=== PATIENT | male | born 1955 | race Caucasian/White ===

== ENCOUNTER 2017-03-25 12:04 | Inpatient (IN) | payer OTHER, MEDICARE ==
[~2017-03-25] VITALS: Ht 182.9 cm; Wt 87.8 kg
[~2017-03-25 12:04] MED LIST: BACT800T5 PO; LEVEMIR SC; LISI2.5T55 PO; NOVONP2 SQ
[2017-03-25 12:07] VITALS: BP 146/63; PULSE 80; RESP 16; TEMP 98.1; O2SAT 98
[2017-03-25 12:43] LABS: AUTOMATED NEUTROPHIL # 5.5 TH/MM3 (1.8-7.7); BASOPHIL # 0.1 TH/MM3 (0-0.2); BASOPHIL % 1.1 % (0.0-2.0); EOSINOPHIL # 0.2 TH/MM3 (0-0.4); EOSINOPHIL % 2.2 % (0.0-4.0); HEMATOCRIT 31.8 % (39.0-51.0); HEMO FLAGS DIFF FINAL; LYMPH % 19.3 % (9.0-44.0); LYMPHOCYTE # 1.5 TH/MM3 (1.0-4.8); MEAN CELL VOLUME 79.3 FL (80.0-100.0); MEAN CORPUSCULAR HEMOGLOBIN 26.2 PG (27.0-34.0); MEAN CORPUSCULAR HGB CONC 33.1 % (32.0-36.0); MONO % 5.6 % (0.0-8.0); NEUT % 71.8 % (16.0-70.0); PLATELET COUNT 587 TH/MM3 (150-450); RED BLOOD COUNT 4.01 MIL/MM3 (4.50-5.90); WHITE BLOOD COUNT 7.7 TH/MM3 (4.0-11.0)
[2017-03-25 13:13] LABS: BICARBONATE 26.3 MEQ/L (21.0-32.0); POTASSIUM 4.3 MEQ/L (3.5-5.1)
[2017-03-25] MEDS ORDERED: LEVEMIR SQ (14:23)
[2017-03-25] MEDS ORDERED: HUMALOG SQ (14:23)
--- NOTE | 2017-03-25 14:23 | PD ---
HPI Chief Complaint: Lump, Cyst, Hernia Time Seen by Provider: 14:19 Travel History International Travel<30 days: No Contact w/Intl Traveler<30days: No Traveled to known affect area: No History of Present Illness HPI 61-year-old male presents to the emergency department for evaluation of left foot infection. He was sent here by Dr. Johnson, fisher spear. He was sent here for admission to hospitalist for MRI with and without contrast left foot, IV antibiotics. He needs a possible osteomyelitis workup. The patient reports a history of toe infection in 2007. He had reconstructive surgery in 2014 with rods placed in his left foot. He states that he has noticed worsening swelling within the past month. He states he had a blister the top of his left foot which ruptured on Tuesday of this week. He called his fisher spear, Dr. Johnson, who made an appointment for today. Upon seeing him today, Dr. Johnson irrigated and cleaned the wound and sent him to the emergency department for admission. He has not been on antibiotics at this point. Patient is diabetic with peripheral neuropathy. He has no pain secondary to the peripheral neuropathy. Dr. Johnson would like admission to hospital, MRI with and without , IV antibiotics. PFSH Past Medical History Diabetes: Yes Neurologic: Yes (diabetic neuropathy) Social History Alcohol Use: No Tobacco Use: No Substance Use: No Allergies-Medications (Allergen,Severity, Reaction): Coded Allergies: Zosyn (Verified Allergy, Unknown, 05/25/16) Reported Meds & Prescriptions Reported Meds & Active Scripts Active Reported Levemir Inj (Insulin Detemir) 1,000 unit/ 10 ML Vial 40 Units SQ BID Do not mix with any other Insulin. Humalog Inj (Insulin Human Lispro) 1,000 Unit/10 Ml Vial 1-9 Units SQ ACHS Max dose at bedtime:( )units; sugars< 70,(0)units; sugars 150-199,(1)unit; sugars 200-249,(3)units; sugars 250-299,(5)units; sugars 300-349,(7)units; sugars more than 349,(9)units. Review of Systems Except as stated in HPI: all other systems reviewed are Neg Physical Exam Narrative GENERAL: Well-nourished, well-developed male patient, ambulatory. Afebrile. SKIN: Focused skin assessment warm/dry. Patient has a 4 cm x 2 cm ulcer to the left dorsal foot. No current drainage. HEAD: Normocephalic. Atraumatic. EYES: No scleral icterus. No injection or drainage. NECK: Supple, trachea midline. No JVD or lymphadenopathy. CARDIOVASCULAR: Regular rate and rhythm without murmurs, gallops, or rubs. Left pedal pulse is 2+. RESPIRATORY: Breath sounds equal bilaterally. No accessory muscle use. Lungs sounds are clear to auscultation. GASTROINTESTINAL: Abdomen soft, non-tender, nondistended. MUSCULOSKELETAL: No cyanosis. Left lower extremity has 2+ edema. BACK: Nontender without obvious deformity. No CVA tenderness. Data Data Last Documented VS Vital Signs Date Time Temp Pulse Resp B/P Pulse Ox O2 Delivery O2 Flow Rate FiO2 03/25/17 14:36 98.2 73 18 140/67 100 Room Air Orders Complete Blood Count With Diff (03/25/17 12:17) Basic Metabolic Panel (Bmp) (03/25/17 12:17) Lactic Acid (03/25/17 12:17) C-Reactive Protein (Crp) (03/25/17 14:16) Westergren Sedimentation Rate (03/25/17 14:16) Mri Foot W&W/O Contrast (03/25/17 ) Us Leg Venous Doppler (03/25/17 ) Blood Culture (03/25/17 14:16) Vancomycin Inj (Vancomycin Inj) (03/25/17 14:30) Consult Podiatry (03/25/17 ) Place In Observation (03/25/17 ) Vital Signs (Adult) Q4H (03/25/17 16:43) Activity Oob Ad Oriana (03/25/17 16:43) Diet 1800 Ada Cons Carb (03/25/17 Dinner) Sodium Chloride 0.9% Flush (Ns Flush) (03/25/17 16:45) Sodium Chloride 0.9% Flush (Ns Flush) (03/25/17 21:00) Ondansetron Inj (Zofran Inj) (03/25/17 16:45) Enoxaparin Inj (Lovenox Inj) (03/25/17 16:45) Naloxone Inj (Narcan Inj) (03/25/17 16:45) (Hub Use Only)Inp Phy Cons/Ref (03/25/17 ) Admit Order (Ed Use Only) (03/25/17 16:47) Labs Laboratory Tests Test 03/25/17 03/25/17 12:25 14:34 White Blood Count 7.7 TH/MM3 Red Blood Count 4.01 MIL/MM3 Hemoglobin 10.5 GM/DL Hematocrit 31.8 % Mean Corpuscular Volume 79.3 FL Mean Corpuscular Hemoglobin 26.2 PG Mean Corpuscular Hemoglobin 33.1 % Concent Red Cell Distribution Width 15.0 % Platelet Count 587 TH/MM3 Mean Platelet Volume 6.6 FL Neutrophils (%) (Auto) 71.8 % Lymphocytes (%) (Auto) 19.3 % Monocytes (%) (Auto) 5.6 % Eosinophils (%) (Auto) 2.2 % Basophils (%) (Auto) 1.1 % Neutrophils # (Auto) 5.5 TH/MM3 Lymphocytes # (Auto) 1.5 TH/MM3 Monocytes # (Auto) 0.4 TH/MM3 Eosinophils # (Auto) 0.2 TH/MM3 Basophils # (Auto) 0.1 TH/MM3 CBC Comment DIFF FINAL Differential Comment Erythrocyte Sedimentation Rate 83 mm/hr Sodium Level 141 MEQ/L Potassium Level 4.3 MEQ/L Chloride Level 108 MEQ/L Carbon Dioxide Level 26.3 MEQ/L Anion Gap 7 MEQ/L Blood Urea Nitrogen 19 MG/DL Creatinine 1.23 MG/DL Estimat Glomerular Filtration 60 ML/MIN Rate Random Glucose 71 MG/DL Lactic Acid Level 1.2 mmol/L Calcium Level 9.0 MG/DL C-Reactive Protein 6.70 MG/DL [facility] Medical Decision Making Medical Screen Exam Complete: Yes Emergency Medical Condition: Yes Medical Record Reviewed: Yes Interpretation(s) US - CONCLUSION: No evidence of deep venous thrombosis within the left lower extremity. Enlarged left groin node measuring 3.6 cm in size. Differential Diagnosis Diabetic foot infection versus osteomyelitis versus DVT versus sepsis Narrative Course 61-year-old male presents to the emergency department sent by his fisher spear, Dr. Johnson, for admission, IV antibiotics, MRI for possible osteomyelitis. CBC shows normal WBC of 7.7. Sedimentation rate is 83. BUN is 19, cutting 1.23. Lactic acid is 1.2. CRP is 6.70. Venous Doppler ultrasound is negative for DVT. MRI is pending. Patient is given vancomycin 1 g IV. [facility] is paged for admission. Dr. Jones accepted admission. Diagnosis Primary Impression: Diabetic foot ulcer Qualified Code: E11.621 - Diabetic ulcer of left midfoot associated with type 2 diabetes mellitus, with fat layer exposed Admitting Information Admitting Physician Requests: Observation Keri Hussein Mar 25, 2017 14:22
[2017-03-25] MEDS ORDERED: VANCOMYCIN INJ 1,000 MG in SODIUM CHLOR 0.9% 250 ML INJ 250 ML IV ONE (14:30)
[2017-03-25 14:36] VITALS: BP 140/67; PULSE 73; RESP 18; TEMP 98.2; O2SAT 100
--- NOTE | 2017-03-25 15:09 | RADRPT ---
EXAM DATE/TIME: 03/25/2017 14:34 [facility] COMPARISON: No previous studies available for comparison. EXTERNAL COMPARISON : [facility], US SEGMENTAL PRESSURES - LEGS, November 29, 2016 INDICATIONS : Left leg edema. MEDICAL HISTORY : Diabetes. Neuropathy. SURGICAL HISTORY : Reconstructive surgery, left foot with rods. ENCOUNTER: Initial ACUITY: 1 month PAIN SCORE: 2/10 LOCATION: Left leg. TECHNIQUE: Venous ultrasound of the leg was performed from the inguinal ligament to the proximal calf. Real-time, color Doppler and spectral tracing, compression and augmentation techniques were us ed. FINDINGS: There is normal compressibility of the deep venous system from the inguinal region to the proximal ca lf. No echogenic clot is seen in the lumen of the common femoral, femoral, popliteal, and posterior tibial veins. There is a normal response of the venous system to proximal and distal augmentation an d respiration. There is an enlarged left groin lymph node measuring 3.6 x 2.5 x 2.0 cm. CONCLUSION: No evidence of deep venous thrombosis within the left lower extremity. Enlarged left groin node measuring 3.6 cm in size. Johnie Benson MD on March 25, 2017 at 15:03 Board Certified Radiologist. This report was verified electronically.
[2017-03-25] MEDS ORDERED: NALOXONE HCL 0.4 MG/ML AMP IV PRN ×2 (16:45→17:45)
[2017-03-25] MEDS ORDERED: ONDANSETRON HCL 4 MG/2 ML VIAL IVP PRN (16:45)
[2017-03-25] MEDS ORDERED: SODIUM CHLORIDE 0.9% FLUSH 10 ML FLUSH IV FLUSH PRN (16:45)
--- NOTE | 2017-03-25 16:50 | HHI.HP ---
[facility] Mejia Diaz M.D. Admission Diagnosis Diagnoses: Chief Complaint: My wood inspector told me to come in. Travel History International Travel<30 Days: No Contact w/Intl Traveler <30 Da: No Traveled to Known Affected Are: No History of Present Illness 61-year-old white male with a history of insulin-dependent diabetes mellitus with sent here to the emergency room by his podiatry after being seen in the clinic for a large left blister that had ruptured a week ago causing some ulceration. The area was debrided in the office and was sent to emergency room for an MRI to determine if patient has osteomyelitis due to his significant history of previous left foot ulcerations requiring significant foot reconstruction in 2014 due to history of diabetic neuropathy. He denies any recent trauma or injury to the area. He has not had any chills or fever. He states overall he is currently on LEVEMIR 40 units subcutaneous twice a day with a NovoLog sliding scale insulin. His blood sugar overall has been adequately controlled at home. Review of Systems Constitutional: DENIES: Fatigue, Fever, Chills, Change in appetite Endocrine: DENIES: Heat/cold intolerance Eyes: DENIES: Blurred vision, Eye pain, Vision loss Ears, nose, mouth, throat: DENIES: Hearing loss, Nasal discharge, Throat pain, Ear Pain, Sinus Pain Respiratory: DENIES: Cough, Shortness of breath Cardiovascular: DENIES: Chest pain, Palpitations, Dyspnea on Exertion, Lower Extremity Edema Gastrointestinal: DENIES: Abdominal pain, Black stools, Bloody stools, Constipation, Diarrhea, Nausea, Vomiting Musculoskeletal: DENIES: Joint pain, Muscle aches, Stiffness Integumentary: DENIES: Rash Hematologic/lymphatic: DENIES: Bruising, Lymphadenopathy Immunologic/allergic: DENIES: Eczema Neurologic: DENIES: Headache, Localized weakness, Paresthesias Psychiatric: DENIES: Anxiety, Depression, Suicidal Ideation No feeling bilateral lower legs due to diabetic neuropathy. Previous left lower leg ulceration Past Family Social History Past Medical History Insulin-dependent diabetes mellitus Diabetic neuropathy Past Surgical History Left third toe indication due to infection Left foot reconstruction with rods in 2015 Reported Medications Levemir Inj (Insulin Detemir) 1,000 unit/ 10 ML Vial 40 Units SQ BID Do not mix with any other Insulin. Humalog Inj (Insulin Human Lispro) 1,000 Unit/10 Ml Vial 1-9 Units SQ ACHS Max dose at bedtime:( )units; sugars< 70,(0)units; sugars 150-199,(1)unit; sugars 200-249,(3)units; sugars 250-299,(5)units; sugars 300-349,(7)units; sugars more than 349,(9)units. Allergies: Coded Allergies: Zosyn (Verified Allergy, Unknown, 05/25/16) Family History Patient was adopted Social History Does not smoke cigarettes or drink alcohol. Physical Exam Vital Signs Vital Signs Date Time Temp Pulse Resp B/P Pulse Ox O2 Delivery O2 Flow Rate FiO2 03/25/17 14:36 98.2 73 18 140/67 100 Room Air 03/25/17 14:18 77 18 03/25/17 12:07 98.1 80 16 146/63 98 Physical Exam GENERAL: This is a well-nourished, well-developed patient, in no apparent distress. SKIN: Left dorsal overlying the radicular foot wound with surrounding erythema with no active drainage. HEAD: Atraumatic. Normocephalic. No temporal or scalp tenderness. EYES: Pupils equal round and reactive. Extraocular motions intact. No scleral icterus. No injection or drainage. ENT: Nose without bleeding, purulent drainage or septal hematoma. Throat without erythema, tonsillar hypertrophy or exudate. Uvula midline. Airway patent. NECK: Trachea midline. No JVD or lymphadenopathy. Supple, nontender, no meningeal signs. CARDIOVASCULAR: Regular rate and rhythm RESPIRATORY: Clear to auscultation. Breath sounds equal bilaterally. No wheezes , rales, or rhonchi. GASTROINTESTINAL: Abdomen soft, non-tender, nondistended. No hepato-splenomegaly , or palpable masses. No guarding. MUSCULOSKELETAL: Extremities without clubbing, cyanosis, or edema. Left lower extremity swelling with no palpable cords. NEUROLOGICAL: Awake and alert to person place time and situation. Cranial nerves II through XII intact. Motor and sensory grossly within normal limits. Five out of 5 muscle strength in all muscle groups. Normal speech. Laboratory Laboratory Tests Test 03/25/17 03/25/17 12:25 14:34 White Blood Count 7.7 Red Blood Count 4.01 Hemoglobin 10.5 Hematocrit 31.8 Mean Corpuscular Volume 79.3 Mean Corpuscular Hemoglobin 26.2 Mean Corpuscular Hemoglobin 33.1 Concent Red Cell Distribution Width 15.0 Platelet Count 587 Mean Platelet Volume 6.6 Neutrophils (%) (Auto) 71.8 Lymphocytes (%) (Auto) 19.3 Monocytes (%) (Auto) 5.6 Eosinophils (%) (Auto) 2.2 Basophils (%) (Auto) 1.1 Neutrophils # (Auto) 5.5 Lymphocytes # (Auto) 1.5 Monocytes # (Auto) 0.4 Eosinophils # (Auto) 0.2 Basophils # (Auto) 0.1 CBC Comment DIFF FINAL Differential Comment Erythrocyte Sedimentation Rate 83 Sodium Level 141 Potassium Level 4.3 Chloride Level 108 Carbon Dioxide Level 26.3 Anion Gap 7 Blood Urea Nitrogen 19 Creatinine 1.23 Estimat Glomerular Filtration 60 Rate Random Glucose 71 Lactic Acid Level 1.2 Calcium Level 9.0 C-Reactive Protein 6.70 Date/Time Procedure Status Source Growth 03/25/17 14:34 Aerobic Blood Culture Received Blood Peripheral Pending 03/25/17 14:34 Anaerobic Blood Culture Received Blood Peripheral Pending Result Diagram: 03/25/17 1225 03/25/17 1225 Imaging Last Impressions Lower Extremity Ultrasound 03/25/17 0000 Signed Impressions: Service Date/Time: Saturday, March 25, 2017 14:34 - CONCLUSION: No evidence of deep venous thrombosis within the left lower extremity. Enlarged left groin node measuring 3.6 cm in size. Johnie Benson MD Assessment and Plan Problem List: (1) Charcot foot due to diabetes mellitus ICD Code: E11.610 Status: Acute Assessment and Plan 1. Left acute charcot foot infected ulceration status post office debridement at this time MRI left foot performed to rule osteomyelitis. IV vancomycin started in emergency room. Continue local wound care. Discuss with Dr. Newsome podiatry who feels this breakdown of previous reconstruction of the charcoal foot and high risk for bone infection. He will need further inpatient treatment and surgical intervention. 2. Insulin-dependent diabetes mellitusresume home insulin regimen, blood sugar monitoring with sliding scale insulin. 3. DVT prophylaxisLovenox Physician Certification 2 Midnight Certification Type: Admission for Inpatient Services Order for Inpatient Services The services are ordered in accordance with Medicare regulations or non- Medicare payer requirements, as applicable. In the case of services not specified as inpatient-only, they are appropriately provided as inpatient services in accordance with the 2-midnight benchmark. Estimated LOS (days): 4 days is the estimated time the patient will need to remain in the hospital, assuming treatment plan goals are met and no additional complications. Post-Hospital Plan: Not yet determined Marcella Jones MD Mar 25, 2017 16:50
[2017-03-25] MEDS ORDERED: Vancomycin Consult Pharmacy 1 EA OTHER SCH (17:00)
[2017-03-25] MEDS ORDERED: GLUCAGON 1 MG/ML VIAL OTHER PRN (17:00)
[2017-03-25] MEDS ORDERED: DEXTROSE 50% IN WATER 50 ML VIAL(D50) IV PRN (17:00)
[2017-03-25] MEDS ORDERED: MAGNESIUM HYDROXIDE SUSP 30 ML CUP PO PRN (17:45)
[2017-03-25] MEDS ORDERED: LACTULOSE SYRUP 20 GM/30 ML CUP PO PRN (17:45)
[2017-03-25] MEDS ORDERED: SENNOSIDES 8.6 MG TAB PO PRN (17:45)
[2017-03-25] MEDS ORDERED: ACETAMINOPHEN/HYDROcodone 325 MG/7.5 MG TAB PO PRN (17:45)
[2017-03-25] MEDS ORDERED: BISACODYL 10 MG SUPP RECTAL PRN (17:45)
[2017-03-25] MEDS ORDERED: ACETAMINOPHEN 325 MG TAB PO PRN (17:45)
--- NOTE | 2017-03-25 17:57 | RADRPT ---
EXAM DATE/TIME: 03/25/2017 17:35 [facility] COMPARISON: No previous studies available for comparison. INDICATIONS : Left ankle pain, swelling MEDICAL HISTORY : None. SURGICAL HISTORY : Left foot rods. ENCOUNTER: Initial ACUITY: 1 month PAIN SCORE: 3/10 LOCATION: Left entire ankle FINDINGS: Extensive hardware is seen bridging the hindfoot to the forefoot. There are erosive changes about th e tibial plafond with collapse of the talar dome. There is joint effusion evident. There is periosteal reaction along the course of the interosseous ligament. There is coalescence and collapse of the tarsals. Osteomyelitis is of strong consideration and will be difficult to exclude because of the artifact fro m the hardware. CONCLUSION: Markedly abnormal radiographs of the ankle. Correlation within in the old films woul d be of benefit. Arun Pedro MD FACR on March 25, 2017 at 17:52 Board Certified Radiologist. This report was verified electronically.
--- NOTE | 2017-03-25 17:59 | RADRPT ---
EXAM DATE/TIME: 03/25/2017 17:33 [facility] COMPARISON: No previous studies available for comparison. INDICATIONS : Open sore on plantar surface of left foot MEDICAL HISTORY : Diabetes mellitus type II. SURGICAL HISTORY : Third toe amputation, left foot. Left foot rods. ENCOUNTER: Initial ACUITY: 1 month PAIN SCORE: 3/10 LOCATION: Left plantar surface of foot FINDINGS: Pins are seen bridging the first phalanx, first metatarsal and hindfoot. There is lucency about the pin suggesting loosening, motion and possible infection. The second pin bridges the second metatarsa l to the hindfoot with similar findings. There is no bony destruction about the phalanges. The dist al third metacarpal and phalanx are surgically absent. CONCLUSION: Evidence for erosion and hardware loosening as described above. Inflammatory process would be consid eration. Arun Pedro MD FACR on March 25, 2017 at 17:55 Board Certified Radiologist. This report was verified electronically.
--- NOTE | 2017-03-25 18:17 | RADRPT ---
EXAM DATE/TIME: 03/25/2017 15:59 [facility] COMPARISON: FOOT LEFT COMPLETE ([id number]), March 25, 2017, 17:33. INDICATIONS : Pain and swelling in the left foot. Open sore along the plantar surface. Abnormal x-ray demonstrating extensive hardware with evidence of loosening extensive degenerative changes in the mid and hindfoot . CONTRAST: 16 cc Omniscan (gadodiamide) IV MEDICAL HISTORY : Diabetes. SURGICAL HISTORY : Discectomy, lumbar. Third toe amputation, left foot. Left foot rods. ENCOUNTER: Subsequent ACUITY: 2 weeks PAIN SCORE: 0/10 LOCATION: Left foot TECHNIQUE: Multiplanar, multisequence MRI examination was performed without contrast and after the intravenous a dministration of gadolinium. FINDINGS: Suboptimal examination secondary to extensive susceptibility artifact secondary to the surgical pins in the first and second digits which extend into the mid foot region. There are multiple surgical fr acture screws also noted in the calcaneus with extensive susceptibility artifact. The majority of the bony structures and marrow are not well-visualized. There are severe degenerative changes involving the metatarsal tarsal joints and intertarsal joints with joint space loss, sclerosis and hypertrophic change which is poorly visualized as well. There are numerous small areas of susceptibility artifact as well. There is a large complex fluid collection along the anterior ankle measuring up to approxim ately 5.6 x 3 x 2.1 cm in diameter. Extensive degenerative changes are also noted involving the tibio talar joint is poorly visualized. There is evidence of pes planus. The post contrast study is extreme ly limited as well no definite focal enhancement however this could easily be obscured. CONCLUSION: 1. Severely suboptimal study secondary to extensive susceptibility artifact secondary to the multiple surgical hardware severely limiting visualization throughout the foot. Osteomyelitis cannot be exclu ded. 2. Large complex fluid collection along the anterior joint which may represent a large joint effusion . 3. Extensive postsurgical change with multiple metal rods. There is extensive degenerative change in the mid and hindfoot which is poorly visualized. 4. Pes planus 1. Tom Hdz MD on March 25, 2017 at 18:08 Board Certified Radiologist. This report was verified electronically.
[2017-03-25] MEDS: ENOXAPARIN SODIUM 40 MG/0.4 ML SYRINGE SQ SCH (18:48)
[2017-03-25 18:54] VITALS: BP 162/72; PULSE 75; RESP 18; TEMP 98.4; O2SAT 100
--- NOTE | 2017-03-25 19:00 | MB ---
cc: ALFREDO BOLTON DPM DATE OF CONSULTATION 03/25/17 REASON FOR CONSULTATION Left diabetic foot infection. HISTORY OF PRESENT ILLNESS This is a 61-year-old male who was previously seen at our clinic by my previous associate, Dr. Deven Johnson. There was noted to be a full-thickness blister that was debrided in the office. The patient explains approximately one week ago he developed redness and swelling and then a blister formed. Prior to this, the patient has a history of a Charcot reconstruction in 2014 with multiple screws that have been placed within his foot. The patient is currently disabled secondary to his foot ailment. He explains his last hemoglobin A1c was in the high 7s, low 8s. PAST MEDICAL HISTORY 1. Insulin-dependent diabetes, 2. Diabetic neuropathy. PAST SURGICAL HISTORY 1. Left foot sharp low reconstruction with hindfoot and midfoot fusion 2. Left third digit amputation secondary to infection. MEDICATIONS Outpatient, 1. Levemir 2. Humalog Inpatient medications reviewed. He is receiving vancomycin. Please see complete med list in chart. ALLERGIES ZOSYN FAMILY HISTORY He was adopted. He does not smoke. PHYSICAL EXAMINATION VITAL SIGNS: Temperature is 98.2, pulse rate 73, respiratory rate 18, blood pressure is 140/67. He is satting 100% on room air. GENERAL: This is an alert and oriented male seen bedside exhibiting nonlabored respirations. The right foot appears to be without any obvious issues. The left foot is examined. There is noted to be edema and swelling from the calf down to the ankle. Upon evaluating the patient's foot, there is a full-thickness ulceration over the dorsum of the foot at the level where the talus and navicular would be. It appears to probe directly to periosteum and deep fat. There is noted to be mixed stephens tissue. No obvious odor. No obvious signs of soft tissue emphysema. There is some drainage coming from the area. It appears to be serous. The patient's foot is stressed and brought through range of motion. There appears to be limited range of motion, but there is very mild crepitus felt. Pedal pulses are fully palpable. Sensation is not intact below the patient's ankle. The patient does have some use of the ankle, but limited muscle strength is noted. There is an absent third digit but a well-healed amputation site. Wound measurements are approximately 2.5 cm x 2.5 cm with 1.5 cm of depth. It is full-thickness with some viability seen at the edges of the wound. LABORATORY FINDINGS White blood cell 7.7, hemoglobin/hematocrit 10/31, platelet count is 587, ESR is elevated at 83. Chem-7 - sodium is 141, potassium 4.3, chloride 108, CO2 26.3, BUN is 19, creatinine is 1.23, random glucose 71. C-reactive protein is 6.7. IMAGING STUDIES Formal radiology dictation is still pending on the MRI and x-ray of the foot. However, the Doppler appears to be no evidence of DVT. Upon reviewing the foot x-rays there is multiple long screws, one within the first metatarsal and the second metatarsal. There appears to be radiolysis around the screws. This appears to intersect at the level of the talonavicular joint. There are also multiple screws within the talus in the body of the calcaneus. There is possible radiolysis seen around the hardware indicating possibility of either loosening or bony changes that could correlate with osteomyelitis. The MRI has significant artifact. I cannot really appreciate if there is a deep abscess, however, no apparent gas within the tissue. White blood cell SPECT CT has been ordered at this time. Microbial findings blood cultures pending. Order has been put in for nursing to obtain culture of the wound and some tissue. ASSESSMENT/PLAN Left diabetic foot ulcer, possible acute Charcot versus full-thickness hematoma due to failure of hardware, rule out osteomyelitis. This patient is quite complex. He has had postsurgical changes. At this point in time, I am uncertain if the bone is infected. I am requesting a white blood cell labeled bone SPECT CT so I can visualize how many bones may be involved. My fear is that the hardware needs to be removed and, if this happens, the patient will likely have a nonfunctional foot. Furthermore, if multiple bones show that they are infected the chance of eradicating osteomyelitis and leaving the foot viable goes significantly down. I educated the patient on the likely poor prognosis of his limb. He wishes for all limb salvage efforts. I will comment further pending the culture, his clinical progress as well as the white blood cell scan. The patient is strict non-weightbearing at this time. BULMARO Conklin /6:06 PM /6:46 PM
[2017-03-25] MEDS ORDERED: GADODIAMIDE PF 287 MG/ML 5 ML VIAL (for RAD MRI) IV ONE (19:15)
[2017-03-25] MEDS ORDERED: ZOLPIDEM TARTRATE 5 MG TAB PO PRN (21:00)
[2017-03-25] MEDS: INSULIN DETEMIR 100 UNITS/ML VIAL SQ SCH (21:47)
[2017-03-25] MEDS: INSULIN ASPART SUPPLEMENTAL SCALE SQ SCH (21:48)
[2017-03-25] MEDS: SODIUM CHLORIDE 0.9% FLUSH 10 ML FLUSH IV FLUSH SCH (21:51)
[2017-03-25 23:29] VITALS: BP 123/56; PULSE 71; RESP 18; TEMP 98.4; O2SAT 95
[2017-03-26] MEDS ORDERED: VANCOMYCIN INJ 1,000 MG in SODIUM CHLOR 0.9% 250 ML INJ 250 ML IV SCH (02:30)
[2017-03-26 04:07] VITALS: BP 125/55; PULSE 70; RESP 18; TEMP 98.2; O2SAT 96
[2017-03-26] MEDS: INSULIN ASPART SUPPLEMENTAL SCALE SQ SCH ×4 (06:42→20:59)
[2017-03-26 08:06] VITALS: BP 138/60; PULSE 67; RESP 17; TEMP 98; O2SAT 99
[2017-03-26] MEDS: SODIUM CHLORIDE 0.9% FLUSH 10 ML FLUSH IV FLUSH SCH ×2 (09:37→20:57)
[2017-03-26] MEDS: INSULIN DETEMIR 100 UNITS/ML VIAL SQ SCH ×2 (09:38→21:00)
--- NOTE | 2017-03-26 11:57 | HHI.PR ---
Subjective Remarks Follow-up for diabetic foot infection. Patient seen with podiatry at bedside. The patient has a large acute ulcer on the top of his left foot that has been present since earlier this week. He is hoping to be able to salvage his foot and to avoid amputations. He states that pain is minimal. He states that normally he is on NovoLog sliding scale at home and usually takes 5 units, 10 units, R 15 units based on his blood sugar measurements. He denies any fevers or chills. He is now agreeable to WBC scan. Objective Vitals Vital Signs Date Time Temp Pulse Resp B/P Pulse Ox O2 Delivery O2 Flow Rate FiO2 03/26/17 08:06 98.0 67 17 138/60 99 03/26/17 04:07 98.2 70 18 125/55 96 03/25/17 23:29 98.4 71 18 123/56 95 03/25/17 18:54 98.4 75 18 162/72 100 03/25/17 14:36 98.2 73 18 140/67 100 Room Air 03/25/17 14:18 77 18 03/25/17 12:07 98.1 80 16 146/63 98 Result Diagram: 03/25/17 1225 03/26/17 0415 Imaging Last Impressions Lower Extremity Ultrasound 03/25/17 0000 Signed Impressions: Service Date/Time: Saturday, March 25, 2017 14:34 - CONCLUSION: No evidence of deep venous thrombosis within the left lower extremity. Enlarged left groin node measuring 3.6 cm in size. Johnie Benson MD Foot X-Ray 03/25/17 0000 Signed Impressions: Service Date/Time: Saturday, March 25, 2017 17:33 - CONCLUSION: Evidence for erosion and hardware loosening as described above. Inflammatory process would be consideration. Arun Pedro MD FACR Foot MRI 03/25/17 0000 Signed Impressions: Service Date/Time: Saturday, March 25, 2017 15:59 - CONCLUSION: 1. Severely suboptimal study secondary to extensive susceptibility artifact secondary to the multiple surgical hardware severely limiting visualization throughout the foot. Osteomyelitis cannot be excluded. 2. Large complex fluid collection along the anterior joint which may represent a large joint effusion. 3. Extensive postsurgical change with multiple metal rods. There is extensive degenerative change in the mid and hindfoot which is poorly visualized. 4. Pes planus 1. Tom Hdz MD Ankle X-Ray 03/25/17 0000 Signed Impressions: Service Date/Time: Saturday, March 25, 2017 17:35 - CONCLUSION: Markedly abnormal radiographs of the ankle. Correlation within in the old films would be of benefit. Arun Pedro MD FACR Objective Remarks GENERAL: Well-developed well-nourished. In no acute distress. SKIN: Warm and dry. Left foot as below. HEENT: Normocephalic. Pupils equal and round. Mucous membranes pink and moist. CARDIOVASCULAR: Regular rate and rhythm. No murmur appreciated. RESPIRATORY: No accessory muscle use. Clear to auscultation. Breath sounds equal bilaterally. GASTROINTESTINAL: Abdomen soft, non-tender, nondistended. Bowel sounds x4. MUSCULOSKELETAL: Left foot with large open dorsal ulceration. No clubbing or cyanosis. No edema. NEUROLOGICAL: Awake and alert. No focal neurological deficits. Moves upper and lower extremities spontaneously. Normal speech. PSYCHIATRIC: Appropriate mood and affect; insight and judgment normal. A/P Problem List: (1) Charcot foot due to diabetes mellitus ICD Code: E11.610 Status: Acute Assessment and Plan 61-year-old male with past medical history of DM, neuropathy who presented with diabetic foot ulcer Left acute charcot foot infected ulceration: Foot MRI and x-ray personally reviewed, findings are not conclusive due to extensive hardware. Podiatry consulted, discussed with, appreciate input. Podiatry has ordered WBC scan. Cannot rule out osteomyelitis. Continue on IV vancomycin. Follow-up cultures. Pain control as needed. Insulin-dependent diabetes mellitus: Continue home Levemir. Increase NovoLog sliding scale to medium, may need to further increase to high scale as per home dose. DVT prophylaxisLovenox Discharge Planning Follow-up further foot imaging and podiatry recommendations. [place] Mar 26, 2017 11:57
--- NOTE | 2017-03-26 11:57 | PD.POD ---
Subjective Pain score: 1 Remarks No impressive left foot pain at this time. Past Med/Surg/Social History Social History Smoking Status: Never Smoker Objective Vital Signs Vital Signs Date Time Temp Pulse Resp B/P Pulse Ox O2 Delivery O2 Flow Rate FiO2 03/26/17 08:06 98.0 67 17 138/60 99 03/26/17 04:07 98.2 70 18 125/55 96 03/25/17 23:29 98.4 71 18 123/56 95 03/25/17 18:54 98.4 75 18 162/72 100 03/25/17 14:36 98.2 73 18 140/67 100 Room Air 03/25/17 14:18 77 18 03/25/17 12:07 98.1 80 16 146/63 98 Coded Allergies: Zosyn (Verified Allergy, Unknown, 05/25/16) Medications and IVs Last 72 hours Impressions Lower Extremity Ultrasound 03/25/17 0000 Signed Impressions: Service Date/Time: Saturday, March 25, 2017 14:34 - CONCLUSION: No evidence of deep venous thrombosis within the left lower extremity. Enlarged left groin node measuring 3.6 cm in size. Johnie Benson MD Foot X-Ray 03/25/17 0000 Signed Impressions: Service Date/Time: Saturday, March 25, 2017 17:33 - CONCLUSION: Evidence for erosion and hardware loosening as described above. Inflammatory process would be consideration. Arun Pedro MD FACR Foot MRI 03/25/17 0000 Signed Impressions: Service Date/Time: Saturday, March 25, 2017 15:59 - CONCLUSION: 1. Severely suboptimal study secondary to extensive susceptibility artifact secondary to the multiple surgical hardware severely limiting visualization throughout the foot. Osteomyelitis cannot be excluded. 2. Large complex fluid collection along the anterior joint which may represent a large joint effusion. 3. Extensive postsurgical change with multiple metal rods. There is extensive degenerative change in the mid and hindfoot which is poorly visualized. 4. Pes planus 1. Tom Hdz MD Ankle X-Ray 03/25/17 0000 Signed Impressions: Service Date/Time: Saturday, March 25, 2017 17:35 - CONCLUSION: Markedly abnormal radiographs of the ankle. Correlation within in the old films would be of benefit. Arun Pedro MD FACR Other Results Laboratory Tests Test 03/25/17 12:25 White Blood Count 7.7 TH/MM3 Red Blood Count 4.01 MIL/MM3 Hemoglobin 10.5 GM/DL Hematocrit 31.8 % Mean Corpuscular Volume 79.3 FL Mean Corpuscular Hemoglobin 26.2 PG Mean Corpuscular Hemoglobin 33.1 % Concent Red Cell Distribution Width 15.0 % Platelet Count 587 TH/MM3 Mean Platelet Volume 6.6 FL Neutrophils (%) (Auto) 71.8 % Lymphocytes (%) (Auto) 19.3 % Monocytes (%) (Auto) 5.6 % Eosinophils (%) (Auto) 2.2 % Basophils (%) (Auto) 1.1 % Neutrophils # (Auto) 5.5 TH/MM3 Lymphocytes # (Auto) 1.5 TH/MM3 Monocytes # (Auto) 0.4 TH/MM3 Eosinophils # (Auto) 0.2 TH/MM3 Basophils # (Auto) 0.1 TH/MM3 CBC Comment DIFF FINAL Differential Comment Erythrocyte Sedimentation Rate 83 mm/hr Laboratory Tests Test 03/25/17 03/25/17 03/26/17 12:25 14:34 04:15 Sodium Level 141 MEQ/L Potassium Level 4.3 MEQ/L Chloride Level 108 MEQ/L Carbon Dioxide Level 26.3 MEQ/L Anion Gap 7 MEQ/L Blood Urea Nitrogen 19 MG/DL Creatinine 1.23 MG/DL 1.12 MG/DL Estimat Glomerular Filtration 60 ML/MIN 67 ML/MIN Rate Random Glucose 71 MG/DL Lactic Acid Level 1.2 mmol/L Calcium Level 9.0 MG/DL C-Reactive Protein 6.70 MG/DL Microbiology Date/Time Procedure Status Source Growth 03/25/17 14:24 Aerobic Blood Culture - Preliminary Resulted Blood Peripheral NO GROWTH IN 1 DAY 03/25/17 14:24 Anaerobic Blood Culture - Preliminary Resulted Blood Peripheral NO GROWTH IN 1 DAY 03/25/17 14:34 Aerobic Blood Culture - Preliminary Resulted Blood Peripheral NO GROWTH IN 1 DAY 03/25/17 14:34 Anaerobic Blood Culture - Preliminary Resulted Blood Peripheral NO GROWTH IN 1 DAY 03/26/17 09:48 Gram Stain Received Wound Foot Pending 03/26/17 09:48 Wound Culture Received Wound Foot Pending Physical Exam Remarks GENERAL: This is an alert and oriented male seen bedside exhibiting nonlabored respirations. The right foot appears to be without any obvious issues. The left foot is examined. There is noted to be edema and swelling from the calf down to the ankle. Upon evaluating the patient's foot, there is a full-thickness ulceration over the dorsum of the foot at the level where the talus and navicular would be. It appears to probe directly to periosteum and deep fat. There is noted to be mixed stephens tissue. No obvious odor. No obvious signs of soft tissue emphysema. There is some drainage coming from the area. It appears to be serous. The patient's foot is stressed and brought through range of motion. There appears to be limited range of motion, but there is very mild crepitus felt at the TN joint Pedal pulses are fully palpable. Sensation is not intact below the patient's ankle. The patient does have some use of the ankle, but limited muscle strength is noted. There is an absent third digit but a well-healed amputation site. Wound measurements are approximately 2.5 cm x 2.5 cm with 1.5 cm of depth. It is full-thickness with some viability seen at the edges of the wound. Assessment & Plan A/P Left foot ulcer, re- charcot vs OM, possible infected hardware. Awaiting WBC Scan for further recommendation. Poor prognosis given the amount of hardware and possible need for removal. Patient does not want to consider BK. Will continue to evaluate for limb salvage. Packing placed within the wound, ordered Post splint for immobilization. Buzz Newsome DPM Mar 26, 2017 11:57
[2017-03-26 12:00] VITALS: BP 136/65; PULSE 78; RESP 18; TEMP 98.2; O2SAT 99
[2017-03-26] MEDS: VANCOMYCIN INJ 1,250 MG in SODIUM CHLOR 0.9% 250 ML INJ 250 ML IV SCH (13:09)
[2017-03-26 16:00] VITALS: BP 137/66; PULSE 80; PULSE 99; RESP 16; RESP 18; TEMP 98; TEMP 98.2; O2SAT 99
[2017-03-26] MEDS: ENOXAPARIN SODIUM 40 MG/0.4 ML SYRINGE SQ SCH (19:02)
[2017-03-26 22:00] VITALS: BP 152/68; PULSE 72; RESP 18; TEMP 97.9; O2SAT 99
[2017-03-27] VITALS: BP 112/63; PULSE 68; RESP 18; TEMP 97.7; O2SAT 97
[2017-03-27 04:00] VITALS: BP 128/66; PULSE 57; RESP 16; TEMP 97.9; O2SAT 98
[2017-03-27] MEDS: VANCOMYCIN INJ 1,250 MG in SODIUM CHLOR 0.9% 250 ML INJ 250 ML IV SCH ×2 (05:28→22:41)
[2017-03-27] MEDS: INSULIN ASPART SUPPLEMENTAL SCALE SQ SCH ×4 (06:32→20:31)
[2017-03-27 08:00] VITALS: BP 155/66; PULSE 76; RESP 18; TEMP 97.4; O2SAT 100
[2017-03-27] MEDS: SODIUM CHLORIDE 0.9% FLUSH 10 ML FLUSH IV FLUSH SCH ×2 (08:48→20:27)
[2017-03-27] MEDS: INSULIN DETEMIR 100 UNITS/ML VIAL SQ SCH ×2 (08:53→20:30)
--- NOTE | 2017-03-27 11:40 | HHI.PR ---
Subjective Remarks Patient feels his foot is improving. Nuclear medicine imaging ongoing. Removal of hardware and amputation are not options per patient, even if we recommend them. Objective Vital Signs Date Time Temp Pulse Resp B/P Pulse Ox O2 Delivery O2 Flow Rate FiO2 03/27/17 08:35 Room Air 03/27/17 08:00 97.4 76 18 155/66 100 03/27/17 04:00 Room Air 03/27/17 04:00 97.9 57 16 128/66 98 03/27/17 00:00 Room Air 03/27/17 00:00 97.7 68 18 112/63 97 03/26/17 22:00 97.9 72 18 152/68 99 03/26/17 16:00 98.2 80 16 137/66 99 03/26/17 12:00 98.2 78 18 136/65 99 I/O 03/26/17 03/26/17 03/26/17 03/27/17 03/27/17 03/27/17 07:00 15:00 23:00 07:00 15:00 23:00 Intake Total 240 ml Output Total 400 ml Balance -160 ml Intake Oral 240 ml Output Urine Total 400 ml # Bowel Movements 0 Result Diagram: 03/25/17 1225 03/27/17 0720 Imaging Last Impressions Lower Extremity Ultrasound 03/25/17 0000 Signed Impressions: Service Date/Time: Saturday, March 25, 2017 14:34 - CONCLUSION: No evidence of deep venous thrombosis within the left lower extremity. Enlarged left groin node measuring 3.6 cm in size. Johnie Benson MD Foot X-Ray 03/25/17 0000 Signed Impressions: Service Date/Time: Saturday, March 25, 2017 17:33 - CONCLUSION: Evidence for erosion and hardware loosening as described above. Inflammatory process would be consideration. Arun Pedro MD FACR Foot MRI 03/25/17 0000 Signed Impressions: Service Date/Time: Saturday, March 25, 2017 15:59 - CONCLUSION: 1. Severely suboptimal study secondary to extensive susceptibility artifact secondary to the multiple surgical hardware severely limiting visualization throughout the foot. Osteomyelitis cannot be excluded. 2. Large complex fluid collection along the anterior joint which may represent a large joint effusion. 3. Extensive postsurgical change with multiple metal rods. There is extensive degenerative change in the mid and hindfoot which is poorly visualized. 4. Pes planus 1. Tom Hdz MD Ankle X-Ray 03/25/17 0000 Signed Impressions: Service Date/Time: Saturday, March 25, 2017 17:35 - CONCLUSION: Markedly abnormal radiographs of the ankle. Correlation within in the old films would be of benefit. Arun Pedro MD FACR Objective Remarks GENERAL: NAD, A&Ox3 HEAD: Normocephalic. NECK: Supple, trachea midline. No lymphadenopathy. EYES: No scleral icterus. No injection or drainage. CARDIOVASCULAR: Regular rate and rhythm without murmurs, gallops, or rubs. RESPIRATORY: Breath sounds equal bilaterally. No accessory muscle use. GASTROINTESTINAL: Abdomen soft, non-tender, nondistended. MUSCULOSKELETAL: No cyanosis, or edema. Left lower extremity bandaged SKIN: Warm and dry. NEURO: No focal neurological deficitis. Medications and IVs Administered Medications Medications (Trade) Dose Ordered Sig/Emerson Route PRN Reason Start Time Stop Time Status Last Admin Dose Admin Sodium Chloride (NS Flush) 2 ml BID IV FLUSH 03/25/17 21:00 03/27/17 08:48 Insulin Detemir 40 units 40 units BID SQ 03/25/17 21:00 03/27/17 08:53 Vancomycin HCl/ Sodium Chloride (Vancomycin Inj/ NS 250 ml Inj) 262.5 ml @ 250 mls/hr Q18H IV 03/26/17 11:00 03/27/17 05:28 A/P Problem List: (1) Charcot foot due to diabetes mellitus ICD Code: E11.610 (2) Diabetic foot ulcer ICD Code: E11.621 Assessment and Plan Assessment and Plan 61-year-old male with past medical history of DM, neuropathy who presented with diabetic foot ulcer and possible vestibulitis. Diabetic foot ulcer Left Charcot foot Nuclear medicine studies ongoing to determine if patient has osteomyelitis Hardware present in the foot Podiatry following Continue pain control Patient is hoping to discharge tomorrow Amputation may be a reasonable recommendation, but patient is not open to the idea of amputation at the moment May need to treat long-term antibiotics for now if possible mellitus suspected Consult ID Diabetes mellitus type 2 Continue Levemir Insulin sliding scale Follow blood sugars Adjust insulins to gain control if needed DVT prophylaxis Lovenox Discharge Planning Follow-up further foot imaging and podiatry recommendations. Possible need for IV antibiotics long-term if patient not willing (and he's not ) to consider surgery as an option for treatment, if needed. Problem Qualifiers (1) Diabetic foot ulcer: Qualified Code: E11.621 - Diabetic ulcer of left midfoot associated with type 2 diabetes mellitus, with fat layer exposed Yevgeniy Horta MD Mar 27, 2017 11:40
[2017-03-27 12:16] VITALS: BP 162/70; PULSE 77; RESP 18; TEMP 97.5; O2SAT 99
--- NOTE | 2017-03-27 13:46 | PD.POD ---
Subjective Pain score: 1 Remarks No impressive left foot pain at this time. Past Med/Surg/Social History Social History Smoking Status: Never Smoker Objective Vital Signs Vital Signs Date Time Temp Pulse Resp B/P Pulse Ox O2 Delivery O2 Flow Rate FiO2 03/27/17 12:16 97.5 77 18 162/70 99 03/27/17 08:35 Room Air 03/27/17 08:00 97.4 76 18 155/66 100 03/27/17 04:00 Room Air 03/27/17 04:00 97.9 57 16 128/66 98 03/27/17 00:00 Room Air 03/27/17 00:00 97.7 68 18 112/63 97 03/26/17 22:00 97.9 72 18 152/68 99 03/26/17 16:00 98.2 80 16 137/66 99 Coded Allergies: Zosyn (Verified Allergy, Unknown, 03/26/17) Medications and IVs Administered Medications Medications (Trade) Dose Ordered Sig/Emerson Route PRN Reason Start Time Stop Time Status Last Admin Dose Admin Sodium Chloride (NS Flush) 2 ml BID IV FLUSH 03/25/17 21:00 03/27/17 08:48 Insulin Detemir 40 units 40 units BID SQ 03/25/17 21:00 03/27/17 08:53 Vancomycin HCl/ Sodium Chloride (Vancomycin Inj/ NS 250 ml Inj) 262.5 ml @ 250 mls/hr Q18H IV 03/26/17 11:00 03/27/17 05:28 Other Results Laboratory Tests Test 03/25/17 03/26/17 03/27/17 14:34 04:15 07:20 C-Reactive Protein 6.70 MG/DL Creatinine 1.12 MG/DL 1.18 MG/DL Estimat Glomerular Filtration 67 ML/MIN 63 ML/MIN Rate Random Glucose 153 MG/DL Microbiology Date/Time Procedure Status Source Growth 03/25/17 14:24 Aerobic Blood Culture - Preliminary Resulted Blood Peripheral NO GROWTH IN 2 DAYS 03/25/17 14:24 Anaerobic Blood Culture - Preliminary Resulted Blood Peripheral NO GROWTH IN 2 DAYS 03/25/17 14:34 Aerobic Blood Culture - Preliminary Resulted Blood Peripheral NO GROWTH IN 2 DAYS 03/25/17 14:34 Anaerobic Blood Culture - Preliminary Resulted Blood Peripheral NO GROWTH IN 2 DAYS 03/26/17 09:48 Gram Stain - Final Resulted Wound Foot 03/26/17 09:48 Wound Culture - Preliminary Resulted Gram Negative Jam Physical Exam Remarks GENERAL: This is an alert and oriented male seen bedside exhibiting nonlabored respirations. The right foot appears to be without any obvious issues. The left foot is examined. There is noted to be edema and swelling from the calf down to the ankle. Upon evaluating the patient's foot, there is a full-thickness ulceration over the dorsum of the foot at the level where the talus and navicular would be. It appears to probe directly to periosteum and deep fat. There is noted to be mixed stephens tissue. No obvious odor. No obvious signs of soft tissue emphysema. There is some drainage coming from the area. It appears to be serous. The patient's foot is stressed and brought through range of motion. There appears to be limited range of motion, but there is very mild crepitus felt at the TN joint Pedal pulses are fully palpable. Sensation is not intact below the patient's ankle. The patient does have some use of the ankle, but limited muscle strength is noted. There is an absent third digit but a well-healed amputation site. Wound measurements are approximately 2.5 cm x 2.5 cm with 1.5 cm of depth. It is full-thickness with some viability seen at the edges of the wound. Assessment & Plan Assessment & Plan A/P Left foot ulcer, re- charcot vs OM, possible infected hardware. Awaiting WBC Scan for further recommendation. Packing placed within the wound, reapplied Post splint for immobilization. Buzz Newsome DPM Mar 27, 2017 13:45
[2017-03-27 16:10] VITALS: BP 142/71; PULSE 78; RESP 18; TEMP 97.6; O2SAT 100
--- NOTE | 2017-03-27 16:37 | HHI.PR ---
Addendum to Inpatient Note Additional Information Patient gone for NM WBC Scan. Clinically doing ok per RN. Continue Vanco IV for now. Will see patient in am. Lauren Quintanilla MD Mar 27, 2017 16:37
[2017-03-27] MEDS: ENOXAPARIN SODIUM 40 MG/0.4 ML SYRINGE SQ SCH (17:00)
[2017-03-27 20:00] VITALS: BP 138/71; PULSE 77; RESP 16; TEMP 97.4; O2SAT 98
[2017-03-27] MEDS ORDERED: PHARMACY ORDERED LAB ONE (22:45)
[2017-03-28] VITALS (7 sets, daily range): BP systolic 122–147; BP diastolic 56–70; PULSE 71–97; RESP 14–20; TEMP 97.1–98.2; O2SAT 95–100
[2017-03-28] MEDS: INSULIN ASPART SUPPLEMENTAL SCALE SQ SCH ×4 (06:16→21:00)
[2017-03-28 08:08] LABS: HEMATOCRIT 37.2 % (39.0-51.0); MEAN CELL VOLUME 79.5 FL (80.0-100.0); MEAN CORPUSCULAR HEMOGLOBIN 26.4 PG (27.0-34.0); MEAN CORPUSCULAR HGB CONC 33.2 % (32.0-36.0); PLATELET COUNT 579 TH/MM3 (150-450); RED BLOOD COUNT 4.67 MIL/MM3 (4.50-5.90); RED CELL DISTRIBUTION WIDTH 14.8 % (11.6-17.2); REVIEW FLAG FINAL; WHITE BLOOD COUNT 11.4 TH/MM3 (4.0-11.0)
[2017-03-28 08:14] LABS: BICARBONATE 29.4 MEQ/L (21.0-32.0); POTASSIUM 4.1 MEQ/L (3.5-5.1)
--- NOTE | 2017-03-28 10:24 | RADRPT ---
EXAM DATE/TIME: 03/27/2017 11:56 [facility] COMPARISON: No previous studies available for comparison. INDICATIONS : Abcess left foot. Wound of lateral aspect of left foot. DOSE: 21 mCi Tc99m Ceretec labeled white blood cells IV SPECT IMAGIN hrs, 20 hrs IMAGNG: SPECT/CT imaging with fusion was performed. RADIATION DOSE: 5.21 CTDIvol (mGy) ; Multiple Day Study MEDICAL HISTORY : Diabetes mellitus type 2. SURGICAL HISTORY : Left foot reconstruction. ENCOUNTER: Initial ACUITY: 1 week PAIN SCALE: 0/10 LOCATION: Left Foot. TECHNIQUE: Following the in vitro labeling of autologous white cells and reinjection, whole body scan was perfor med at the specified times. SPECT imaging was performed at the specified time in sagittal, axial and coronal planes. Attenuation correction was performed with the computed tomography and both the atten uation correction and non-attenuation corrected data sets were reviewed. FINDINGS: There is intense focal uptake in the soft tissues above the base of the first metatarsal . There is no other uptake in or about the ankle. CONCLUSION: Intense focal uptake above. Arun Pedro MD FACR on March 28, 2017 at 10:19 Board Certified Radiologist. This report was verified electronically.
[2017-03-28] MEDS ORDERED: VANCOMYCIN INJ 1,250 MG in SODIUM CHLOR 0.9% 250 ML INJ 250 ML IV SCH ×2 (11:00→23:00)
[2017-03-28] MEDS: INSULIN DETEMIR 100 UNITS/ML VIAL SQ SCH (11:08)
[2017-03-28] MEDS: SODIUM CHLORIDE 0.9% FLUSH 10 ML FLUSH IV FLUSH SCH ×2 (11:10→21:37)
[2017-03-28] MEDS ORDERED: LIDOCAINE HCL 1% PF 30 ML VIAL ONE ×2 (15:35→15:49)
--- NOTE | 2017-03-28 15:54 | RADRPT ---
EXAM DATE/TIME: 03/28/2017 14:52 [facility] COMPARISON: No previous studies available for comparison. INDICATIONS : Fluid collection. MEDICAL HISTORY : Diabetes mellitus type 1. Bilateral foot neuropathy. Diabetes. Endocrine disorder. Charcot defor mity bilaterally. SURGICAL HISTORY : Right cataract removal with lens transplant. L4-L5 disectomy. Toe amputation. Charcot left foot re construction. ENCOUNTER: Initial ACUITY: 1 week PAIN SCORE: 0/10 LOCATION: Left foot. FLUID: Total volume of 3 cc of clear, red fluid was removed. Fluid was sent to lab for ordered studies. Post procedure scanning reveals no hematoma or other complication. TECHNIQUE: 1. Ultrasound guidance for needle aspiration. 2. Aspiration. The risks, benefits, and alternatives to ultrasound guided aspiration were explained to the patient i n detail including the risk of bleeding and infection. Written and verbal informed consent was obtai afshin. Under ultrasound guidance the small needle was placed in the fluid in the dorsum of foot. This is ve ry thick and viscous. Small sample, approximately 2 cc was sent for Gram stain and culture including fungus.. CONCLUSION: Uncomplicated ultrasound guided aspiration. Gram stain and culture pending. Arun Pedro MD FACR on March 28, 2017 at 15:51 Board Certified Radiologist. This report was verified electronically.
--- NOTE | 2017-03-28 16:20 | PD.ID.CON ---
History of Present Illness Service Infectious disease Consult Requested By Dr. Jones Reason for Consult Evaluation and management of possible osteomyelitis, possible septic arthritis Primary Care Physician Mejia Diaz M.D. Diagnoses: History of Present Illness is a 61-year-old male with past medical history significant for insulin-dependent diabetes mellitus, left foot surgical reconstruction with hardware in place in the past. With this background patient presents to the emergency room after being sent by willow machine operator from the clinic for a large left leg blister that ruptured a week ago causing some ulceration. The area was debrided in the office and patient was sent to the emergency room for an MRI to determine if patient had osteomyelitis due to significant history of left foot ulceration and hardware from 2015 and history of diabetic neuropathy possible Charcot joint. He denies any recent history of trauma or injury to the area. He denies any fever or chills at home. Patient had a WBC scan showed some uptake in the soft tissue and a fluid collection but no bony involvement. Patient underwent an ultrasound-guided aspiration of this fluid collection today. All the cultures are pending at the present time the deep ulceration after a trauma blister shows growth of Enterobacter cloacae as well as another gram-negative ID of which is pending. Infectious disease is consulted for evaluation and management of possible osteomyelitis and possible septic arthritis. 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 Uncoded Allergies: cefepime (Allergy, Intermediate, Rash, 03/28/17) Past Medical History Insulin-dependent diabetes mellitus Diabetic neuropathy. Past Surgical History Left third toe indication due to infection Left foot reconstruction with rods in 2015 Reported Medications Reported Meds & Active Scripts Active Reported Levemir Inj (Insulin Detemir) 1,000 unit/ 10 ML Vial 40 Units SQ BID Do not mix with any other Insulin. Humalog Inj (Insulin Human Lispro) 1,000 Unit/10 Ml Vial 1-9 Units SQ ACHS Max dose at bedtime:( )units; sugars< 70,(0)units; sugars 150-199,(1)unit; sugars 200-249,(3)units; sugars 250-299,(5)units; sugars 300-349,(7)units; sugars more than 349,(9)units. Active Ordered Medications Current Medications Medications (Trade) Dose Ordered Sig/Emerson Route Start Time Stop Time Status Last Admin (NS Flush) 2 ml UNSCH PRN IV FLUSH 03/25/17 16:45 (NS Flush) 2 ml BID IV FLUSH 03/25/17 21:00 03/28/17 11:10 (Zofran Inj) 4 mg Q6H PRN IVP 03/25/17 16:45 (Lovenox Inj) 40 mg Q24H SQ 03/25/17 18:00 (Narcan Inj) 0.4 mg UNSCH PRN IV 03/25/17 16:45 (D50w (Vial) Inj) 50 ml UNSCH PRN IV 03/25/17 17:00 (Glucagon Inj) 1 mg UNSCH PRN OTHER 03/25/17 17:00 (Tylenol) 650 mg Q6H PRN PO 03/25/17 17:45 ([place] 5-325 Mg) 1 tab Q4H PRN PO 03/25/17 17:45 ([place] 7.5-325 Mg) 1 tab Q4H PRN PO 03/25/17 17:45 (Milk Of Magnesia Liq) 30 ml Q12H PRN PO 03/25/17 17:45 (Senokot) 17.2 mg Q12H PRN PO 03/25/17 17:45 (Dulcolax Supp) 10 mg DAILY PRN RECTAL 03/25/17 17:45 (Lactulose Liq) 30 ml DAILY PRN PO 03/25/17 17:45 Zolpidem Tartrate 5 mg 5 mg HS PRN PO 03/25/17 21:00 (Maxipime Inj/NS Inj) 100 ml @ 200 mls/hr Q8H IV 03/28/17 18:00 03/28/17 17:54 (Levemir Inj) 50 units DAILYAC SQ 03/29/17 08:00 Family History Patient was adopted Social History Does not smoke cigarettes or drink alcohol Physical Exam Vital Signs Vital Signs Date Time Temp Pulse Resp B/P Pulse Ox O2 Delivery O2 Flow Rate FiO2 03/28/17 14:58 97.1 80 14 131/56 99 03/28/17 08:00 97.9 76 20 144/66 99 03/28/17 07:00 99 Room Air 03/28/17 04:00 Room Air 03/28/17 04:00 98.2 80 18 130/65 95 03/28/17 00:00 Room Air 03/28/17 00:00 97.8 71 18 122/61 99 03/27/17 20:00 97.4 77 16 138/71 98 03/27/17 20:00 Room Air Physical Exam GENERAL: This is a well-nourished, well-developed patient, in no apparent distress. SKIN: No rashes, ecchymoses or lesions. Cool and dry. HEAD: Atraumatic. Normocephalic. No temporal or scalp tenderness. EYES: Pupils equal round and reactive. Extraocular motions intact. No scleral icterus. No injection or drainage. ENT: Nose without bleeding, purulent drainage or septal hematoma. Throat without erythema, tonsillar hypertrophy or exudate. Uvula midline. Airway patent. NECK: Trachea midline. Supple, nontender, no meningeal signs. CARDIOVASCULAR: Regular rate and rhythm. RESPIRATORY: Clear to auscultation. Breath sounds equal bilaterally. No wheezes , rales, or rhonchi. GASTROINTESTINAL: Abdomen soft, non-tender, nondistended. No hepato-splenomegaly , or palpable masses. No guarding. MUSCULOSKELETAL: Left foot in dressing. NEUROLOGICAL: Awake and alert. Grossly nonfocal. Psych appears very anxious and agitated. IV line sites with no evidence of infection. Laboratory Laboratory Tests Test 03/27/17 03/28/17 22:30 07:15 Vancomycin Level Trough 12.0 White Blood Count 11.4 Red Blood Count 4.67 Hemoglobin 12.3 Hematocrit 37.2 Mean Corpuscular Volume 79.5 Mean Corpuscular Hemoglobin 26.4 Mean Corpuscular Hemoglobin 33.2 Concent Red Cell Distribution Width 14.8 Platelet Count 579 Mean Platelet Volume 7.0 Sodium Level 140 Potassium Level 4.1 Chloride Level 103 Carbon Dioxide Level 29.4 Anion Gap 8 Blood Urea Nitrogen 21 Creatinine 1.21 Estimat Glomerular Filtration 61 Rate Random Glucose 88 Calcium Level 9.4 Date/Time Procedure Status Source Growth 03/28/17 15:30 Gram Stain Received Fluid Other Pending 03/28/17 15:30 Body Fluid Culture Received Fluid Other Pending 03/28/17 15:30 Fungal Smear Received Fluid Other Pending 03/28/17 15:30 Fungal Culture Received Fluid Other Pending 03/26/17 09:48 Gram Stain - Final Resulted Wound Foot 03/26/17 09:48 Wound Culture - Preliminary Resulted Enterobacter Cloacae Gram Negative Jam 03/25/17 14:34 Aerobic Blood Culture - Preliminary Resulted Blood Peripheral NO GROWTH IN 3 DAYS 03/25/17 14:34 Anaerobic Blood Culture - Preliminary Resulted Blood Peripheral NO GROWTH IN 3 DAYS Result Diagram: 03/28/17 0715 03/28/17 0715 Imaging Last Impressions Needle Aspiration Ultrasound 03/28/17 0000 Signed Impressions: Service Date/Time: Tuesday, March 28, 2017 14:52 - CONCLUSION: Uncomplicated ultrasound guided aspiration. Gram stain and culture pending. Arun Pedro MD FACR Tumor Localization 03/27/17 0000 Signed Impressions: Service Date/Time: Monday, March 27, 2017 11:56 - CONCLUSION: Intense focal uptake above. Arun Pedro MD FACR Lower Extremity Ultrasound 03/25/17 0000 Signed Impressions: Service Date/Time: Saturday, March 25, 2017 14:34 - CONCLUSION: No evidence of deep venous thrombosis within the left lower extremity. Enlarged left groin node measuring 3.6 cm in size. Johnie Benson MD Foot X-Ray 03/25/17 0000 Signed Impressions: Service Date/Time: Saturday, March 25, 2017 17:33 - CONCLUSION: Evidence for erosion and hardware loosening as described above. Inflammatory process would be consideration. Arun Pedro MD FACR Foot MRI 03/25/17 0000 Signed Impressions: Service Date/Time: Saturday, March 25, 2017 15:59 - CONCLUSION: 1. Severely suboptimal study secondary to extensive susceptibility artifact secondary to the multiple surgical hardware severely limiting visualization throughout the foot. Osteomyelitis cannot be excluded. 2. Large complex fluid collection along the anterior joint which may represent a large joint effusion. 3. Extensive postsurgical change with multiple metal rods. There is extensive degenerative change in the mid and hindfoot which is poorly visualized. 4. Pes planus 1. Tom Hdz MD Ankle X-Ray 03/25/17 0000 Signed Impressions: Service Date/Time: Saturday, March 25, 2017 17:35 - CONCLUSION: Markedly abnormal radiographs of the ankle. Correlation within in the old films would be of benefit. Arnu Pedro MD FACR Assessment and Plan Assessment and Plan Possible left foot septic arthritis Enterobacter cloacae infection foot. Left foot blister with infection likely abscess. ? Concerned this may be related to his deeper hardware. Possible Charcot's joint. Diabetic neuropathy Recommendations Discontinue vancomycin IV Start cefepime IV Add AFB stain and culture to fluid cultures from aspiration today. Follow cultures Follow clinically I spent approximately 20 minutes with the patient in the presence of Dr. Horta as well as nurse taking care of the patient. I spent an additional 20 minutes explaining to the patient the importance of continuing state in the hospital to figure out the extent of infection the type of infection the organism as well as susceptibility to decide a regimen. I also explained to him then additional time may be needed after isolation to identify the susceptibility and if it is a drug resistant organism sometimes additional testing may be needed further. I explained to him that there is a possibility she may continue to stay in the hospital for another 4-5 days at least. I also explained to him the process additionally involves insurance approval of the IV antibiotics chosen. She was initially very adamant about going home AGAINST MEDICAL ADVICE but we convinced him to stay back into the hospital to complete workup and, but the safe discharge plan for him. Discussed case with Dr. Newsome is well patient is not on any further surgical interventions at this present time. Critical thinking decision making. Lauren Quintanilla MD Mar 28, 2017 16:20
--- NOTE | 2017-03-28 16:51 | HHI.PR ---
Subjective Remarks Mr. Nuñez is a 61-year-old male. He is admitted secondary to cellulitis and suspected osteomyelitis with hardware at site of osteomyelitis. Cultures are obtained and imaging has been obtained. Awaiting final cultures to determine treatment. Treatments will be determined by final cultures which are not resulted yet. This was conveyed to the patient. Patient had unrealistic expectations of being able to discharge today on the treatment. He was considering AMA but has decided to stay for treatment. Objective Vital Signs Date Time Temp Pulse Resp B/P Pulse Ox O2 Delivery O2 Flow Rate FiO2 03/28/17 14:58 97.1 80 14 131/56 99 03/28/17 08:00 97.9 76 20 144/66 99 03/28/17 07:00 99 Room Air 03/28/17 04:00 Room Air 03/28/17 04:00 98.2 80 18 130/65 95 03/28/17 00:00 Room Air 03/28/17 00:00 97.8 71 18 122/61 99 03/27/17 20:00 97.4 77 16 138/71 98 03/27/17 20:00 Room Air I/O 03/27/17 03/27/17 03/27/17 03/28/17 03/28/17 03/28/17 07:00 15:00 23:00 07:00 15:00 23:00 Intake Total 240 ml 722 ml 360 ml 499 ml 600 ml Output Total 400 ml 400 ml 100 ml Balance -160 ml 722 ml -40 ml 499 ml 500 ml Intake Oral 240 ml 720 ml 360 ml 240 ml 600 ml IV Total 2 ml 259 ml Output Urine Total 400 ml 400 ml 100 ml # Voids 5 3 3 # Bowel Movements 0 1 1 0 1 Result Diagram: 03/28/1715 03/28/17 0715 Objective Remarks GENERAL: NAD, A&Ox3 HEAD: Normocephalic. NECK: Supple, trachea midline. No lymphadenopathy. EYES: No scleral icterus. No injection or drainage. CARDIOVASCULAR: Regular rate and rhythm without murmurs, gallops, or rubs. RESPIRATORY: Breath sounds equal bilaterally. No accessory muscle use. GASTROINTESTINAL: Abdomen soft, non-tender, nondistended. MUSCULOSKELETAL: No cyanosis, or edema. Left lower extremity bandaged SKIN: Warm and dry. NEURO: No focal neurological deficitis. A/P Problem List: (1) Charcot foot due to diabetes mellitus ICD Code: E11.610 (2) Diabetic foot ulcer ICD Code: E11.621 Assessment and Plan Assessment and Plan 61-year-old male with past medical history of DM, neuropathy who presented with diabetic foot ulcer and possible vestibulitis. Patient declined surgical options. Awaiting final cultures. Continue IV antibiotic treatments now and plan for IV antibiotic treatments as an outpatient. Diabetic foot ulcer Left Charcot foot Nuclear medicine studies ongoing to determine if patient has osteomyelitis Hardware present in the foot Podiatry following Continue pain control Patient is hoping to discharge tomorrow Amputation may be a reasonable recommendation, but patient is not open to the idea of amputation at the moment May need to treat long-term antibiotics for now if possible mellitus suspected Consult ID Diabetes mellitus type 2 Continue Levemir Insulin sliding scale Follow blood sugars Adjust insulins to gain control if needed DVT prophylaxis Lovenox Discharge Planning Discharge and IV antibiotics planned once cultures resulted. Problem Qualifiers (1) Diabetic foot ulcer: Qualified Code: E11.621 - Diabetic ulcer of left midfoot associated with type 2 diabetes mellitus, with fat layer exposed Yevgeniy Horta MD Mar 28, 2017 16:51
[2017-03-28] MEDS: ENOXAPARIN SODIUM 40 MG/0.4 ML SYRINGE SQ SCH ×2 (17:56→18:00)
[2017-03-28] MEDS ORDERED: CEFEPIME INJ 2,000 MG in SODIUM CHLORIDE 0.9% INJ 100 ML IV SCH (18:00)
--- NOTE | 2017-03-28 18:18 | PD.POD ---
Subjective Pain score: 1 Remarks No impressive left foot pain at this time. Past Med/Surg/Social History Social History Smoking Status: Never Smoker Objective Vital Signs Vital Signs Date Time Temp Pulse Resp B/P Pulse Ox O2 Delivery O2 Flow Rate FiO2 03/28/17 14:58 97.1 80 14 131/56 99 03/28/17 08:00 97.9 76 20 144/66 99 03/28/17 07:00 99 Room Air 03/28/17 04:00 Room Air 03/28/17 04:00 98.2 80 18 130/65 95 03/28/17 00:00 Room Air 03/28/17 00:00 97.8 71 18 122/61 99 03/27/17 20:00 97.4 77 16 138/71 98 03/27/17 20:00 Room Air Coded Allergies: Rocky (Verified Allergy, Unknown, Rash, 03/28/17) Has tolerated Keflex multiple times. Medications and IVs Laboratory Tests Test 03/28/17 07:15 White Blood Count 11.4 TH/MM3 Red Blood Count 4.67 MIL/MM3 Hemoglobin 12.3 GM/DL Hematocrit 37.2 % Mean Corpuscular Volume 79.5 FL Mean Corpuscular Hemoglobin 26.4 PG Mean Corpuscular Hemoglobin 33.2 % Concent Red Cell Distribution Width 14.8 % Platelet Count 579 TH/MM3 Mean Platelet Volume 7.0 FL Laboratory Tests Test 03/27/17 03/28/17 07:20 07:15 Creatinine 1.18 MG/DL 1.21 MG/DL Estimat Glomerular Filtration 63 ML/MIN 61 ML/MIN Rate Random Glucose 153 MG/DL 88 MG/DL Sodium Level 140 MEQ/L Potassium Level 4.1 MEQ/L Chloride Level 103 MEQ/L Carbon Dioxide Level 29.4 MEQ/L Anion Gap 8 MEQ/L Blood Urea Nitrogen 21 MG/DL Calcium Level 9.4 MG/DL Microbiology Date/Time Procedure Status Source Growth 03/26/17 09:48 Gram Stain - Final Resulted Wound Foot 03/26/17 09:48 Wound Culture - Preliminary Resulted Enterobacter Cloacae Gram Negative Jam 03/28/17 15:30 Gram Stain Received Fluid Other Pending 03/28/17 15:30 Body Fluid Culture Received Fluid Other Pending 03/28/17 15:30 Fungal Smear Received Fluid Other Pending 03/28/17 15:30 Fungal Culture Received Fluid Other Pending Administered Medications Medications (Trade) Dose Ordered Sig/[place]erson Route PRN Reason Start Time Stop Time Status Last Admin Dose Admin Sodium Chloride (NS Flush) 2 ml BID IV FLUSH 03/25/17 21:00 03/28/17 11:10 Enoxaparin Sodium 40 mg 40 mg Q24H SQ 03/25/17 18:00 03/28/17 17:56 Cefepime HCl/ Sodium Chloride (Maxipime Inj/NS Inj) 100 ml @ 200 mls/hr Q8H IV 03/28/17 18:00 03/28/17 17:54 Last 72 hours Impressions Needle Aspiration Ultrasound 03/28/17 0000 Signed Impressions: Service Date/Time: Tuesday, March 28, 2017 14:52 - CONCLUSION: Uncomplicated ultrasound guided aspiration. Gram stain and culture pending. Arun Pedro MD FACR Tumor Localization 03/27/17 0000 Signed Impressions: Service Date/Time: Monday, March 27, 2017 11:56 - CONCLUSION: Intense focal uptake above. Arun Pedro MD FACR Spoke with Dr Pedro- intense uptake appears to be only in the soft tissue NOT IN THE BONE. Physical Exam Remarks Left with some decreased edema and swelling, ulcer remains mixed montalvo fibrotic with viable wound edges 2cm 2cm 1cm. Crepitus at the talonavicular joint with some ROM of the ankle, pedal pulses are palpable, sensation is not intact to light touch below the knee Assessment & Plan A/P Left foot ulcer, re- charcot vs OM, possible infected hardware. WBC Scan shows more soft tissue is infected, no mention of bone uptake. IR tapped the ankle today awaiting analysis of joint fluid. Patient care remains quite complicated, bones of hindfoot are unstable/ return of charcot. Non WB is mandatory. Packing to be changed per nursing. Patient refusing any talk of BK. I do not have a surgery that can fix his re-charcot. The plan appears to be try to heal the foot ulcer and see if charcot heals with non WB and splint. Will plan to debride ulcer and apply wound vac in 2-3 days. Buzz Newsome DPM Mar 28, 2017 18:18
[2017-03-28 19:39] LABS: INDIRECT BILIRUBIN 0.2 MG/DL (0.0-0.8); TOTAL BILIRUBIN ADULT 0.3 MG/DL (0.2-1.0)
[2017-03-28] MEDS ORDERED: diphenhydrAMINE HCL 50 MG CAP PO ONE (21:15)
[2017-03-28] MEDS ORDERED: Vancomycin Consult Pharmacy 1 EA OTHER SCH (21:15)
[2017-03-28] MEDS ORDERED: VANCOMYCIN 1,000 MG/NS 250 ML IV SCH ×2 (23:00)
[2017-03-29] VITALS (8 sets, daily range): BP systolic 124–143; BP diastolic 59–68; PULSE 69–82; RESP 17–20; TEMP 97.3–98.3; O2SAT 95–98
[2017-03-29] MEDS: AZTREONAM INJ 2,000 MG in SODIUM CHLORIDE 0.9% INJ 100 ML IV SCH ×3 (02:11→17:12)
[2017-03-29] MEDS: INSULIN ASPART SUPPLEMENTAL SCALE SQ SCH ×4 (06:21→21:00)
[2017-03-29] MEDS: SODIUM CHLORIDE 0.9% FLUSH 10 ML FLUSH IV FLUSH SCH (08:15)
[2017-03-29] MEDS: INSULIN DETEMIR 100 UNITS/ML VIAL SQ SCH (08:22)
--- NOTE | 2017-03-29 09:27 | HHI.PR ---
Addendum to Inpatient Note Addendum Reason: Additional Documentation Additional Information Cultures called in to me this am by RN: very MDR Enterobacter cloacae ? [facility]/CRE Place pt in special contact isolation. Recommend [facility] room on pt discharge or transfer. Continue Azactam IV for now. No note in chart but RN informs me that at night pt developed a local arm infusion reaction that lead to change in antibiotics from Cefepime to Azactam plus Vanco IV by advertising copywriter. DC Vanco IV not needed per cultures Continue Azactam IV Will follow later today to decide if ok to start Avycaz. Called [facility] to test for Avycaz, Zerbaxa and Colistin. [place]: plan on further debridements and ? wound vac in next day or so. Not ready for DC. Expect prolonged stay identification of appropriate antibiotic , follow up on joint aspirate cultures, insurance approval for an expensive medication, home health etc. ?possible need for surgery. Likely needs removal of the hardware to clear MDR infection. Lauren Quintanilla MD Mar 29, 2017 09:27
[2017-03-29] MEDS ORDERED: PHARMACY ORDERED LAB ONE ×2 (10:45)
--- NOTE | 2017-03-29 15:28 | HHI.PR ---
Subjective Remarks Patient has no complaints As per ID documentation pt developed a local arm infusion reaction that lead to change in antibiotics from Cefepime to Azactam plus Vanco IV by aluminum hydroxide process operator - last night denies fevers/chills denies diarrhea denies sob/cp Objective Vitals Vital Signs Date Time Temp Pulse Resp B/P Pulse Ox O2 Delivery O2 Flow Rate FiO2 03/29/17 12:00 97.9 82 20 124/59 98 03/29/17 12:00 97.4 75 20 137/59 95 03/29/17 11:00 97.4 75 20 137/59 95 03/29/17 08:00 97.4 75 20 137/59 95 03/29/17 07:00 Room Air 03/29/17 04:00 98.2 79 18 124/59 96 03/29/17 04:00 Room Air 03/29/17 00:00 98.3 82 18 143/68 98 03/29/17 00:00 Room Air 03/28/17 20:00 Room Air 03/28/17 20:00 98.2 79 18 125/67 99 03/28/17 16:00 97.9 76 20 137/68 100 I/O 03/28/17 03/28/17 03/28/17 03/29/17 03/29/17 03/29/17 07:00 15:00 23:00 07:00 15:00 23:00 Intake Total 499 ml 600 ml 340 ml 345 ml 0 ml Output Total 100 ml 250 ml Balance 499 ml 500 ml 340 ml 95 ml 0 ml Intake Oral 240 ml 600 ml 240 ml IV Total 259 ml 100 ml 345 ml 0 ml Output Urine Total 100 ml 250 ml # Voids 3 3 # Bowel Movements 0 1 Result Diagram: 03/28/1715 03/28/1715 Imaging Last Impressions Needle Aspiration Ultrasound 03/28/17 0000 Signed Impressions: Service Date/Time: Tuesday, March 28, 2017 14:52 - CONCLUSION: Uncomplicated ultrasound guided aspiration. Gram stain and culture pending. Arun Pedro MD FACR Tumor Localization 03/27/17 0000 Signed Impressions: Service Date/Time: Monday, March 27, 2017 11:56 - CONCLUSION: Intense focal uptake above. Arun Pedro MD FACR Lower Extremity Ultrasound 03/25/17 0000 Signed Impressions: Service Date/Time: Saturday, March 25, 2017 14:34 - CONCLUSION: No evidence of deep venous thrombosis within the left lower extremity. Enlarged left groin node measuring 3.6 cm in size. Johnie Benson MD Foot X-Ray 03/25/17 0000 Signed Impressions: Service Date/Time: Saturday, March 25, 2017 17:33 - CONCLUSION: Evidence for erosion and hardware loosening as described above. Inflammatory process would be consideration. Arun Pedro MD FACR Foot MRI 03/25/17 0000 Signed Impressions: Service Date/Time: Saturday, March 25, 2017 15:59 - CONCLUSION: 1. Severely suboptimal study secondary to extensive susceptibility artifact secondary to the multiple surgical hardware severely limiting visualization throughout the foot. Osteomyelitis cannot be excluded. 2. Large complex fluid collection along the anterior joint which may represent a large joint effusion. 3. Extensive postsurgical change with multiple metal rods. There is extensive degenerative change in the mid and hindfoot which is poorly visualized. 4. Pes planus 1. Tom Hdz MD Ankle X-Ray 03/25/17 0000 Signed Impressions: Service Date/Time: Saturday, March 25, 2017 17:35 - CONCLUSION: Markedly abnormal radiographs of the ankle. Correlation within in the old films would be of benefit. Arun Pedro MD FACR Objective Remarks GENERAL: NAD, A&Ox3 HEAD: Normocephalic. NECK: Supple, trachea midline. No lymphadenopathy. EYES: No scleral icterus. No injection or drainage. CARDIOVASCULAR: Regular rate and rhythm without murmurs, gallops, or rubs. RESPIRATORY: Breath sounds equal bilaterally. No accessory muscle use. GASTROINTESTINAL: Abdomen soft, non-tender, nondistended. MUSCULOSKELETAL: No cyanosis, or edema. Left lower extremity bandaged SKIN: Warm and dry. NEURO: No focal neurological deficitis. Procedures US guided aspiration of the left knee. Medications and IVs Current Medications Medications (Trade) Dose Ordered Sig/Emerson Route Start Time Stop Time Status Last Admin (NS Flush) 2 ml UNSCH PRN IV FLUSH 03/25/17 16:45 (NS Flush) 2 ml BID IV FLUSH 03/25/17 21:00 03/29/17 08:15 (Zofran Inj) 4 mg Q6H PRN IVP 03/25/17 16:45 (Lovenox Inj) 40 mg Q24H SQ 03/25/17 18:00 (Narcan Inj) 0.4 mg UNSCH PRN IV 03/25/17 16:45 (D50w (Vial) Inj) 50 ml UNSCH PRN IV 03/25/17 17:00 (Glucagon Inj) 1 mg UNSCH PRN OTHER 03/25/17 17:00 (Tylenol) 650 mg Q6H PRN PO 03/25/17 17:45 ([place] 5-325 Mg) 1 tab Q4H PRN PO 03/25/17 17:45 ([place] 7.5-325 Mg) 1 tab Q4H PRN PO 03/25/17 17:45 (Milk Of Magnesia Liq) 30 ml Q12H PRN PO 03/25/17 17:45 (Senokot) 17.2 mg Q12H PRN PO 03/25/17 17:45 (Dulcolax Supp) 10 mg DAILY PRN RECTAL 03/25/17 17:45 (Lactulose Liq) 30 ml DAILY PRN PO 03/25/17 17:45 (Ambien) 5 mg HS PRN PO 03/25/17 21:00 Insulin Detemir 50 units 50 units DAILYAC SQ 03/29/17 08:00 03/29/17 08:22 (Azactam Inj/NS Inj) 100 ml @ 200 mls/hr Q8H IV 03/29/17 02:00 03/29/17 08:18 A/P Problem List: (1) Charcot foot due to diabetes mellitus ICD Code: E11.610 Status: Acute (2) Diabetic foot ulcer ICD Code: E11.621 Status: Acute (3) Diabetes mellitus with hyperglycemia ICD Code: E11.65 Status: Acute Assessment and Plan 61-year-old male with past medical history of DM, neuropathy who presented with diabetic foot ulcer and possible vestibulitis. Patient declined surgical options. Awaiting final cultures. Continue IV antibiotic treatments now and plan for IV antibiotic treatments as an outpatient. Diabetic foot ulcer Left Charcot foot MRI of the left foot showed a complex fluid collection along the anterior joint which may represent a large effusion. Extensive postsurgical changes with multiple metal rods. There is to extensive degenerative change in the mid and hindfoot which is poorly visualized. Podiatry following - Will plan to debride ulcer and apply wound vac in 2-3 days. Continue pain control Amputation may be a reasonable recommendation, but patient is not open to the idea of amputation at the moment May need to treat long-term antibiotics for now if possible mellitus suspected 03/29 appreciate ID recommendations. Patient is growing very M.D. Enterobacter species. Continue antibiotics as per ID. The patient currently on IV aztreonam. The patient will be continued on IV aztreonam as per ID recommendations which would cover for Enterobacter cloacae. As per ID will follow later to see if patient might be able to be started on Avycaz Diabetes mellitus type 2 03/29 Blood sugars are very unstable and uncontrolled with the blood sugar in the 300s. Severe exacerbation of diabetes with hyperglycemia. Will Increase Levemir dose to 40 mg SQ BID. Continue SSI with insulin NovoLog and continue to monitor Accu-Cheks. Check hemoglobin A1C. DVT prophylaxis Lovenox Problem Qualifiers (1) Diabetic foot ulcer: Qualified Code: E11.621 - Diabetic ulcer of left midfoot associated with type 2 diabetes mellitus, with fat layer exposed Raghu Colby MD Mar 29, 2017 15:28
--- NOTE | 2017-03-29 16:50 | HHI.IDPN ---
Subjective Subjective Remarks is a 61-year-old male with past medical history significant for insulin-dependent diabetes mellitus, left foot surgical reconstruction with hardware in place in the past. With this background patient presents to the emergency room after being sent by insurance sales manager from the clinic for a large left leg blister that ruptured a week ago causing some ulceration. The area was debrided in the office and patient was sent to the emergency room for an MRI to determine if patient had osteomyelitis due to significant history of left foot ulceration and hardware from 2014 and history of diabetic neuropathy possible Charcot joint. He denies any recent history of trauma or injury to the area. He denies any fever or chills at home. Patient had a WBC scan showed some uptake in the soft tissue and a fluid collection but no bony involvement. Patient underwent an ultrasound-guided aspiration of this fluid collection today. All the cultures are pending at the present time the deep ulceration after a trauma blister shows growth of Enterobacter cloacae as well as another gram-negative ID of which is pending. Infectious disease is consulted for evaluation and management of possible osteomyelitis and possible septic arthritis. Overnight events reviewed Developed rash over the site of Infusion of cefepime IV No fever No rash No diarrhea Antibiotics Azactam IV Vanco IV Lines Line sites with no e.o infection Past Medical History reviewed Allergies: Coded Allergies: *MDRO Multi-Drug Resistant Organism (Verified Allergy, Unknown, 03/29/17) MDR Enterobacter Cloacae ? CRE 03/2017 Zosyn (Verified Allergy, Unknown, Rash, 03/28/17) Has tolerated Keflex multiple times. Uncoded Allergies: cefepime (Allergy, Intermediate, Rash, 03/28/17) Objective . Vital Signs Date Time Temp Pulse Resp B/P Pulse Ox O2 Delivery O2 Flow Rate FiO2 03/29/17 12:00 97.9 82 20 124/59 98 03/29/17 12:00 97.4 75 20 137/59 95 03/29/17 11:00 97.4 75 20 137/59 95 03/29/17 08:00 97.4 75 20 137/59 95 03/29/17 07:00 Room Air 03/29/17 04:00 98.2 79 18 124/59 96 03/29/17 04:00 Room Air 03/29/17 00:00 98.3 82 18 143/68 98 03/29/17 00:00 Room Air 03/28/17 20:00 Room Air 03/28/17 20:00 98.2 79 18 125/67 99 03/28/17 03/28/17 03/29/17 15:00 23:00 07:00 Intake Total 600 ml 340 ml 345 ml Output Total 100 ml 250 ml Balance 500 ml 340 ml 95 ml Intake Oral 600 ml 240 ml IV Total 100 ml 345 ml Output Urine Total 100 ml 250 ml # Voids 3 # Bowel Movements 1 . Laboratory Tests Test 03/28/17 07:15 White Blood Count 11.4 TH/MM3 Red Blood Count 4.67 MIL/MM3 Hemoglobin 12.3 GM/DL Hematocrit 37.2 % Mean Corpuscular Volume 79.5 FL Mean Corpuscular Hemoglobin 26.4 PG Mean Corpuscular Hemoglobin 33.2 % Concent Red Cell Distribution Width 14.8 % Platelet Count 579 TH/MM3 Mean Platelet Volume 7.0 FL Laboratory Tests Test 03/28/17 07:15 Sodium Level 140 MEQ/L Potassium Level 4.1 MEQ/L Chloride Level 103 MEQ/L Carbon Dioxide Level 29.4 MEQ/L Anion Gap 8 MEQ/L Blood Urea Nitrogen 21 MG/DL Creatinine 1.21 MG/DL Estimat Glomerular Filtration 61 ML/MIN Rate Random Glucose 88 MG/DL Calcium Level 9.4 MG/DL Total Bilirubin 0.3 MG/DL Direct Bilirubin 0.1 MG/DL Indirect Bilirubin 0.2 MG/DL Aspartate Amino Transf 15 U/L (AST/SGOT) Alanine Aminotransferase 18 U/L (ALT/SGPT) Alkaline Phosphatase 170 U/L Total Protein 7.9 GM/DL Albumin 3.0 GM/DL Microbiology Date/Time Procedure Status Source Growth 03/28/17 15:30 Gram Stain - Final Resulted Fluid Other 03/28/17 15:30 Body Fluid Culture - Preliminary Resulted Fluid Other NO GROWTH IN 24 HOURS. 03/28/17 15:30 Fungal Smear - Final Resulted Fluid Other NO FUNGAL ELEMENTS SEEN. 03/28/17 15:30 Fungal Culture Resulted Fluid Other Pending 03/28/17 15:30 Acid Fast Stain Received Fluid Synovial Fluid Pending 03/28/17 15:30 Mycobacterial Culture Received Fluid Synovial Fluid Pending Imaging Last Impressions Needle Aspiration Ultrasound 03/28/17 0000 Signed Impressions: Service Date/Time: Tuesday, March 28, 2017 14:52 - CONCLUSION: Uncomplicated ultrasound guided aspiration. Gram stain and culture pending. Arun Pedro MD FACR Tumor Localization 03/27/17 0000 Signed Impressions: Service Date/Time: Monday, March 27, 2017 11:56 - CONCLUSION: Intense focal uptake above. Arun Pedro MD FACR Lower Extremity Ultrasound 03/25/17 0000 Signed Impressions: Service Date/Time: Saturday, March 25, 2017 14:34 - CONCLUSION: No evidence of deep venous thrombosis within the left lower extremity. Enlarged left groin node measuring 3.6 cm in size. Johnie Benson MD Foot X-Ray 03/25/17 0000 Signed Impressions: Service Date/Time: Saturday, March 25, 2017 17:33 - CONCLUSION: Evidence for erosion and hardware loosening as described above. Inflammatory process would be consideration. Arun Pedro MD FACR Foot MRI 03/25/17 0000 Signed Impressions: Service Date/Time: Saturday, March 25, 2017 15:59 - CONCLUSION: 1. Severely suboptimal study secondary to extensive susceptibility artifact secondary to the multiple surgical hardware severely limiting visualization throughout the foot. Osteomyelitis cannot be excluded. 2. Large complex fluid collection along the anterior joint which may represent a large joint effusion. 3. Extensive postsurgical change with multiple metal rods. There is extensive degenerative change in the mid and hindfoot which is poorly visualized. 4. Pes planus 1. Tom Hdz MD Ankle X-Ray 03/25/17 0000 Signed Impressions: Service Date/Time: Saturday, March 25, 2017 17:35 - CONCLUSION: Markedly abnormal radiographs of the ankle. Correlation within in the old films would be of benefit. Arun Pedro MD FACR Physical Exam GENERAL: This is a well-nourished, well-developed patient, in no apparent distress. SKIN: No rashes, ecchymoses or lesions. Cool and dry. HEAD: Atraumatic. Normocephalic. No temporal or scalp tenderness. EYES: Pupils equal round and reactive. Extraocular motions intact. No scleral icterus. No injection or drainage. ENT: Nose without bleeding, purulent drainage or septal hematoma. Throat without erythema, tonsillar hypertrophy or exudate. Uvula midline. Airway patent. NECK: Trachea midline. Supple, nontender, no meningeal signs. CARDIOVASCULAR: Regular rate and rhythm. RESPIRATORY: Clear to auscultation. Breath sounds equal bilaterally. No wheezes , rales, or rhonchi. GASTROINTESTINAL: Abdomen soft, non-tender, nondistended. No hepato-splenomegaly , or palpable masses. No guarding. MUSCULOSKELETAL: Left foot in dressing. NEUROLOGICAL: Awake and alert. Grossly nonfocal. Psych appears very anxious and agitated. IV line sites with no evidence of infection. Assessment & Plan Remarks Possible left foot septic arthritis Enterobacter cloacae infection foot. ? CRE/KPC Left foot blister with infection likely abscess. ? Concerned this may be related to his deeper hardware. Possible Charcot's joint. Diabetic neuropathy Recommendations Discontinue vancomycin IV Continue Azactam IV (one of the enterobacter is susceptible). Await the aspirate cultures. If these grow Enterobacter will start Avycaz and also retest Avycaz on this specimen. Follow cultures Follow clinically Called Micro to add Zerbaxa, Avycaz and Colistin susceptibilities. Alexandrea Meneses and RN Lauren Keller MD Mar 29, 2017 16:50
[2017-03-29] MEDS: ENOXAPARIN SODIUM 40 MG/0.4 ML SYRINGE SQ SCH (17:12)
--- NOTE | 2017-03-29 18:43 | PD.POD ---
Subjective Podiatric Problems Infected ulcer L foot. Charcot L foot Pain score: 1 Past Med/Surg/Social History Social History Smoking Status: Never Smoker Objective Vital Signs Vital Signs Date Time Temp Pulse Resp B/P Pulse Ox O2 Delivery O2 Flow Rate FiO2 03/29/17 16:00 97.3 76 20 131/66 98 03/29/17 15:00 97.3 76 20 131/66 98 03/29/17 12:00 97.9 82 20 124/59 98 03/29/17 12:00 97.4 75 20 137/59 95 03/29/17 11:00 97.4 75 20 137/59 95 03/29/17 08:00 97.4 75 20 137/59 95 03/29/17 07:00 Room Air 03/29/17 04:00 98.2 79 18 124/59 96 03/29/17 04:00 Room Air 03/29/17 00:00 98.3 82 18 143/68 98 03/29/17 00:00 Room Air 03/28/17 20:00 Room Air 03/28/17 20:00 98.2 79 18 125/67 99 Coded Allergies: *MDRO Multi-Drug Resistant Organism (Verified Allergy, Unknown, 03/29/17) MDR Enterobacter Cloacae ? CRE 03/2017 Zosyn (Verified Allergy, Unknown, Rash, 03/28/17) Has tolerated Keflex multiple times. Uncoded Allergies: cefepime (Allergy, Intermediate, Rash, 03/28/17) Other Results Last Impressions Needle Aspiration Ultrasound 03/28/17 0000 Signed Impressions: Service Date/Time: Tuesday, March 28, 2017 14:52 - CONCLUSION: Uncomplicated ultrasound guided aspiration. Gram stain and culture pending. Arun Pedro MD FACR Tumor Localization 03/27/17 0000 Signed Impressions: Service Date/Time: Monday, March 27, 2017 11:56 - CONCLUSION: Intense focal uptake above. Arun Pedro MD FACR Lower Extremity Ultrasound 03/25/17 0000 Signed Impressions: Service Date/Time: Saturday, March 25, 2017 14:34 - CONCLUSION: No evidence of deep venous thrombosis within the left lower extremity. Enlarged left groin node measuring 3.6 cm in size. Johnie Benson MD Foot X-Ray 03/25/17 0000 Signed Impressions: Service Date/Time: Saturday, March 25, 2017 17:33 - CONCLUSION: Evidence for erosion and hardware loosening as described above. Inflammatory process would be consideration. Arun Pedro MD FACR Foot MRI 03/25/17 0000 Signed Impressions: Service Date/Time: Saturday, March 25, 2017 15:59 - CONCLUSION: 1. Severely suboptimal study secondary to extensive susceptibility artifact secondary to the multiple surgical hardware severely limiting visualization throughout the foot. Osteomyelitis cannot be excluded. 2. Large complex fluid collection along the anterior joint which may represent a large joint effusion. 3. Extensive postsurgical change with multiple metal rods. There is extensive degenerative change in the mid and hindfoot which is poorly visualized. 4. Pes planus 1. Tom Hdz MD Ankle X-Ray 03/25/17 0000 Signed Impressions: Service Date/Time: Saturday, March 25, 2017 17:35 - CONCLUSION: Markedly abnormal radiographs of the ankle. Correlation within in the old films would be of benefit. Arun Pedro MD FACR Assessment & Plan A/P L foot infected ulcer To OR tomorrow PM with Dr Roldan for debridement and wound vac L foot. NPO after breakfast tomorrow. Sergey Hernandez DPM Mar 29, 2017 18:43
[2017-03-30] VITALS (7 sets, daily range): BP systolic 123–148; BP diastolic 65–99; PULSE 69–80; RESP 17–20; TEMP 97.2–97.8; O2SAT 98–100
[2017-03-30] MEDS: AZTREONAM INJ 2,000 MG in SODIUM CHLORIDE 0.9% INJ 100 ML IV SCH ×4 (03:46→17:29)
[2017-03-30] MEDS: SODIUM CHLORIDE 0.9% FLUSH 10 ML FLUSH IV FLUSH SCH ×3 (03:46→22:36)
[2017-03-30] MEDS: INSULIN ASPART SUPPLEMENTAL SCALE SQ SCH ×4 (07:00→22:45)
[2017-03-30] MEDS: INSULIN DETEMIR 100 UNITS/ML VIAL SQ SCH (08:05)
--- NOTE | 2017-03-30 08:31 | HHI.PR ---
Subjective Remarks This is a pleasant 61 y/o Male with DM II status post left foot surgical reconstruction with hardware in place Sent by assistant track coach from the clinic for a large left leg blister that ruptured a week ago causing some ulceration. The area was debrided in the office and patient was sent to the emergency room for an MRI to determine if patient had osteomyelitis due to significant history of left foot ulceration and hardware from 2014 and history of diabetic neuropathy possible Charcot joint. Patient had a WBC scan showed some uptake in the soft tissue and a fluid collection but no bony involvement. Patient underwent an ultrasound-guided aspiration of this fluid collection today. All the cultures are pending at the present time the deep ulceration after a trauma blister shows growth of Enterobacter cloacae as well as another gram-negative ID of which is pending. Infectious disease is consulted for evaluation and management of possible osteomyelitis and possible septic arthritis. will go later for I and D. Objective Vital Signs Date Time Temp Pulse Resp B/P Pulse Ox O2 Delivery O2 Flow Rate FiO2 03/30/17 04:00 97.2 78 17 148/65 98 03/30/17 00:12 Room Air 03/30/17 00:00 97.8 69 18 131/68 98 03/29/17 20:00 97.7 69 17 130/66 97 03/29/17 16:00 97.3 76 20 131/66 98 03/29/17 15:00 97.3 76 20 131/66 98 03/29/17 12:00 97.9 82 20 124/59 98 03/29/17 12:00 97.4 75 20 137/59 95 03/29/17 11:00 97.4 75 20 137/59 95 I/O 03/29/17 03/29/17 03/29/17 03/30/17 03/30/17 03/30/17 07:00 15:00 23:00 07:00 15:00 23:00 Intake Total 345 ml 480 ml 200 ml 200 ml Output Total 250 ml Balance 95 ml 480 ml 200 ml 200 ml Intake Oral 480 ml 200 ml 200 ml IV Total 345 ml 0 ml Output Urine Total 250 ml # Voids 4 1 # Bowel Movements 2 Result Diagram: 03/28/17 0715 03/28/17 0715 Imaging Last Impressions Needle Aspiration Ultrasound 03/28/17 0000 Signed Impressions: Service Date/Time: Tuesday, March 28, 2017 14:52 - CONCLUSION: Uncomplicated ultrasound guided aspiration. Gram stain and culture pending. Arun Pedro MD FACR Tumor Localization 03/27/17 0000 Signed Impressions: Service Date/Time: Monday, March 27, 2017 11:56 - CONCLUSION: Intense focal uptake above. Arun Pedro MD FACR Lower Extremity Ultrasound 03/25/17 0000 Signed Impressions: Service Date/Time: Saturday, March 25, 2017 14:34 - CONCLUSION: No evidence of deep venous thrombosis within the left lower extremity. Enlarged left groin node measuring 3.6 cm in size. Johnie Benson MD Foot X-Ray 03/25/17 0000 Signed Impressions: Service Date/Time: Saturday, March 25, 2017 17:33 - CONCLUSION: Evidence for erosion and hardware loosening as described above. Inflammatory process would be consideration. Arun Pedro MD FACR Foot MRI 03/25/17 0000 Signed Impressions: Service Date/Time: Saturday, March 25, 2017 15:59 - CONCLUSION: 1. Severely suboptimal study secondary to extensive susceptibility artifact secondary to the multiple surgical hardware severely limiting visualization throughout the foot. Osteomyelitis cannot be excluded. 2. Large complex fluid collection along the anterior joint which may represent a large joint effusion. 3. Extensive postsurgical change with multiple metal rods. There is extensive degenerative change in the mid and hindfoot which is poorly visualized. 4. Pes planus 1. Tom Hdz MD Ankle X-Ray 03/25/17 0000 Signed Impressions: Service Date/Time: Saturday, March 25, 2017 17:35 - CONCLUSION: Markedly abnormal radiographs of the ankle. Correlation within in the old films would be of benefit. Arun Pedro MD FACR Procedures US guided aspiration of the left knee. Other Results Laboratory Tests Test 03/27/17 03/28/17 22:30 07:15 Vancomycin Level Trough 12.0 MCG/ML White Blood Count 11.4 TH/MM3 Red Blood Count 4.67 MIL/MM3 Hemoglobin 12.3 GM/DL Hematocrit 37.2 % Mean Corpuscular Volume 79.5 FL Mean Corpuscular Hemoglobin 26.4 PG Mean Corpuscular Hemoglobin 33.2 % Concent Red Cell Distribution Width 14.8 % Platelet Count 579 TH/MM3 Mean Platelet Volume 7.0 FL Sodium Level 140 MEQ/L Potassium Level 4.1 MEQ/L Chloride Level 103 MEQ/L Carbon Dioxide Level 29.4 MEQ/L Anion Gap 8 MEQ/L Blood Urea Nitrogen 21 MG/DL Creatinine 1.21 MG/DL Estimat Glomerular Filtration 61 ML/MIN Rate Random Glucose 88 MG/DL Calcium Level 9.4 MG/DL Total Bilirubin 0.3 MG/DL Direct Bilirubin 0.1 MG/DL Indirect Bilirubin 0.2 MG/DL Aspartate Amino Transf 15 U/L (AST/SGOT) Alanine Aminotransferase 18 U/L (ALT/SGPT) Alkaline Phosphatase 170 U/L Total Protein 7.9 GM/DL Albumin 3.0 GM/DL Objective Remarks GENERAL: NAD, A&Ox3 HEAD: Normocephalic. NECK: Supple, trachea midline. No lymphadenopathy. EYES: No scleral icterus. No injection or drainage. CARDIOVASCULAR: Regular rate and rhythm without murmurs, gallops, or rubs. RESPIRATORY: Breath sounds equal bilaterally. No accessory muscle use. GASTROINTESTINAL: Abdomen soft, non-tender, nondistended. MUSCULOSKELETAL: No cyanosis, or edema. Left lower extremity dressed SKIN: Warm and dry. NEURO: No focal neurological deficits. Medications and IVs Current Medications Medications (Trade) Dose Ordered Sig/Emerson Route Start Time Stop Time Status Last Admin (NS Flush) 2 ml UNSCH PRN IV FLUSH 03/25/17 16:45 (NS Flush) 2 ml BID IV FLUSH 03/25/17 21:00 03/30/17 08:01 (Zofran Inj) 4 mg Q6H PRN IVP 03/25/17 16:45 (Lovenox Inj) 40 mg Q24H SQ 03/25/17 18:00 (Narcan Inj) 0.4 mg UNSCH PRN IV 03/25/17 16:45 (D50w (Vial) Inj) 50 ml UNSCH PRN IV 03/25/17 17:00 (Glucagon Inj) 1 mg UNSCH PRN OTHER 03/25/17 17:00 (Tylenol) 650 mg Q6H PRN PO 03/25/17 17:45 ([place] 5-325 Mg) 1 tab Q4H PRN PO 03/25/17 17:45 ([place] 7.5-325 Mg) 1 tab Q4H PRN PO 03/25/17 17:45 (Milk Of Magnesia Liq) 30 ml Q12H PRN PO 03/25/17 17:45 (Senokot) 17.2 mg Q12H PRN PO 03/25/17 17:45 (Dulcolax Supp) 10 mg DAILY PRN RECTAL 03/25/17 17:45 (Lactulose Liq) 30 ml DAILY PRN PO 03/25/17 17:45 (Ambien) 5 mg HS PRN PO 03/25/17 21:00 Insulin Detemir 50 units 50 units DAILYAC SQ 03/29/17 08:00 03/30/17 08:05 (Azactam Inj/NS Inj) 100 ml @ 200 mls/hr Q8H IV 03/29/17 02:00 03/30/17 08:01 A/P Assessment and Plan 61-year-old male with past medical history of DM, neuropathy who presented with diabetic foot ulcer and possible vestibulitis. Patient declined surgical options. Awaiting final cultures. Continue IV antibiotic treatments now and plan for IV antibiotic treatments as an outpatient. Diabetic foot ulcer Left Charcot foot MRI of the left foot showed a complex fluid collection along the anterior joint which may represent a large effusion. Extensive postsurgical changes with multiple metal rods. There is to extensive degenerative change in the mid and hindfoot which is poorly visualized. for debridement and wound vac today. Continue pain control May need to treat long-term antibiotics for now if possible mellitus suspected 03/29 appreciate ID recommendations. Patient is growing very M.D. Enterobacter species. Continue antibiotics as per ID. The patient currently on IV aztreonam. Diabetes mellitus type 2 03/29 Better control. DVT prophylaxis Lovenox Discharge Planning Awaiting final recommendations by specialist for discharge. Moses Kaba MD Mar 30, 2017 08:31 Lovenox Moses Kaba MD Mar 30, 2017 08:31 Moses Kaba MD Mar 30, 2017 08:31 Moses Kaba MD Mar 30, 2017 08:31
[2017-03-30 09:14] LABS: AUTOMATED NEUTROPHIL # 4.7 TH/MM3 (1.8-7.7); BASOPHIL # 0.1 TH/MM3 (0-0.2); BASOPHIL % 1.5 % (0.0-2.0); EOSINOPHIL # 0.4 TH/MM3 (0-0.4); EOSINOPHIL % 5.5 % (0.0-4.0); HEMATOCRIT 34.9 % (39.0-51.0); LYMPH % 16.6 % (9.0-44.0); LYMPHOCYTE # 1.1 TH/MM3 (1.0-4.8); MEAN CELL VOLUME 80.2 FL (80.0-100.0); MEAN CORPUSCULAR HEMOGLOBIN 25.6 PG (27.0-34.0); MEAN CORPUSCULAR HGB CONC 31.9 % (32.0-36.0); MONO % 7.9 % (0.0-8.0); NEUT % 68.5 % (16.0-70.0); PLATELET COUNT 472 TH/MM3 (150-450); RED BLOOD COUNT 4.36 MIL/MM3 (4.50-5.90); RED CELL DISTRIBUTION WIDTH 15.2 % (11.6-17.2); WHITE BLOOD COUNT 6.9 TH/MM3 (4.0-11.0)
[2017-03-30 09:24] LABS: HEMO FLAGS AUTO DIFF
[2017-03-30 09:36] LABS: ANION GAP 10 MEQ/L (5-15); AST (GOT) 12 U/L (15-37); BICARBONATE 25.1 MEQ/L (21.0-32.0); BLOOD UREA NITROGEN 24 MG/DL (7-18); CHLORIDE 103 MEQ/L (98-107); GLOMERULAR FILTRATION RATE 73 ML/MIN (>89); MAGNESIUM 2.1 MG/DL (1.5-2.5); POTASSIUM 4.1 MEQ/L (3.5-5.1); SODIUM (NA) 138 MEQ/L (136-145)
[2017-03-30 09:38] LABS: ALT (GPT) 16 U/L (12-78)
[2017-03-30 09:40] LABS: ALKALINE PHOSPHATASE 146 U/L (45-117); TOTAL BILIRUBIN ADULT 0.4 MG/DL (0.2-1.0)
[2017-03-30 10:20] LABS: BANDS 3 % (0-6); BASOPHILS 1 % (0-2); EOSINOPHILS 7 % (0-4); METAMYELOCYTES 1 % (0-1); MYELOCYTES 2 % (0-0); NEUTROPHIL # MANUAL DIFF 5.5 TH/MM3 (1.8-7.7); POLYS (SEG NEUTROPHILS) 74 % (16-70); WBC DIFF SAMPLE 100
[2017-03-30 10:21] LABS: PLATELET ESTIMATE SMEAR NORMAL (NORMAL); PLATELET MORPHOLOGY NORMAL (NORMAL); SCAN/DIFF FINAL DIFF MANUAL
[2017-03-30] MEDS ORDERED: PROPOFOL 200 MG/20 ML AMP IV ONE (11:10)
[2017-03-30] MEDS ORDERED: LACTATED RINGER'S 1000 ML INJ 1,000 ML IV ONE (11:11)
[2017-03-30] MEDS ORDERED: BUPIVACAINE HCL PF 0.5% 30 ML VIAL ONE (12:58)
[2017-03-30] MEDS ORDERED: LIDOCAINE HCL 2% 50 ML VIAL ONE (12:58)
[2017-03-30] MEDS ORDERED: BUPIVACAINE HCL PF 0.25% 30 ML VIAL ONE (15:52)
[2017-03-30] MEDS ORDERED: NEOMYCIN/POLYMYXIN 1 ML G.U. IRRIGANT IR ONE (16:14)
[2017-03-30] MEDS ORDERED: DO NOT ADM ANY ANTICOAGULANT DRUGS PRN (17:01)
[2017-03-30] MEDS ORDERED: MIDAZOLAM HCL 2 MG/2 ML VIAL ONE (17:10)
[2017-03-30] MEDS: ENOXAPARIN SODIUM 40 MG/0.4 ML SYRINGE SQ SCH (17:30)
[2017-03-31 00:16] VITALS: BP 120/68; PULSE 66; RESP 18; TEMP 97.4; O2SAT 98
[2017-03-31] MEDS: AZTREONAM INJ 2,000 MG in SODIUM CHLORIDE 0.9% INJ 100 ML IV SCH ×3 (01:40→17:26)
[2017-03-31 04:09] VITALS: BP 120/57; PULSE 68; RESP 20; TEMP 97.7; O2SAT 98
[2017-03-31] MEDS: INSULIN ASPART SUPPLEMENTAL SCALE SQ SCH ×4 (06:52→21:03)
--- NOTE | 2017-03-31 07:57 | MP ---
cc: GENA ROLDAN DPM DATE OF SURGERY 03/30/2017 DATE OF 1955 PREOPERATIVE DIAGNOSIS Left foot wound. POSTOPERATIVE DIAGNOSIS Left foot wound. PROCEDURE 1. Left foot wound debridement. 2. Left foot application of wound VAC. ANESTHESIOLOGIST Dr. Bourgeois ANESTHESIA MAC. HEMOSTASIS None. ESTIMATED BLOOD LOSS Less than 25 cc. MATERIALS None. INJECTABLES Postoperatively 7 cc of 0.25% Marcaine plain. BRIEF HISTORY The patient is a 61-year-old male with longstanding history of severe diabetic Charcot foot with multiple procedures. He had undergone a bone scan and MRI as well as a sterile abscess aspiration by Interventional Radiology. With chronic wound the patient understands that he is at risk for amputation of the left leg. The patient would like to attempt all potential limb salvage procedures. PROCEDURE IN DETAIL The patient brought into the room and placed on the operating table in spine position. After MAC anesthesia was administered, time-out was called, correct identifiers carried. The left foot was prepped, scrubbed and draped in the usual sterile aseptic manner. A tourniquet was applied to the left leg but not inflated throughout the procedure. Deep culture was taken after prep on the left dorsal foot wound. Sharp excisional debridement was carried out with a #15 blade of necrotic nonviable tissue to the left foot wound. Healthy bleeding was noted. Rongeur was used to debride as well too. After debridement, a second culture was taken into the left dorsal foot and deep wound. The incision and the wound was then copiously irrigated and pulse lavaged with normal sterile saline impregnated with 3 units of . The wound measured 2.6 x 1.6 x 1.6. A wound VAC was applied. Appropriate suction was noted intraoperatively. Dry sterile dressings were applied using 4x4s, Noah and a light Coban. The patient will be transferred to PACU for a brief period of postop monitoring after which he will be transferred to the floor. He will be followed up appropriately while in-house. Gena Roldan DPM SR/TERI /5:30 PM /1:14 PM
[2017-03-31 08:00] VITALS: BP 138/64; PULSE 75; RESP 18; TEMP 97.4; O2SAT 98; O2SAT 99
[2017-03-31] MEDS: INSULIN DETEMIR 100 UNITS/ML VIAL SQ SCH (08:45)
[2017-03-31] MEDS: SODIUM CHLORIDE 0.9% FLUSH 10 ML FLUSH IV FLUSH SCH ×2 (08:45→20:55)
[2017-03-31] MEDS: ACETAMINOPHEN/HYDROcodone 325 MG/5 MG TAB PO PRN (08:52)
[2017-03-31 12:00] VITALS: BP 130/64; PULSE 72; RESP 18; TEMP 97.7; O2SAT 97
[2017-03-31 16:00] VITALS: BP 114/56; PULSE 76; RESP 18; TEMP 97.5; O2SAT 100
--- NOTE | 2017-03-31 16:48 | HHI.PR ---
Subjective Remarks This is a pleasant 61 y/o Male with DM II status post left foot surgical reconstruction with hardware in place Sent by curtain feller blindstitch from the clinic for a large left leg blister that ruptured a week ago causing some ulceration. The area was debrided in the office and patient was sent to the emergency room for an MRI to determine if patient had osteomyelitis due to significant history of left foot ulceration and hardware from 2014 and history of diabetic neuropathy possible Charcot joint. Patient had a WBC scan showed some uptake in the soft tissue and a fluid collection but no bony involvement. Patient underwent an ultrasound-guided aspiration of this fluid collection today. All the cultures are pending at the present time the deep ulceration after a trauma blister shows growth of Enterobacter cloacae as well as another gram-negative ID of which is pending. Infectious disease is consulted for evaluation and management of possible osteomyelitis and possible septic arthritis. 03/31: Stable in his bedroom with Diagnosis of Left foot wound, status post Left foot wound debridement and left foot application of wound vac, 03/30/17, seen in his bedroom, discussed with nurse Miss Ford no new issues, no nausea, vomit or diarrhea. asking me to discharge him before this weekend will follow recommendations By Podiatry and by ID specialist. Objective Vital Signs Date Time Temp Pulse Resp B/P Pulse Ox O2 Delivery O2 Flow Rate FiO2 03/31/17 16:00 97.5 76 18 114/56 100 03/31/17 12:00 97.7 72 18 130/64 97 03/31/17 12:00 Room Air 03/31/17 09:00 Room Air 03/31/17 08:00 97.4 75 18 138/64 98 03/31/17 08:00 99 21 03/31/17 04:09 97.7 68 20 120/57 98 03/31/17 00:16 97.4 66 18 120/68 98 03/31/17 00:00 Room Air 03/30/17 20:52 97.8 70 18 145/67 98 03/30/17 20:45 Room Air 03/30/17 18:25 65 16 100 Room Air 03/30/17 18:15 97.7 66 16 122/67 100 Room Air 03/30/17 18:00 68 16 120/69 100 Room Air 03/30/17 17:45 70 16 129/81 99 Room Air 03/30/17 17:30 67 15 136/73 99 Room Air 03/30/17 17:15 69 15 132/83 98 Room Air 03/30/17 17:00 98.0 71 16 149/70 98 Room Air I/O 03/30/17 03/30/17 03/30/17 03/31/17 03/31/17 03/31/17 07:00 15:00 23:00 07:00 15:00 23:00 Intake Total 200 ml 440 ml 100 ml 110 ml 894 ml Output Total 250 ml 200 ml 200 ml Balance 200 ml 440 ml -150 ml -90 ml 694 ml Intake Oral 200 ml 440 ml 840 ml IV Total 110 ml 54 ml Other 100 ml Output Urine Total 200 ml 200 ml 200 ml Estimated Blood Loss 50 ml # Voids 1 3 3 # Bowel Movements 2 0 1 Result Diagram: 03/30/17 0700 03/30/17 0700 Imaging Last Impressions Needle Aspiration Ultrasound 03/28/17 0000 Signed Impressions: Service Date/Time: Tuesday, March 28, 2017 14:52 - CONCLUSION: Uncomplicated ultrasound guided aspiration. Gram stain and culture pending. Arun Pedro MD FACR Tumor Localization 03/27/17 0000 Signed Impressions: Service Date/Time: Monday, March 27, 2017 11:56 - CONCLUSION: Intense focal uptake above. Arun Pedro MD FACR Lower Extremity Ultrasound 03/25/17 0000 Signed Impressions: Service Date/Time: Saturday, March 25, 2017 14:34 - CONCLUSION: No evidence of deep venous thrombosis within the left lower extremity. Enlarged left groin node measuring 3.6 cm in size. Johnie Benson MD Foot X-Ray 03/25/17 0000 Signed Impressions: Service Date/Time: Saturday, March 25, 2017 17:33 - CONCLUSION: Evidence for erosion and hardware loosening as described above. Inflammatory process would be consideration. Arun Pedro MD FACR Foot MRI 03/25/17 0000 Signed Impressions: Service Date/Time: Saturday, March 25, 2017 15:59 - CONCLUSION: 1. Severely suboptimal study secondary to extensive susceptibility artifact secondary to the multiple surgical hardware severely limiting visualization throughout the foot. Osteomyelitis cannot be excluded. 2. Large complex fluid collection along the anterior joint which may represent a large joint effusion. 3. Extensive postsurgical change with multiple metal rods. There is extensive degenerative change in the mid and hindfoot which is poorly visualized. 4. Pes planus 1. Tom Hdz MD Ankle X-Ray 03/25/17 0000 Signed Impressions: Service Date/Time: Saturday, March 25, 2017 17:35 - CONCLUSION: Markedly abnormal radiographs of the ankle. Correlation within in the old films would be of benefit. Arun Pedro MD FACR Procedures US guided aspiration of the left knee. With Diagnosis of Left foot wound, status post Left foot wound debridement and left foot application of wound vac, 03/30/17 Other Results Laboratory Tests Test 03/27/17 03/28/17 03/30/17 22:30 07:15 07:00 Vancomycin Level Trough 12.0 MCG/ML Direct Bilirubin 0.1 MG/DL Indirect Bilirubin 0.2 MG/DL White Blood Count 6.9 TH/MM3 Red Blood Count 4.36 MIL/MM3 Hemoglobin 11.1 GM/DL Hematocrit 34.9 % Mean Corpuscular Volume 80.2 FL Mean Corpuscular Hemoglobin 25.6 PG Mean Corpuscular Hemoglobin 31.9 % Concent Red Cell Distribution Width 15.2 % Platelet Count 472 TH/MM3 Mean Platelet Volume 7.2 FL Neutrophils (%) (Auto) 68.5 % Lymphocytes (%) (Auto) 16.6 % Monocytes (%) (Auto) 7.9 % Eosinophils (%) (Auto) 5.5 % Basophils (%) (Auto) 1.5 % Neutrophils # (Auto) 4.7 TH/MM3 Lymphocytes # (Auto) 1.1 TH/MM3 Monocytes # (Auto) 0.5 TH/MM3 Eosinophils # (Auto) 0.4 TH/MM3 Basophils # (Auto) 0.1 TH/MM3 CBC Comment AUTO DIFF Differential Total Cells 100 Counted Neutrophils % (Manual) 74 % Band Neutrophils % 3 % Lymphocytes % 8 % Monocytes % 4 % Eosinophils % 7 % Basophils % 1 % Neutrophils # (Manual) 5.5 TH/MM3 Metamyelocytes 1 % Myelocytes 2 % Differential Comment FINAL DIFF MANUAL Platelet Estimate NORMAL Platelet Morphology Comment NORMAL Red Cell Morphology Comment NORMAL Sodium Level 138 MEQ/L Potassium Level 4.1 MEQ/L Chloride Level 103 MEQ/L Carbon Dioxide Level 25.1 MEQ/L Anion Gap 10 MEQ/L Blood Urea Nitrogen 24 MG/DL Creatinine 1.04 MG/DL Estimat Glomerular Filtration 73 ML/MIN Rate Random Glucose 110 MG/DL Calcium Level 9.2 MG/DL Phosphorus Level 3.0 MG/DL Magnesium Level 2.1 MG/DL Total Bilirubin 0.4 MG/DL Aspartate Amino Transf 12 U/L (AST/SGOT) Alanine Aminotransferase 16 U/L (ALT/SGPT) Alkaline Phosphatase 146 U/L Total Protein 6.8 GM/DL Albumin 2.6 GM/DL Objective Remarks GENERAL: NAD, A&Ox3 HEAD: Normocephalic. NECK: Supple, trachea midline. No lymphadenopathy. EYES: No scleral icterus. No injection or drainage. CARDIOVASCULAR: Regular rate and rhythm without murmurs, gallops, or rubs. RESPIRATORY: Breath sounds equal bilaterally. No accessory muscle use. GASTROINTESTINAL: Abdomen soft, non-tender, nondistended. MUSCULOSKELETAL: No cyanosis, or edema. Left lower extremity dressed SKIN: Warm and dry. NEURO: No focal neurological deficits. Medications and IVs Current Medications Medications (Trade) Dose Ordered Sig/[place]erson Route Start Time Stop Time Status Last Admin (NS Flush) 2 ml UNSCH PRN IV FLUSH 03/25/17 16:45 (NS Flush) 2 ml BID IV FLUSH 03/25/17 21:00 03/31/17 08:45 (Zofran Inj) 4 mg Q6H PRN IVP 03/25/17 16:45 (Lovenox Inj) 40 mg Q24H SQ 03/25/17 18:00 (Narcan Inj) 0.4 mg UNSCH PRN IV 03/25/17 16:45 (D50w (Vial) Inj) 50 ml UNSCH PRN IV 03/25/17 17:00 (Glucagon Inj) 1 mg UNSCH PRN OTHER 03/25/17 17:00 (Tylenol) 650 mg Q6H PRN PO 03/25/17 17:45 ([place] 5-325 Mg) 1 tab Q4H PRN PO 03/25/17 17:45 03/31/17 08:52 ([place] 7.5-325 Mg) 1 tab Q4H PRN PO 03/25/17 17:45 (Milk Of Magnesia Liq) 30 ml Q12H PRN PO 03/25/17 17:45 (Senokot) 17.2 mg Q12H PRN PO 03/25/17 17:45 (Dulcolax Supp) 10 mg DAILY PRN RECTAL 03/25/17 17:45 (Lactulose Liq) 30 ml DAILY PRN PO 03/25/17 17:45 (Ambien) 5 mg HS PRN PO 03/25/17 21:00 Insulin Detemir 50 units 50 units DAILYAC SQ 03/29/17 08:00 03/31/17 08:45 (Azactam Inj/NS Inj) 100 ml @ 200 mls/hr Q8H IV 03/29/17 02:00 03/31/17 10:16 Miscellaneous Information ALL NURSING DEPARTME... UNSCH PRN .XX 03/30/17 17:01 03/31/17 17:00 A/P Assessment and Plan 61-year-old male with past medical history of DM, neuropathy who presented with diabetic foot ulcer and possible vestibulitis. Patient declined surgical options. Awaiting final cultures. Continue IV antibiotic treatments now and plan for IV antibiotic treatments as an outpatient. Diabetic foot ulcer Left Charcot foot MRI of the left foot showed a complex fluid collection along the anterior joint which may represent a large effusion. Extensive postsurgical changes with multiple metal rods. There is to extensive degenerative change in the mid and hindfoot which is poorly visualized. for debridement and wound vac today. Continue pain control May need to treat long-term antibiotics for now if possible mellitus suspected 03/29 appreciate ID recommendations. Patient is growing very M.D. Enterobacter species. Continue antibiotics as per ID. The patient currently on IV aztreonam. With Diagnosis of Left foot wound, status post Left foot wound debridement and left foot application of wound vac, 03/30/17 Diabetes mellitus type 2 Better control. DVT prophylaxis Lovenox Discharge Planning Awaiting final recommendations by specialist for discharge. Moses Kaba MD Mar 31, 2017 16:48
[2017-03-31] MEDS: ENOXAPARIN SODIUM 40 MG/0.4 ML SYRINGE SQ SCH (17:24)
[2017-03-31 20:00] VITALS: BP 145/82; PULSE 73; RESP 20; TEMP 98; O2SAT 100
[2017-03-31] MEDS: diphenhydrAMINE HCL 25 MG CAP PO PRN (20:54)
[2017-04-01] VITALS: BP 126/59; PULSE 64; RESP 16; TEMP 97.8; O2SAT 97
[2017-04-01] MEDS: AZTREONAM INJ 2,000 MG in SODIUM CHLORIDE 0.9% INJ 100 ML IV SCH ×3 (02:41→17:26)
[2017-04-01 04:00] VITALS: BP 142/72; PULSE 69; RESP 16; TEMP 97.4; O2SAT 97
[2017-04-01] MEDS: diphenhydrAMINE HCL 25 MG CAP PO PRN ×2 (04:27→11:50)
[2017-04-01] MEDS: INSULIN ASPART SUPPLEMENTAL SCALE SQ SCH ×4 (06:59→21:00)
[2017-04-01 08:00] VITALS: BP 134/77; PULSE 72; RESP 20; TEMP 97.7; O2SAT 97
[2017-04-01] MEDS: SODIUM CHLORIDE 0.9% FLUSH 10 ML FLUSH IV FLUSH SCH ×2 (08:40→21:00)
[2017-04-01] MEDS: INSULIN DETEMIR 100 UNITS/ML VIAL SQ SCH (08:46)
[2017-04-01] MEDS: ACETAMINOPHEN/HYDROcodone 325 MG/5 MG TAB PO PRN (09:39)
--- NOTE | 2017-04-01 11:05 | HHI.PR ---
Subjective Remarks This is a pleasant 61 y/o Male with DM II status post left foot surgical reconstruction with hardware in place Sent by welfare interviewer from the clinic for a large left leg blister that ruptured a week ago causing some ulceration. The area was debrided in the office and patient was sent to the emergency room for an MRI to determine if patient had osteomyelitis due to significant history of left foot ulceration and hardware from 2014 and history of diabetic neuropathy possible Charcot joint. Patient had a WBC scan showed some uptake in the soft tissue and a fluid collection but no bony involvement. Patient underwent an ultrasound-guided aspiration of this fluid collection today. All the cultures are pending at the present time the deep ulceration after a trauma blister shows growth of Enterobacter cloacae as well as another gram-negative ID of which is pending. Infectious disease is consulted for evaluation and management of possible osteomyelitis and possible septic arthritis. 03/31: Stable in his bedroom with Diagnosis of Left foot wound, status post Left foot wound debridement and left foot application of wound vac, 03/30/17, seen in his bedroom, discussed with nurse Miss Ford no new issues, no nausea, vomit or diarrhea. asking me to discharge him before this weekend will follow recommendations By Podiatry and by ID specialist. 04/01: Seen in his bedroom in the presence of nurse, the patient is waiting for discharge, I had the opportunity co contact Doctor Lauren Quintanilla ID specialist she needs to follow Wound cultures this weekend and probable discharge next week. no nausea, vomit or diarrhea. Objective Vital Signs Date Time Temp Pulse Resp B/P Pulse Ox O2 Delivery O2 Flow Rate FiO2 04/01/17 09:05 Room Air 04/01/17 08:00 97.7 72 20 134/77 97 04/01/17 04:00 97.4 69 16 142/72 97 04/01/17 00:00 97.8 64 16 126/59 97 03/31/17 20:45 Room Air 03/31/17 20:00 98.0 73 20 145/82 100 03/31/17 16:00 97.5 76 18 114/56 100 03/31/17 16:00 Room Air 03/31/17 12:00 97.7 72 18 130/64 97 03/31/17 12:00 Room Air I/O 03/31/17 03/31/17 03/31/17 04/01/17/7/17 7/7/17 07:00 15:00 23:00 07:00 15:00 23:00 Intake Total 110 ml 894 ml 360 ml 120 ml Output Total 200 ml 200 ml Balance -90 ml 694 ml 360 ml 120 ml Intake Oral 840 ml 360 ml IV Total 110 ml 54 ml 120 ml Output Urine Total 200 ml 200 ml # Voids 3 2 # Bowel Movements 1 1 Result Diagram: 03/30/17 0700 03/30/17 07 Imaging Last Impressions Needle Aspiration Ultrasound 03/28/17 0000 Signed Impressions: Service Date/Time: Tuesday, March 28, 2017 14:52 - CONCLUSION: Uncomplicated ultrasound guided aspiration. Gram stain and culture pending. Arun Pedro MD FACR Tumor Localization 03/27/17 0000 Signed Impressions: Service Date/Time: Monday, March 27, 2017 11:56 - CONCLUSION: Intense focal uptake above. Arun Pedro MD FACR Lower Extremity Ultrasound 03/25/17 0000 Signed Impressions: Service Date/Time: Saturday, March 25, 2017 14:34 - CONCLUSION: No evidence of deep venous thrombosis within the left lower extremity. Enlarged left groin node measuring 3.6 cm in size. Johnie Benson MD Foot X-Ray 03/25/17 Signed Impressions: Service Date/Time: Saturday, March 25, 2017 17:33 - CONCLUSION: Evidence for erosion and hardware loosening as described above. Inflammatory process would be consideration. Arun Pedro MD FACR Foot MRI 03/25/17 0000 Signed Impressions: Service Date/Time: Saturday, March 25, 2017 15:59 - CONCLUSION: 1. Severely suboptimal study secondary to extensive susceptibility artifact secondary to the multiple surgical hardware severely limiting visualization throughout the foot. Osteomyelitis cannot be excluded. 2. Large complex fluid collection along the anterior joint which may represent a large joint effusion. 3. Extensive postsurgical change with multiple metal rods. There is extensive degenerative change in the mid and hindfoot which is poorly visualized. 4. Pes planus 1. Tom Hdz MD Ankle X-Ray 03/25/17 0000 Signed Impressions: Service Date/Time: Saturday, March 25, 2017 17:35 - CONCLUSION: Markedly abnormal radiographs of the ankle. Correlation within in the old films would be of benefit. Arun Pedro MD FACR Procedures US guided aspiration of the left knee. With Diagnosis of Left foot wound, status post Left foot wound debridement and left foot application of wound vac, 03/30/17 Other Results Laboratory Tests Test 03/28/17 03/30/17 07:15 07:00 Direct Bilirubin 0.1 MG/DL Indirect Bilirubin 0.2 MG/DL White Blood Count 6.9 TH/MM3 Red Blood Count 4.36 MIL/MM3 Hemoglobin 11.1 GM/DL Hematocrit 34.9 % Mean Corpuscular Volume 80.2 FL Mean Corpuscular Hemoglobin 25.6 PG Mean Corpuscular Hemoglobin 31.9 % Concent Red Cell Distribution Width 15.2 % Platelet Count 472 TH/MM3 Mean Platelet Volume 7.2 FL Neutrophils (%) (Auto) 68.5 % Lymphocytes (%) (Auto) 16.6 % Monocytes (%) (Auto) 7.9 % Eosinophils (%) (Auto) 5.5 % Basophils (%) (Auto) 1.5 % Neutrophils # (Auto) 4.7 TH/MM3 Lymphocytes # (Auto) 1.1 TH/MM3 Monocytes # (Auto) 0.5 TH/MM3 Eosinophils # (Auto) 0.4 TH/MM3 Basophils # (Auto) 0.1 TH/MM3 CBC Comment AUTO DIFF Differential Total Cells 100 Counted Neutrophils % (Manual) 74 % Band Neutrophils % 3 % Lymphocytes % 8 % Monocytes % 4 % Eosinophils % 7 % Basophils % 1 % Neutrophils # (Manual) 5.5 TH/MM3 Metamyelocytes 1 % Myelocytes 2 % Differential Comment FINAL DIFF MANUAL Platelet Estimate NORMAL Platelet Morphology Comment NORMAL Red Cell Morphology Comment NORMAL Sodium Level 138 MEQ/L Potassium Level 4.1 MEQ/L Chloride Level 103 MEQ/L Carbon Dioxide Level 25.1 MEQ/L Anion Gap 10 MEQ/L Blood Urea Nitrogen 24 MG/DL Creatinine 1.04 MG/DL Estimat Glomerular Filtration 73 ML/MIN Rate Random Glucose 110 MG/DL Calcium Level 9.2 MG/DL Phosphorus Level 3.0 MG/DL Magnesium Level 2.1 MG/DL Total Bilirubin 0.4 MG/DL Aspartate Amino Transf 12 U/L (AST/SGOT) Alanine Aminotransferase 16 U/L (ALT/SGPT) Alkaline Phosphatase 146 U/L Total Protein 6.8 GM/DL Albumin 2.6 GM/DL Objective Remarks GENERAL: NAD, A&Ox3 HEAD: Normocephalic. NECK: Supple, trachea midline. No lymphadenopathy. EYES: No scleral icterus. No injection or drainage. CARDIOVASCULAR: Regular rate and rhythm without murmurs, gallops, or rubs. RESPIRATORY: Breath sounds equal bilaterally. No accessory muscle use. GASTROINTESTINAL: Abdomen soft, non-tender, nondistended. MUSCULOSKELETAL: No cyanosis, or edema. Left lower extremity dressed SKIN: Warm and dry. NEURO: No focal neurological deficits. Medications and IVs Current Medications Medications (Trade) Dose Ordered Sig/[place] Route Start Time Stop Time Status Last Admin (NS Flush) 2 ml UNSCH PRN IV FLUSH 03/25/17 16:45 (NS Flush) 2 ml BID IV FLUSH 03/25/17 21:00 04/01/17 08:40 (Zofran Inj) 4 mg Q6H PRN IVP 03/25/17 16:45 (Lovenox Inj) 40 mg Q24H SQ 03/25/17 18:00 (Narcan Inj) 0.4 mg UNSCH PRN IV 03/25/17 16:45 (D50w (Vial) Inj) 50 ml UNSCH PRN IV 03/25/17 17:00 (Glucagon Inj) 1 mg UNSCH PRN OTHER 03/25/17 17:00 (Tylenol) 650 mg Q6H PRN PO 03/25/17 17:45 ([place] 5-325 Mg) 1 tab Q4H PRN PO 03/25/17 17:45 04/01/17 09:39 ([place] 7.5-325 Mg) 1 tab Q4H PRN PO 03/25/17 17:45 (Milk Of Magnesia Liq) 30 ml Q12H PRN PO 03/25/17 17:45 (Senokot) 17.2 mg Q12H PRN PO 03/25/17 17:45 (Dulcolax Supp) 10 mg DAILY PRN RECTAL 03/25/17 17:45 (Lactulose Liq) 30 ml DAILY PRN PO 03/25/17 17:45 (Ambien) 5 mg HS PRN PO 03/25/17 21:00 Insulin Detemir 50 units 50 units DAILYAC SQ 03/29/17 08:00 04/01/17 08:46 (Azactam Inj/NS Inj) 100 ml @ 200 mls/hr Q8H IV 03/29/17 02:00 04/01/17 09:39 (Benadryl) 25 mg Q6H PRN PO 03/31/17 21:00 04/01/17 04:27 A/P Assessment and Plan 61-year-old male with past medical history of DM, neuropathy who presented with diabetic foot ulcer and possible vestibulitis. Patient declined surgical options. Awaiting final cultures. Continue IV antibiotic treatments now and plan for IV antibiotic treatments as an outpatient. Diabetic foot ulcer Left Charcot foot MRI of the left foot showed a complex fluid collection along the anterior joint which may represent a large effusion. Extensive postsurgical changes with multiple metal rods. There is to extensive degenerative change in the mid and hindfoot which is poorly visualized. for debridement and wound vac today. Continue pain control May need to treat long-term antibiotics for now if possible mellitus suspected 03/29 appreciate ID recommendations. Patient is growing very M.D. Enterobacter species. Continue antibiotics as per ID. The patient currently on IV aztreonam. With Diagnosis of Left foot wound, status post Left foot wound debridement and left foot application of wound vac, 03/30/17 as per Doctor Socorro to continue present care and she will follow wound cultures and probable discharge next week. Diabetes mellitus type 2 he is well controlled probable high post prandial hyperglycemia following. continue present care. DVT prophylaxis Lovenox Discussed with patient and his nurse in the room, all questions were answered to the best of my abilities. Discharge Planning as per ID specialist will decide next week. meaning after 04/04/17 Moses Kaba MD Apr 01, 2017 11:05
[2017-04-01 12:00] VITALS: BP 137/76; PULSE 71; RESP 20; TEMP 97.2; O2SAT 96
[2017-04-01] MEDS ORDERED: EPIN1INJ21 SQ (14:26)
[2017-04-01] MEDS ORDERED: SOLU250I IV PUSH (14:26)
[2017-04-01] MEDS ORDERED: EPIN1INJ21 IV PUSH (14:26)
[2017-04-01] MEDS ORDERED: [UNRECOGNIZED DRUG - CODE] IV (14:27)
--- NOTE | 2017-04-01 14:31 | HHI.FF ---
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 [] May leave port accessed during therapy. [] May leave peripheral site accessed for duration of therapy. [x] If patient has SOB or respiratory distress, check oxygen saturation. If less than 90% or clinical signs of respiratory distress, administer oxygen at 2 L/min. via nasal cannula and notify physician. [x] Anaphylaxis/Reaction orders: * Stop infusion. * Keep IV line open with saline flush. * Notify physician. * Monitor vital signs every 15 minutes until symptoms resolve. * Check Oxygen saturation; Oxygen at 2 L/min. via nasal cannula if less than 90% or clinical signs of respiratory distress. * Administer diphenhydramine (Benadryl) 25 mg IV STAT, (unless patient has received as pre-med). May repeat once, if necessary. * Solu-Cortef 250 mg IVP over 30-60 seconds, use 100 mg vials for each dissolution. * Epinephrine (1mg/1 ml) 0.3 mg subcutaneously or IVP now with any signs of respiratory distress. * Check with physician for new additional pre-med orders if patient is re- challenged or re-treated. [x] May remove PICC line when treatment complete, after confirming with Physician. [x] If the patient is admitted to the hospital, the ED, or transferred via [facility] , complete transfer form including medication reconciliation order sheet. Laboratory Tests Weekly Labs: CBC w/diff, Creatinine, CRP, LFT's (Hepatic function test) Additional Information Please draw weekly labs, fax to numbers below, Call with abnormal labs, change in clinical condition or problems to: Dr.Reba Schmitz or or covering ID Physician Follow up appt: Patient to schedule follow up appt with Dr.Reba Schmitz within 2 weeks post discharge. Follow up with PCP Follow up with other MDs as planned. Counseling: Counseled about medication side effects Counseled about PICC line care and hand hygiene. Lauren Quintanilla MD Apr 01, 2017 14:31
--- NOTE | 2017-04-01 15:27 | HHI.IDPN ---
Subjective Subjective Remarks is a 61-year-old male with past medical history significant for insulin-dependent diabetes mellitus, left foot surgical reconstruction with hardware in place in the past. With this background patient presents to the emergency room after being sent by occupational health physician from the clinic for a large left leg blister that ruptured a week ago causing some ulceration. The area was debrided in the office and patient was sent to the emergency room for an MRI to determine if patient had osteomyelitis due to significant history of left foot ulceration and hardware from 2014 and history of diabetic neuropathy possible Charcot joint. He denies any recent history of trauma or injury to the area. He denies any fever or chills at home. Patient had a WBC scan showed some uptake in the soft tissue and a fluid collection but no bony involvement. Patient underwent an ultrasound-guided aspiration of this fluid collection today. All the cultures are pending at the present time the deep ulceration after a trauma blister shows growth of Enterobacter cloacae as well as another gram-negative ID of which is pending. Infectious disease is consulted for evaluation and management of possible osteomyelitis and possible septic arthritis. Overnight events reviewed Developed rash over the site of Infusion of cefepime IV No fever No rash No diarrhea Antibiotics Azactam IV Vanco IV Lines Line sites with no e.o infection Past Medical History reviewed Allergies: Coded Allergies: Zosyn (Verified Allergy, Unknown, Rash, 03/28/17) Has tolerated Keflex multiple times. *MDRO Multi-Drug Resistant Organism (Verified Adverse Reaction, Unknown, ) MDR Enterobacter Cloacae ? CRE 03/2017 Uncoded Allergies: cefepime (Allergy, Intermediate, Rash, 03/28/17) Objective . Vital Signs Date Time Temp Pulse Resp B/P Pulse Ox O2 Delivery O2 Flow Rate FiO2 04/01/17 12:00 97.2 71 20 137/76 96 04/01/17 09:05 Room Air 04/01/17 08:00 97.7 72 20 134/77 97 04/01/17 04:00 97.4 69 16 142/72 97 04/01/17 00:00 97.8 64 16 126/59 97 03/31/17 20:45 Room Air 03/31/17 20:00 98.0 73 20 145/82 100 03/31/17 16:00 97.5 76 18 114/56 100 03/31/17 16:00 Room Air 03/31/17 03/31/17 04/01/17 15:00 23:00 07:00 Intake Total 894 ml 360 ml 120 ml Output Total 200 ml Balance 694 ml 360 ml 120 ml Intake Oral 840 ml 360 ml IV Total 54 ml 120 ml Output Urine Total 200 ml # Voids 3 2 # Bowel Movements 1 1 . Microbiology Date/Time Procedure Status Source Growth 03/30/17 16:24 Gram Stain - Final Complete Wound Foot 03/30/17 16:24 Wound Culture - Final Complete Enterobacter Cloacae 03/30/17 16:24 Acid Fast Stain - Final Resulted Wound Foot NO ACID FAST BACILLI SEEN 03/30/17 16:24 Mycobacterial Culture Resulted Wound Foot Pending 03/30/17 16:24 Fungal Smear - Final Resulted Wound Foot NO FUNGAL ELEMENTS SEEN. 03/30/17 16:24 Fungal Culture Resulted Wound Foot Pending 03/30/17 16:34 Gram Stain - Final Complete Wound Foot 03/30/17 16:34 Wound Culture - Final Complete Enterobacter Cloacae 03/30/17 16:34 Acid Fast Stain - Final Resulted Wound Foot NO ACID FAST BACILLI SEEN 03/30/17 16:34 Mycobacterial Culture Resulted Wound Foot Pending 03/30/17 16:34 Fungal Smear - Final Resulted Wound Foot NO FUNGAL ELEMENTS SEEN. 03/30/17 16:34 Fungal Culture Resulted Wound Foot Pending Imaging Last Impressions Needle Aspiration Ultrasound 03/28/17 0000 Signed Impressions: Service Date/Time: Tuesday, March 28, 2017 14:52 - CONCLUSION: Uncomplicated ultrasound guided aspiration. Gram stain and culture pending. Arun Pedro MD FACR Tumor Localization 03/27/17 0000 Signed Impressions: Service Date/Time: Monday, March 27, 2017 11:56 - CONCLUSION: Intense focal uptake above. Arun Pedro MD FACR Lower Extremity Ultrasound 03/25/17 0000 Signed Impressions: Service Date/Time: Saturday, March 25, 2017 14:34 - CONCLUSION: No evidence of deep venous thrombosis within the left lower extremity. Enlarged left groin node measuring 3.6 cm in size. Johnie Benson MD Foot X-Ray 03/25/17 0000 Signed Impressions: Service Date/Time: Saturday, March 25, 2017 17:33 - CONCLUSION: Evidence for erosion and hardware loosening as described above. Inflammatory process would be consideration. Arun Pedro MD FACR Foot MRI 03/25/17 0000 Signed Impressions: Service Date/Time: Saturday, March 25, 2017 15:59 - CONCLUSION: 1. Severely suboptimal study secondary to extensive susceptibility artifact secondary to the multiple surgical hardware severely limiting visualization throughout the foot. Osteomyelitis cannot be excluded. 2. Large complex fluid collection along the anterior joint which may represent a large joint effusion. 3. Extensive postsurgical change with multiple metal rods. There is extensive degenerative change in the mid and hindfoot which is poorly visualized. 4. Pes planus 1. Tom Hdz MD Ankle X-Ray 03/25/17 0000 Signed Impressions: Service Date/Time: Saturday, March 25, 2017 17:35 - CONCLUSION: Markedly abnormal radiographs of the ankle. Correlation within in the old films would be of benefit. Arun Pedro MD FACR Physical Exam GENERAL: This is a well-nourished, well-developed patient, in no apparent distress. SKIN: No rashes, ecchymoses or lesions. Cool and dry. HEAD: Atraumatic. Normocephalic. No temporal or scalp tenderness. EYES: Pupils equal round and reactive. Extraocular motions intact. No scleral icterus. No injection or drainage. ENT: Nose without bleeding, purulent drainage or septal hematoma. Throat without erythema, tonsillar hypertrophy or exudate. Uvula midline. Airway patent. NECK: Trachea midline. Supple, nontender, no meningeal signs. CARDIOVASCULAR: Regular rate and rhythm. RESPIRATORY: Clear to auscultation. Breath sounds equal bilaterally. No wheezes , rales, or rhonchi. GASTROINTESTINAL: Abdomen soft, non-tender, nondistended. No hepato-splenomegaly , or palpable masses. No guarding. MUSCULOSKELETAL: Left foot in dressing. NEUROLOGICAL: Awake and alert. Grossly nonfocal. Psych appears very anxious and agitated. IV line sites with no evidence of infection. Assessment & Plan Remarks Possible left foot septic arthritis Enterobacter cloacae infection foot. ? CRE/KPC Left foot blister with infection likely abscess. ? Concerned this may be related to his deeper hardware. Possible Charcot's joint. Diabetic neuropathy Recommendations Continue Azactam IV (one of the enterobacter is susceptible). Will treat only the intraop specimen of E.cloacae. The other GNR likely superficial contaminant. Follow cultures Follow clinically Alexandrea Clay and RN Lauren Keller MD Apr 01, 2017 15:27
[2017-04-01 16:00] VITALS: BP 169/74; PULSE 73; RESP 20; TEMP 98; O2SAT 99
[2017-04-01] MEDS: ENOXAPARIN SODIUM 40 MG/0.4 ML SYRINGE SQ SCH (17:26)
--- NOTE | 2017-04-01 18:32 | RADRPT ---
EXAM DATE/TIME: 04/01/2017 18:07 [facility] COMPARISON: No previous studies available for comparison. INDICATIONS : Post PICC placement. MEDICAL HISTORY : Diabetes mellitus type 1. Bilateral foot neuropathy. Diabetes. Endocrine disorder. Charcot deformity bilaterally. SURGICAL HISTORY : Right cataract removal with lens transplant. L4-L5 disectomy. Toe amputatio n. Charcot left foot reconstruction. ENCOUNTER: Subsequent ACUITY: 1 day PAIN SCORE: 0/10 LOCATION: Bilateral chest FINDINGS: PICC line is in good position. Lungs are clear. The heart and pulmonary vascularity are normal. The portion of the bony skeleton visualized is unremarkable. CONCLUSION: PICC line in good position. Board Certified Radiologist. This report was verified electronically.
[2017-04-01 20:00] VITALS: BP 142/64; PULSE 71; RESP 18; TEMP 98.1; O2SAT 96
[2017-04-02] VITALS: BP 131/61; PULSE 73; RESP 18; TEMP 97.7; O2SAT 98
[2017-04-02 04:00] VITALS: BP 129/60; PULSE 71; RESP 18; TEMP 98.1; O2SAT 97
[2017-04-02] MEDS: AZTREONAM INJ 2,000 MG in SODIUM CHLORIDE 0.9% INJ 100 ML IV SCH ×3 (04:09→18:04)
[2017-04-02] MEDS: diphenhydrAMINE HCL 25 MG CAP PO PRN (04:49)
[2017-04-02] MEDS: INSULIN ASPART SUPPLEMENTAL SCALE SQ SCH ×4 (06:34→20:14)
[2017-04-02] MEDS: INSULIN DETEMIR 100 UNITS/ML VIAL SQ SCH (08:00)
[2017-04-02 08:05] VITALS: BP 141/66; PULSE 75; RESP 18; TEMP 97.7; O2SAT 100
[2017-04-02] MEDS: SODIUM CHLORIDE 0.9% FLUSH 10 ML FLUSH IV FLUSH SCH ×2 (10:16→20:16)
--- NOTE | 2017-04-02 10:56 | HHI.FF ---
Face to Face Verification Diagnosis: (1) Charcot foot due to diabetes mellitus (2) Diabetic foot ulcer (3) Gram negative infection, osteomyelitis, Enterobacter Home Health Nursing Order: Medical education Signs/symptoms of disease process Diabetic education Medication education-adverse effect Wound care and dressing changes Nursing assessment with vital signs IV medication administration I have seen patient Nate Nuñez on 04/02/17. My clinical findings support the need for the requested home health care services because: Ltd mobility - disease progression I certify that my clinical findings support that this patient is homebound because: Unsafe to leave home unassisted Moses Kaba MD Apr 02, 2017 10:56
[2017-04-02] MEDS ORDERED: HYDR-3516 PO (10:57)
--- NOTE | 2017-04-02 12:20 | HHI.PR ---
Subjective Remarks This is a pleasant 61 y/o Male with DM II status post left foot surgical reconstruction with hardware in place Sent by packaging sales representative from the clinic for a large left leg blister that ruptured a week ago causing some ulceration. The area was debrided in the office and patient was sent to the emergency room for an MRI to determine if patient had osteomyelitis due to significant history of left foot ulceration and hardware from 2014 and history of diabetic neuropathy possible Charcot joint. Patient had a WBC scan showed some uptake in the soft tissue and a fluid collection but no bony involvement. Patient underwent an ultrasound-guided aspiration of this fluid collection today. All the cultures are pending at the present time the deep ulceration after a trauma blister shows growth of Enterobacter cloacae as well as another gram-negative ID of which is pending. Infectious disease is consulted for evaluation and management of possible osteomyelitis and possible septic arthritis. 03/31: Stable in his bedroom with Diagnosis of Left foot wound, status post Left foot wound debridement and left foot application of wound vac, 03/30/17, seen in his bedroom, discussed with nurse Liliana no new issues, no nausea, vomit or diarrhea. asking me to discharge him before this weekend will follow recommendations By Podiatry and by ID specialist. 04/01: Seen in his bedroom in the presence of nurse, the patient is waiting for discharge, I had the opportunity co contact Doctor Lauren Quintanilla ID specialist she needs to follow Wound cultures this weekend and probable discharge next week. no nausea, vomit or diarrhea. 04/02: Stable in his bedroom, discussed with nurse, no nausea, vomit or diarrhea , recommended by Doctor Quintanilla today because his Insurance did not delivered his Vacuum and will be done tomorrow not to discharge the patient today Objective Vital Signs Date Time Temp Pulse Resp B/P Pulse Ox O2 Delivery O2 Flow Rate FiO2 04/02/17 08:05 97.7 75 18 141/66 100 04/02/17 04:00 98.1 71 18 129/60 97 04/02/17 00:00 97.7 73 18 131/61 98 04/01/17 21:57 Room Air 04/01/17 20:00 98.1 71 18 142/64 96 04/01/17 16:00 Room Air 04/01/17 16:00 98.0 73 20 169/74 99 I/O 04/01/17 04/01/17 04/01/17 04/02/17 04/02/17 04/02/17 07:00 15:00 23:00 07:00 15:00 23:00 Intake Total 120 ml 1494 ml 600 ml 120 ml Output Total 400 ml Balance 120 ml 1494 ml 600 ml -280 ml Intake Oral 1440 ml 600 ml 120 ml IV Total 120 ml 54 ml Output Urine Total 400 ml # Voids 10 3 # Bowel Movements 0 1 0 Result Diagram: 03/30/17 0700 03/30/17 07 Imaging Last Impressions Chest X-Ray 04/01/17 0000 Signed Impressions: Service Date/Time: Saturday, April 01, 2017 18:07 - CONCLUSION: PICC line in good position. Board Certified Radiologist. This report was verified electronically. Needle Aspiration Ultrasound 03/28/17 0000 Signed Impressions: Service Date/Time: Tuesday, March 28, 2017 14:52 - CONCLUSION: Uncomplicated ultrasound guided aspiration. Gram stain and culture pending. Arun Pedro MD FACR Tumor Localization 03/27/17 0000 Signed Impressions: Service Date/Time: Monday, March 27, 2017 11:56 - CONCLUSION: Intense focal uptake above. Arun Pedro MD FACR Lower Extremity Ultrasound 03/25/17 0000 Signed Impressions: Service Date/Time: Saturday, March 25, 2017 14:34 - CONCLUSION: No evidence of deep venous thrombosis within the left lower extremity. Enlarged left groin node measuring 3.6 cm in size. Johnie Benson MD Foot X-Ray 03/25/17 0000 Signed Impressions: Service Date/Time: Saturday, March 25, 2017 17:33 - CONCLUSION: Evidence for erosion and hardware loosening as described above. Inflammatory process would be consideration. Arun Pedro MD FACR Foot MRI 03/25/17 0000 Signed Impressions: Service Date/Time: Saturday, March 25, 2017 15:59 - CONCLUSION: 1. Severely suboptimal study secondary to extensive susceptibility artifact secondary to the multiple surgical hardware severely limiting visualization throughout the foot. Osteomyelitis cannot be excluded. 2. Large complex fluid collection along the anterior joint which may represent a large joint effusion. 3. Extensive postsurgical change with multiple metal rods. There is extensive degenerative change in the mid and hindfoot which is poorly visualized. 4. Pes planus 1. Tom Hdz MD Ankle X-Ray 03/25/17 0000 Signed Impressions: Service Date/Time: Saturday, March 25, 2017 17:35 - CONCLUSION: Markedly abnormal radiographs of the ankle. Correlation within in the old films would be of benefit. Arun Pedro MD FACR Procedures US guided aspiration of the left knee. With Diagnosis of Left foot wound, status post Left foot wound debridement and left foot application of wound vac, 03/30/17 Other Results Laboratory Tests Test 03/30/17 07:00 White Blood Count 6.9 TH/MM3 Red Blood Count 4.36 MIL/MM3 Hemoglobin 11.1 GM/DL Hematocrit 34.9 % Mean Corpuscular Volume 80.2 FL Mean Corpuscular Hemoglobin 25.6 PG Mean Corpuscular Hemoglobin 31.9 % Concent Red Cell Distribution Width 15.2 % Platelet Count 472 TH/MM3 Mean Platelet Volume 7.2 FL Neutrophils (%) (Auto) 68.5 % Lymphocytes (%) (Auto) 16.6 % Monocytes (%) (Auto) 7.9 % Eosinophils (%) (Auto) 5.5 % Basophils (%) (Auto) 1.5 % Neutrophils # (Auto) 4.7 TH/MM3 Lymphocytes # (Auto) 1.1 TH/MM3 Monocytes # (Auto) 0.5 TH/MM3 Eosinophils # (Auto) 0.4 TH/MM3 Basophils # (Auto) 0.1 TH/MM3 CBC Comment AUTO DIFF Differential Total Cells 100 Counted Neutrophils % (Manual) 74 % Band Neutrophils % 3 % Lymphocytes % 8 % Monocytes % 4 % Eosinophils % 7 % Basophils % 1 % Neutrophils # (Manual) 5.5 TH/MM3 Metamyelocytes 1 % Myelocytes 2 % Differential Comment FINAL DIFF MANUAL Platelet Estimate NORMAL Platelet Morphology Comment NORMAL Red Cell Morphology Comment NORMAL Sodium Level 138 MEQ/L Potassium Level 4.1 MEQ/L Chloride Level 103 MEQ/L Carbon Dioxide Level 25.1 MEQ/L Anion Gap 10 MEQ/L Blood Urea Nitrogen 24 MG/DL Creatinine 1.04 MG/DL Estimat Glomerular Filtration 73 ML/MIN Rate Random Glucose 110 MG/DL Calcium Level 9.2 MG/DL Phosphorus Level 3.0 MG/DL Magnesium Level 2.1 MG/DL Total Bilirubin 0.4 MG/DL Aspartate Amino Transf 12 U/L (AST/SGOT) Alanine Aminotransferase 16 U/L (ALT/SGPT) Alkaline Phosphatase 146 U/L Total Protein 6.8 GM/DL Albumin 2.6 GM/DL Objective Remarks GENERAL: NAD, A&Ox3 HEAD: Normocephalic. NECK: Supple, trachea midline. No lymphadenopathy. EYES: No scleral icterus. No injection or drainage. CARDIOVASCULAR: Regular rate and rhythm without murmurs, gallops, or rubs. RESPIRATORY: Breath sounds equal bilaterally. No accessory muscle use. GASTROINTESTINAL: Abdomen soft, non-tender, nondistended. MUSCULOSKELETAL: No cyanosis, or edema. Left lower extremity dressed SKIN: Warm and dry. NEURO: No focal neurological deficits. Medications and IVs Current Medications Medications (Trade) Dose Ordered Sig/Emerson Route Start Time Stop Time Status Last Admin (NS Flush) 2 ml UNSCH PRN IV FLUSH 03/25/17 16:45 (NS Flush) 2 ml BID IV FLUSH 03/25/17 21:00 04/02/17 10:16 (Zofran Inj) 4 mg Q6H PRN IVP 03/25/17 16:45 (Lovenox Inj) 40 mg Q24H SQ 03/25/17 18:00 (Narcan Inj) 0.4 mg UNSCH PRN IV 03/25/17 16:45 (D50w (Vial) Inj) 50 ml UNSCH PRN IV 03/25/17 17:00 (Glucagon Inj) 1 mg UNSCH PRN OTHER 03/25/17 17:00 (Tylenol) 650 mg Q6H PRN PO 03/25/17 17:45 (Amoret 5-325 Mg) 1 tab Q4H PRN PO 03/25/17 17:45 04/01/17 09:39 (Amoret 7.5-325 Mg) 1 tab Q4H PRN PO 03/25/17 17:45 (Milk Of Magnesia Liq) 30 ml Q12H PRN PO 03/25/17 17:45 (Senokot) 17.2 mg Q12H PRN PO 03/25/17 17:45 (Dulcolax Supp) 10 mg DAILY PRN RECTAL 03/25/17 17:45 (Lactulose Liq) 30 ml DAILY PRN PO 03/25/17 17:45 (Ambien) 5 mg HS PRN PO 03/25/17 21:00 Insulin Detemir 50 units 50 units DAILYAC SQ 03/29/17 08:00 04/02/17 08:00 (Azactam Inj/NS Inj) 100 ml @ 200 mls/hr Q8H IV 03/29/17 02:00 04/02/17 10:10 (Benadryl) 25 mg Q6H PRN PO 03/31/17 21:00 04/02/17 04:49 A/P Assessment and Plan 61-year-old male with past medical history of DM, neuropathy who presented with diabetic foot ulcer and possible vestibulitis. Patient declined surgical options. Awaiting final cultures. Continue IV antibiotic treatments now and plan for IV antibiotic treatments as an outpatient. Diabetic foot ulcer Left Charcot foot MRI of the left foot showed a complex fluid collection along the anterior joint which may represent a large effusion. Extensive postsurgical changes with multiple metal rods. There is to extensive degenerative change in the mid and hindfoot which is poorly visualized. for debridement and wound vac today. Continue pain control May need to treat long-term antibiotics for now if possible mellitus suspected 03/29 appreciate ID recommendations. Patient is growing very M.D. Enterobacter species. Continue antibiotics as per ID. The patient currently on IV aztreonam. With Diagnosis of Left foot wound, status post Left foot wound debridement and left foot application of wound vac, 03/30/17 Recommended by Doctor Quintanilla to continue antibiotics, PICC line in place but his Vacuum is not been delivered by his insurance and Doctor Quintanilla recommended to hold the discharge until can be delivered his equipment and his IV antibiotics also not delivered. Diabetes mellitus type 2 he is well controlled probable high post prandial hyperglycemia following. continue present care. DVT prophylaxis Lovenox Discussed with patient and his nurse in the room, all questions were answered to the best of my abilities. Discharge Planning Okay to discharge by ID specialist tomorrow 04/03/17 Moses Kaba MD Apr 02, 2017 12:20
[2017-04-02 12:26] VITALS: BP 156/69; PULSE 63; RESP 18; TEMP 98.3; O2SAT 99
--- NOTE | 2017-04-02 12:48 | PD.POD ---
Subjective Podiatric Problems s/p Left foot I and D doing well at bedside this am in nad. Pain score: 0 Past Med/Surg/Social History Social History Smoking Status: Never Smoker Objective Vital Signs Vital Signs Date Time Temp Pulse Resp B/P Pulse Ox O2 Delivery O2 Flow Rate FiO2 04/02/17 12:26 98.3 63 18 156/69 99 04/02/17 08:05 97.7 75 18 141/66 100 04/02/17 04:00 98.1 71 18 129/60 97 04/02/17 00:00 97.7 73 18 131/61 98 04/01/17 21:57 Room Air 04/01/17 20:00 98.1 71 18 142/64 96 04/01/17 16:00 Room Air 04/01/17 16:00 98.0 73 20 169/74 99 Coded Allergies: Zosyn (Verified Allergy, Unknown, Rash, 03/28/17) Has tolerated Keflex multiple times. *MDRO Multi-Drug Resistant Organism (Verified Adverse Reaction, Unknown, ) MDR Enterobacter Cloacae ? CRE 03/2017 Uncoded Allergies: cefepime (Allergy, Intermediate, Rash, 03/28/17) Other Results Last Impressions Chest X-Ray 04/01/17 0000 Signed Impressions: Service Date/Time: Saturday, April 01, 2017 18:07 - CONCLUSION: PICC line in good position. Board Certified Radiologist. This report was verified electronically. Needle Aspiration Ultrasound 03/28/17 0000 Signed Impressions: Service Date/Time: Tuesday, March 28, 2017 14:52 - CONCLUSION: Uncomplicated ultrasound guided aspiration. Gram stain and culture pending. Arun Pedro MD FACR Tumor Localization 03/27/17 0000 Signed Impressions: Service Date/Time: Monday, March 27, 2017 11:56 - CONCLUSION: Intense focal uptake above. Arun Pedro MD FACR Lower Extremity Ultrasound 03/25/17 0000 Signed Impressions: Service Date/Time: Saturday, March 25, 2017 14:34 - CONCLUSION: No evidence of deep venous thrombosis within the left lower extremity. Enlarged left groin node measuring 3.6 cm in size. Johnie Benson MD Foot X-Ray 03/25/17 0000 Signed Impressions: Service Date/Time: Saturday, March 25, 2017 17:33 - CONCLUSION: Evidence for erosion and hardware loosening as described above. Inflammatory process would be consideration. Arun Pedro MD FACR Foot MRI 03/25/17 0000 Signed Impressions: Service Date/Time: Saturday, March 25, 2017 15:59 - CONCLUSION: 1. Severely suboptimal study secondary to extensive susceptibility artifact secondary to the multiple surgical hardware severely limiting visualization throughout the foot. Osteomyelitis cannot be excluded. 2. Large complex fluid collection along the anterior joint which may represent a large joint effusion. 3. Extensive postsurgical change with multiple metal rods. There is extensive degenerative change in the mid and hindfoot which is poorly visualized. 4. Pes planus 1. Tom Hdz MD Ankle X-Ray 03/25/17 0000 Signed Impressions: Service Date/Time: Saturday, March 25, 2017 17:35 - CONCLUSION: Markedly abnormal radiographs of the ankle. Correlation within in the old films would be of benefit. Arun Pedro MD FACR Physical Exam Details LLE Intact wound VAC with no erythema and no edema. No pain. Muscle strength is intact. NVS unchanged. Assessment & Plan Diagnosis: (1) Charcot foot due to diabetes mellitus Status: Acute (2) Diabetic foot ulcer Status: Acute A/P OK to d/c per podiatry. F/U with Dr Roldan with in 1 week of d/c NWB Left . Problem Qualifiers (1) Diabetic foot ulcer: Qualified Code: E11.621 - Diabetic ulcer of left midfoot associated with type 2 diabetes mellitus, with fat layer exposed Gena Roldan DPM Apr 02, 2017 12:48
[2017-04-02 16:05] VITALS: BP 146/72; PULSE 67; RESP 18; TEMP 97.6; O2SAT 99
[2017-04-02] MEDS: ENOXAPARIN SODIUM 40 MG/0.4 ML SYRINGE SQ SCH ×2 (18:00→18:04)
[2017-04-02 20:00] VITALS: BP 121/62; PULSE 72; RESP 16; TEMP 97.5; O2SAT 100
[2017-04-03] VITALS: BP 149/68; PULSE 62; RESP 16; TEMP 97.5; O2SAT 100
[2017-04-03] MEDS: AZTREONAM INJ 2,000 MG in SODIUM CHLORIDE 0.9% INJ 100 ML IV SCH (03:35)
== END 2017-04-03 04:00 | disposition home health service (06) | DRG 988 ==
LOC: NEPE 12:04 → NEDA 16:48 → OBSVTOIN 17:32 → NEPHCDU 19:07 → N04A 03-26 21:38
PROVIDERS: ADMIT Internal Medicine; ATTEND Internal Medicine
PROC: 0H9NXZX Drainage of Left Foot Skin, External Approach, Diagnostic (ICD-10-PCS; 2017-03-28)
PROC: 0YBN0ZZ Excision of Left Foot, Open Approach (ICD-10-PCS; principal; 2017-03-30 16:03)
DX: E11.621 Type 2 diabetes mellitus with foot ulcer (principal); L97.422 Non-pressure chronic ulcer of left heel and midfoot with fat layer exposed; E11.42 Type 2 diabetes mellitus with diabetic polyneuropathy; L03.116 Cellulitis of left lower limb; Z79.4 Long term (current) use of insulin; E11.610 Type 2 diabetes mellitus with diabetic neuropathic arthropathy; E11.65 Type 2 diabetes mellitus with hyperglycemia; E11.628 Type 2 diabetes mellitus with other skin complications; L27.1 Localized skin eruption due to drugs and medicaments taken internally; T36.1X5A Adverse effect of cephalosporins and other beta-lactam antibiotics, initial encounter; Y92.239 Unspecified place in hospital as the place of occurrence of the external cause
CPT/HCPCS: 20606; 36569; 71010; 73610; 73630; 73720; 76937; 76942; 78807; 78999; 80048; 80053; 80076; 80202; 82565; 82947; 82948; 83605; 83735; 84100; 85007; 85025; 85027; 85652; 86140; 87015; 87040; 87070; 87077; 87102; 87116; 87186; 87205; 87206; 93971; 96374; A9569; A9579; J0692; J1650; J1815; J2250; J3010; J3370; J7050; J7120; Q0163

== ENCOUNTER 2018-08-03 09:44 | Inpatient (IN) ==
[2018-08-03 13:40] LABS: Baso # (Auto) 0.1 th/mm3 (0.0-0.2); Baso % (Auto) 1.5 % (0.0-2.0); Eos # (Auto) 0.3 th/mm3 (0.0-0.4); Eos % (Auto) 3.2 % (0.0-4.0); Hematocrit 27.3 % (39.0-51.0); Hemoglobin 9.5 gm/dL (13.0-17.0); Lymph # (Auto) 1.2 th/mm3 (1.0-4.8); Lymph % (Auto) 12.5 % (9.0-44.0); Mean Corpuscular HGB Conc 34.8 % (32.0-36.0); Mean Corpuscular Hemoglobin 28.8 pg (27.0-34.0); Mean Corpuscular Volume 82.8 fL (80.0-100.0); Mean Platelet Volume 6.5 fL (7.0-11.0); Mono # (Auto) 0.7 th/mm3 (0.0-0.9); Mono % (Auto) 6.8 % (0.0-8.0); Neut # (Auto) 7.4 th/mm3 (1.8-7.7); Platelet Count 595 th/mm3 (150-450); Red Cell Distribution Width 15.5 % (11.6-17.2); White Blood Count 9.7 th/mm3 (4.0-11.0)
[2018-08-03 13:50] LABS: Activated Partial Thrombo Time 28.1 sec (23.4-31.7); INR 1.2 Ratio; Prothrombin Time 12.3 sec (9.8-11.6)
--- NOTE | 2018-08-03 13:59 | US ---
EXAM DATE: 08/03/2018 1:54 PM EST AGE/SEX: 62 years / Male INDICATIONS: Left leg swelling. CLINICAL DATA: This is the patient's subsequent encounter. Patient reports that signs and symptoms h ave been present for 3 days and indicates a pain score of 0/10. MEDICAL/SURGICAL HISTORY: Diabetes. . Left foot surgery. [place] [facility] [place]/25/[place]. . TECHNIQUE: Venous ultrasound of both lower extremities was performed from the inguinal ligament to t he proximal calf. Real-time, color Doppler and spectral tracing, compression and augmentation techni ques were used. FINDINGS: Normal compression of the deep venous system from the inguinal region to the proximal calf . No echogenic clot is seen. Normal response of the venous system to augmentation and respiration. Mu ltiple lymph nodes are present the largest measures 3.8 cm in size. CONCLUSION: 1. No DVT. 2. Multiple lymph nodes somewhat prominent in size, however present on the prior study from 02/2017 n ot significantly changed. Electronically signed by: Shaw Gandara MD 08/03/2018 1:58 PM EST
[2018-08-03 14:04] LABS: Alanine Aminotransferase 41 U/L (12-78); Albumin 2.5 g/dL (3.4-5.0); Anion Gap 15 meq/L (5-15); Aspartate Aminotransferase 26 U/L (15-37); Blood Urea Nitrogen 22 mg/dL (7-18); Calcium 9.3 mg/dL (8.5-10.1); Carbon Dioxide 21.3 meq/L (21.0-32.0); Chloride 99 meq/L (98-107); Glomerular Filtration Rate 59 mL/min (>89); Glucose,Random 293 mg/dL (74-106); Potassium 4.6 meq/L (3.5-5.1); Sodium 135 meq/L (136-145)
[2018-08-03 14:07] LABS: Alkaline Phosphatase 365 U/L (45-117); Total Protein 8.4 g/dL (6.4-8.2)
--- NOTE | 2018-08-03 14:34 | XR ---
EXAM DATE: 08/03/2018 2:27 PM EST AGE/SEX: 62 years / Male INDICATIONS: Left foot pain and swelling. CLINICAL DATA: This is the patient's initial encounter. Patient reports that signs and symptoms have been present for 1 day and indicates a pain score of 6/10. MEDICAL/SURGICAL HISTORY: . Diabetes. . Left foot surgery. COMPARISON: [facility] [place], FOOT LEFT COMPLETE ([id number]), 03/25/2017. . FINDINGS: 3 views of the left foot. Metallic hardware is again seen. Screw extending longitudinally through the great toe proximal phalanx, metatarsal, medial cuneiform, and medial aspect of the navicular is agai n seen. There is lucency about the screw also again seen suggesting motion of the hardware. Previous identified long screws through the second metatarsal and central midfoot is no longer seen. A new scr ew is seen in the soft tissues along the plantar margin of the calcaneus. 4 smaller screws are also s een in the hindfoot. One of the screws is fractured distally. Possible interval surgical resection of the talus. Bone graft is now seen in this region. Intramedullary duglas is seen across the ankle. Sever e hindfoot and midfoot arthrosis noted. Diffuse prominent soft tissue swelling. Evidence of prior thi rd toe amputation to the level the third metatarsal shaft again seen. CONCLUSION: 1. Extensive postsurgical findings of the foot. New surgical hardware in the distal lower leg and hi ndfoot. Evidence of loosening of the screw in the great toe proximal phalanx, metatarsal, and medial cuneiform. 2. One of the new screws in the hindfoot is fractured. 3. Apparent resection of the talus with bone graft placement in this location. 4. 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 Electronically signed by: Isaias Dodge MD 08/03/2018 2:32 PM EST
--- NOTE | 2018-08-03 16:54 | ED ---
HPI General Chief complaint: Wound/Laceration Stated complaint: Post-Surgery Complication Time Seen by Provider: 08/03/18 12:39 History of Present Illness HPI narrative: Patient 62-year-old male presents emergency department for evaluation of a wound to the left plantar surface of the heel. Patient states been on and off for some time. He states that he has had multiple revisions of his left Charcot foot. He states the last time he had pins put in was in 2005. States that this was a doctor in [place]. He is also followed locally here by Dr. Bertrand. He states that he was seen by Dr. Bertrand a few days ago he took a wound culture started him on Keflex and is on chronic doxycycline. The patient was referred back to his orthopedic surgeon in [place]. The patient called his orthopedic surgeon in [place] who stated to him over the phone that he did not think he needed to come all the way [place] that he should go to an nearby emergency department. No fevers no cough no congestion. Patient does have a history of diabetes. States that his foot is chronically swollen but may be a little worse recently. No chest pain no shortness of breath and feels well systemically. Related Data Home Medications Medication Instructions Recorded Confirmed atorvastatin 10 mg PO DAILY 08/03/18 08/03/18 cephalexin 500 mg PO QID 08/03/18 08/03/18 doxycycline hyclate 100 mg PO DAILY 08/03/18 08/03/18 lisinopril 2.5 mg PO DAILY 08/03/18 08/03/18 meloxicam 7.5 mg PO BID 08/03/18 08/03/18 tramadol 50 mg PO BID PRN 08/03/18 08/03/18 Allergies Allergy/AdvReac Type Severity Reaction Status Date / Time piperacillin Allergy Unknown Rash Verified 08/03/18 12:44 tazobactam Allergy Unknown Rash Verified 08/03/18 12:44 cefepime Allergy Intermediate Rash Uncoded 08/03/18 12:44 Review of Systems ROS: all other systems reviewed are negative [facility] Medical History Medical History Diabetes (Acute) Osteomyelitis of left foot (Acute) Surgical History Surgical History H/O foot surgery (Acute) Family History Family History Other Diabetes Social History Social History Substance History: No History of Abuse Second Hand Smoke Exposure: No Smoking Status: Never smoker How Often Do You Have a Drink Containing Alcohol: Monthly or less Recent Travel in [facility] within the Last 8 Weeks: No Recent Out of Country Travel within the Last 8 Weeks: No Immunization History Tetanus Immunization: <5 Years Exam Narrative Exam Narrative: GENERAL: Well-developed well-nourished, no obvious distress peer SKIN: There is a 1 cm diameter lesion in the plantar surface of the left heel. After the bandage was removed, there was some sanguinous discharge, there was some mixed debris and possibly some purulent material as well. HEAD: Atraumatic. Normocephalic. EYES: Pupils equal and round. No scleral icterus. No injection or drainage. ENT: No nasal bleeding or discharge. Mucous membranes pink and moist. NECK: Trachea midline. No JVD. CARDIOVASCULAR: Regular rate and rhythm. No murmur appreciated. RESPIRATORY: No accessory muscle use. Clear to auscultation. Breath sounds equal bilaterally. GASTROINTESTINAL: Abdomen soft, non-tender, nondistended. Hepatic and splenic margins not palpable. MUSCULOSKELETAL: There is a fair amount of edema of the left lower extremity, as well as some warmth of the joint. Skin wound is described above. There are only 4 toes of the left lower extremity. There is some chronic deformity as well. Unsure how much of the deformity and swelling is new and how much of it is chronic. NEUROLOGICAL: Awake and alert. No obvious cranial nerve deficits. Motor grossly within normal limits. Normal speech. PSYCHIATRIC: Appropriate mood and affect; insight and judgment normal. Course Initial Documented Vital Signs Temperature 98.1 F 08/03/18 09:53 Pulse Rate 88 08/03/18 09:53 Respiratory Rate 18 08/03/18 09:53 Blood Pressure 135/96 H 08/03/18 09:53 Pulse Oximetry 100 08/03/18 09:53 Last Documented Vital Signs Temperature 98.7 F 08/04/18 11:41 Pulse Rate 82 08/04/18 11:41 Respiratory Rate 16 08/04/18 11:41 Blood Pressure 135/62 08/04/18 11:41 Pulse Oximetry 100 08/04/18 11:41 Sign Out Sign Out Data: Patient Sign Out occurred on 08/03/18 at 17:27. Patient's care was discussed, and care was transferred from Johnie Trevizo MD to Paty Godwin DO. Sign Out Comment: Follow up MRI and disposition appropriately. Last updated by Johnie Trevizo MD at 08/03/18 16:54 Post-Handoff Eval: Received sign out to follow up on MRI left foot. MRI showed osteomyelitis likely of talus and calcaneal remnants, the cuboid, navicular and proximal portions of cuneiforms. Osteomyelitis likely of distal tibia and proximal extent of this is uncertain. Pt given vancomycin and will be admitted with orthopedic consult. Pt is a 62yo M with DM and chronic left foot infection on doxycycline presents to the ED because he has a new hole in plantar service of his foot. Pt went to see Dr. Ceron's [employer] 2 days ago and was started on cephalexin in addition to doxycycyline. She wanted Dr. Ceron to see the wound so he saw Dr. Ceron yesterday morning and he recommended that pt go back to his [place] orthopedic surgeons. He called them but they were too busy so told him to come to the ED. Pt follows with [facility]. Pt has neuropathy so currently has no pain. Medical Decision Making MDM Narrative Medical decision making narrative: Patient roomed in the emergency department, my immediate concerns is for skin abscess and acute versus chronic osteomyelitis. ESR is greater than 140, CRP is also elevated. Patient does not appear septic and vital signs are stable. Awaiting MRI have not started antibiotics yet. The patient will be discussed with Dr. Godwin at 1700 shift change to follow-up MRI and disposition the patient appropriately. Medical Screen Exam Complete: Yes Emergency Medical Condition: Yes Lab Data Result diagrams: 08/04/18 09:14 08/04/18 09:14 Lab Results 08/03/18 08/03/18 08/03/18 Range/Units 13:13 13:13 13:13 WBC 9.7 (4.0-11.0) th/mm3 RBC 3.30 L (4.50-5.90) mil/mm3 Hgb 9.5 L (13.0-17.0) gm/dL Hct 27.3 L (39.0-51.0) % MCV 82.8 (80.0-100.0) fL MCH 28.8 (27.0-34.0) pg MCHC 34.8 (32.0-36.0) % RDW 15.5 (11.6-17.2) % Plt Count 595 H (150-450) th/mm3 MPV 6.5 L (7.0-11.0) fL Neut % (Auto) 76.0 H (16.0-70.0) % Lymph % (Auto) 12.5 (9.0-44.0) % Heard % (Auto) 6.8 (0.0-8.0) % Eos % (Auto) 3.2 (0.0-4.0) % Baso % (Auto) 1.5 (0.0-2.0) % Neut # (Auto) 7.4 (1.8-7.7) th/mm3 Lymph # (Auto) 1.2 (1.0-4.8) th/mm3 Heard # (Auto) 0.7 (0.0-0.9) th/mm3 Eos # (Auto) 0.3 (0.0-0.4) th/mm3 Baso # (Auto) 0.1 (0.0-0.2) th/mm3 WBC Differential . Differential Comment Auto diff final ESR (0-20) mm/hr PT 12.3 H (9.8-11.6) sec INR 1.2 Ratio APTT 28.1 (23.4-31.7) sec Sodium 135 L (136-145) meq/L Potassium 4.6 (3.5-5.1) meq/L Chloride 99 (98-107) meq/L Carbon Dioxide 21.3 (21.0-32.0) meq/L Anion Gap 15 (5-15) meq/L BUN 22 H (7-18) mg/dL Creatinine 1.24 (0.60-1.30) mg/dL Estimated GFR 59 L (>89) mL/min POC Glucose (68-110) mg/dl Random Glucose 293 H (74-106) mg/dL Calcium 9.3 (8.5-10.1) mg/dL Total Bilirubin 0.4 (0.2-1.0) mg/dL AST 26 (15-37) U/L ALT 41 (12-78) U/L Alkaline Phosphatase 365 H (45-117) U/L C-Reactive Protein 18.70 H (0.00-0.30) mg/dL Total Protein 8.4 H (6.4-8.2) g/dL Albumin 2.5 L (3.4-5.0) g/dL 08/03/18 08/04/18 08/04/18 Range/Units 13:13 09:00 09:02 WBC (4.0-11.0) th/mm3 RBC (4.50-5.90) mil/mm3 Hgb (13.0-17.0) gm/dL Hct (39.0-51.0) % MCV (80.0-100.0) fL MCH (27.0-34.0) pg MCHC (32.0-36.0) % RDW (11.6-17.2) % Plt Count (150-450) th/mm3 MPV (7.0-11.0) fL Neut % (Auto) (16.0-70.0) % Lymph % (Auto) (9.0-44.0) % Heard % (Auto) (0.0-8.0) % Eos % (Auto) (0.0-4.0) % Baso % (Auto) (0.0-2.0) % Neut # (Auto) (1.8-7.7) th/mm3 Lymph # (Auto) (1.0-4.8) th/mm3 Heard # (Auto) (0.0-0.9) th/mm3 Eos # (Auto) (0.0-0.4) th/mm3 Baso # (Auto) (0.0-0.2) th/mm3 WBC Differential Differential Comment ESR Greater than 140 H (0-20) mm/hr PT (9.8-11.6) sec INR Ratio APTT (23.4-31.7) sec Sodium (136-145) meq/L Potassium (3.5-5.1) meq/L Chloride (98-107) meq/L Carbon Dioxide (21.0-32.0) meq/L Anion Gap (5-15) meq/L BUN (7-18) mg/dL Creatinine (0.60-1.30) mg/dL Estimated GFR (>89) mL/min POC Glucose 567 H* 557 H* (68-110) mg/dl Random Glucose (74-106) mg/dL Calcium (8.5-10.1) mg/dL Total Bilirubin (0.2-1.0) mg/dL AST (15-37) U/L ALT (12-78) U/L Alkaline Phosphatase (45-117) U/L C-Reactive Protein (0.00-0.30) mg/dL Total Protein (6.4-8.2) g/dL Albumin (3.4-5.0) g/dL 08/04/18 08/04/18 08/04/18 Range/Units 09:14 09:14 09:45 WBC 8.3 (4.0-11.0) th/mm3 RBC 3.23 L (4.50-5.90) mil/mm3 Hgb 8.7 L (13.0-17.0) gm/dL Hct 27.0 L (39.0-51.0) % MCV 83.5 (80.0-100.0) fL MCH 26.9 L (27.0-34.0) pg MCHC 32.3 (32.0-36.0) % RDW 15.4 (11.6-17.2) % Plt Count 573 H (150-450) th/mm3 MPV 6.5 L (7.0-11.0) fL Neut % (Auto) 83.4 H (16.0-70.0) % Lymph % (Auto) 5.8 L (9.0-44.0) % Heard % (Auto) 6.6 (0.0-8.0) % Eos % (Auto) 2.9 (0.0-4.0) % Baso % (Auto) 1.3 (0.0-2.0) % Neut # (Auto) 6.9 (1.8-7.7) th/mm3 Lymph # (Auto) 0.5 L (1.0-4.8) th/mm3 Heard # (Auto) 0.5 (0.0-0.9) th/mm3 Eos # (Auto) 0.2 (0.0-0.4) th/mm3 Baso # (Auto) 0.1 (0.0-0.2) th/mm3 WBC Differential . Differential Comment Auto diff final ESR (0-20) mm/hr PT (9.8-11.6) sec INR Ratio APTT (23.4-31.7) sec Sodium 134 L (136-145) meq/L Potassium 5.1 (3.5-5.1) meq/L Chloride 101 (98-107) meq/L Carbon Dioxide 17.5 L (21.0-32.0) meq/L Anion Gap 16 H (5-15) meq/L BUN 28 H (7-18) mg/dL Creatinine 1.30 (0.60-1.30) mg/dL Estimated GFR 56 L (>89) mL/min POC Glucose (68-110) mg/dl Random Glucose 527 H* D Cancelled (74-106) mg/dL Calcium 8.9 (8.5-10.1) mg/dL Total Bilirubin 0.5 (0.2-1.0) mg/dL AST 12 L (15-37) U/L ALT 30 (12-78) U/L Alkaline Phosphatase 292 H (45-117) U/L C-Reactive Protein (0.00-0.30) mg/dL Total Protein 7.6 D (6.4-8.2) g/dL Albumin 2.3 L (3.4-5.0) g/dL 08/04/18 Range/Units 12:24 WBC (4.0-11.0) th/mm3 RBC (4.50-5.90) mil/mm3 Hgb (13.0-17.0) gm/dL Hct (39.0-51.0) % MCV (80.0-100.0) fL MCH (27.0-34.0) pg MCHC (32.0-36.0) % RDW (11.6-17.2) % Plt Count (150-450) th/mm3 MPV (7.0-11.0) fL Neut % (Auto) (16.0-70.0) % Lymph % (Auto) (9.0-44.0) % Heard % (Auto) (0.0-8.0) % Eos % (Auto) (0.0-4.0) % Baso % (Auto) (0.0-2.0) % Neut # (Auto) (1.8-7.7) th/mm3 Lymph # (Auto) (1.0-4.8) th/mm3 Heard # (Auto) (0.0-0.9) th/mm3 Eos # (Auto) (0.0-0.4) th/mm3 Baso # (Auto) (0.0-0.2) th/mm3 WBC Differential Differential Comment ESR (0-20) mm/hr PT (9.8-11.6) sec INR Ratio APTT (23.4-31.7) sec Sodium (136-145) meq/L Potassium (3.5-5.1) meq/L Chloride (98-107) meq/L Carbon Dioxide (21.0-32.0) meq/L Anion Gap (5-15) meq/L BUN (7-18) mg/dL Creatinine (0.60-1.30) mg/dL Estimated GFR (>89) mL/min POC Glucose 464 H* (68-110) mg/dl Random Glucose (74-106) mg/dL Calcium (8.5-10.1) mg/dL Total Bilirubin (0.2-1.0) mg/dL AST (15-37) U/L ALT (12-78) U/L Alkaline Phosphatase (45-117) U/L C-Reactive Protein (0.00-0.30) mg/dL Total Protein (6.4-8.2) g/dL Albumin (3.4-5.0) g/dL Imaging Data Radiologist's impression: Foot MRI 08/03/18 12:51 CONCLUSION: 1. Extremely limited study related to magnetic susceptibility artifact. 2. Osteomyelitis likely of the talus and calcaneal remnants, the cuboid, navicular and proximal portions of the cuneiforms. 3. Osteomyelitis likely of the distal tibia and the proximal extent of this is uncertain. 4. Osteomyelitis possible within the medullary space of the second metatarsal and of the phalanges of the second toe. 5. Suspected focal osteomyelitis of the head of the fourth metatarsal. 6. Diffuse soft tissue swelling and edema. Focal plantar ulceration at the level of the midfoot. A ceretec tagged WBC scan may be helpful with SPECT CT images of the left lower extremity. Venous Doppler Study 08/03/18 12:51 CONCLUSION: 1. No DVT. 2. Multiple lymph nodes somewhat prominent in size, however present on the prior study from 02/2017 not significantly changed. Foot X-Ray 08/03/18 12:52 CONCLUSION: 1. Extensive postsurgical findings of the foot. New surgical hardware in the distal lower leg and hindfoot. Evidence of loosening of the screw in the great toe proximal phalanx, metatarsal, and medial cuneiform. 2. One of the new screws in the hindfoot is fractured. 3. Apparent resection of the talus with bone graft placement in this location. 4. 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 Discharge Plan Discharge Disposition Patient Disposition: 30 Still Patient Discharge Details Diagnosis: Acute osteomyelitis of foot Physicians Team ED Provider: Paty Godwin Primary Care Provider: Arelis Mcmullen Attending Provider: Kofi Bertrand Other Providers: Tim Dumont ; Sergey Hernandez ; Georgette Ryan Status ED Status: Left Department Discharge Information Discharge Date/Time: 08/03/18 20:56
[2018-08-03] MEDS ORDERED: Gadobutrol PF 10 MMOL/10 ML Vial (for RAD) IV.SIG ONE (18:00)
--- NOTE | 2018-08-03 19:17 | MR ---
EXAM DATE: 08/03/2018 6:35 PM EST AGE/SEX: 62 years / Male INDICATIONS: Osteomyelitis. Left foot pain, planter side, distal to heal, about dime size for abo ut one week. CLINICAL DATA: This is the patient's initial encounter. Patient reports that signs and symptoms have been present for 1 week and indicates a pain score of 1/10. MEDICAL/SURGICAL HISTORY: Diabetes mellitus type II. Charcot foot. . Ankle reconstruction. COMPARISON: [facility] [place], FOOT COMPLETE LEFT 3V, 08/03/2018. . TECHNIQUE: Multiplanar, multisequence MRI examination was performed without contrast and after th e intravenous administration of 7.90 ml Gadavist (gadobutrol) single exam dose. FINDINGS: Patient has a long segment screw spanning the first tarsometatarsal and metatarsophalangeal joints. T here is a tibial duglas which extends across the tibiotalar and subtalar joints and has an interlocking screw distally which is not within any bone. Multiple screws are seen of the hindfoot and one of them crosses the second tarsometatarsal joint. The hardware is associated with marked magnetic susceptibi lity artifact which extremely limits the study. However, there are signal changes that involve the di stal tibia, the talus and calcaneus remnants, the navicular and cuboid and the proximal portions of t he cuneiforms typical of osteomyelitis. There is a screw track of the second metatarsal with associated decreased T1 signal within the medull mikaela space and chronic periosteal reaction of the bone. Central osteomyelitis of the second metatarsal is not excludable. Cortical irregularity and patchy T2 and T1 signal abnormality seen of the phalang es of the second toe which may also represent osteomyelitis in the proper clinical setting. The third metatarsal remnant and the fifth metatarsal are without evidence of osteomyelitis. There is marrow e michael and abnormal T1 signal in the head of the fourth metatarsal of concern for osteomyelitis. Soft tissues of the left foot are diffusely edematous and swollen. There is plantar ulceration at the level of the midfoot, series 7 image 16 and series 4 image 10. No well-defined, measurable or draina ble appearing abscess. CONCLUSION: 1. Extremely limited study related to magnetic susceptibility artifact. 2. Osteomyelitis likely of the talus and calcaneal remnants, the cuboid, navicular and proximal port ions of the cuneiforms. 3. Osteomyelitis likely of the distal tibia and the proximal extent of this is uncertain. 4. Osteomyelitis possible within the medullary space of the second metatarsal and of the phalanges o f the second toe. 5. Suspected focal osteomyelitis of the head of the fourth metatarsal. 6. Diffuse soft tissue swelling and edema. Focal plantar ulceration at the level of the midfoot. A ceretec tagged WBC scan may be helpful with SPECT CT images of the left lower extremity. Electronically signed by: Mt Gerardo MD 08/03/2018 7:16 PM EST
[2018-08-03] MEDS ORDERED: Bisacodyl 10 MG Supp RECTAL PRN (19:57)
[2018-08-03] MEDS ORDERED: Sodium Chlor 0.9% Inj 500 ML IV.SIG SCH (20:00)
[2018-08-03] MEDS ORDERED: Vancomycin Inj 1,000 MG in Sodium Chlor 0.9% Inj 250 ML IV.SIG SCH (20:00)
[2018-08-03] MEDS ORDERED: Dextrose 50% in Water 50 ML Vial IV.PUSH PRN (20:09)
[2018-08-03] MEDS: Sod Chloride 0.9% Inj 1,000 ML IV.CONT SCH (20:31)
[2018-08-03] MEDS: Insulin NovoLOG Aspart Correctional Sugar Inj SQ SCH (20:37)
--- NOTE | 2018-08-03 23:04 | P.HPIM ---
History of Present Illness Service: [facility] Primary Care Physician: TINY Montoya Chief Complaint: Left foot pain History of Present Illness: 62 y/o male with a history of DM on insulin and a wound on his left plantar surface. Patient states he had surgery in [place] that involved screws and rods in his ankle. He states he developed a hole in his foot and protruding screws. He was seen by Dr. Rene a few days ago who took out the screws and put him on Keflex and told him to follow up in [place]. He states he called his [place] DR who told him it was more of an infection issue and he should go to the ER. He states he does not want to see Dr. Rene , he has seen Dr. Myles for podiatry issues and rather see him. He denies any fever, chills, chest pain, or sob. He states his foot is always swollen but has been worse recently. He is also demanding a regular diet. Inpatient Certification Inpatient Certification: I certify that the inpatient services were ordered in accordance with Medicare regulations governing the order. This includes certification that hospital inpatient services are reasonable and necessary and in the case of services not specified as inpatient-only under 42 CFR 419.22(n), that they are appropriately provided as inpatient services in accordance to with the 2-midnight benchmark under 43 CFR 412.3(e) Estimated Total Length of Stay (Days): 2 Plans for Post Hospital Care: Not yet determined Review of Systems ROS: all other systems reviewed are negative [facility] Medical History Medical History Diabetes (Acute) Surgical History Surgical History H/O foot surgery (Acute) Family History Family History Other Diabetes Social History Social History Substance History: No History of Abuse Second Hand Smoke Exposure: No Smoking Status: Never smoker How Often Do You Have a Drink Containing Alcohol: Monthly or less Recent Travel in [facility] within the Last 8 Weeks: No Recent Out of Country Travel within the Last 8 Weeks: No Immunization History Tetanus Immunization: <5 Years Medications and Allergies Allergies Allergy/AdvReac Type Severity Reaction Status Date / Time piperacillin Allergy Unknown Rash Verified 08/03/18 12:44 tazobactam Allergy Unknown Rash Verified 08/03/18 12:44 cefepime Allergy Intermediate Rash Uncoded 08/03/18 12:44 Home Medications Medication Instructions Recorded Confirmed Type atorvastatin 10 mg PO DAILY 08/03/18 08/03/18 History cephalexin 500 mg PO QID 08/03/18 08/03/18 History doxycycline hyclate 100 mg PO DAILY 08/03/18 08/03/18 History lisinopril 2.5 mg PO DAILY 08/03/18 08/03/18 History meloxicam 7.5 mg PO BID 08/03/18 08/03/18 History tramadol 50 mg PO BID PRN 08/03/18 08/03/18 History Active Medications: Active Medications Al Hydroxide/Mg Hydroxide (Milk Of Magnesia Liq) 30 ml PO Q12H PRN PRN Reason: Mild Constipation Atorvastatin Calcium (Lipitor) 10 mg PO DAILY [facility] Bisacodyl (Dulcolax Supp) 10 mg RECTAL DAILY PRN PRN Reason: SEVERE CONSITIPATION Dextrose (D50w Vial) 50 ml IV.PUSH UNSCH PRN PRN Reason: PER HYPOGLYCEMIA PROTOCOL Glucagon (Glucagon Inj) 1 mg OTHER UNSCH PRN PRN Reason: for Hypoglycemia Protocol Vancomycin HCl 1,000 mg/ (Sodium Chloride) 250 mls @ 250 mls/hr IV.SIG DRAWER IN STITCH BONDING MACHINE [facility] Sodium Chloride (Ns Inj) 1,000 mls @ 65 mls/hr IV.CONT .[id number] [facility] Last Admin: 08/03/18 20:31 Dose: 65 mls/hr Metronidazole/Sodium Chloride (Flagyl 500 Mg Inj) 100 mls @ 100 mls/hr IV.SIG Q8H [facility] Last Infusion: 08/03/18 22:19 Dose: Infused Aztreonam 2 gm/ Sodium (Chloride) 100 mls @ 200 mls/hr IV.SIG Q6H [facility] Insulin Aspart (Novolog Insulin Correctional Sugar Inj) 0 unit SQ ACHS [facility]; Protocol Last Admin: 08/03/18 20:37 Dose: 12 unit Lactulose (Lactulose Liq) 30 ml PO DAILY PRN PRN Reason: SEVERE CONSITIPATION Lisinopril (Prinivil) 2.5 mg PO DAILY [facility] Miscellaneous (Pill Splitter) 1 each OTHER UNSCH PRN PRN Reason: SEE LABEL COMMENTS Sennosides (Senokot) 17.2 mg PO Q12H PRN PRN Reason: Moderate Constipation Sodium Chloride (Ns Flush) 2 ml IV.FLUSH PRN PRN PRN Reason: FLUSH AFTER USING IV ACCESS Tramadol HCl (Ultram) 50 mg PO BID PRN PRN Reason: Pain Scale 1 to 10 Last Admin: 08/03/18 21:29 Dose: 50 mg Physical Exam Vital signs: Last Vital Signs Temp 98.1 F 08/03/18 09:53 Pulse 92 H 08/03/18 20:57 Resp 18 08/03/18 20:57 BP 143/64 H 08/03/18 20:57 Pulse Ox 100 08/03/18 20:57 Intake & Output 08/01/18 08/02/18 08/03/18 08/04/18 06:59 06:59 06:59 06:59 Intake Total 600 / 600 Balance 600 / 600 Weight 79.379 kg Constitutional Comments: GENERAL: Well nourished patient in no distress SKIN: Warm and dry. 1 cm diameter lesion in the plantar surface of the left heel , sanguinous/ purulent discharge HEAD: Atraumatic. Normocephalic. EYES: Pupils equal and round. No scleral icterus. No injection or drainage. ENT: No nasal bleeding or discharge. Mucous membranes pink and moist. NECK: Trachea midline. No JVD. CARDIOVASCULAR: Regular rate and rhythm. RESPIRATORY: No accessory muscle use. Clear to auscultation. Breath sounds equal bilaterally. GASTROINTESTINAL: Abdomen soft, non-tender, nondistended. Hepatic and splenic margins not palpable. MUSCULOSKELETAL: Left foot +2 edema NEUROLOGICAL: Awake and alert. No obvious cranial nerve deficits. Motor grossly within normal limits. Normal speech. Assessment and Plan Plan 62 y/o male with a history of DM, and HLD on insulin and a wound on his left plantar surface. Patient states he had surgery in [place] that involved screws and rods in his ankle. He states he developed a hole in his foot and protruding screws. Osteomyelitis Foot MRI reviewed and shows Osteomyelitis of the talus and calcaneal remnants, the cuboid, navicular and proximal portions of the cuneiforms. and Osteomyelitis likely of the distal tibia and the proximal extent of this is uncertain, And possible Osteomyelitis possible within the medullary space of the second metatarsal and of the phalanges of the second toe. -IV antibiotics vancomycin and Aztreonam -Consult podiatry for evaluation -NPO -Pain management with Ultram Diabetes, chronic -Resume home medications when no longer NPO -Accu checks with SSI DVT prophylaxis: SCDs H&P: Quality VTE Deep Vein Thrombosis/Pulmonary Embolism Present on Admission: No
[2018-08-03] MEDS: Aztreonam Inj 2 GM in Sodium Chloride 0.9% Inj 100 ML IV.SIG SCH (23:10)
[2018-08-04] MEDS: Aztreonam Inj 2 GM in Sodium Chloride 0.9% Inj 100 ML IV.SIG SCH ×4 (03:46→22:39)
--- NOTE | 2018-08-04 07:00 | P.PNPOD ---
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 Please consult orthopedics. Thank you Physical Exam Vital signs: Vital Signs 08/03/18 09:53 08/03/18 12:45 08/03/18 16:00 Temperature 98.1 F Pulse Rate 88 83 74 Respiratory Rate 18 16 16 Blood Pressure 135/96 H 148/66 H 137/82 Pulse Oximetry 100 100 08/03/18 20:57 08/03/18 23:54 08/04/18 03:47 Temperature 98.3 F 98.2 F Pulse Rate 92 H 85 76 Respiratory Rate 18 14 16 Blood Pressure 143/64 H 128/56 L 128/60 Pulse Oximetry 100 98 97 Intake & Output 08/03/18 08/03/18 08/04/18 06:59 18:59 06:59 Intake Total 800 / 800 Balance 800 / 800 Weight 79.379 kg 79.379 kg Intake: IV 800 / 800 Azactam Inj 2 GM In NS Inj 100 200 / 200 ML @ 200 mls/hr IV.SIG Q6H [facility] Rx#:[id number] NS Inj 500 ML @ 1000 mls/hr IV. 500 / 500 SIG BOLUS [facility] Rx#:[id number] Flagyl 500 MG Inj 100 ML @ 100 100 / 100 mls/hr IV.SIG Q8H [facility] Rx#: [id number] Other: Date of Last Bowel Movement 08/03/18 Weight On Admission 79.379 kg Medications and Allergies Active Medications: Active Medications Al Hydroxide/Mg Hydroxide (Milk Of Magnesia Liq) 30 ml PO Q12H PRN PRN Reason: Mild Constipation Atorvastatin Calcium (Lipitor) 10 mg PO DAILY [facility] Bisacodyl (Dulcolax Supp) 10 mg RECTAL DAILY PRN PRN Reason: SEVERE CONSITIPATION Dextrose (D50w Vial) 50 ml IV.PUSH UNSCH PRN PRN Reason: PER HYPOGLYCEMIA PROTOCOL Glucagon (Glucagon Inj) 1 mg OTHER UNSCH PRN PRN Reason: for Hypoglycemia Protocol Vancomycin HCl 1,000 mg/ (Sodium Chloride) 250 mls @ 250 mls/hr IV.SIG GUNNER MATE [facility] Sodium Chloride (Ns Inj) 1,000 mls @ 65 mls/hr IV.CONT .[id number] [facility] Last Admin: 08/03/18 20:31 Dose: 65 mls/hr Metronidazole/Sodium Chloride (Flagyl 500 Mg Inj) 100 mls @ 100 mls/hr IV.SIG Q8H [facility] Last Admin: 08/04/18 05:32 Dose: 100 mls/hr Aztreonam 2 gm/ Sodium (Chloride) 100 mls @ 200 mls/hr IV.SIG Q6H [facility] Last Infusion: 08/04/18 04:16 Dose: Infused Insulin Aspart (Novolog Insulin Correctional Sugar Inj) 0 unit SQ ACHS [facility]; Protocol Last Admin: 08/03/18 20:37 Dose: 12 unit Lactulose (Lactulose Liq) 30 ml PO DAILY PRN PRN Reason: SEVERE CONSITIPATION Lisinopril (Prinivil) 2.5 mg PO DAILY [facility] Miscellaneous (Pill Splitter) 1 each OTHER UNSCH PRN PRN Reason: SEE LABEL COMMENTS Sennosides (Senokot) 17.2 mg PO Q12H PRN PRN Reason: Moderate Constipation Sodium Chloride (Ns Flush) 2 ml IV.FLUSH PRN PRN PRN Reason: FLUSH AFTER USING IV ACCESS Tramadol HCl (Ultram) 50 mg PO BID PRN PRN Reason: Pain Scale 1 to 10 Last Admin: 08/03/18 21:29 Dose: 50 mg Allergies Allergy/AdvReac Type Severity Reaction Status Date / Time piperacillin Allergy Unknown Rash Verified 08/03/18 12:44 tazobactam Allergy Unknown Rash Verified 08/03/18 12:44 cefepime Allergy Intermediate Rash Uncoded 08/03/18 12:44 Home Medications Medication Instructions Recorded Confirmed Type atorvastatin 10 mg PO DAILY 08/03/18 08/03/18 History cephalexin 500 mg PO QID 08/03/18 08/03/18 History doxycycline hyclate 100 mg PO DAILY 08/03/18 08/03/18 History lisinopril 2.5 mg PO DAILY 08/03/18 08/03/18 History meloxicam 7.5 mg PO BID 08/03/18 08/03/18 History tramadol 50 mg PO BID PRN 08/03/18 08/03/18 History Results - Labs CBC & Chem 7: 08/03/18 13:13 08/03/18 13:13 Laboratory Results - last 24 hr 08/03/18 08/03/18 08/03/18 13:13 13:13 13:13 WBC 9.7 RBC 3.30 L Hgb 9.5 L Hct 27.3 L MCV 82.8 MCH 28.8 MCHC 34.8 RDW 15.5 Plt Count 595 H MPV 6.5 L Neut % (Auto) 76.0 H Lymph % (Auto) 12.5 [place] % (Auto) 6.8 Eos % (Auto) 3.2 Baso % (Auto) 1.5 Neut # (Auto) 7.4 Lymph # (Auto) 1.2 [place] # (Auto) 0.7 Eos # (Auto) 0.3 Baso # (Auto) 0.1 WBC Differential . Differential Comment Auto diff final ESR PT 12.3 H INR 1.2 APTT 28.1 Sodium 135 L Potassium 4.6 Chloride 99 Carbon Dioxide 21.3 Anion Gap 15 BUN 22 H Creatinine 1.24 Estimated GFR 59 L Random Glucose 293 H Calcium 9.3 Total Bilirubin 0.4 AST 26 ALT 41 Alkaline Phosphatase 365 H C-Reactive Protein 18.70 H Total Protein 8.4 H Albumin 2.5 L 08/03/18 13:13 WBC RBC Hgb Hct MCV MCH MCHC RDW Plt Count MPV Neut % (Auto) Lymph % (Auto) [place] % (Auto) Eos % (Auto) Baso % (Auto) Neut # (Auto) Lymph # (Auto) [place] # (Auto) Eos # (Auto) Baso # (Auto) WBC Differential Differential Comment ESR Greater than 140 H PT INR APTT Sodium Potassium Chloride Carbon Dioxide Anion Gap BUN Creatinine Estimated GFR Random Glucose Calcium Total Bilirubin AST ALT Alkaline Phosphatase C-Reactive Protein Total Protein Albumin - Imaging Impressions Foot MRI 08/03/18 12:51 CONCLUSION: 1. Extremely limited study related to magnetic susceptibility artifact. 2. Osteomyelitis likely of the talus and calcaneal remnants, the cuboid, navicular and proximal portions of the cuneiforms. 3. Osteomyelitis likely of the distal tibia and the proximal extent of this is uncertain. 4. Osteomyelitis possible within the medullary space of the second metatarsal and of the phalanges of the second toe. 5. Suspected focal osteomyelitis of the head of the fourth metatarsal. 6. Diffuse soft tissue swelling and edema. Focal plantar ulceration at the level of the midfoot. A ceretec tagged WBC scan may be helpful with SPECT CT images of the left lower extremity. Venous Doppler Study 08/03/18 12:51 CONCLUSION: 1. No DVT. 2. Multiple lymph nodes somewhat prominent in size, however present on the prior study from 02/2017 not significantly changed. Foot X-Ray 08/03/18 12:52 CONCLUSION: 1. Extensive postsurgical findings of the foot. New surgical hardware in the distal lower leg and hindfoot. Evidence of loosening of the screw in the great toe proximal phalanx, metatarsal, and medial cuneiform. 2. One of the new screws in the hindfoot is fractured. 3. Apparent resection of the talus with bone graft placement in this location. 4. 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
[2018-08-04 09:49] LABS: Baso # (Auto) 0.1 th/mm3 (0.0-0.2); Baso % (Auto) 1.3 % (0.0-2.0); Eos # (Auto) 0.2 th/mm3 (0.0-0.4); Eos % (Auto) 2.9 % (0.0-4.0); Hemoglobin 8.7 gm/dL (13.0-17.0); Lymph # (Auto) 0.5 th/mm3 (1.0-4.8); Lymph % (Auto) 5.8 % (9.0-44.0); Mean Corpuscular HGB Conc 32.3 % (32.0-36.0); Mean Corpuscular Hemoglobin 26.9 pg (27.0-34.0); Mean Corpuscular Volume 83.5 fL (80.0-100.0); Mean Platelet Volume 6.5 fL (7.0-11.0); Mono # (Auto) 0.5 th/mm3 (0.0-0.9); Mono % (Auto) 6.6 % (0.0-8.0); Neut # (Auto) 6.9 th/mm3 (1.8-7.7); Neut % (Auto) 83.4 % (16.0-70.0); Platelet Count 573 th/mm3 (150-450); Red Blood Count 3.23 mil/mm3 (4.50-5.90); Red Cell Distribution Width 15.4 % (11.6-17.2); White Blood Count 8.3 th/mm3 (4.0-11.0)
[2018-08-04 10:17] LABS: Albumin 2.3 g/dL (3.4-5.0); Anion Gap 16 meq/L (5-15); Aspartate Aminotransferase 12 U/L (15-37); Blood Urea Nitrogen 28 mg/dL (7-18); Calcium 8.9 mg/dL (8.5-10.1); Carbon Dioxide 17.5 meq/L (21.0-32.0); Chloride 101 meq/L (98-107); Glomerular Filtration Rate 56 mL/min (>89); Potassium 5.1 meq/L (3.5-5.1); Sodium 134 meq/L (136-145)
--- NOTE | 2018-08-04 10:30 | P.PNIM ---
Subjective Interval history: Patient reports he is feeling ok today. No fevers or chills. He states he didn' t want to drive to [place]. Physical Exam Vital signs: Vital Signs 08/03/18 12:45 08/03/18 16:00 08/03/18 20:57 Temperature Pulse Rate 83 74 92 H Respiratory Rate 16 16 18 Blood Pressure 148/66 H 137/82 143/64 H Pulse Oximetry 100 100 08/03/18 23:54 08/04/18 03:47 08/04/18 08:00 Temperature 98.3 F 98.2 F 97.8 F Pulse Rate 85 76 80 Respiratory Rate 14 16 20 Blood Pressure 128/56 L 128/60 129/60 Pulse Oximetry 98 97 99 Intake & Output 08/03/18 08/04/18 08/04/18 18:59 06:59 18:59 Intake Total 900 / 900 Balance 900 / 900 Weight 79.379 kg 79.379 kg Intake: IV 900 / 900 Azactam Inj 2 GM In NS Inj 100 200 / 200 ML @ 200 mls/hr IV.SIG Q6H [facility] Rx#:[id number] NS Inj 500 ML @ 1000 mls/hr IV. 500 / 500 SIG BOLUS [facility] Rx#:[id number] Flagyl 500 MG Inj 100 ML @ 100 200 / 200 mls/hr IV.SIG Q8H [facility] Rx#: [id number] Other: Date of Last Bowel Movement 08/03/18 Weight On Admission 79.379 kg Narrative: GENERAL: Chronically ill-appearing male in no acute distress. CARDIOVASCULAR: Normal rate and regular rhythm without murmurs, gallops, or rubs. RESPIRATORY: Good respiratory efforts. Breath sounds equal and clear to auscultation bilaterally. GASTROINTESTINAL: Abdomen soft, non-tender, non-distended. Normal active bowel sounds MUSCULOSKELETAL: Left Charcot foot. 2+ pitting edema. Multiple scars from previous surgeries. Mid plantar aspect has a 1 cm ulceration draining purulence /serosanguineous fluid. NEURO: Alert & Oriented x4 to person, place, time, situation. Moves all ext x4 PSYCH: Appropriate mood and affect. Results - Labs CBC & Chem 7: 08/04/18 09:14 08/04/18 09:14 Laboratory Results - last 24 hr 08/03/18 08/03/18 08/03/18 13:13 13:13 13:13 WBC 9.7 RBC 3.30 L Hgb 9.5 L Hct 27.3 L MCV 82.8 MCH 28.8 MCHC 34.8 RDW 15.5 Plt Count 595 H MPV 6.5 L Neut % (Auto) 76.0 H Lymph % (Auto) 12.5 [place] % (Auto) 6.8 Eos % (Auto) 3.2 Baso % (Auto) 1.5 Neut # (Auto) 7.4 Lymph # (Auto) 1.2 [place] # (Auto) 0.7 Eos # (Auto) 0.3 Baso # (Auto) 0.1 WBC Differential . Differential Comment Auto diff final ESR PT 12.3 H INR 1.2 APTT 28.1 Sodium 135 L Potassium 4.6 Chloride 99 Carbon Dioxide 21.3 Anion Gap 15 BUN 22 H Creatinine 1.24 Estimated GFR 59 L POC Glucose Random Glucose 293 H Calcium 9.3 Total Bilirubin 0.4 AST 26 ALT 41 Alkaline Phosphatase 365 H C-Reactive Protein 18.70 H Total Protein 8.4 H Albumin 2.5 L 08/03/18 08/04/18 08/04/18 13:13 09:00 09:02 WBC RBC Hgb Hct MCV MCH MCHC RDW Plt Count MPV Neut % (Auto) Lymph % (Auto) [place] % (Auto) Eos % (Auto) Baso % (Auto) Neut # (Auto) Lymph # (Auto) [place] # (Auto) Eos # (Auto) Baso # (Auto) WBC Differential Differential Comment ESR Greater than 140 H PT INR APTT Sodium Potassium Chloride Carbon Dioxide Anion Gap BUN Creatinine Estimated GFR POC Glucose 567 H* 557 H* Random Glucose Calcium Total Bilirubin AST ALT Alkaline Phosphatase C-Reactive Protein Total Protein Albumin 08/04/18 09:14 WBC 8.3 RBC 3.23 L Hgb 8.7 L Hct 27.0 L MCV 83.5 MCH 26.9 L MCHC 32.3 RDW 15.4 Plt Count 573 H MPV 6.5 L Neut % (Auto) 83.4 H Lymph % (Auto) 5.8 L [place] % (Auto) 6.6 Eos % (Auto) 2.9 Baso % (Auto) 1.3 Neut # (Auto) 6.9 Lymph # (Auto) 0.5 L [place] # (Auto) 0.5 Eos # (Auto) 0.2 Baso # (Auto) 0.1 WBC Differential . Differential Comment Auto diff final ESR PT INR APTT Sodium Potassium Chloride Carbon Dioxide Anion Gap BUN Creatinine Estimated GFR POC Glucose Random Glucose Calcium Total Bilirubin AST ALT Alkaline Phosphatase C-Reactive Protein Total Protein Albumin - Imaging Impressions Foot MRI 08/03/18 12:51 CONCLUSION: 1. Extremely limited study related to magnetic susceptibility artifact. 2. Osteomyelitis likely of the talus and calcaneal remnants, the cuboid, navicular and proximal portions of the cuneiforms. 3. Osteomyelitis likely of the distal tibia and the proximal extent of this is uncertain. 4. Osteomyelitis possible within the medullary space of the second metatarsal and of the phalanges of the second toe. 5. Suspected focal osteomyelitis of the head of the fourth metatarsal. 6. Diffuse soft tissue swelling and edema. Focal plantar ulceration at the level of the midfoot. A ceretec tagged WBC scan may be helpful with SPECT CT images of the left lower extremity. Venous Doppler Study 08/03/18 12:51 CONCLUSION: 1. No DVT. 2. Multiple lymph nodes somewhat prominent in size, however present on the prior study from 02/2017 not significantly changed. Foot X-Ray 08/03/18 12:52 CONCLUSION: 1. Extensive postsurgical findings of the foot. New surgical hardware in the distal lower leg and hindfoot. Evidence of loosening of the screw in the great toe proximal phalanx, metatarsal, and medial cuneiform. 2. One of the new screws in the hindfoot is fractured. 3. Apparent resection of the talus with bone graft placement in this location. 4. 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 Assessment and Plan - Plan 62-year-old male with history of diabetes,? Charcot left foot with extensive reconstructive surgery presented to the hospital with draining ulcer of the plantar left foot. Probable extensive osteomyelitis of the left lower extremity/draining wound: Patient has had extensive reconstructive surgery in [place] by Dr. Boyce. I discussed the case with Dr. Rene. He recommends the patient returns to [place] where his case is known. Foot MRI reviewed and shows Osteomyelitis of the talus and calcaneal remnants, the cuboid, navicular and proximal portions of the cuneiforms. and Osteomyelitis likely of the distal tibia and the proximal extent of this is uncertain, And possible Osteomyelitis possible within the medullary space of the second metatarsal and of the phalanges of the second toe. -X-ray report noted as above. - CRP is 18 -Continue IV antibiotics including vancomycin and Aztreonam -Consult ID. -Podiatry deferred consult to Orthopedics. DW Dr. Rene as above. I put a call out to the patient's Orthopedic surgeon Dr. Boyce in [place]. - When confronted with the prospect of possible extensive osteomyelitis, the patient states he would never have an amputation and requested to be treated with IV antibiotics as was previously done when he had another wound on the dorsal aspect of the foot. - Obtain WBC tag scan. Diabetes, chronic - Blood glucose uncontrolled. - Start Levemir 20 units BID and continue with Accu checks with SSI - Check Hemoglobin A1c. DVT prophylaxis: SCDs
[2018-08-04 10:32] LABS: Alanine Aminotransferase 30 U/L (12-78); Alkaline Phosphatase 292 U/L (45-117); Total Protein 7.6 g/dL (6.4-8.2)
[2018-08-04 10:38] LABS: Glucose,Random 527 mg/dL (74-106)
[2018-08-04] MEDS: Insulin NovoLOG Aspart Correctional Sugar Inj SQ SCH ×5 (10:48→20:41)
[2018-08-04] MEDS: Lisinopril 5 MG Tablet PO SCH (10:48)
[2018-08-04] MEDS: Insulin Detemir Inj 1,000 UNIT/10 ML Vial SQ SCH ×2 (11:13→20:28)
--- NOTE | 2018-08-04 14:42 | P.CONID ---
History of Present Illness Service: Infectious Disease Consult date: 08/04/18 Requesting Physician: Kofi Bertrand Reason for Consult: evaluate patient for possible osteomyelitis Primary Care Provider: TINY Montoya Chief Complaint: Left foot pain History of Present Illness: Patient seen and examined. Records reviewed. Patient is a 62-year-old male, who has had extensive orthopedic surgical procedure on his right foot/ankle, presented to the hospital for further evaluation of a draining wound on his left heel. Back in 2017, he was treated for possible osteomyelitis on his left foot when he presented with a draining wound possible abscess on the dorsum of his left foot. Patient has multiple hardware in his left foot and ankle. He was treated with IV antibiotics, and completed that, and was followed by an infectious disease locally, and apparently has chronically been on doxycycline for suppression. Patient cannot remember the last time he had surgery but he thinks it might be in September of this year, and he actually has no hardware in place which is different from some of the hardware he had back in 2017. He has not been having any problem until recently when couple of the screws was protruding on his posterior heel. He went to a local orthopedic surgeon, Dr. Bertrand, and reportedly had removal of the 2 screws about 2 weeks ago. Patient has neuropathy and does not really feel much on that left foot. On Tuesday which would be about 5-6 days prior to admission he noted a pinpoint wound on his left heel. This is not in the same area where the screws were removed. He was just putting a cover over it and he had noted that the drainage was initially bloody. He went to see Dr. Bertrand 2 days ago, and he was noted to have a larger wound right at the same area where he had noted the pinpoint draining area. It is now draining more sort of like a reddish or NG fluid. He was told to follow-up with his doctor in [place], and he called his doctor in [place] who told him to go to the emergency room. He has presented here in the hospital for further evaluation and treatment. He denies any fever chills or sweats. He has not had any GI or any urinary complaints or respiratory complaints. He has not been febrile here. He had an MRI done which was a limited study because of all the artifacts from the hardware. There was no abscess or fluid collection that was identified although it was somewhat limited right around where the hardwares are located. His sed rate is greater than 140, CRP 18.7, WBC is normal. Infectious disease consultation has been requested to assist with evaluation and treatment. Review of Systems Constitutional: Denies chills, Denies fever(s), Denies headache(s), Denies night sweats Eyes: Denies discharge, Denies dry eyes Ears, Nose, Mouth, and Throat: Denies difficulty swallowing, Denies ear pain, Denies nasal discharge, Denies pain with swallowing, Denies sore throat Cardiovascular: Denies chest pain, Denies shortness of breath Respiratory: Denies chest congestion, Denies cough, Denies shortness of breath Gastrointestinal: Denies abdominal pain, Denies loose stools, Denies nausea, Denies pain with swallowing, Denies vomiting Genitourinary: Denies painful urination Musculoskeletal: Reports joint swelling Skin/Breast: Reports wounds, Denies rash PMFSH - History History Provided By: Patient - Medical History Medical History: Medical History (Last Updated 08/04/18 @ 14:35 by Georgette Ryan MD) Diabetes Osteomyelitis of left foot - Surgical History Surgical History: Surgical History (Last Reviewed 08/04/18 @ 14:35 by Georgette Ryan MD) H/O foot surgery - Family History Family History: Family History Other Diabetes - Tobacco History Second Hand Smoke Exposure: No Tobacco Use In Past 30 Days: No Smoking Status: Never smoker - Alcohol History How Often Do You Have a Drink Containing Alcohol: Monthly or less - Substance Use History Substance History: No History of Abuse - Travel History Recent Travel in the [place] Within the Last 8 Weeks: No Recent Travel Out of the Country Within the Last 8 Weeks: No - Immunization History Tetanus Immunization: <5 Years Medications and Allergies Active Medications: Active Medications Al Hydroxide/Mg Hydroxide (Milk Of Magnkerry Liq) 30 ml PO Q12H PRN PRN Reason: Mild Constipation Atorvastatin Calcium (Lipitor) 10 mg PO DAILY [facility] Last Admin: 08/04/18 10:48 Dose: 10 mg Bisacodyl (Dulcolax Supp) 10 mg RECTAL DAILY PRN PRN Reason: SEVERE CONSITIPATION Dextrose (D50w Vial) 50 ml IV.PUSH UNSCH PRN PRN Reason: PER HYPOGLYCEMIA PROTOCOL Glucagon (Glucagon Inj) 1 mg OTHER UNSCH PRN PRN Reason: for Hypoglycemia Protocol Vancomycin HCl 1,000 mg/ (Sodium Chloride) 250 mls @ 250 mls/hr IV.SIG [facility] [facility] Sodium Chloride (Ns Inj) 1,000 mls @ 65 mls/hr IV.CONT .[id number] [facility] Last Admin: 08/03/18 20:31 Dose: 65 mls/hr Metronidazole/Sodium Chloride (Flagyl 500 Mg Inj) 100 mls @ 100 mls/hr IV.SIG Q8H [facility] Last Infusion: 08/04/18 06:32 Dose: Infused Aztreonam 2 gm/ Sodium (Chloride) 100 mls @ 200 mls/hr IV.SIG Q6H [facility] Last Admin: 08/04/18 11:15 Dose: 200 mls/hr Insulin Aspart (Novolog Insulin Correctional Sugar Inj) 0 unit SQ ACHS [facility]; Protocol Last Admin: 08/04/18 10:48 Dose: 12 unit Insulin Detemir (Levemir Inj) 20 unit SQ BID [facility] Last Admin: 08/04/18 11:13 Dose: 20 unit Lactulose (Lactulose Liq) 30 ml PO DAILY PRN PRN Reason: SEVERE CONSITIPATION Lisinopril (Prinivil) 2.5 mg PO DAILY [facility] Last Admin: 08/04/18 10:48 Dose: 2.5 mg Miscellaneous (Pill Splitter) 1 each OTHER UNSCH PRN PRN Reason: SEE LABEL COMMENTS Sennosides (Senokot) 17.2 mg PO Q12H PRN PRN Reason: Moderate Constipation Sodium Chloride (Ns Flush) 2 ml IV.FLUSH PRN PRN PRN Reason: FLUSH AFTER USING IV ACCESS Tramadol HCl (Ultram) 50 mg PO BID PRN PRN Reason: Pain Scale 1 to 10 Last Admin: 08/03/18 21:29 Dose: 50 mg Allergies Allergy/AdvReac Type Severity Reaction Status Date / Time piperacillin Allergy Unknown Rash Verified 08/03/18 12:44 tazobactam Allergy Unknown Rash Verified 08/03/18 12:44 cefepime Allergy Intermediate Rash Uncoded 08/03/18 12:44 Home Medications Medication Instructions Recorded Confirmed Type atorvastatin 10 mg PO DAILY 08/03/18 08/03/18 History cephalexin 500 mg PO QID 08/03/18 08/03/18 History doxycycline hyclate 100 mg PO DAILY 08/03/18 08/03/18 History lisinopril 2.5 mg PO DAILY 08/03/18 08/03/18 History meloxicam 7.5 mg PO BID 08/03/18 08/03/18 History tramadol 50 mg PO BID PRN 08/03/18 08/03/18 History Exam Vital signs: Vital Signs 08/03/18 16:00 08/03/18 20:57 08/03/18 23:54 Temperature 98.3 F Pulse Rate 74 92 H 85 Respiratory Rate 16 18 14 Blood Pressure 137/82 143/64 H 128/56 L Pulse Oximetry 100 98 08/04/18 03:47 08/04/18 08:00 08/04/18 11:41 Temperature 98.2 F 97.8 F 98.7 F Pulse Rate 76 80 82 Respiratory Rate 16 20 16 Blood Pressure 128/60 129/60 135/62 Pulse Oximetry 97 99 100 Intake & Output 08/03/18 08/04/18 08/04/18 18:59 06:59 18:59 Intake Total 900 / 900 Balance 900 / 900 Weight 79.379 kg 79.379 kg Intake: IV 900 / 900 Azactam Inj 2 GM In NS Inj 100 200 / 200 ML @ 200 mls/hr IV.SIG Q6H [facility] Rx#:[id number] NS Inj 500 ML @ 1000 mls/hr IV. 500 / 500 SIG BOLUS [facility] Rx#:[id number] Flagyl 500 MG Inj 100 ML @ 100 200 / 200 mls/hr IV.SIG Q8H [facility] Rx#: [id number] Other: Date of Last Bowel Movement 08/03/18 Weight On Admission 79.379 kg Narrative: Physical examination GENERAL: Patient is a well-nourished, well-developed male, awake and alert, not in respiratory distress. SKIN: Cool and dry. No generalized rash, no ecchymoses and no evidence of embolic lesions. HEAD: Atraumatic. Normocephalic. No temporal wasting, or tenderness. EYES: [place] conjunctiva. No petechia or hemorrhage. Pupils equal, round and reactive to light. Extraocular movements full and intact. No scleral icterus. No injection or drainage. EARS, NOSE AND THROAT: Nose without bleeding or purulent nasal discharge. No sinus tenderness. Mucous membranes pink and moist. No oral lesions noted. No exudate. No oral thrush. NECK: Trachea midline. Supple and not tender, no meningeal signs CARDIOVASCULAR: Regular rate and rhythm. No murmurs, rubs or gallops heard RESPIRATORY: Clear to auscultation. Breath sounds equal bilaterally. No rales , wheezing or rhonchi ABDOMEN: Soft, non-tender, nondistended. Bowel sounds present and normoactive. No guarding. No rebound. No organomegaly. EXTREMITIES: No clubbing, cyanosis. HIs LLE larger comparedf to his RLE. Has swollen L ankle and L foot, has Charcot looking deformity. Has bogginess on his Heel with a 1 inch draining wound, drainage is bloody. Not tender, no odor. No calf tenderness. NEUROLOGICAL: Awake and alert. Cranial nerves grossly intact. Motor grossly within normal limits. PSYCHIATRIC: Normal affect, calm and cooperative. LINE: No evidence of infection Results - Labs CBC & Chem 7: 08/04/18 09:14 08/04/18 09:14 Labs: Laboratory Results - last 24 hr 08/04/18 08/04/18 08/04/18 09:00 09:02 09:14 WBC 8.3 RBC 3.23 L Hgb 8.7 L Hct 27.0 L MCV 83.5 MCH 26.9 L MCHC 32.3 RDW 15.4 Plt Count 573 H MPV 6.5 L Neut % (Auto) 83.4 H Lymph % (Auto) 5.8 L [place] % (Auto) 6.6 Eos % (Auto) 2.9 Baso % (Auto) 1.3 Neut # (Auto) 6.9 Lymph # (Auto) 0.5 L [place] # (Auto) 0.5 Eos # (Auto) 0.2 Baso # (Auto) 0.1 WBC Differential . Differential Comment Auto diff final Sodium Potassium Chloride Carbon Dioxide Anion Gap BUN Creatinine Estimated GFR POC Glucose 567 H* 557 H* Random Glucose Calcium Total Bilirubin AST ALT Alkaline Phosphatase Total Protein Albumin 08/04/18 08/04/18 08/04/18 09:14 09:45 12:24 WBC RBC Hgb Hct MCV MCH MCHC RDW Plt Count MPV Neut % (Auto) Lymph % (Auto) [place] % (Auto) Eos % (Auto) Baso % (Auto) Neut # (Auto) Lymph # (Auto) [place] # (Auto) Eos # (Auto) Baso # (Auto) WBC Differential Differential Comment Sodium 134 L Potassium 5.1 Chloride 101 Carbon Dioxide 17.5 L Anion Gap 16 H BUN 28 H Creatinine 1.30 Estimated GFR 56 L POC Glucose 464 H* Random Glucose 527 H* D Cancelled Calcium 8.9 Total Bilirubin 0.5 AST 12 L ALT 30 Alkaline Phosphatase 292 H Total Protein 7.6 D Albumin 2.3 L - Imaging Impressions Foot MRI 08/03/18 12:51 CONCLUSION: 1. Extremely limited study related to magnetic susceptibility artifact. 2. Osteomyelitis likely of the talus and calcaneal remnants, the cuboid, navicular and proximal portions of the cuneiforms. 3. Osteomyelitis likely of the distal tibia and the proximal extent of this is uncertain. 4. Osteomyelitis possible within the medullary space of the second metatarsal and of the phalanges of the second toe. 5. Suspected focal osteomyelitis of the head of the fourth metatarsal. 6. Diffuse soft tissue swelling and edema. Focal plantar ulceration at the level of the midfoot. A ceretec tagged WBC scan may be helpful with SPECT CT images of the left lower extremity. Foot X-Ray 08/03/18 12:52 CONCLUSION: 1. Extensive postsurgical findings of the foot. New surgical hardware in the distal lower leg and hindfoot. Evidence of loosening of the screw in the great toe proximal phalanx, metatarsal, and medial cuneiform. 2. One of the new screws in the hindfoot is fractured. 3. Apparent resection of the talus with bone graft placement in this location. 4. 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 Assessment and Plan - Plan Impression Draining wound L heel, patient with extensive surgery done, and has multiple hardware in place Previous Rx for Enetrobacter osteo L foot 2017 Charcot foot L DM Allergy to PCN and Cefepime Recommendation Tagged WBC scan Empiric Abx: Azactam, Flagyl, Vancomycin We will try to see if we can transfer patient to his orthopedic surgeon in [place] Tagged WBC scan Monitor [id number] Will follow along with you Thank you for this consultation Explained plan to the patient D/W Dr Bertrand ([facility])
[2018-08-04] MEDS: Sod Chloride 0.9% Inj 1,000 ML IV.CONT SCH ×2 (16:04→20:47)
[2018-08-04 16:20] LABS: Hemoglobin A1c 7.7 % (4.3-6.0)
[2018-08-05] MEDS: Aztreonam Inj 2 GM in Sodium Chloride 0.9% Inj 100 ML IV.SIG SCH ×4 (03:50→21:43)
[2018-08-05] MEDS: Sod Chloride 0.9% Inj 1,000 ML IV.CONT SCH ×2 (03:53→18:14)
[2018-08-05] MEDS: Insulin NovoLOG Aspart Correctional Sugar Inj SQ SCH ×4 (08:23→20:47)
[2018-08-05] MEDS: Lisinopril 5 MG Tablet PO SCH (08:23)
[2018-08-05] MEDS: Insulin Detemir Inj 1,000 UNIT/10 ML Vial SQ SCH ×2 (09:29→20:31)
--- NOTE | 2018-08-05 09:41 | NM ---
EXAM DATE: 08/05/2018 9:13 AM EST AGE/SEX: 62 years / Male INDICATIONS: Left foot osteomyelitis. Wound on plantar aspect of left heel. Swelling of entire left foot. CLINICAL DATA: This is the patient's subsequent encounter. Patient reports that signs and symptoms h ave been present for > 1 year and indicates a pain score of 9/10. Location: , Laterality: MEDICAL/SURGICAL HISTORY: Diabetes mellitus type II. . Left foot joaquin cot foot reconstruction. COMPARISON: [facility], WBC SPECT CERETEC, 03/27/2017. [facility], FOOT COMPLETE LEFT 3V, 08/03/2018. [facility], MR F OOT LEFT W & W/O CONTRAST, 08/03/2018. . No external comparison. DOSE: 21.0 mCi Tc99m Ceretec labeled white blood cells IV IMAGING TIMES: 30 min , 3 hrs , 24 hrs IMAGING: SPECT/CT imaging with fusion was performed. RADIATION DOSE: 2.76 CTDIvol(mGy) Multiple day study TECHNIQUE: Following the in vitro labeling of autologous white cells and reinjection, whole body sca n was performed at the specified times. SPECT imaging was performed at the specified time in sagittal , axial and coronal planes. Attenuation correction was performed with the computed tomography and ramesh th the attenuation correction and non-attenuation corrected data sets were reviewed. FINDINGS: No at the level of the first proximal phalanx and metatarsal shaft as well as the medial cuneiform. P rominent soft tissue swelling is seen. On the three-hour minute images there is marked radiotracer ac cumulation at the plantar aspect of the foot and surrounding and involving the destructive bony marcos es of the hindfoot. This is characteristic of osteomyelitis and cellulitis. There is abnormal lucency of bone surrounding the first digit hardware but there is no marked radiotracer accumulation of the first digit to indicate osteomyelitis at this time. CONCLUSION: 1. Destructive bone changes are seen involving the hindfoot with corresponding radiotracer accumulat ion characteristic of osteomyelitis and cellulitis. Electronically signed by: Hamilton Hernandez MD 08/05/2018 9:39 AM EST
--- NOTE | 2018-08-05 11:17 | P.PNIM ---
Subjective Interval history: Bone scan results pending. No acute distress from the patient. Pain control. Physical Exam Vital signs: Vital Signs 08/04/18 11:41 08/04/18 16:00 08/04/18 20:00 Temperature 98.7 F 97.2 F L 97.9 F Pulse Rate 82 83 91 H Respiratory Rate 16 18 18 Blood Pressure 135/62 127/71 133/63 Pulse Oximetry 100 97 100 08/05/18 00:00 08/05/18 04:00 08/05/18 07:00 Temperature 97.9 F 97.8 F Pulse Rate 72 69 Respiratory Rate 18 18 12 Blood Pressure 98/51 L 135/65 Pulse Oximetry 98 97 08/05/18 08:00 Temperature 97.8 F Pulse Rate 71 Respiratory Rate 20 Blood Pressure 125/59 L Pulse Oximetry 96 Intake & Output 08/04/18 08/05/18 08/05/18 18:59 06:59 18:59 Intake Total 1600 / 1600 1100 / 1100 Output Total 100 / 100 Balance 1600 / 1600 1000 / 1000 Weight 79.379 kg Intake: IV 1600 / 1600 1100 / 1100 NS Inj 1,000 ML @ 65 mls/hr IV. 1000 / 1000 1000 / 1000 CONT .[id number] [facility] Rx#:[id number] Azactam Inj 2 GM In NS Inj 100 300 / 300 100 / 100 ML @ 200 mls/hr IV.SIG Q6H [facility] Rx#:[id number] Flagyl 500 MG Inj 100 ML @ 100 300 / 300 mls/hr IV.SIG Q8H [facility] Rx#: [id number] Output: Urine 100 / 100 Other: # Voids 4 Date of Last Bowel Movement 08/03/18 08/03/18 08/05/18 Narrative: GENERAL: NAD, A&Ox3 HEAD: Normocephalic. NECK: Supple, trachea midline. No lymphadenopathy. EYES: No scleral icterus. No injection or drainage. CARDIOVASCULAR: Regular rate and rhythm without murmurs, gallops, or rubs. RESPIRATORY: Breath sounds equal bilaterally. No accessory muscle use. GASTROINTESTINAL: Abdomen soft, non-tender, nondistended. MUSCULOSKELETAL: No cyanosis, or edema. Left foot is bandaged. SKIN: Warm and dry. NEURO: No focal neurological deficits. Results - Labs CBC & Chem 7: 08/04/18 09:14 08/04/18 09:14 Laboratory Results - last 24 hr 08/04/18 08/04/18 08/04/18 09:14 12:24 17:07 POC Glucose 464 H* 382 H Hemoglobin A1c 7.7 H 08/04/18 08/05/18 20:23 08:22 POC Glucose 438 H 86 Hemoglobin A1c Microbiology 08/03/18 13:00 Wound - Foot Gram Stain - Final 08/03/18 13:00 Wound - Foot Wound Culture - Final Moderate growth normal skin tenisha No anaerobes isolated - Imaging Impressions WBC Scan Nuclear Medicine 08/04/18 00:00 CONCLUSION: 1. Destructive bone changes are seen involving the hindfoot with corresponding radiotracer accumulation characteristic of osteomyelitis and cellulitis. Assessment and Plan - Plan 62-year-old male admitted secondary to infection of left foot. Baseline Charcot foot of the left, hardware present. Left foot osteomyelitis Left foot cellulitis Continue vancomycin Continue aztreonam ID following Orthopedic surgeon following Orthopedic surgeon in [place] is aware of situation, awaiting decision whether this patient will transfer Diabetes mellitus type 2 Follow blood sugars Insulin sliding scale Diabetic diet Resume mealtime short acting insulin dosing Continue Levemir 20 units twice daily, patient reports 40 units twice daily is his baseline Adjust as needed DVT prophylaxis SCDs
[2018-08-06] MEDS: Aztreonam Inj 2 GM in Sodium Chloride 0.9% Inj 100 ML IV.SIG SCH ×4 (04:14→21:50)
[2018-08-06 07:32] LABS: Baso % (Auto) 0.5 % (0.0-2.0); Eos # (Auto) 0.7 th/mm3 (0.0-0.4); Eos % (Auto) 10.6 % (0.0-4.0); Hematocrit 23.7 % (39.0-51.0); Hemoglobin 8.5 gm/dL (13.0-17.0); Lymph # (Auto) 0.5 th/mm3 (1.0-4.8); Lymph % (Auto) 6.9 % (9.0-44.0); Mean Corpuscular HGB Conc 35.9 % (32.0-36.0); Mean Corpuscular Hemoglobin 29.3 pg (27.0-34.0); Mean Corpuscular Volume 81.5 fL (80.0-100.0); Mean Platelet Volume 6.2 fL (7.0-11.0); Mono # (Auto) 0.6 th/mm3 (0.0-0.9); Mono % (Auto) 8.5 % (0.0-8.0); Neut # (Auto) 4.9 th/mm3 (1.8-7.7); Neut % (Auto) 73.5 % (16.0-70.0); Platelet Count 469 th/mm3 (150-450); Red Cell Distribution Width 15.4 % (11.6-17.2); White Blood Count 6.7 th/mm3 (4.0-11.0)
[2018-08-06 08:02] LABS: Alanine Aminotransferase 33 U/L (12-78); Alkaline Phosphatase 234 U/L (45-117); Anion Gap 9 meq/L (5-15); Aspartate Aminotransferase 34 U/L (15-37); Blood Urea Nitrogen 19 mg/dL (7-18); Calcium 8.2 mg/dL (8.5-10.1); Carbon Dioxide 22.5 meq/L (21.0-32.0); Chloride 110 meq/L (98-107); Glomerular Filtration Rate 70 mL/min (>89); Glucose,Random 81 mg/dL (74-106); Potassium 3.7 meq/L (3.5-5.1); Sodium 141 meq/L (136-145); Total Protein 6.8 g/dL (6.4-8.2)
[2018-08-06] MEDS: Insulin NovoLOG Aspart Correctional Sugar Inj SQ SCH ×4 (08:44→20:35)
[2018-08-06] MEDS: Insulin Detemir Inj 1,000 UNIT/10 ML Vial SQ SCH ×2 (09:11→20:35)
[2018-08-06] MEDS: Lisinopril 5 MG Tablet PO SCH (09:11)
[2018-08-06] MEDS: Sod Chloride 0.9% Inj 1,000 ML IV.CONT SCH (10:15)
--- NOTE | 2018-08-06 13:06 | P.PNIM ---
Subjective Interval history: No fevers overnight. No complaints from the patient. Pain control. Physical Exam Vital signs: Vital Signs 08/05/18 16:00 08/05/18 20:00 08/06/18 00:00 Temperature 97.2 F L 99.1 F 98.4 F Pulse Rate 73 86 74 Respiratory Rate 20 17 20 Blood Pressure 118/56 L 112/59 L 110/56 L Pulse Oximetry 99 100 98 08/06/18 01:00 08/06/18 04:00 08/06/18 07:00 Temperature 97.6 F Pulse Rate 70 Respiratory Rate 16 18 12 Blood Pressure 127/59 L Pulse Oximetry 99 08/06/18 07:55 08/06/18 11:42 Temperature 97.7 F 98.9 F Pulse Rate 73 78 Respiratory Rate 20 20 Blood Pressure 122/58 L 143/70 H Pulse Oximetry 99 100 Intake & Output 08/05/18 08/06/18 08/06/18 18:59 06:59 18:59 Intake Total 1540 / 1540 400 / 400 1440 / 1440 Output Total 100 / 100 900 / 900 550 / 550 Balance 1440 / 1440 -500 / -500 890 / 890 Weight 85.8 kg Intake: IV 1300 / 1300 400 / 400 1200 / 1200 NS Inj 1,000 ML @ 65 mls/hr IV. 1000 / 1000 1000 / 1000 CONT .[id number] [facility] Rx#:[id number] Azactam Inj 2 GM In NS Inj 100 200 / 200 200 / 200 100 / 100 ML @ 200 mls/hr IV.SIG Q6H [facility] Rx#:[id number] Flagyl 500 MG Inj 100 ML @ 100 100 / 100 200 / 200 100 / 100 mls/hr IV.SIG Q8H [facility] Rx#: [id number] Oral 240 / 240 240 / 240 Output: Urine 100 / 100 900 / 900 550 / 550 Other: # Voids 3 Date of Last Bowel Movement 08/05/18 08/05/18 08/05/18 Narrative: GENERAL: NAD, A&Ox3 HEAD: Normocephalic. NECK: Supple, trachea midline. No lymphadenopathy. EYES: No scleral icterus. No injection or drainage. CARDIOVASCULAR: Regular rate and rhythm without murmurs, gallops, or rubs. RESPIRATORY: Breath sounds equal bilaterally. No accessory muscle use. GASTROINTESTINAL: Abdomen soft, non-tender, nondistended. MUSCULOSKELETAL: No cyanosis, or edema. Left foot is bandaged. SKIN: Warm and dry. NEURO: No focal neurological deficits. Results - Labs CBC & Chem 7: 08/06/18 07:16 08/06/18 07:16 Laboratory Results - last 24 hr 08/05/18 08/05/18 08/06/18 16:32 20:28 07:16 WBC 6.7 RBC 2.90 L Hgb 8.5 L Hct 23.7 L MCV 81.5 MCH 29.3 MCHC 35.9 RDW 15.4 Plt Count 469 H MPV 6.2 L Neut % (Auto) 73.5 H Lymph % (Auto) 6.9 L [place] % (Auto) 8.5 H Eos % (Auto) 10.6 H Baso % (Auto) 0.5 Neut # (Auto) 4.9 Lymph # (Auto) 0.5 L [place] # (Auto) 0.6 Eos # (Auto) 0.7 H Baso # (Auto) 0.0 WBC Differential . Differential Comment Auto diff final Sodium Potassium Chloride Carbon Dioxide Anion Gap BUN Creatinine Estimated GFR POC Glucose 152 H 166 H Random Glucose Calcium Total Bilirubin AST ALT Alkaline Phosphatase Total Protein Albumin 08/06/18 08/06/18 08/06/18 07:16 07:25 11:20 WBC RBC Hgb Hct MCV MCH MCHC RDW Plt Count MPV Neut % (Auto) Lymph % (Auto) [place] % (Auto) Eos % (Auto) Baso % (Auto) Neut # (Auto) Lymph # (Auto) [place] # (Auto) Eos # (Auto) Baso # (Auto) WBC Differential Differential Comment Sodium 141 Potassium 3.7 D Chloride 110 H D Carbon Dioxide 22.5 Anion Gap 9 BUN 19 H Creatinine 1.08 Estimated GFR 70 L POC Glucose 92 177 H Random Glucose 81 D Calcium 8.2 L Total Bilirubin 0.2 AST 34 ALT 33 Alkaline Phosphatase 234 H Total Protein 6.8 D Albumin 2.0 L Microbiology 08/03/18 13:00 Wound - Foot Gram Stain - Final 08/03/18 13:00 Wound - Foot Wound Culture - Final Moderate growth normal skin tenisha No anaerobes isolated Assessment and Plan - Plan 62-year-old male admitted secondary to infection of left foot. Baseline Charcot foot of the left, hardware present. Left foot osteomyelitis Left foot cellulitis Continue vancomycin Continue aztreonam ID following Podiatry and orthopedic surgeons are not interested in being involved visits case as this case has been handled by orthopedic surgery in the past and patient has an orthopedic surgeon in [place]. Orthopedic surgeon in [place] is aware of situation, awaiting decision whether this patient will transfer. IV antibiotic therapy with or without surgery. Diabetes mellitus type 2 Follow blood sugars Insulin sliding scale Diabetic diet Resume mealtime short acting insulin dosing Continue Levemir 20 units twice daily, patient reports 40 units twice daily is his baseline Adjust as needed DVT prophylaxis SCDs
[2018-08-07] MEDS: Sod Chloride 0.9% Inj 1,000 ML IV.CONT SCH ×2 (01:30→21:03)
[2018-08-07] MEDS: Aztreonam Inj 2 GM in Sodium Chloride 0.9% Inj 100 ML IV.SIG SCH ×4 (03:59→21:04)
[2018-08-07 05:40] LABS: Baso # (Auto) 0.1 th/mm3 (0.0-0.2); Baso % (Auto) 1.3 % (0.0-2.0); Eos # (Auto) 0.7 th/mm3 (0.0-0.4); Eos % (Auto) 12.2 % (0.0-4.0); Hematocrit 23.7 % (39.0-51.0); Hemoglobin 7.7 gm/dL (13.0-17.0); Lymph # (Auto) 0.6 th/mm3 (1.0-4.8); Lymph % (Auto) 10.7 % (9.0-44.0); Mean Corpuscular HGB Conc 32.5 % (32.0-36.0); Mean Corpuscular Hemoglobin 26.7 pg (27.0-34.0); Mean Corpuscular Volume 82.1 fL (80.0-100.0); Mean Platelet Volume 6.5 fL (7.0-11.0); Mono # (Auto) 0.6 th/mm3 (0.0-0.9); Mono % (Auto) 9.9 % (0.0-8.0); Neut # (Auto) 3.7 th/mm3 (1.8-7.7); Neut % (Auto) 65.9 % (16.0-70.0); Platelet Count 469 th/mm3 (150-450); Red Blood Count 2.89 mil/mm3 (4.50-5.90); Red Cell Distribution Width 15.3 % (11.6-17.2); White Blood Count 5.6 th/mm3 (4.0-11.0)
[2018-08-07 06:04] LABS: Albumin 1.8 g/dL (3.4-5.0); Anion Gap 11 meq/L (5-15); Aspartate Aminotransferase 47 U/L (15-37); Blood Urea Nitrogen 18 mg/dL (7-18); Calcium 7.8 mg/dL (8.5-10.1); Carbon Dioxide 21.2 meq/L (21.0-32.0); Chloride 111 meq/L (98-107); Glomerular Filtration Rate 74 mL/min (>89); Glucose,Random 136 mg/dL (74-106); Potassium 4.2 meq/L (3.5-5.1); Sodium 143 meq/L (136-145)
[2018-08-07 06:08] LABS: Alanine Aminotransferase 42 U/L (12-78); Alkaline Phosphatase 232 U/L (45-117); Total Protein 6.1 g/dL (6.4-8.2)
[2018-08-07 08:49] LABS: Ovalocytes 1+; Platelet Morphology Normal (Normal)
[2018-08-07 08:50] LABS: Dimorphic RBC Present
--- NOTE | 2018-08-07 09:38 | MB ---
cc: Hipolito Rene MD DATE: 08/07/2018 REQUESTING PHYSICIAN: Georgette Ryan MD. CHIEF COMPLAINT: Left foot pain. HISTORY OF PRESENT ILLNESS: This is a 62-year-old male who presents with the following history: The patient has a complex history with regard to his left ankle and foot. He has a history of insulin-dependent diabetes mellitus since 1983, he developed a left foot/ankle Charcot joint and has had multiple corrective surgeries with the most recent by Dr. Ronny Boyce in [place], [place] on 10/24/2017. The patient states that he had a corrective surgery with his ankle and foot. The patient came to my office in 06/2018. He had a left posterior calcaneus 2 loose screws that he states were bothersome to his Achilles tendon and posterior heel area. He did not want to go back to [place] for hardware removal. On 07/21/2018, patient underwent a left ankle/foot removal of 2 posterior calcaneal 8.0 mm cannulated screws. His wounds were healing well. The patient was seen in the office on 08/02/2018 and patient had developed an opening of his plantar aspect of his foot at the area where he had a retrocalcaneal intramedullary duglas and screws. The patient was informed to return to his primary orthopedic foot surgeon, Dr. Ronny Boyce. I actually called Dr. Boyce's office and left a message for him to call me back, which I have not heard. The patient actually contacted the office also. I did tell the patient that I recommended he should go to [facility] to be evaluated in the emergency department so that he could be reevaluated and assessed by Dr. Boyce. The patient went to [facility] instead. The patient does have a history of doxycycline. He takes 100 mg daily since 2005. This was prescribed by Bertha Schmitz for chronic infection involving the left ankle and foot. X-rays show the patient to have no evidence of any successful fusion. All the implants show no osseous fixation. The patient does have retrograde IM duglas in the bottom of the tibiotalar joint. PAST MEDICAL HISTORY, SOCIAL HISTORY, AND REVIEW OF SYSTEMS: See complete record. PHYSICAL EXAMINATION: GENERAL: The patient is a 62-year-old male who looks stated age. EXTREMITIES: He has chronic swelling involving the ankle and foot. He does have a nickel-sized type of opening of the plantar aspect of his foot. This is also in the area of the retrograde IM duglas for the tibiotalar joint. IMPRESSION: 1. Left ankle and foot chronic infection, osteomyelitis. 2. Charcot left lower extremity diabetic neuropathic ankle and foot, Charcot ankle and foot. 3. Left ankle and foot chronic infection since 2005. PLAN: I have recommended to the patient that he return to Dr. Ronny Boyce in [place]. The patient's condition is a chronic condition. It is concerning that he now has an open wound on the plantar aspect of his foot. It has been mentioned to the patient that he would be probably best served with a [id number] amputation, but the patient has refused to have a below-knee amputation. I have nothing further to recommend the patient. MD JAMES Campos/jori , 09:01 AM , 09:12 AM
[2018-08-07] MEDS: Lisinopril 5 MG Tablet PO SCH (10:41)
[2018-08-07] MEDS: Insulin NovoLOG Aspart Correctional Sugar Inj SQ SCH ×4 (10:42→20:59)
[2018-08-07] MEDS: Insulin Detemir Inj 1,000 UNIT/10 ML Vial SQ SCH ×2 (10:42→21:04)
--- NOTE | 2018-08-07 10:44 | P.PNID ---
Subjective Remarks: Patient is a 62-year-old male, who has had extensive orthopedic surgical procedure on his right foot/ankle, presented to the hospital for further evaluation of a draining wound on his left heel. Back in 2017, he was treated for possible osteomyelitis on his left foot when he presented with a draining wound possible abscess on the dorsum of his left foot. Patient has multiple hardware in his left foot and ankle. He was treated with IV antibiotics, and completed that, and was followed by an infectious disease locally, and apparently has chronically been on doxycycline for suppression. Patient cannot remember the last time he had surgery but he thinks it might be in September of this year, and he actually has no hardware in place which is different from some of the hardware he had back in 2017. He has not been having any problem until recently when couple of the screws was protruding on his posterior heel. He went to a local orthopedic surgeon, Dr. Bertrand, and reportedly had removal of the 2 screws about 2 weeks ago. Patient has neuropathy and does not really feel much on that left foot. On Tuesday which would be about 5-6 days prior to admission he noted a pinpoint wound on his left heel. This is not in the same area where the screws were removed. He was just putting a cover over it and he had noted that the drainage was initially bloody. He went to see Dr. Bertrand 2 days ago, and he was noted to have a larger wound right at the same area where he had noted the pinpoint draining area. It is now draining more sort of like a reddish or NG fluid. He was told to follow-up with his doctor in [place], and he called his doctor in [place] who told him to go to the emergency room. He has presented here in the hospital for further evaluation and treatment. He denies any fever chills or sweats. He has not had any GI or any urinary complaints or respiratory complaints. He has not been febrile here. He had an MRI done which was a limited study because of all the artifacts from the hardware. There was no abscess or fluid collection that was identified although it was somewhat limited right around where the hardwares are located. His sed rate is greater than 140, CRP 18.7, WBC is normal. Infectious disease consultation has been requested to assist with evaluation and treatment. Notes reviewed WBC scan (+) osteo on his hindfoot Reviewed plain films his IM duglas is now in the heel C/S skin tenisha No fever Drainage from his open wound is bloody Appreciate Dr Rene's help Antibiotics: Azactam Vancomycin Lines: PIV Past Medical History: DM Osteo footr treatment 2017 Likely chronic osteo Multiple surgeries to his LLE Allergies/Adverse Reactions: Allergies tazobactam Allergy (Unknown, Verified 08/03/18 12:44) Rash Has tolerated Keflex multiple times. cefepime Allergy (Intermediate, Uncoded 08/03/18 12:44) Rash Objective Vital Signs 08/06/18 11:42 08/06/18 16:00 08/06/18 20:00 Temperature 98.9 F 98.8 F 98.5 F Pulse Rate 78 72 74 Respiratory Rate 20 20 19 Blood Pressure 143/70 H 141/62 H 131/79 Pulse Oximetry 100 100 100 08/06/18 23:10 08/07/18 00:00 08/07/18 01:58 Temperature 97.8 F Pulse Rate 77 Respiratory Rate 16 18 17 Blood Pressure 130/58 L Pulse Oximetry 99 08/07/18 04:00 08/07/18 08:00 Temperature 97.5 F L 97.7 F Pulse Rate 70 75 Respiratory Rate 21 16 Blood Pressure 122/58 L 143/66 H Pulse Oximetry 100 100 Intake & Output 08/06/18 08/07/18 08/07/18 18:59 06:59 18:59 Intake Total 2740 / 2740 400 / 400 Output Total 1250 / 1250 1000 / 1000 Balance 1490 / 1490 -600 / -600 Weight 85.8 kg Intake: IV 1300 / 1300 400 / 400 NS Inj 1,000 ML @ 65 mls/hr IV. 1000 / 1000 CONT .[id number] LEO Rx#:[id number] Azactam Inj 2 GM In NS Inj 100 200 / 200 200 / 200 ML @ 200 mls/hr IV.SIG Q6H LEO Rx#:[id number] Flagyl 500 MG Inj 100 ML @ 100 100 / 100 200 / 200 mls/hr IV.SIG Q8H LEO Rx#: [id number] Oral 1440 / 1440 Output: Urine 1250 / 1250 1000 / 1000 Other: Date of Last Bowel Movement 08/05/18 08/05/18 08/03/18 13:00 Wound - Foot Gram Stain - Final 08/03/18 13:00 Wound - Foot Wound Culture - Final Moderate growth normal skin tenisha No anaerobes isolated Lab - Hematology Results 08/06/18 08/07/18 07:16 04:16 WBC 6.7 5.6 RBC 2.90 L 2.89 L Hgb 8.5 L 7.7 L Hct 23.7 L 23.7 L MCV 81.5 82.1 MCH 29.3 26.7 L MCHC 35.9 32.5 RDW 15.4 15.3 Plt Count 469 H 469 H MPV 6.2 L 6.5 L Prelim Diff (Auto) Slide review pending Neut % (Auto) 73.5 H 65.9 Lymph % (Auto) 6.9 L 10.7 [place] % (Auto) 8.5 H 9.9 H Eos % (Auto) 10.6 H 12.2 H Baso % (Auto) 0.5 1.3 Neut # (Auto) 4.9 3.7 Lymph # (Auto) 0.5 L 0.6 L [place] # (Auto) 0.6 0.6 Eos # (Auto) 0.7 H 0.7 H Baso # (Auto) 0.0 0.1 WBC Differential . . Diff Scan Auto diff confirmed Differential Comment Auto diff final . Platelet Estimate High H Platelet Morphology Normal Dimorphic RBCs Present H Ovalocytes 1+ H Lab - Chemistry Results 08/05/18 08/05/18 08/05/18 11:38 16:32 20:28 Sodium Potassium Chloride Carbon Dioxide Anion Gap BUN Creatinine Estimated GFR POC Glucose 247 H 152 H 166 H Random Glucose Calcium Total Bilirubin AST ALT Alkaline Phosphatase Total Protein Albumin 08/06/18 08/06/18 08/06/18 07:16 07:25 11:20 Sodium 141 Potassium 3.7 D Chloride 110 H D Carbon Dioxide 22.5 Anion Gap 9 BUN 19 H Creatinine 1.08 Estimated GFR 70 L POC Glucose 92 177 H Random Glucose 81 D Calcium 8.2 L Total Bilirubin 0.2 AST 34 ALT 33 Alkaline Phosphatase 234 H Total Protein 6.8 D Albumin 2.0 L 08/06/18 08/06/18 08/07/18 16:58 20:33 04:16 Sodium 143 Potassium 4.2 Chloride 111 H Carbon Dioxide 21.2 Anion Gap 11 BUN 18 Creatinine 1.03 Estimated GFR 74 L POC Glucose 109 179 H Random Glucose 136 H Calcium 7.8 L Total Bilirubin 0.1 L AST 47 H ALT 42 Alkaline Phosphatase 232 H Total Protein 6.1 L D Albumin 1.8 L 08/07/18 08:16 Sodium Potassium Chloride Carbon Dioxide Anion Gap BUN Creatinine Estimated GFR POC Glucose 118 H Random Glucose Calcium Total Bilirubin AST ALT Alkaline Phosphatase Total Protein Albumin Imaging: ITS Impressions Foot MRI 08/03/18 12:51 CONCLUSION: 1. Extremely limited study related to magnetic susceptibility artifact. 2. Osteomyelitis likely of the talus and calcaneal remnants, the cuboid, navicular and proximal portions of the cuneiforms. 3. Osteomyelitis likely of the distal tibia and the proximal extent of this is uncertain. 4. Osteomyelitis possible within the medullary space of the second metatarsal and of the phalanges of the second toe. 5. Suspected focal osteomyelitis of the head of the fourth metatarsal. 6. Diffuse soft tissue swelling and edema. Focal plantar ulceration at the level of the midfoot. A ceretec tagged WBC scan may be helpful with SPECT CT images of the left lower extremity. Venous Doppler Study 08/03/18 12:51 CONCLUSION: 1. No DVT. 2. Multiple lymph nodes somewhat prominent in size, however present on the prior study from 02/2017 not significantly changed. Foot X-Ray 08/03/18 12:52 CONCLUSION: 1. Extensive postsurgical findings of the foot. New surgical hardware in the distal lower leg and hindfoot. Evidence of loosening of the screw in the great toe proximal phalanx, metatarsal, and medial cuneiform. 2. One of the new screws in the hindfoot is fractured. 3. Apparent resection of the talus with bone graft placement in this location. 4. 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 WBC Scan Nuclear Medicine 08/04/18 00:00 CONCLUSION: 1. Destructive bone changes are seen involving the hindfoot with corresponding radiotracer accumulation characteristic of osteomyelitis and cellulitis. Physical Exam: GENERAL: awake and alert, not in respiratory distress. SKIN: Cool and dry. No generalized rash EYES: [place] conjunctiva. No petechia or hemorrhage. No scleral icterus. No injection or drainage. EARS, NOSE AND THROAT: Mucous membranes pink and moist. No oral lesions noted. NECK: Trachea midline. Supple and not tender, no meningeal signs CARDIOVASCULAR: Regular rate and rhythm. No murmurs, rubs or gallops heard RESPIRATORY: Clear to auscultation. Breath sounds equal bilaterally. No rales , wheezing or rhonchi ABDOMEN: Soft, non-tender, nondistended. Bowel sounds present and normoactive. No guarding. No rebound. No organomegaly. EXTREMITIES: No clubbing, cyanosis. HIs LLE larger comparedf to his RLE. Has swollen L ankle and L foot, has Charcot looking deformity. Has 1 inch draining wound, drainage is bloody. Not tender, no odor. No calf tenderness. NEUROLOGICAL: Non-focal. PSYCHIATRIC: Normal affect, calm and cooperative. LINE: No evidence of infection Assessment and Plan - Plan Impression Chronic infection R foot/ankle, has draining wound L heel, patient with extensive surgery done, and has multiple hardware in place Previous Rx for Enterobacter osteo L foot 2017 Charcot foot L DM Allergy to PCN and Cefepime Recommendation Continue IV Abx Arrange for wound care as rec by ortho Chronic suppression - use Cipro and Doxy for now - fup with Dr Schmitz and his ortho in [place] - he really needs amputation but he is refusing this Explained all these info and recommendations to the patient D/W Dr Jones
--- NOTE | 2018-08-07 11:40 | P.PNIM ---
Subjective Interval history: Reports that he has no pain. He does not want to go to [place] and would like to follow-up with Dr. Boyce as an outpatient. He would like to get a second opinion with him on the recommendations for future amputation. Physical Exam Vital signs: Last Vital Signs Temp 97.7 F 08/07/18 08:00 Pulse 75 08/07/18 08:00 Resp 16 08/07/18 08:00 BP 143/66 H 08/07/18 08:00 Pulse Ox 100 08/07/18 08:00 Intake & Output 08/05/18 08/06/18 08/07/18 08/08/18 06:59 06:59 06:59 06:59 Intake Total 1600 / 1600 1940 / 1940 3140 / 3140 Output Total 1225 / 1225 2250 / 2250 Balance 1600 / 1600 715 / 715 890 / 890 Weight 79.379 kg 85.8 kg 85.8 kg Narrative: GENERAL: Well-nourished well-developed in NAD, CARDIOVASCULAR: Regular rate and rhythm without murmurs, gallops, or rubs. RESPIRATORY: Breath sounds equal bilaterally. No accessory muscle use. GASTROINTESTINAL: Abdomen soft, non-tender, nondistended. Normoactive bowel sounds MUSCULOSKELETAL: No cyanosis, or edema. Left foot is bandaged. Removal of the bandage showed left 1 cm x 2 cm area of wound with no active drainage SKIN: Warm and dry. NEURO: No focal neurological deficits. Results Labs CBC & Chem 7: 08/08/18 06:25 08/07/18 04:16 Assessment and Plan Plan 62-year-old male admitted secondary to infection of left foot. Baseline Charcot foot of the left, hardware present. Left foot osteomyelitis Left foot cellulitis Continue vancomycin Continue aztreonam ID following Discussed with Dr. Carter who is recommending on discharge to use Cipro and doxy for chronic suppression for now and have patient follow-up with Dr. Schmitz. orthopedic surgery Dr. Hipolito Bertrand has refer the patient back to [facility] with Dr. Boyce for future surgical evaluation, she he has recommended a left BKA which patient has declined. I have discussed with the patient that antibiotics may not resolve the chronic infection and by refusing a BKA it can lead to future recurrent infections and sepsis or even . Diabetes mellitus type 2, insulin dependent, with complications of left foot osteomyelitis, insulin Monitor blood sugars Insulin sliding scale Diabetic diet Resume mealtime short acting insulin dosing Continue Levemir 20 units twice daily, patient reports 40 units twice daily is his baseline Adjust as needed Chronic microcytic anemia, check iron panel, Hemoccult stoolsmonitor hemoglobin , patient currently asymptomatic DVT prophylaxis SCDs Discharge Planning: Discharge planning next 24 hours on oral antibiotics the patient remains afebrile. Progress Note: Quality VTE Deep Vein Thrombosis/Pulmonary Embolism Present on Admission: No
[2018-08-07 12:55] LABS: % Iron Saturation 21.8 % (20-50)
[2018-08-07] MEDS: metroNIDAZOLE 500 MG Tablet PO SCH ×2 (14:04→21:04)
[2018-08-08] MEDS: Aztreonam Inj 2 GM in Sodium Chloride 0.9% Inj 100 ML IV.SIG SCH ×2 (04:03→09:17)
[2018-08-08] MEDS: metroNIDAZOLE 500 MG Tablet PO SCH ×2 (04:03→12:38)
[2018-08-08 07:18] LABS: Baso # (Auto) 0.1 th/mm3 (0.0-0.2); Baso % (Auto) 1.2 % (0.0-2.0); Eos # (Auto) 0.7 th/mm3 (0.0-0.4); Eos % (Auto) 11.2 % (0.0-4.0); Hematocrit 24.5 % (39.0-51.0); Hemoglobin 8.1 gm/dL (13.0-17.0); Lymph # (Auto) 0.8 th/mm3 (1.0-4.8); Mean Corpuscular HGB Conc 33.1 % (32.0-36.0); Mean Corpuscular Hemoglobin 26.9 pg (27.0-34.0); Mean Corpuscular Volume 81.4 fL (80.0-100.0); Mean Platelet Volume 6.5 fL (7.0-11.0); Mono # (Auto) 0.6 th/mm3 (0.0-0.9); Mono % (Auto) 9.9 % (0.0-8.0); Neut # (Auto) 3.8 th/mm3 (1.8-7.7); Neut % (Auto) 63.7 % (16.0-70.0); Platelet Count 461 th/mm3 (150-450); Red Blood Count 3.01 mil/mm3 (4.50-5.90); Red Cell Distribution Width 16.1 % (11.6-17.2); White Blood Count 5.9 th/mm3 (4.0-11.0)
[2018-08-08 08:02] LABS: Ovalocytes 1+; Platelet Morphology Normal (Normal)
[2018-08-08 08:41] VITALS: RESP 16
--- NOTE | 2018-08-08 09:00 | P.DCO ---
Home Health Nursing Order: Wound care and dressing changes Instructions: wet to dry dressing daily Case Management Consult Yes I have seen patient Nate Nuñez on 08/08/18. My clinical findings support the need for the requested home health care services because: Infection with risk of complications I certify that my clinical findings support that this patient is homebound because: Unsafe to leave home unassisted
[2018-08-08] MEDS: Lisinopril 5 MG Tablet PO SCH (09:09)
[2018-08-08] MEDS: Insulin Detemir Inj 1,000 UNIT/10 ML Vial SQ SCH (09:10)
[2018-08-08] MEDS: Insulin NovoLOG Aspart Correctional Sugar Inj SQ SCH ×2 (09:11→12:47)
[2018-08-08] MEDS ORDERED: Collagenase Oint 30 GM Tube TOPICAL SCH (10:00)
--- NOTE | 2018-08-08 10:03 | P.DCO ---
Home Health Nursing Order: Wound care and dressing changes Instructions: wet to dry dressings and apply santyl to left heel wound daily Case Management Consult No I have seen patient Nate Nuñez on 08/08/18. My clinical findings support the need for the requested home health care services because: Infection with risk of complications I certify that my clinical findings support that this patient is homebound because: Unsafe to leave home unassisted
--- NOTE | 2018-08-08 10:18 | P.PNID ---
Subjective Remarks: Patient is a 62-year-old male, who has had extensive orthopedic surgical procedure on his right foot/ankle, presented to the hospital for further evaluation of a draining wound on his left heel. Back in 2017, he was treated for possible osteomyelitis on his left foot when he presented with a draining wound possible abscess on the dorsum of his left foot. Patient has multiple hardware in his left foot and ankle. He was treated with IV antibiotics, and completed that, and was followed by an infectious disease locally, and apparently has chronically been on doxycycline for suppression. Patient cannot remember the last time he had surgery but he thinks it might be in September of this year, and he actually has no hardware in place which is different from some of the hardware he had back in 2017. He has not been having any problem until recently when couple of the screws was protruding on his posterior heel. He went to a local orthopedic surgeon, Dr. Bertrand, and reportedly had removal of the 2 screws about 2 weeks ago. Patient has neuropathy and does not really feel much on that left foot. On Tuesday which would be about 5-6 days prior to admission he noted a pinpoint wound on his left heel. This is not in the same area where the screws were removed. He was just putting a cover over it and he had noted that the drainage was initially bloody. He went to see Dr. Bertrand 2 days ago, and he was noted to have a larger wound right at the same area where he had noted the pinpoint draining area. It is now draining more sort of like a reddish or NG fluid. He was told to follow-up with his doctor in [place], and he called his doctor in [place] who told him to go to the emergency room. He has presented here in the hospital for further evaluation and treatment. He denies any fever chills or sweats. He has not had any GI or any urinary complaints or respiratory complaints. He has not been febrile here. He had an MRI done which was a limited study because of all the artifacts from the hardware. There was no abscess or fluid collection that was identified although it was somewhat limited right around where the hardwares are located. His sed rate is greater than 140, CRP 18.7, WBC is normal. Infectious disease consultation has been requested to assist with evaluation and treatment. Notes reviewed Explained plan to patient For D/C He will fup with Dr Schmitz and his ortho No complaints WBC scan (+) osteo on his hindfoot Reviewed plain films his IM duglas is now in the heel C/S skin tenisha No fever Antibiotics: Azactam Vancomycin Lines: PIV Past Medical History: DM Osteo footr treatment 2017 Likely chronic osteo Multiple surgeries to his LLE Allergies/Adverse Reactions: Allergies tazobactam Allergy (Unknown, Verified 08/03/18 12:44) Rash Has tolerated Keflex multiple times. cefepime Allergy (Intermediate, Uncoded 08/03/18 12:44) Rash Objective Vital Signs 08/07/18 12:00 08/07/18 16:00 08/07/18 20:00 Temperature 97.8 F 97.7 F 98.1 F Pulse Rate 78 74 77 Respiratory Rate 16 16 18 Blood Pressure 127/60 126/63 129/62 Pulse Oximetry 97 99 99 08/08/18 00:00 08/08/18 04:00 08/08/18 08:00 Temperature 98.0 F 97.9 F 98.0 F Pulse Rate 67 69 71 Respiratory Rate 18 18 16 Blood Pressure 145/66 H 128/59 L 122/60 Pulse Oximetry 100 99 97 Intake & Output 08/07/18 08/08/18 08/08/18 18:59 06:59 18:59 Intake Total 2700 / 2700 200 / 200 Output Total 1300 / 1300 750 / 750 Balance 1400 / 1400 -550 / -550 Weight 85.8 kg Intake: IV 1200 / 1200 200 / 200 NS Inj 1,000 ML @ 65 mls/hr IV. 1000 / 1000 CONT .[id number] [facility] Rx#:[id number] Azactam Inj 2 GM In NS Inj 100 200 / 200 200 / 200 ML @ 200 mls/hr IV.SIG Q6H [facility] Rx#:[id number] Oral 1500 / 1500 Output: Urine 1300 / 1300 750 / 750 Other: Post Void Residual 900 Date of Last Bowel Movement 08/05/18 08/03/18 13:00 Wound - Foot Gram Stain - Final 08/03/18 13:00 Wound - Foot Wound Culture - Final Moderate growth normal skin tenisha No anaerobes isolated Lab - Hematology Results 08/07/18 08/08/18 04:16 06:25 WBC 5.6 5.9 RBC 2.89 L 3.01 L Hgb 7.7 L 8.1 L Hct 23.7 L 24.5 L MCV 82.1 81.4 MCH 26.7 L 26.9 L MCHC 32.5 33.1 RDW 15.3 16.1 Plt Count 469 H 461 H MPV 6.5 L 6.5 L Prelim Diff (Auto) Slide review pending Slide review pending Neut % (Auto) 65.9 63.7 Lymph % (Auto) 10.7 14.0 [place] % (Auto) 9.9 H 9.9 H Eos % (Auto) 12.2 H 11.2 H Baso % (Auto) 1.3 1.2 Neut # (Auto) 3.7 3.8 Lymph # (Auto) 0.6 L 0.8 L [place]ley # (Auto) 0.6 0.6 Eos # (Auto) 0.7 H 0.7 H Baso # (Auto) 0.1 0.1 WBC Differential . . Diff Scan Auto diff confirmed Auto diff confirmed Differential Comment . . Platelet Estimate High H High H Platelet Morphology Normal Normal Dimorphic RBCs Present H Ovalocytes 1+ H 1+ H Lab - Chemistry Results 08/06/18 08/06/18 08/06/18 11:20 16:58 20:33 Sodium Potassium Chloride Carbon Dioxide Anion Gap BUN Creatinine Estimated GFR POC Glucose 177 H 109 179 H Random Glucose Calcium Iron TIBC % Saturation Ferritin Total Bilirubin AST ALT Alkaline Phosphatase Total Protein Albumin 08/07/18 08/07/18 08/07/18 04:16 08:16 11:01 Sodium 143 Potassium 4.2 Chloride 111 H Carbon Dioxide 21.2 Anion Gap 11 BUN 18 Creatinine 1.03 Estimated GFR 74 L POC Glucose 118 H Random Glucose 136 H Calcium 7.8 L Iron 33 L TIBC 151 L % Saturation 21.8 Ferritin 326 Total Bilirubin 0.1 L AST 47 H ALT 42 Alkaline Phosphatase 232 H Total Protein 6.1 L D Albumin 1.8 L 08/07/18 08/07/18 08/07/18 11:32 13:58 16:58 Sodium Potassium Chloride Carbon Dioxide Anion Gap BUN Creatinine Estimated GFR POC Glucose 335 H 338 H 155 H Random Glucose Calcium Iron TIBC % Saturation Ferritin Total Bilirubin AST ALT Alkaline Phosphatase Total Protein Albumin 08/07/18 08/08/18 20:08 08:13 Sodium Potassium Chloride Carbon Dioxide Anion Gap BUN Creatinine Estimated GFR POC Glucose 130 H 131 H Random Glucose Calcium Iron TIBC % Saturation Ferritin Total Bilirubin AST ALT Alkaline Phosphatase Total Protein Albumin Imaging: ITS Impressions Foot MRI 08/03/18 12:51 CONCLUSION: 1. Extremely limited study related to magnetic susceptibility artifact. 2. Osteomyelitis likely of the talus and calcaneal remnants, the cuboid, navicular and proximal portions of the cuneiforms. 3. Osteomyelitis likely of the distal tibia and the proximal extent of this is uncertain. 4. Osteomyelitis possible within the medullary space of the second metatarsal and of the phalanges of the second toe. 5. Suspected focal osteomyelitis of the head of the fourth metatarsal. 6. Diffuse soft tissue swelling and edema. Focal plantar ulceration at the level of the midfoot. A ceretec tagged WBC scan may be helpful with SPECT CT images of the left lower extremity. Venous Doppler Study 08/03/18 12:51 CONCLUSION: 1. No DVT. 2. Multiple lymph nodes somewhat prominent in size, however present on the prior study from 02/2017 not significantly changed. Foot X-Ray 08/03/18 12:52 CONCLUSION: 1. Extensive postsurgical findings of the foot. New surgical hardware in the distal lower leg and hindfoot. Evidence of loosening of the screw in the great toe proximal phalanx, metatarsal, and medial cuneiform. 2. One of the new screws in the hindfoot is fractured. 3. Apparent resection of the talus with bone graft placement in this location. 4. 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 WBC Scan Nuclear Medicine 08/04/18 00:00 CONCLUSION: 1. Destructive bone changes are seen involving the hindfoot with corresponding radiotracer accumulation characteristic of osteomyelitis and cellulitis. Physical Exam: GENERAL: awake and alert, not in respiratory distress. SKIN: Cool and dry. No generalized rash HEENT: No scleral icterus. Mucous membranes pink and moist. No oral lesions noted. NECK: Trachea midline. Supple and not tender, no meningeal signs CARDIOVASCULAR: Regular rate and rhythm. No murmurs, rubs or gallops heard RESPIRATORY: Clear to auscultation. Breath sounds equal bilaterally. No rales , wheezing or rhonchi ABDOMEN: Soft, non-tender, nondistended. Bowel sounds present and normoactive. No guarding. No rebound. No organomegaly. EXTREMITIES: No clubbing, cyanosis. Dry dressing to foot NEUROLOGICAL: Non-focal. PSYCHIATRIC: Normal affect, calm and cooperative. LINE: No evidence of infection Assessment and Plan - Plan Impression Chronic infection R foot/ankle, has draining wound L heel, patient with extensive surgery done, and has multiple hardware in place Previous Rx for Enterobacter osteo L foot 2017 Charcot foot L DM Allergy to PCN and Cefepime Recommendation Arrange for wound care as rec by ortho Cipro and Doxy for now - Doxy 100 BID and Cipro 750 BID - fup with Dr Schmitz and his ortho in [place] Explained all these info and recommendations to the patient Agree with D/C plans He needs to have disc that has all his radiology films so his ortho can review them
--- NOTE | 2018-08-08 11:48 | P.DS ---
DS: Providers Date of admission: 08/03/18 19:56 Primary care physician: TINY Montoya Consults: 08/03/18 21:07 HUB Only Consult Order Routine Consulting Provider: Tim Dumont 08/03/18 23:05 Consult to Podiatry Routine Consulting Provider: Sergey Hernandez Reason for Consultation: OM ankle, patient requesting Dr. Morales Notified:: Service Spoke with:: margarita Date Notified:: 08/03/18 Time Notified:: 23:24 Ordering Provider: CRISTA 08/04/18 11:27 Consult to Infectious Diseases Routine Consulting Provider: Georgette Ryan Reason for Consultation: Probable extensive Osteo left LE. Patient requesting medical management with antibiotics. Notified:: Service Spoke with:: DIMITRY Date Notified:: 08/04/18 Time Notified:: 11:31 Ordering Provider: ALLAN 08/07/18 09:14 Consult to Orthopedic Surgery Routine Consulting Provider: Kel Rene Preferred Awning Assembler:: Kel Rene Reason for Consultation: consult Dr Hipolito Rene - spoke with him, patient known to him Notified:: Office Spoke with:: ZELDA Date Notified:: 08/07/18 Time Notified:: 09:42 Comments:: TOLD ZELDA THAT KEL RENE WAS REQUESTED Ordering Provider: KELBY 08/07/18 14:39 HUB Only Consult Order Routine Consulting Provider: Tim Dumont DS: Diagnosis Discharge Diagnosis (1) Osteomyelitis of ankle or foot, left, acute: Status: Acute DS: Summary 62-year-old white male admitted for left foot cellulitis and underlying osteomyelitis and was placed on IV vancomycin and aztreonam. Infectious disease service Dr. Walton that was consulted and recommended surgical intervention as also recommended by orthopedic surgery Dr. Hipolito Bertrand. Apparently patient had previous surgical intervention performed by Dr. Boyce at [facility] and both podiatry and orthopedic surgery locally had referred him back to Dr. Boyce for further surgical intervention. It is recommended due to the osteomyelitis found on both the WBC scan and MRI patient undergo a left below the knee amputation. Patient was counseled that antibiotic course will not treat the infection completely. Patient has the risk of recurrence of sepsis and even with no future surgical intervention. At this time, patient is declining any surgical intervention at this point hospital and will follow up with Dr. Boyce at [facility] for second opinion. Prescription for Cipro 750 mg p.o. twice daily for 2 months prescription along with doxycycline 100 mill grams p.o. twice daily for 2 months prescription given for the patient until he can follow-up with Dr. Boyce. He will also follow-up with infectious disease doctor Dr. Schmitz. [facility] along with wet to dry to the left heel wound will be set up upon transition to home. Time Spent with Patient Total time spent providing and/or coordinating discharge services: Less than 30 minutes Quality: VTE Deep Vein Thrombosis/Pulmonary Embolism Present on Admission: No Exam Narrative Exam Narrative: GENERAL: This is a well-nourished, well-developed patient, in no apparent distress. CARDIOVASCULAR: Regular rate and rhythm without murmurs, gallops, or rubs. RESPIRATORY: Clear to auscultation. Breath sounds equal bilaterally. No wheezes , rales, or rhonchi. GASTROINTESTINAL: Abdomen soft, non-tender, nondistended. Normal active bowel sounds MUSCULOSKELETAL: Left heel with a 2-3 cm open wound with no active drainage, left foot and ankle with swelling and no redness. NEURO: Alert & Oriented x4 to person, place, time, situation. Moves all ext x4 DS: Data Labs on day of discharge: Labs from last 24 hours 08/08/18 08/08/18 08/07/18 08:13 06:25 20:08 WBC 5.9 RBC 3.01 L Hgb 8.1 L Hct 24.5 L MCV 81.4 MCH 26.9 L MCHC 33.1 RDW 16.1 Plt Count 461 H MPV 6.5 L Prelim Diff (Auto) Slide review pending Neut % (Auto) 63.7 Lymph % (Auto) 14.0 [place] % (Auto) 9.9 H Eos % (Auto) 11.2 H Baso % (Auto) 1.2 Neut # (Auto) 3.8 Lymph # (Auto) 0.8 L [place] # (Auto) 0.6 Eos # (Auto) 0.7 H Baso # (Auto) 0.1 WBC Differential . Diff Scan Auto diff confirmed Differential Comment . Platelet Estimate High H Platelet Morphology Normal Ovalocytes 1+ H POC Glucose 131 H 130 H Iron TIBC % Saturation Ferritin 08/07/18 08/07/18 08/07/18 16:58 13:58 11:32 WBC RBC Hgb Hct MCV MCH MCHC RDW Plt Count MPV Prelim Diff (Auto) Neut % (Auto) Lymph % (Auto) [place] % (Auto) Eos % (Auto) Baso % (Auto) Neut # (Auto) Lymph # (Auto) [place] # (Auto) Eos # (Auto) Baso # (Auto) WBC Differential Diff Scan Differential Comment Platelet Estimate Platelet Morphology Ovalocytes POC Glucose 155 H 338 H 335 H Iron TIBC % Saturation Ferritin 08/07/18 11:01 WBC RBC Hgb Hct MCV MCH MCHC RDW Plt Count MPV Prelim Diff (Auto) Neut % (Auto) Lymph % (Auto) [place] % (Auto) Eos % (Auto) Baso % (Auto) Neut # (Auto) Lymph # (Auto) [place] # (Auto) Eos # (Auto) Baso # (Auto) WBC Differential Diff Scan Differential Comment Platelet Estimate Platelet Morphology Ovalocytes POC Glucose Iron 33 L TIBC 151 L % Saturation 21.8 Ferritin 326 Impressions Foot MRI 08/03/18 12:51 CONCLUSION: 1. Extremely limited study related to magnetic susceptibility artifact. 2. Osteomyelitis likely of the talus and calcaneal remnants, the cuboid, navicular and proximal portions of the cuneiforms. 3. Osteomyelitis likely of the distal tibia and the proximal extent of this is uncertain. 4. Osteomyelitis possible within the medullary space of the second metatarsal and of the phalanges of the second toe. 5. Suspected focal osteomyelitis of the head of the fourth metatarsal. 6. Diffuse soft tissue swelling and edema. Focal plantar ulceration at the level of the midfoot. A ceretec tagged WBC scan may be helpful with SPECT CT images of the left lower extremity. Venous Doppler Study 08/03/18 12:51 CONCLUSION: 1. No DVT. 2. Multiple lymph nodes somewhat prominent in size, however present on the prior study from 02/2017 not significantly changed. Foot X-Ray 08/03/18 12:52 CONCLUSION: 1. Extensive postsurgical findings of the foot. New surgical hardware in the distal lower leg and hindfoot. Evidence of loosening of the screw in the great toe proximal phalanx, metatarsal, and medial cuneiform. 2. One of the new screws in the hindfoot is fractured. 3. Apparent resection of the talus with bone graft placement in this location. 4. 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 WBC Scan Nuclear Medicine 08/04/18 00:00 CONCLUSION: 1. Destructive bone changes are seen involving the hindfoot with corresponding radiotracer accumulation characteristic of osteomyelitis and cellulitis. Discharge Plan Discharge Disposition Patient Disposition: W/Home Health Service Discharge Condition Condition: Fair Discharge Order Discharge Orders: Discharge Order (Routine); Ordered 08/08/18 Ordered By: Marcella Jones Discharge Details Anticipated Discharge Date: 08/08/18 Physicians Team Primary Care Provider: Arelis Mcmullen Attending Provider: Marcella Jones Other Providers: Tim Dumont ; Sergey Hernandez ; Georgette Ryan ; Kel Rene Rxs /Orders / Referrals /Forms Prescriptions: New ciprofloxacin HCl 750 mg Tablet 750 mg PO Q12HR Qty: 60 RF: 1 Continue meloxicam 7.5 mg Tablet 7.5 mg PO BID RF: 0 tramadol 50 mg Tablet 50 mg PO BID PRN (Reason: Pain) RF: 0 atorvastatin 10 mg Tablet 10 mg PO DAILY RF: 0 lisinopril 2.5 mg Tablet 2.5 mg PO DAILY RF: 0 Discontinued cephalexin 500 mg Capsule 500 mg PO QID RF: 0 Ambulatory Orders / Order Sets / DME: Basic Metabolic Panel (Routine) Timeframe: 2 Weeks Location: Determined by Patient Ordered By: Marcella Jones Referrals: Arelis Mcmullen PA [Primary Care Provider] - See Instructions (Doctor office will call to schedule appt.) Mejia Diaz MD [Family Provider] - See Instructions (Please call to schedule appt.) Discharge Instructions Additional Instructions: [facility] (Home health care [phone]) and they will call with appointment time and date of visit. Discharge Interventions Interventions: Discharge Planning - Case Management Last Done: 08/07/18 15:32 Status ED Status: Left Department
[2018-08-08] MEDS: Sod Chloride 0.9% Inj 1,000 ML IV.CONT SCH (12:48)
[2018-08-08 13:05] VITALS: BP 121/66; PULSE 75; TEMP 97.9; O2SAT 99
== END 2018-08-08 15:20 | disposition home health service (06) ==
LOC: NEPD 09:44 → NEDA 19:56 → NEPHCDU 21:15 → N05 08-04 16:56
PROVIDERS: ADMIT Family Medicine; ATTEND Family Medicine

== ENCOUNTER 2018-09-11 12:59 | Inpatient (IN) ==
[2018-09-11] MEDS ORDERED: Sod Chloride 0.9% Inj 1,000 ML IV.SIG ONE (13:25)
[2018-09-11] MEDS ORDERED: Vancomycin Inj 1,000 MG in Sodium Chlor 0.9% Inj 250 ML IV.SIG ONE ×2 (13:25→18:00)
--- NOTE | 2018-09-11 13:33 | ED ---
HPI General Chief complaint: Skin/Abscess/Foreign Body Stated complaint: Left foot complaint Time Seen by Provider: 09/11/18 13:16 Source: patient, RN notes reviewed and old records reviewed Limitations: no limitations History of Present Illness HPI narrative: 62-year-old male presents to the emergency department stating he is coming for amputation. Patient has history of left foot ulcer. He was recently in the hospital discharge August 08 for osteomyelitis. According to the notes, amputation was recommended at that time, but he declined. Patient has history of Charcot foot and has had multiple surgeries. Patient is diabetic as well. Patient states that he called Dr. Peoples's office who instructed him to come here. Patient states he is ready to have it amputated at this time. Moderate severity. Patient states he is currently on Cipro and doxycycline. Onset (ago): month(s) Location: left and lower extremity Radiation: non-radiation Severity: moderate Severity scale (1-10): 8 Quality: aching Pain Consistency: constant Relieving factors: none Exacerbating factors: none Associated symptoms: Denies confusion, chest pain, cough, diaphoresis, fever/ chills, headaches, loss of appetite, malaise, nausea/vomiting, rash, seizure, shortness of breath, syncope and weakness Related Data Home Medications Medication Instructions Recorded Confirmed atorvastatin 10 mg PO DAILY 08/03/18 09/11/18 lisinopril 2.5 mg PO DAILY 08/03/18 09/11/18 meloxicam 7.5 mg PO BID 08/03/18 09/11/18 tramadol 50 mg PO BID PRN 08/03/18 09/11/18 Previous Rx's Medication Instructions Recorded ciprofloxacin HCl 750 mg PO Q12HR #60 tab 08/08/18 doxycycline hyclate 100 mg PO DAILY #60 tab 08/08/18 Allergies Allergy/AdvReac Type Severity Reaction Status Date / Time tazobactam Allergy Unknown Rash Verified 08/03/18 12:44 cefepime Allergy Intermediate Rash Uncoded 08/03/18 12:44 Review of Systems ROS: all other systems reviewed are negative [facility] Medical History Medical History Neuropathic foot ulcer (Acute) Diabetes (Acute) Osteomyelitis of left foot (Acute) Surgical History Surgical History H/O foot surgery (Acute) Family History Family History Other Diabetes Social History Social History Substance History: No History of Abuse Second Hand Smoke Exposure: No Smoking Status: Never smoker How Often Do You Have a Drink Containing Alcohol: 2 to 4 times a month Recent Travel in [facility] within the Last 8 Weeks: No Recent Out of Country Travel within the Last 8 Weeks: No Immunization History Tetanus Immunization: <5 Years Exam Narrative Exam Narrative: GENERAL: Well-nourished, well-developed male patient, afebrile SKIN: Focused skin assessment warm/dry. Patient has 7 cm x 2.5 cm ulcer to the left plantar foot with purulent drainage noted and mild surrounding erythema. Patient has warmth to the left calf. Left foot is edematous. HEAD: Normocephalic. Atraumatic. EYES: No scleral icterus. No injection or drainage. NECK: Supple, trachea midline. No JVD or lymphadenopathy. CARDIOVASCULAR: Regular rhythm without murmurs, gallops, or rubs. Left pedal pulse is 2+. Patient is slightly tachycardic. RESPIRATORY: Breath sounds equal bilaterally. No accessory muscle use. Lung sounds are clear to auscultation. GASTROINTESTINAL: Abdomen soft, non-tender, nondistended. MUSCULOSKELETAL: No cyanosis, or edema. BACK: Nontender without obvious deformity. No CVA tenderness. Course Initial Documented Vital Signs Temperature 99.1 F 09/11/18 13:10 Pulse Rate 109 H 09/11/18 13:10 Respiratory Rate 20 09/11/18 13:10 Blood Pressure 138/62 09/11/18 13:10 Pulse Oximetry 98 09/11/18 13:10 Last Documented Vital Signs Temperature 99 F 09/11/18 13:12 Pulse Rate 96 H 09/11/18 13:53 Respiratory Rate 18 09/11/18 13:53 Blood Pressure 140/65 09/11/18 13:53 Pulse Oximetry 100 09/11/18 13:53 Medical Decision Making MDM Narrative Medical decision making narrative: 62-year-old male presents to the emergency department stating he is here for amputation of the left foot by Dr. Peoples. He has a long history of ulcer to the left foot. IV access obtained. CBC, CMP , sed rate, CRP, lactic acid, blood cultures x2, PTT, PT/INR ordered and pending. Wound culture is taken. X-ray left foot is ordered and pending. Patient is given normal saline 1 L IV bolus, vancomycin [address] Peoples is paged for consultation. CBC shows leukocytosis 11.3, 9.6, hematocrit 30.1. CMP shows slight hyponatremia 131, potassium 5.3, but slight hemolysis noted. ESR is 127. CRP is 22. Magnesium is 2.1. Lactic acid is 2.5. PTT is 25.4. PT/INR is 11.6/ 1.1. X-ray of the left foot shows Extensive hardware is noted throughout the left foot and is stable in appearance compared to previous examination; Postsurgical changes are stable; Marked bony deformity involving the hindfoot is again noted and unchanged; Large wound along the plantar surface of the left hindfoot; Chronic arthritic changes are noted involving the first and second metatarsophalangeal joint; No acute fracture or dislocation is noted. 1342 -I spoke to TINY Bray, for Dr. Peoples who recommends admission to medicine, consult Dr. Peoples, n.p.o. after midnight. Hospitalist is paged for admission. Dr. Jones accepted admission. Medical Screen Exam Complete: Yes Emergency Medical Condition: Yes Differential Diagnosis Differential Diagnosis: Osteomyelitis versus diabetic foot ulcer versus sepsis Medical Records Medical records reviewed: Yes I reviewed the patient's medical records. Lab Data Result diagrams: 09/11/18 13:40 09/11/18 13:40 Lab Results 09/11/18 09/11/18 09/11/18 Range/Units 13:40 13:40 13:40 WBC 11.3 H (4.0-11.0) th/mm3 RBC 3.60 L (4.50-5.90) mil/mm3 Hgb 9.6 L (13.0-17.0) gm/dL Hct 30.1 L (39.0-51.0) % MCV 83.5 (80.0-100.0) fL MCH 26.5 L (27.0-34.0) pg MCHC 31.8 L (32.0-36.0) % RDW 17.7 H (11.6-17.2) % Plt Count 594 H (150-450) th/mm3 MPV 6.5 L (7.0-11.0) fL Neut % (Auto) 82.7 H (16.0-70.0) % Lymph % (Auto) 7.3 L (9.0-44.0) % [place] % (Auto) 8.3 H (0.0-8.0) % Eos % (Auto) 1.1 (0.0-4.0) % Baso % (Auto) 0.6 (0.0-2.0) % Neut # (Auto) 9.4 H (1.8-7.7) th/mm3 Lymph # (Auto) 0.8 L (1.0-4.8) th/mm3 [place] # (Auto) 0.9 (0.0-0.9) th/mm3 Eos # (Auto) 0.1 (0.0-0.4) th/mm3 Baso # (Auto) 0.1 (0.0-0.2) th/mm3 WBC Differential . Differential Comment Auto diff final ESR (0-20) mm/hr PT 11.6 (9.8-11.6) sec INR 1.1 Ratio APTT 25.4 (23.4-31.7) sec Sodium 131 L (136-145) meq/L Potassium 5.3 H (3.5-5.1) meq/L Chloride 101 (98-107) meq/L Carbon Dioxide 23.6 (21.0-32.0) meq/L Anion Gap 6 (5-15) meq/L BUN 17 (7-18) mg/dL Creatinine 1.28 (0.60-1.30) mg/dL Estimated GFR 57 L (>89) mL/min Random Glucose 76 (74-106) mg/dL Lactic Acid (0.4-2.0) mmol/L Calcium 8.9 (8.5-10.1) mg/dL Magnesium 2.1 (1.5-2.5) mg/dL Total Bilirubin 0.4 (0.2-1.0) mg/dL AST 43 H (15-37) U/L ALT 20 (12-78) U/L Alkaline Phosphatase 159 H (45-117) U/L C-Reactive Protein (0.00-0.30) mg/dL Total Protein 8.3 H (6.4-8.2) g/dL Albumin 2.4 L (3.4-5.0) g/dL 09/11/18 09/11/18 09/11/18 Range/Units 13:40 13:40 13:40 WBC (4.0-11.0) th/mm3 RBC (4.50-5.90) mil/mm3 Hgb (13.0-17.0) gm/dL Hct (39.0-51.0) % MCV (80.0-100.0) fL MCH (27.0-34.0) pg MCHC (32.0-36.0) % RDW (11.6-17.2) % Plt Count (150-450) th/mm3 MPV (7.0-11.0) fL Neut % (Auto) (16.0-70.0) % Lymph % (Auto) (9.0-44.0) % [place] % (Auto) (0.0-8.0) % Eos % (Auto) (0.0-4.0) % Baso % (Auto) (0.0-2.0) % Neut # (Auto) (1.8-7.7) th/mm3 Lymph # (Auto) (1.0-4.8) th/mm3 [place] # (Auto) (0.0-0.9) th/mm3 Eos # (Auto) (0.0-0.4) th/mm3 Baso # (Auto) (0.0-0.2) th/mm3 WBC Differential Differential Comment ESR 127 H (0-20) mm/hr PT (9.8-11.6) sec INR Ratio APTT (23.4-31.7) sec Sodium (136-145) meq/L Potassium (3.5-5.1) meq/L Chloride (98-107) meq/L Carbon Dioxide (21.0-32.0) meq/L Anion Gap (5-15) meq/L BUN (7-18) mg/dL Creatinine (0.60-1.30) mg/dL Estimated GFR (>89) mL/min Random Glucose (74-106) mg/dL Lactic Acid 2.5 H (0.4-2.0) mmol/L Calcium (8.5-10.1) mg/dL Magnesium (1.5-2.5) mg/dL Total Bilirubin (0.2-1.0) mg/dL AST (15-37) U/L ALT (12-78) U/L Alkaline Phosphatase (45-117) U/L C-Reactive Protein 22.00 H (0.00-0.30) mg/dL Total Protein (6.4-8.2) g/dL Albumin (3.4-5.0) g/dL Imaging Data Radiologist's impression: Foot X-Ray 09/11/18 13:27 CONCLUSION: 1. Extensive hardware is noted throughout the left foot and is stable in appearance compared to previous examination. 2. Postsurgical changes are stable. 3. Marked bony deformity involving the hindfoot is again noted and unchanged. 4. Large wound along the plantar surface of the left hindfoot. 5. Chronic arthritic changes are noted involving the first and second metatarsophalangeal joint. 6. No acute fracture or dislocation is noted. Chest X-Ray 09/11/18 13:57 CONCLUSION: Negative for acute process Discharge Plan Discharge Disposition Patient Disposition: ED Admit(ED Internal Use Only) Discharge Order Discharge Orders: ED Use Only Admit Order (Routine); Ordered 09/11/18 Ordered By: Keri Hussein Discharge Details Diagnosis: Diabetic foot ulcer, Sepsis Physicians Team ED Provider: Patrice Reyes ED Midlevel Provider: Keri Hussein Primary Care Provider: UNKNOWN, Rxs /Orders / Referrals /Forms Prescriptions: No Action meloxicam 7.5 mg Tablet 7.5 mg PO BID RF: 0 tramadol 50 mg Tablet 50 mg PO BID PRN (Reason: Pain) RF: 0 atorvastatin 10 mg Tablet 10 mg PO DAILY RF: 0 lisinopril 2.5 mg Tablet 2.5 mg PO DAILY RF: 0 ciprofloxacin HCl 750 mg Tablet 750 mg PO Q12HR Qty: 60 RF: 1 doxycycline hyclate 100 mg Tablet 100 mg PO DAILY Qty: 60 RF: 1 Status ED Status: With Doctor
[2018-09-11 14:05] LABS: Baso # (Auto) 0.1 th/mm3 (0.0-0.2); Baso % (Auto) 0.6 % (0.0-2.0); Eos # (Auto) 0.1 th/mm3 (0.0-0.4); Eos % (Auto) 1.1 % (0.0-4.0); Hematocrit 30.1 % (39.0-51.0); Hemoglobin 9.6 gm/dL (13.0-17.0); Lymph # (Auto) 0.8 th/mm3 (1.0-4.8); Lymph % (Auto) 7.3 % (9.0-44.0); Mean Corpuscular HGB Conc 31.8 % (32.0-36.0); Mean Corpuscular Hemoglobin 26.5 pg (27.0-34.0); Mean Corpuscular Volume 83.5 fL (80.0-100.0); Mean Platelet Volume 6.5 fL (7.0-11.0); Mono # (Auto) 0.9 th/mm3 (0.0-0.9); Mono % (Auto) 8.3 % (0.0-8.0); Neut # (Auto) 9.4 th/mm3 (1.8-7.7); Neut % (Auto) 82.7 % (16.0-70.0); Platelet Count 594 th/mm3 (150-450); Red Cell Distribution Width 17.7 % (11.6-17.2); White Blood Count 11.3 th/mm3 (4.0-11.0)
[2018-09-11 14:14] LABS: Activated Partial Thrombo Time 25.4 sec (23.4-31.7); INR 1.1 Ratio; Prothrombin Time 11.6 sec (9.8-11.6)
[2018-09-11] MEDS ORDERED: Morphine Inj 4 MG/ML Vial IV.PUSH ONE (14:14)
[2018-09-11 14:21] LABS: Alanine Aminotransferase 20 U/L (12-78)
[2018-09-11 14:22] LABS: Albumin 2.4 g/dL (3.4-5.0); Anion Gap 6 meq/L (5-15); Aspartate Aminotransferase 43 U/L (15-37); Blood Urea Nitrogen 17 mg/dL (7-18); Calcium 8.9 mg/dL (8.5-10.1); Carbon Dioxide 23.6 meq/L (21.0-32.0); Chloride 101 meq/L (98-107); Glomerular Filtration Rate 57 mL/min (>89); Glucose,Random 76 mg/dL (74-106); Magnesium 2.1 mg/dL (1.5-2.5); Sodium 131 meq/L (136-145)
[2018-09-11 14:23] LABS: Alkaline Phosphatase 159 U/L (45-117); Potassium 5.3 meq/L (3.5-5.1); Total Protein 8.3 g/dL (6.4-8.2)
--- NOTE | 2018-09-11 14:41 | XR ---
EXAM DATE: 09/11/2018 2:29 PM EST AGE/SEX: 62 years / Male INDICATIONS: Evaluate for pneumothorax, pneumonia or communicable disease. Preop op chest for left f oot surgery CLINICAL DATA: This is the patient's initial encounter. Patient reports that signs and symptoms have been present for 1 day and indicates a pain score of 0/10. MEDICAL/SURGICAL HISTORY: Diabetes. . left foot and lower leg COMPARISON: [facility] [place], CHEST SINGLE AP, 04/01/2017. . FINDINGS: A single AP view of the chest demonstrates the lungs to be symmetrically aerated without evidence of mass, infiltrate or effusion. Minimal atelectatic changes are present in the left base. The cardiomed iastinal contours are unremarkable. Osseous structures are intact. CONCLUSION: Negative for acute process Electronically signed by: Arun Pedro MD Board Certified Radiologist 09/11/2018 2:40 PM EST
--- NOTE | 2018-09-11 14:45 | XR ---
EXAM DATE: 09/11/2018 2:34 PM EST AGE/SEX: 62 years / Male INDICATIONS: Pain, swelling entire left foot and ankle, large open wound on plantar surface CLINICAL DATA: This is the patient's initial encounter. Patient reports that signs and symptoms have been present for > 1 year and indicates a pain score of 10/10. MEDICAL/SURGICAL HISTORY: Diabetes. . multiple surgeries left foot and lower leg, bone graft COMPARISON: [facility] [place], FOOT COMPLETE LEFT 3V, 08/03/2018. . FINDINGS: Extensive hardware is noted throughout the left foot and is stable in appearance compared to previous examination. Postsurgical changes are stable. Marked bony deformity involving the hindfoot is again noted and unchanged. There is a large wound along the plantar surface of the left hindfoot. Chronic a rthritic changes are noted involving the first and second metatarsophalangeal joint. No acute fractur e or dislocation is noted. CONCLUSION: 1. Extensive hardware is noted throughout the left foot and is stable in appearance compared to prev ious examination. 2. Postsurgical changes are stable. 3. Marked bony deformity involving the hindfoot is again noted and unchanged. 4. Large wound along the plantar surface of the left hindfoot. 5. Chronic arthritic changes are noted involving the first and second metatarsophalangeal joint. 6. No acute fracture or dislocation is noted. Electronically signed by: Johnie Benson MD Board Certified Radiologist 09/11/2018 2:44 PM EST
[2018-09-11] MEDS ORDERED: Bisacodyl 10 MG Supp RECTAL PRN (15:18)
[2018-09-11] MEDS ORDERED: Acetaminophen 325 MG Tablet PO PRN ×2 (15:18→16:21)
[2018-09-11] MEDS ORDERED: Sodium Polystyrene Sulfonate/Sorbitol Liq 15 GM/60 ML UDC PO ONE (15:25)
[2018-09-11] MEDS ORDERED: Dextrose 50% in Water 50 ML Vial IV.PUSH PRN (16:20)
--- NOTE | 2018-09-11 16:20 | P.HPIM ---
History of Present Illness Primary Care Physician: UNKNOWN Chief Complaint: Worsening left foot pain, the orthopedic doctor me to come in. History of Present Illness: 62-year-old white male with a history of insulin- dependent diabetes mellitus, hyperlipidemia, chronic left foot osteomyelitis who is known to me who had a previous admission and was discharged on August 08 on oral antibiotics after he declined a recommended left below the knee amputation by Dr. Rene. Apparently, patient has had chronic left foot and ankle Charcot joint has multiple corrective surgeries by Dr. Boyce in [place] and had previous posterior calcaneus to loose screws that were bothersome to his Achilles tendon and posterior heel. At that time, patient wanted a second opinion from his previous orthopedic surgeon Dr. Barraza at [place]. He tells me that over the past 48 hours he has had increasing left foot pain and worsening drainage of the left foot wound. His home health care nurse was concerned about the changes of his wound and urged him to contact his orthopedic surgeon. He states that he had a planned scheduled surgery on October [address] Peoples and was told today by his office to come in the emergency for evaluation. He states after discussion with Dr. Barraza and his infectious disease physician Dr. Gerardo, he has decided to move forward with the below the knee amputation. He denies any underlying chills or fever. He reports he is still taking his Cipro and doxycycline as prescribed. Diagnosis (1) Severe sepsis: Inpatient Certification Inpatient Certification: I certify that the inpatient services were ordered in accordance with Medicare regulations governing the order. This includes certification that hospital inpatient services are reasonable and necessary and in the case of services not specified as inpatient-only under 42 CFR 419.22(n), that they are appropriately provided as inpatient services in accordance to with the 2-midnight benchmark under 43 CFR 412.3(e) Estimated Total Length of Stay (Days): 4 Plans for Post Hospital Care: SNF Review of Systems Constitutional: Reports as per HPI, Denies chills, Denies fatigue, Denies fever( s) and Denies headache(s) Eyes: Denies blurry vision, Denies change in vision and Denies eye pain Ears, Nose, Mouth, and Throat: Denies abnormal hearing, Denies headache(s), Denies mouth pain, Denies nasal congestion, Denies neck pain and Denies sore throat Cardiovascular: Denies chest pain, Reports pedal edema (Left foot chronically), Denies palpitations and Denies dyspnea Respiratory: Denies cough and Denies dyspnea Gastrointestinal: Denies abdominal pain, Denies constipation, Denies loose stools, Denies nausea and Denies vomiting Musculoskeletal: Denies back pain, Denies myalgias, Reports arthralgias, Denies neck pain and Denies numbness Comments: Left dorsum foot pain as described in the HPI. Skin/Breast: Denies new lesions and Denies rash Neurologic: Denies abnormal hearing, Denies headache(s), Denies focal weakness, Denies memory loss and Denies numbness Psychiatric: Denies anxiety, Denies depression and Denies memory loss Endocrine: Denies cold intolerance, Denies heat intolerance and Denies palpitations Hematologic/Lymphatic: Denies easy bleeding and Denies easy bruising [facility] Medical History Medical History Charcot ankle (Chronic) Charcot foot due to diabetes mellitus (Chronic) Neuropathic foot ulcer (Chronic) Diabetes (Chronic) Osteomyelitis of left foot (Chronic) Surgical History Surgical History H/O foot surgery (Chronic) Family History Family History Other Family history not known due to adoption Social History Social History Substance History: No History of Abuse Second Hand Smoke Exposure: No Smoking Status: Never smoker How Often Do You Have a Drink Containing Alcohol: Monthly or less Recent Travel in [facility] within the Last 8 Weeks: No Recent Out of Country Travel within the Last 8 Weeks: No Immunization History Tetanus Immunization: <5 Years Medications and Allergies Allergies Allergy/AdvReac Type Severity Reaction Status Date / Time tazobactam Allergy Unknown Rash Verified 08/03/18 12:44 cefepime Allergy Intermediate Rash Uncoded 08/03/18 12:44 Home Medications Medication Instructions Recorded Confirmed Type atorvastatin 10 mg PO DAILY 08/03/18 09/11/18 History lisinopril 2.5 mg PO DAILY 08/03/18 09/11/18 History tramadol 50 mg PO BID PRN 08/03/18 09/11/18 History insulin aspart U-100 [Novolog 10 unit SUBCUT AC 09/11/18 09/11/18 History U-100 Insulin aspart] insulin detemir U-100 [Levemir 40 unit SUBCUT BID 09/11/18 09/11/18 History U-100 Insulin] Active Medications: Active Medications Acetaminophen (Tylenol) 650 mg PO Q4H PRN PRN Reason: Temp > 100.4 Al Hydroxide/Mg Hydroxide (Milk Of Magnesia Liq) 30 ml PO Q12H PRN PRN Reason: Mild Constipation Bisacodyl (Dulcolax Supp) 10 mg RECTAL DAILY PRN PRN Reason: SEVERE CONSITIPATION Lactulose (Lactulose Liq) 30 ml PO DAILY PRN PRN Reason: SEVERE CONSITIPATION Ondansetron HCl (Zofran Inj) 4 mg IV.PUSH Q6H PRN PRN Reason: NAUSEA OR VOMITING Senna/Docusate Sodium (Denise-Colace) 1 tab PO BID LEO Sennosides (Senokot) 17.2 mg PO Q12H PRN PRN Reason: Moderate Constipation Sodium Chloride (Ns Flush) 2 ml IV.FLUSH UNSCH PRN PRN Reason: FLUSH AFTER USING IV ACCESS Sodium Chloride (Ns Flush) 2 ml IV.FLUSH BID LEO Physical Exam Vital signs: Last Vital Signs Temp 99 F 09/11/18 13:12 Pulse 96 H 09/11/18 13:53 Resp 18 09/11/18 13:53 BP 140/65 09/11/18 13:53 Pulse Ox 100 09/11/18 13:53 Intake & Output 09/09/18 09/10/18 09/11/18 09/12/18 06:59 06:59 06:59 06:59 Intake Total 1250 / 1250 Balance 1250 / 1250 Weight 79.379 kg Narrative: GENERAL: Well-nourished well-developed white pleasant male in no acute distress SKIN: Dry skin over the left dorsum of the foot and distal lower leg HEAD: Atraumatic. Normocephalic. EYES: Pupils equal and round. No scleral icterus. No injection or drainage. ENT: No nasal bleeding or discharge. Mucous membranes pink and moist. NECK: Trachea midline. No JVD. CARDIOVASCULAR: Regular rate and rhythm. RESPIRATORY: No accessory muscle use. Clear to auscultation. Breath sounds equal bilaterally. GASTROINTESTINAL: Abdomen soft, non-tender, nondistended. Hepatic and splenic margins not palpable. MUSCULOSKELETAL: Extremities without clubbing, cyanosis. Swelling over the left lower foot ankle and leg, large ulceration with black necrotic tissue along with greenish drainage from the dorsum of the foot with surrounding erythema NEUROLOGICAL: Awake and alert to person place time and situation. No obvious cranial nerve deficits. Motor grossly within normal limits. Five out of 5 muscle strength in the arms and legs. Normal speech. PSYCHIATRIC: Appropriate mood and affect; insight and judgment normal. Results Labs CBC & Chem 7: 09/11/18 13:40 09/11/18 13:40 Imaging Impressions Foot X-Ray 09/11/18 13:27 CONCLUSION: 1. Extensive hardware is noted throughout the left foot and is stable in appearance compared to previous examination. 2. Postsurgical changes are stable. 3. Marked bony deformity involving the hindfoot is again noted and unchanged. 4. Large wound along the plantar surface of the left hindfoot. 5. Chronic arthritic changes are noted involving the first and second metatarsophalangeal joint. 6. No acute fracture or dislocation is noted. Chest X-Ray 09/11/18 13:57 CONCLUSION: Negative for acute process ECG Attestation: I personally reviewed and interpreted this ECG as follows: Prior ECG tracings: not available for review Interpretation: Normal sinus rhythm with heart rate 92, no acute ST wave changes Caprini VTE Risk Assessment Caprini VTE Risk Assessment: Moderate/High Risk (score >= 2) Caprini Risk Assessment Model: Point Value = 1 Point Value = 2 Point Value = 3 Point Value = 5 Age 41-60 Minor surgery BMI > 25 kg/m2 Swollen legs Varicose veins or History of unexplained or recurrent spontaneous Oral contraceptives or hormone replacement Sepsis (< 1 month) Serious lung disease, including pneumonia (< 1 month) Abnormal pulmonary function Acute myocardial infarction Congestive heart failure (< 1 month) History of inflammatory bowel disease Medical patient at bed rest Age 61-74 Arthroscopic surgery Major open surgery (> 45 min) Laparoscopic surgery (> 45 min) Malignancy Confined to bed (> 72 hours) Immobilizing plaster cast Central venous access Age >= 75 History of VTE Family history of VTE Factor V Leiden Prothrombin [id number] Lupus anticoagulant Anticardiolipin antibodies Elevated serum homocysteine Heparin-induced thrombocytopenia Other congenital or acquired thrombophilia Stroke (< 1 month) Elective arthroplasty Hip, pelvis, or leg fracture Acute spinal cord injury (< 1 month) Prophylaxis Regimen: Total Risk Factor Score Risk Level Prophylaxis Regimen 0-1 Low Early ambulation 2 Moderate Order ONE of the following: *Sequential Compression Device (SCD) *Heparin 5000 units SQ BID 3-4 Higher Order ONE of the following medications: *Heparin 5000 units SQ TID *Enoxaparin/Lovenox 40 mg SQ daily (WT < 150 kg, CrCl > 30 mL/min) *Enoxaparin/Lovenox 30 mg SQ daily (WT < 150 kg, CrCl > 10-29 mL/min) *Enoxaparin/Lovenox 30 mg SQ BID (WT < 150 kg, CrCl > 30 mL/min) AND/OR *Sequential Compression Device (SCD) 5 or more Highest Order ONE of the following medications: *Heparin 5000 units SQ TID (Preferred with Epidurals) *Enoxaparin/Lovenox 40 mg SQ daily (WT < 150 kg, CrCl > 30 mL/min) *Enoxaparin/Lovenox 30 mg SQ daily (WT < 150 kg, CrCl > 10-29 mL/min) *Enoxaparin/Lovenox 30 mg SQ BID (WT < 150 kg, CrCl > 30 mL/min) AND *Sequential Compression Device (SCD) Assessment and Plan (1) Severe sepsis: Code(s): A41.9 - Sepsis, unspecified organism; R65.20 - Severe sepsis without septic shock Status: Acute Plan 62-year-old white male with a history of insulin-dependent diabetes mellitus, chronic left foot osteomyelitis presents with Severe sepsis present on admission with leukocytosis, neutropenia, tachycardia with lactic acid level greater than 2 with source of infected left chronic dorsal foot wound with history of chronic osteomyelitis -initiate Azactam and vancomycin, blood cultures and wound cultures obtained. Will consult orthopedic surgery, Dr. Peoples as patient now is agreeable to proceed with a left below the knee amputation. Continue pain control. Insulin-dependent diabetes mellituswe will decrease home Levemir dose due to n.p.o. status in the morning, patient reports he does get less food here in the hospital will also recommend to decrease his home NovoLog prior to meals. Monitor blood sugar levels and cover with sliding scale insulin. Hyperkalemiahold lisinopril, dose of Kayexalate to be given DVT prophylaxisright SCD, anticoagulation on hold for pending surgical procedure.
[2018-09-11] MEDS ORDERED: Morphine Sulfate Inj 2 MG/ML Vial IV.PUSH PRN (16:21)
[2018-09-11] MEDS ORDERED: Naloxone Inj 0.4 MG/ML Vial IV.PUSH PRN (16:21)
[2018-09-11] MEDS ORDERED: Vancomycin Consult Pharmacy OTHER PRN (16:24)
[2018-09-11] MEDS: Insulin NovoLOG Aspart Correctional Sugar Inj SQ SCH ×2 (18:25→22:05)
[2018-09-11] MEDS: Sod Chloride 0.9% Inj 1,000 ML IV.CONT SCH (18:53)
[2018-09-11] MEDS: Insulin Detemir Inj 1,000 UNIT/10 ML Vial SQ SCH (22:05)
[2018-09-11] MEDS: Senna/Docusate Sodium 8.6/50 MG Tablet PO SCH (22:59)
[2018-09-12] MEDS: Sod Chloride 0.9% Inj 1,000 ML IV.CONT SCH ×2 (06:28→20:18)
[2018-09-12 09:16] LABS: Baso % (Auto) 0.7 % (0.0-2.0); Eos # (Auto) 0.3 th/mm3 (0.0-0.4); Eos % (Auto) 4.4 % (0.0-4.0); Hematocrit 23.4 % (39.0-51.0); Hemoglobin 7.6 gm/dL (13.0-17.0); Lymph # (Auto) 0.1 th/mm3 (1.0-4.8); Lymph % (Auto) 2.4 % (9.0-44.0); Mean Corpuscular HGB Conc 32.6 % (32.0-36.0); Mean Corpuscular Hemoglobin 26.8 pg (27.0-34.0); Mean Platelet Volume 6.4 fL (7.0-11.0); Mono # (Auto) 0.3 th/mm3 (0.0-0.9); Mono % (Auto) 4.3 % (0.0-8.0); Neut # (Auto) 5.4 th/mm3 (1.8-7.7); Neut % (Auto) 88.2 % (16.0-70.0); Platelet Count 492 th/mm3 (150-450); Red Blood Count 2.85 mil/mm3 (4.50-5.90); Red Cell Distribution Width 17.9 % (11.6-17.2); White Blood Count 6.1 th/mm3 (4.0-11.0)
[2018-09-12] MEDS: Insulin NovoLOG Aspart Correctional Sugar Inj SQ SCH ×4 (09:25→20:19)
[2018-09-12 09:47] LABS: Calcium 8.4 mg/dL (8.5-10.1); Potassium 4.5 meq/L (3.5-5.1)
--- NOTE | 2018-09-12 10:18 | P.CONOP ---
[facility] Orthopedics Consult Note - [facility] Consult date: 09/12/18 Chief complaint: Diabetic foot ulcer Narrative: Nate is a 62-year-old male. He has a complex history regarding his left foot and leg. He has had diabetes for 40 years. He developed Charcot arthropathy. He underwent surgery at [facility] for hindfoot fusion. He has gone on to develop open wound and infection. He has had increasing pain as well as drainage. He has a large open wound over his heel. He has recently seen Dr. Hipolito Rene who recommended amputation for patient. Patient is currently awake alert in the emergency department. His only complaint is his left foot and ankle pain and open wound. Pain is worse with weightbearing. Review of Systems Patient denies fevers, chills, weight loss, headache, visual changes, hearing loss, chest pain, palpitations, shortness of breath, nausea, vomiting, no urinary changes, diarrhea, bowel changes, neck pain, back pain, skin rashes, weakness of extremities, easy bleeding, enlarged lymph nodes, numbness of extremities, anxiety, or depression. He complains of left foot and ankle pain, swelling, and drainage. Patient's social history, past medical history, and family history were reviewed on chart and with patient. [facility] - History History Provided By: Patient - Medical History Medical History: Medical History (Last Reviewed 09/12/18 @ 10:15 by Daryl Wilkerson MD) Charcot ankle Charcot foot due to diabetes mellitus Neuropathic foot ulcer Diabetes Osteomyelitis of left foot - Surgical History Surgical History: Surgical History (Last Reviewed 09/12/18 @ 10:15 by Daryl Wilkerson MD) H/O foot surgery - Family History Family History: Family History (Last Reviewed 09/12/18 @ 10:15 by Daryl Wilkerson MD) Other Family history not known due to adoption - Social History I have reviewed the patient's Social History: Yes - Tobacco History Second Hand Smoke Exposure: No Tobacco Use In Past 30 Days: No Smoking Status: Never smoker - Alcohol History How Often Do You Have a Drink Containing Alcohol: 2 to 4 times a month - Substance Use History Substance History: No History of Abuse - Travel History Recent Travel in the [place] Within the Last 8 Weeks: No Recent Travel Out of the Country Within the Last 8 Weeks: No - Immunization History Tetanus Immunization: <5 Years Hx Influenza Vaccine This Season: No Medications and Allergies Active Medications: Active Medications Acetaminophen (Tylenol) 650 mg PO Q4H PRN PRN Reason: Temp > 100.4 Acetaminophen (Tylenol) 650 mg PO Q6H PRN PRN Reason: PAIN SCALE 1 TO 2 Hydrocodone Bitart/Acetaminophen ([place] 5/325) 1 tab PO Q4H PRN PRN Reason: PAIN SCALE 6 TO 10 Last Admin: 09/11/18 18:26 Dose: 1 tab Al Hydroxide/Mg Hydroxide (Milk Of Magnesia Liq) 30 ml PO Q12H PRN PRN Reason: Mild Constipation Atorvastatin Calcium (Lipitor) 10 mg PO DAILY [facility] Bisacodyl (Dulcolax Supp) 10 mg RECTAL DAILY PRN PRN Reason: SEVERE CONSITIPATION Dextrose (D50w Vial) 50 ml IV.PUSH UNSCH PRN PRN Reason: PER HYPOGLYCEMIA PROTOCOL Glucagon (Glucagon Inj) 1 mg OTHER PRN PRN PRN Reason: for Hypoglycemia Protocol Aztreonam 1,000 mg/ Sodium (Chloride) 100 mls @ 200 mls/hr IV.SIG Q8H [facility] Last Infusion: 09/12/18 04:17 Dose: Infused Sodium Chloride (Ns Inj) 1,000 mls @ 84 mls/hr IV.CONT .[id number] [facility] Last Admin: 09/12/18 06:28 Dose: 84 mls/hr Vancomycin HCl 1,500 mg/ (Sodium Chloride) 515 mls @ 250 mls/hr IV.SIG Q18H [facility] Insulin Aspart (Novolog Insulin Correctional Sugar Inj) 0 unit SQ ACHS [facility]; Protocol Last Admin: 09/12/18 09:25 Dose: Not Given Insulin Aspart (Novolog Inj) 5 units SQ TIDAC [facility] Last Admin: 09/12/18 09:25 Dose: Not Given Insulin Detemir (Levemir Inj) 20 unit SQ HS [facility] Last Admin: 09/11/18 22:05 Dose: 20 unit Lactulose (Lactulose Liq) 30 ml PO DAILY PRN PRN Reason: SEVERE CONSITIPATION Miscellaneous Information ([facility] Ordered Lab Info) 0 each OTHER ONCE ONE Stop: 09/13/18 21:46 Morphine Sulfate (Morphine Inj) 2 mg IV.PUSH Q3H PRN PRN Reason: PAIN 3-5; IF UABLE TO TAKE PO Naloxone HCl (Narcan Inj) 0.4 mg IV.PUSH UNSCH PRN PRN Reason: SEE LABEL COMMENTS Ondansetron HCl (Zofran Inj) 4 mg IV.PUSH Q6H PRN PRN Reason: NAUSEA OR VOMITING Pharmacy Profile Note (Vancomycin Consult Pharmacy) 1 each OTHER UNSCH PRN PRN Reason: Pharmacy to dose Senna/Docusate Sodium (Denise-Colace) 1 tab PO BID [facility] Last Admin: 09/11/18 22:59 Dose: Not Given Sennosides (Senokot) 17.2 mg PO Q12H PRN PRN Reason: Moderate Constipation Sodium Chloride (Ns Flush) 2 ml IV.FLUSH UNSCH PRN PRN Reason: FLUSH AFTER USING IV ACCESS Sodium Chloride (Ns Flush) 2 ml IV.FLUSH BID [facility] Last Admin: 09/11/18 22:59 Dose: Not Given Tramadol HCl (Ultram) 50 mg PO Q4H PRN PRN Reason: PAIN SCALE 3 TO 5 Allergies Allergy/AdvReac Type Severity Reaction Status Date / Time tazobactam Allergy Unknown Rash Verified 08/03/18 12:44 cefepime Allergy Intermediate Rash Uncoded 08/03/18 12:44 Home Medications Medication Instructions Recorded Confirmed Type atorvastatin 10 mg PO DAILY 08/03/18 09/11/18 History lisinopril 2.5 mg PO DAILY 08/03/18 09/11/18 History tramadol 50 mg PO BID PRN 08/03/18 09/11/18 History insulin aspart U-100 [Novolog 10 unit SUBCUT AC 09/11/18 09/11/18 History U-100 Insulin aspart] insulin detemir U-100 [Levemir 40 unit SUBCUT BID 09/11/18 09/11/18 History U-100 Insulin] Exam Vital signs: Vital Signs 09/11/18 13:10 09/11/18 13:12 09/11/18 13:53 Temperature 99.1 F 99 F Pulse Rate 109 H 100 H 96 H Respiratory Rate 18 Blood Pressure 138/62 183/86 H 140/65 Pulse Oximetry 98 97 100 09/11/18 20:00 09/12/18 00:00 09/12/18 04:00 Temperature 98.3 F 98.2 F 98.5 F Pulse Rate 87 85 90 Respiratory Rate 18 18 Blood Pressure 118/59 L 119/56 L 134/63 Pulse Oximetry 98 94 L 96 09/12/18 08:00 Temperature 98.0 F Pulse Rate 80 Respiratory Rate 16 Blood Pressure 116/56 L Pulse Oximetry 98 Intake & Output 09/11/18 09/12/18 09/12/18 18:59 06:59 18:59 Intake Total 1250 / 1250 1450 / 1450 Balance 1250 / 1250 1450 / 1450 Weight 79.379 kg 79.38 kg Intake: IV 1250 / 1250 1450 / 1450 NS Inj 1,000 ML @ 84 mls/hr IV. 1000 / 1000 CONT .[id number] [facility] Rx#:[id number] Azactam Inj 1,000 MG In NS Inj 200 / 200 100 ML @ 200 mls/hr IV.SIG Q8H [facility] Rx#:[id number] NS Inj 1,000 ML @ Wide Open IV. 1000 / 1000 SIG BOLUS ONE Rx#:[id number] Vancomycin Inj 1,000 MG In NS 250 / 250 250 / 250 Inj 250 ML @ 250 mls/hr IV.SIG ONCE ONE Rx#:[id number] Other: Date of Last Bowel Movement 09/11/18 Weight On Admission 79.379 kg Narrative: Nate is a 62-year-old male. General: Awake and alert. No acute distress. Appears well-developed well- nourished Head: Normocephalic, atraumatic pupils are equal Neck: Soft, nontender, trachea midline Abdomen: Soft, nondistended Examination of right arm reveals no pain or deformity with shoulder, elbow, or wrist motion. Skin is intact. Radial pulse is palpable. Normal capillary refill in fingers. Sensation is intact in radial, ulnar, and median nerve distributions. Brim Raiser strength is +5. No lymphadenopathy noted. Examination of left arm reveals no pain or deformity with shoulder, elbow, or wrist motion. Skin is intact. Radial pulse is palpable. Normal capillary refill in fingers. Sensation is intact in radial, ulnar, and median nerve distributions. Brim Raiser strength is +5. No lymphadenopathy noted. Examination of left lower extremity reveals no pain or deformity with hip or knee motion.Thigh and calf compartments are soft. He has moderate swelling of the ankle. There is a large open wound on the plantar aspect of his heel. There is purulent drainage present. He has no significant ankle motion secondary to prior fusion. He has diminished sensation throughout his foot. Examination of right lower extremity reveals no pain or deformity with hip, knee , or ankle motion. Skin is intact. Sensation is diminished secondary to diabetic neuropathy. Dorsalis pedis pulse is palpable. Normal capillary refill and feet. Thigh and calf compartments are soft. No lymphadenopathy noted. +5 strength of ankle dorsiflexion and plantarflexion. Results - Labs Result Diagrams: 09/12/18 08:08 09/12/18 08:08 Labs: Laboratory Results - last 24 hr 09/11/18 09/11/18 09/11/18 13:40 13:40 13:40 WBC 11.3 H RBC 3.60 L Hgb 9.6 L Hct 30.1 L MCV 83.5 MCH 26.5 L MCHC 31.8 L RDW 17.7 H Plt Count 594 H MPV 6.5 L Neut % (Auto) 82.7 H Lymph % (Auto) 7.3 L [place] % (Auto) 8.3 H Eos % (Auto) 1.1 Baso % (Auto) 0.6 Neut # (Auto) 9.4 H Lymph # (Auto) 0.8 L [place] # (Auto) 0.9 Eos # (Auto) 0.1 Baso # (Auto) 0.1 WBC Differential . Differential Comment Auto diff final ESR PT 11.6 INR 1.1 APTT 25.4 Sodium 131 L Potassium 5.3 H Chloride 101 Carbon Dioxide 23.6 Anion Gap 6 BUN 17 Creatinine 1.28 Estimated GFR 57 L POC Glucose Random Glucose 76 Lactic Acid Calcium 8.9 Magnesium 2.1 Total Bilirubin 0.4 AST 43 H ALT 20 Alkaline Phosphatase 159 H C-Reactive Protein Total Protein 8.3 H Albumin 2.4 L 09/11/18 09/11/18 09/11/18 13:40 13:40 13:40 WBC RBC Hgb Hct MCV MCH MCHC RDW Plt Count MPV Neut % (Auto) Lymph % (Auto) [place] % (Auto) Eos % (Auto) Baso % (Auto) Neut # (Auto) Lymph # (Auto) [place] # (Auto) Eos # (Auto) Baso # (Auto) WBC Differential Differential Comment ESR 127 H PT INR APTT Sodium Potassium Chloride Carbon Dioxide Anion Gap BUN Creatinine Estimated GFR POC Glucose Random Glucose Lactic Acid 2.5 H Calcium Magnesium Total Bilirubin AST ALT Alkaline Phosphatase C-Reactive Protein 22.00 H Total Protein Albumin 09/11/18 09/11/18 09/12/18 19:34 20:20 07:59 WBC RBC Hgb Hct MCV MCH MCHC RDW Plt Count MPV Neut % (Auto) Lymph % (Auto) [place] % (Auto) Eos % (Auto) Baso % (Auto) Neut # (Auto) Lymph # (Auto) [place] # (Auto) Eos # (Auto) Baso # (Auto) WBC Differential Differential Comment ESR PT INR APTT Sodium Potassium Chloride Carbon Dioxide Anion Gap BUN Creatinine Estimated GFR POC Glucose 262 H 334 H Random Glucose Lactic Acid 1.0 Calcium Magnesium Total Bilirubin AST ALT Alkaline Phosphatase C-Reactive Protein Total Protein Albumin 09/12/18 09/12/18 08:08 08:08 WBC 6.1 RBC 2.85 L Hgb 7.6 L D Hct 23.4 L MCV 82.0 MCH 26.8 L MCHC 32.6 RDW 17.9 H Plt Count 492 H MPV 6.4 L Neut % (Auto) 88.2 H Lymph % (Auto) 2.4 L [place] % (Auto) 4.3 Eos % (Auto) 4.4 H Baso % (Auto) 0.7 Neut # (Auto) 5.4 Lymph # (Auto) 0.1 L [place] # (Auto) 0.3 Eos # (Auto) 0.3 Baso # (Auto) 0.0 WBC Differential . Differential Comment Auto diff final ESR PT INR APTT Sodium 135 L Potassium 4.5 D Chloride 104 Carbon Dioxide 24.0 Anion Gap 7 BUN 16 Creatinine 1.20 Estimated GFR 62 L POC Glucose Random Glucose 302 H D Lactic Acid Calcium 8.4 L Magnesium Total Bilirubin AST ALT Alkaline Phosphatase C-Reactive Protein Total Protein Albumin - Diagnostic results Imaging: Impressions Foot X-Ray 09/11/18 13:27 CONCLUSION: 1. Extensive hardware is noted throughout the left foot and is stable in appearance compared to previous examination. 2. Postsurgical changes are stable. 3. Marked bony deformity involving the hindfoot is again noted and unchanged. 4. Large wound along the plantar surface of the left hindfoot. 5. Chronic arthritic changes are noted involving the first and second metatarsophalangeal joint. 6. No acute fracture or dislocation is noted. Chest X-Ray 09/11/18 13:57 CONCLUSION: Negative for acute process Ankle/Foot x-ray: report reviewed, image reviewed Assessment and Plan - Assessment and Plan Nate has left ankle and foot infection with osteomyelitis. Treatment options were discussed with patient. At this point my recommendation would be below the knee amputation of left leg. He will need removal of some hardware. The risk and benefits of surgery were discussed and informed consent was obtained. He has seen Dr. eRne who also agrees that amputation is patient's best and only option at this time. The risk and benefits of surgery were discussed in depth with patient. The risk of surgery include bleeding, infection, injuries to arteries, nerves, or blood vessels, infection, wound complications, and need for further surgery. I also discussed medical complications including blood clots, pneumonia, stroke , heart attack, and . Informed consent was obtained and all questions were answered. N.p.o.--plan on surgery this morning Physical therapy consult Follow-up with Dr. Wilkerson in 2 weeks JANICEs, JAY butts A mid-level provider in my office (nurse practitioner or physician assistant professor of nursing) may see this patient on follow-up visits and continue to implement the objectives of this plan including: Starting or adjusting medications, injections , cast application, orthotics, brace application, physical therapy, radiological studies (including x-ray, MRI, CT, ultrasound, bone scan), vascular studies, neurologic studies, specialist consultation, and proceeding with surgical management, as appropriate.
[2018-09-12] MEDS: Senna/Docusate Sodium 8.6/50 MG Tablet PO SCH ×2 (10:51→20:19)
[2018-09-12] MEDS ORDERED: Metoprolol Tartrate 25 MG Tablet PO ONE (10:56)
[2018-09-12] MEDS ORDERED: Chlorhexidine Gluconate 2% 1 Pack (2 Cloths) TOPICAL ONE (11:00)
[2018-09-12] MEDS ORDERED: Sodium Chlor 0.9% Inj 500 ML IV.SIG SCH (11:00)
[2018-09-12] MEDS ORDERED: ceFAZolin 1 GM Premix Inj 2 GM/100 ML PIGGYBACK IV.SIG ONE (11:38)
[2018-09-12] MEDS ORDERED: Bupivacaine/Epinephrine Inj 0.25% 50 ML Vial ONE (11:39)
--- NOTE | 2018-09-12 11:58 | P.PNOP ---
Physical Exam Vital signs: Vital Signs 09/11/18 13:10 09/11/18 13:12 09/11/18 13:53 Temperature 99.1 F 99 F Pulse Rate 109 H 100 H 96 H Respiratory Rate 18 18 Blood Pressure 138/62 183/86 H 140/65 Pulse Oximetry 98 97 100 09/11/18 20:00 09/12/18 00:00 09/12/18 04:00 Temperature 98.3 F 98.2 F 98.5 F Pulse Rate 87 85 90 Respiratory Rate 18 18 Blood Pressure 118/59 L 119/56 L 134/63 Pulse Oximetry 98 94 L 96 09/12/18 08:00 Temperature 98.0 F Pulse Rate 80 Respiratory Rate 16 Blood Pressure 116/56 L Pulse Oximetry 98 Intake & Output 09/11/18 09/12/18 09/12/18 18:59 06:59 18:59 Intake Total 1250 / 1250 1450 / 1450 Balance 1250 / 1250 1450 / 1450 Weight 79.379 kg 79.38 kg Intake: IV 1250 / 1250 1450 / 1450 NS Inj 1,000 ML @ 84 mls/hr IV. 1000 / 1000 CONT .[id number] [facility] Rx#:[id number] Azactam Inj 1,000 MG In NS Inj 200 / 200 100 ML @ 200 mls/hr IV.SIG Q8H [facility] Rx#:[id number] NS Inj 1,000 ML @ Wide Open IV. 1000 / 1000 SIG BOLUS ONE Rx#:[id number] Vancomycin Inj 1,000 MG In NS 250 / 250 250 / 250 Inj 250 ML @ 250 mls/hr IV.SIG ONCE ONE Rx#:[id number] Other: Date of Last Bowel Movement 09/11/18 09/11/18 Weight On Admission 79.379 kg Narrative: Nate is a 62-year-old male. General: Awake and alert. No acute distress. Appears well-developed well- nourished Head: Normocephalic, atraumatic pupils are equal Neck: Soft, nontender, trachea midline Abdomen: Soft, nondistended Examination of right arm reveals no pain or deformity with shoulder, elbow, or wrist motion. Skin is intact. Radial pulse is palpable. Normal capillary refill in fingers. Sensation is intact in radial, ulnar, and median nerve distributions. Die Machine Operator strength is +5. No lymphadenopathy noted. Examination of left arm reveals no pain or deformity with shoulder, elbow, or wrist motion. Skin is intact. Radial pulse is palpable. Normal capillary refill in fingers. Sensation is intact in radial, ulnar, and median nerve distributions. Die Machine Operator strength is +5. No lymphadenopathy noted. Examination of left lower extremity reveals no pain or deformity with hip or knee motion.Thigh and calf compartments are soft. He has moderate swelling of the ankle. There is a large open wound on the plantar aspect of his heel. There is purulent drainage present. He has no significant ankle motion secondary to prior fusion. He has diminished sensation throughout his foot. Examination of right lower extremity reveals no pain or deformity with hip, knee , or ankle motion. Skin is intact. Sensation is diminished secondary to diabetic neuropathy. Dorsalis pedis pulse is palpable. Normal capillary refill and feet. Thigh and calf compartments are soft. No lymphadenopathy noted. +5 strength of ankle dorsiflexion and plantarflexion. Results - Labs CBC & Chem 7: 09/12/18 08:08 09/12/18 08:08 Laboratory Results - last 24 hr 09/11/18 09/11/18 09/11/18 13:40 13:40 13:40 WBC 11.3 H RBC 3.60 L Hgb 9.6 L Hct 30.1 L MCV 83.5 MCH 26.5 L MCHC 31.8 L RDW 17.7 H Plt Count 594 H MPV 6.5 L Neut % (Auto) 82.7 H Lymph % (Auto) 7.3 L [place] % (Auto) 8.3 H Eos % (Auto) 1.1 Baso % (Auto) 0.6 Neut # (Auto) 9.4 H Lymph # (Auto) 0.8 L [place] # (Auto) 0.9 Eos # (Auto) 0.1 Baso # (Auto) 0.1 WBC Differential . Differential Comment Auto diff final ESR PT 11.6 INR 1.1 APTT 25.4 Sodium 131 L Potassium 5.3 H Chloride 101 Carbon Dioxide 23.6 Anion Gap 6 BUN 17 Creatinine 1.28 Estimated GFR 57 L POC Glucose Random Glucose 76 Lactic Acid Calcium 8.9 Magnesium 2.1 Total Bilirubin 0.4 AST 43 H ALT 20 Alkaline Phosphatase 159 H C-Reactive Protein Total Protein 8.3 H Albumin 2.4 L Blood Type MTS Gel Crossmatch 09/11/18 09/11/18 09/11/18 13:40 13:40 13:40 WBC RBC Hgb Hct MCV MCH MCHC RDW Plt Count MPV Neut % (Auto) Lymph % (Auto) [place] % (Auto) Eos % (Auto) Baso % (Auto) Neut # (Auto) Lymph # (Auto) [place] # (Auto) Eos # (Auto) Baso # (Auto) WBC Differential Differential Comment ESR 127 H PT INR APTT Sodium Potassium Chloride Carbon Dioxide Anion Gap BUN Creatinine Estimated GFR POC Glucose Random Glucose Lactic Acid 2.5 H Calcium Magnesium Total Bilirubin AST ALT Alkaline Phosphatase C-Reactive Protein 22.00 H Total Protein Albumin Blood Type MTS Gel Crossmatch 09/11/18 09/11/18 09/12/18 19:34 20:20 07:59 WBC RBC Hgb Hct MCV MCH MCHC RDW Plt Count MPV Neut % (Auto) Lymph % (Auto) [place] % (Auto) Eos % (Auto) Baso % (Auto) Neut # (Auto) Lymph # (Auto) [place] # (Auto) Eos # (Auto) Baso # (Auto) WBC Differential Differential Comment ESR PT INR APTT Sodium Potassium Chloride Carbon Dioxide Anion Gap BUN Creatinine Estimated GFR POC Glucose 262 H 334 H Random Glucose Lactic Acid 1.0 Calcium Magnesium Total Bilirubin AST ALT Alkaline Phosphatase C-Reactive Protein Total Protein Albumin Blood Type MTS Gel Crossmatch 09/12/18 09/12/18 09/12/18 08:08 08:08 11:10 WBC 6.1 RBC 2.85 L Hgb 7.6 L D Hct 23.4 L MCV 82.0 MCH 26.8 L MCHC 32.6 RDW 17.9 H Plt Count 492 H MPV 6.4 L Neut % (Auto) 88.2 H Lymph % (Auto) 2.4 L [place] % (Auto) 4.3 Eos % (Auto) 4.4 H Baso % (Auto) 0.7 Neut # (Auto) 5.4 Lymph # (Auto) 0.1 L [place] # (Auto) 0.3 Eos # (Auto) 0.3 Baso # (Auto) 0.0 WBC Differential . Differential Comment Auto diff final ESR PT INR APTT Sodium 135 L Potassium 4.5 D Chloride 104 Carbon Dioxide 24.0 Anion Gap 7 BUN 16 Creatinine 1.20 Estimated GFR 62 L POC Glucose Random Glucose 302 H D Lactic Acid Calcium 8.4 L Magnesium Total Bilirubin AST ALT Alkaline Phosphatase C-Reactive Protein Total Protein Albumin Blood Type A Negative MTS Gel Crossmatch See Detail Microbiology 09/11/18 13:40 Blood - Peripheral Aerobic Blood Culture - Preliminary No growth in 1 day 09/11/18 13:40 Blood - Peripheral Anaerobic Blood Culture - Preliminary No growth in 1 day 09/11/18 13:30 Blood - Peripheral Aerobic Blood Culture - Preliminary No growth in 1 day 09/11/18 13:30 Blood - Peripheral Anaerobic Blood Culture - Preliminary No growth in 1 day 09/11/18 13:40 Wound - Foot Gram Stain - Final - Imaging Impressions Foot X-Ray 09/11/18 13:27 CONCLUSION: 1. Extensive hardware is noted throughout the left foot and is stable in appearance compared to previous examination. 2. Postsurgical changes are stable. 3. Marked bony deformity involving the hindfoot is again noted and unchanged. 4. Large wound along the plantar surface of the left hindfoot. 5. Chronic arthritic changes are noted involving the first and second metatarsophalangeal joint. 6. No acute fracture or dislocation is noted. Chest X-Ray 09/11/18 13:57 CONCLUSION: Negative for acute process Assessment and Plan - Assessment and Plan Nate has left ankle and foot infection with osteomyelitis. Patient has been recommended to undergo left lower extremity amputation by myself who has previously seen the patient, by Dr. Ronny Boyce in [place] who has done patient's prior surgeries and also by Dr. Ivonne Roldan. Patient has end stage infection, osteomyelitis involving the left ankle hindfoot, midfoot and forefoot. Patient also has chronic diabetic charcot ankle and foot with multiple failed surgical procedures.
[2018-09-12] MEDS ORDERED: Post-op Orders (for Pharmacy) OTHER STA (13:37)
--- NOTE | 2018-09-12 13:42 | P.OP ---
- Preoperative Diagnosis (1) Severe sepsis (2) Osteomyelitis of ankle or foot, left, acute (3) Diabetic foot ulcer Date of procedure: 09/12/18 Procedure: Removal of deep hardware, left below-knee amputation Anesthesia: GETA Surgeon: Daryl Wilkerson MD Operation and Findings: Nate was seen and evaluated preoperatively. He has chronic osteomyelitis of his left foot with large open wound and exposed hardware. Treatment options were discussed. At this point the foot does not appear to be salvageable and recommendation was made for amputation. After discussion of the risk and benefits of surgery, patient agreed. Informed consent was obtained preoperatively and operative site was marked. Patient was brought to the OR and placed on the OR table. IV sedation and GETA were administered by anesthesia and IV antibiotics were given. The Operative leg was prepped with alcohol, followed by Hibiclens and draped in the usual sterile fashion. Time out procedure was performed. The procedure began with removal of deep hardware. The proximal screw from the duglas was identified under fluoroscopy. A small incision was made over the screw. The screw was now removed. Next,a standard incision for below-knee amputation. A long posterior flap was maintained. The subcutaneous tissue was dissected with Bovie. The tibia and fibula were now exposed and the anterior compartment was incised. At this point , the soft tissue was retracted. The tibia was cut with an oscillating saw Gigli saw. The fibula was now cut 1 cm shorter than the tibia. At this point, the tourniquet was inflated. The posterior flap was now incised sharply. The foot was now removed from the field. The intramedullary duglas was pulled from the proximal tibia and left inside the distal tibia segment. At this point, attention was turned to hemostasis. The anterior and posterior tibial vessels were identified. An anterior tibial and posterior tibial artery and vein were now ligated with silk suture ties. The posterior tibial nerve was identified. The nerve sheath was injected with a 0.25% Marcaine with epinephrine for pain relief. The nerve was transected proximal to the tibial cut. At this point, the deep posterior compartment was excised. The anterior compartment, lateral compartment, and deep posterior compartments were all excised. The gastroc and soleus muscles were left intact. The edges of the bone were smoothed with a rasp. The tourniquet was released and hemostasis was confirmed. A drain was placed deep. The gastrocsoleus fascia was now sutured to the anterior tibial fascia with #1 PDS. The subcutaneous tissues were closed with 3-0 PDS and skin was closed with 3-0 nylon. Sterile dressings were applied and CKS was applied. The patient was awakened and transferred to recovery in stable condition. Needle and sponge counts were correct.
[2018-09-12] MEDS ORDERED: fentaNYL Citrate Inj 100 MCG/2 ML Ampul ONE ×2 (14:24→14:26)
[2018-09-12] MEDS: Vancomycin Inj 1,500 MG in Sodium Chlor 0.9% Inj 500 ML IV.SIG SCH (14:31)
[2018-09-12] MEDS ORDERED: *morphine SULFATE 8 MG/ML PERIprocedure ONLY ONE (14:52)
[2018-09-12] MEDS ORDERED: diphenhydrAMINE HCl 50 MG/ML VIAL IV.PUSH ONE (14:56)
--- NOTE | 2018-09-12 15:23 | ECG ---
Date Performed: 09/11/2018 Time Performed: 14:28:44 PTAGE: 62 years EKG: Sinus rhythm NONSPECIFIC T-WAVE ABNORMALITY BORDERLINE ECG NO PREVIOUS TRACING DOCTOR: Tommy Amor Interpretating Date/Time 09/12/2018 15:20:06
[2018-09-12] MEDS ORDERED: *morphine SULFATE 4 MG/ML PERIprocedure ONLY ONE (15:32)
--- NOTE | 2018-09-12 17:19 | P.PNIM ---
Subjective Interval history: 62-year-old gentleman admitted with severe sepsis and nonhealing diabetic foot ulcer with osteomyelitis. Patient seen and examined this morning, doing well, awaiting surgery, denies any shortness of breath or chest pain, Physical Exam Vital signs: Last Vital Signs Temp 98.1 F 09/12/18 15:30 Pulse 82 09/12/18 15:30 Resp 24 09/12/18 15:30 BP 126/58 L 09/12/18 15:30 Pulse Ox 100 09/12/18 15:30 Intake & Output 09/10/18 09/11/18 09/12/18 09/13/18 06:59 06:59 06:59 06:59 Intake Total 2700 / 2700 1000 / 1000 Output Total 200 / 200 Balance 2700 / 2700 800 / 800 Weight 79.38 kg pleasant awake alert oriented well-developed well-nourished 62-year-old white male Heart S1-S2 regular Lungs clear bilateral no wheeze no rhonchi Abdomen soft flat nondistended positive bowel sounds Extremities no clubbing cyanosis no edema to right leg, left leg chronic +2 woody edema with large wound plantar ulceration with thick white exudate chronic joint deformity of ankle Results Labs CBC & Chem 7: 09/12/18 08:08 09/12/18 08:08 Labs: Microbiology 09/11/18 13:40 Wound - Foot Gram Stain - Final 09/11/18 13:40 Wound - Foot Wound Culture - Preliminary S. aureus MRSA 09/11/18 13:40 Blood - Peripheral Aerobic Blood Culture - Preliminary No growth in 1 day 09/11/18 13:40 Blood - Peripheral Anaerobic Blood Culture - Preliminary No growth in 1 day 09/11/18 13:30 Blood - Peripheral Aerobic Blood Culture - Preliminary No growth in 1 day 09/11/18 13:30 Blood - Peripheral Anaerobic Blood Culture - Preliminary No growth in 1 day Assessment and Plan (1) Severe sepsis: Code(s): A41.9 - Sepsis, unspecified organism; R65.20 - Severe sepsis without septic shock Status: Acute Plan SEVERE SEPSIS due to osteomyelitis and infected left foot wound continue IV antibiotics, infectious disease follow-up DIABETIC FOOT WOUND INFECTION with OSTEOMYELITISplan for amputation today, podiatry/Orth O consult DM insulin-dependentuncontrolled, continue insulin sliding scale and diabetic diet HTN continue blood pressure monitoring HYPERLIPIDEMIA continue statin ANEMIAchronic normocytic HYPERKALEMIAhold VERÓNICA, status post Kayexalate, monitor potassium DVT prophylaxisSCD perioperative DISPOrehab once stable Progress Note: Quality VTE Deep Vein Thrombosis/Pulmonary Embolism Present on Admission: No
[2018-09-12] MEDS: Insulin Detemir Inj 1,000 UNIT/10 ML Vial SQ SCH (20:18)
[2018-09-12] MEDS: ceFAZolin 2 GM Premix Inj 2 GM/50 ML PIGGYBACK IV.SIG SCH (20:19)
[2018-09-13] MEDS: Vancomycin Inj 1,500 MG in Sodium Chlor 0.9% Inj 500 ML IV.SIG SCH ×2 (03:00→22:56)
[2018-09-13 05:00] LABS: Baso % (Auto) 0.7 % (0.0-2.0); Eos # (Auto) 0.6 th/mm3 (0.0-0.4); Eos % (Auto) 11.9 % (0.0-4.0); Hematocrit 20.9 % (39.0-51.0); Lymph # (Auto) 0.3 th/mm3 (1.0-4.8); Lymph % (Auto) 7.1 % (9.0-44.0); Mean Corpuscular Hemoglobin 26.6 pg (27.0-34.0); Mean Corpuscular Volume 80.6 fL (80.0-100.0); Mean Platelet Volume 6.3 fL (7.0-11.0); Mono # (Auto) 0.4 th/mm3 (0.0-0.9); Mono % (Auto) 7.2 % (0.0-8.0); Neut # (Auto) 3.6 th/mm3 (1.8-7.7); Neut % (Auto) 73.1 % (16.0-70.0); Platelet Count 492 th/mm3 (150-450); Red Blood Count 2.59 mil/mm3 (4.50-5.90); Red Cell Distribution Width 17.3 % (11.6-17.2); White Blood Count 4.9 th/mm3 (4.0-11.0)
[2018-09-13 05:04] LABS: Hemoglobin 6.9 gm/dL (13.0-17.0)
[2018-09-13 05:36] LABS: Calcium 7.5 mg/dL (8.5-10.1); Magnesium 2.1 mg/dL (1.5-2.5); Potassium 3.4 meq/L (3.5-5.1)
[2018-09-13] MEDS: ceFAZolin 2 GM Premix Inj 2 GM/50 ML PIGGYBACK IV.SIG SCH ×3 (05:39→20:54)
[2018-09-13] MEDS ORDERED: Sodium Chlor 0.9% Inj 250 ML IV.SIG SCH (06:00)
[2018-09-13] MEDS: Sod Chloride 0.9% Inj 1,000 ML IV.CONT SCH (06:22)
--- NOTE | 2018-09-13 07:44 | P.PNOP ---
Subjective Interval history: POD 1 s/p I&D wiht left leg BKA and removal of HW doing well. no pain. controlled. no complaints. Physical Exam Vital signs: Vital Signs 09/12/18 08:00 09/12/18 14:15 09/12/18 14:30 Temperature 98.0 F 97.7 F Pulse Rate 80 90 85 Respiratory Rate 16 14 16 Blood Pressure 116/56 L 135/71 144/65 H Pulse Oximetry 98 99 98 09/12/18 14:45 09/12/18 15:00 09/12/18 15:15 Temperature Pulse Rate 82 83 83 Respiratory Rate 15 18 22 Blood Pressure 147/67 H 150/78 H 145/64 H Pulse Oximetry 100 100 100 09/12/18 15:30 09/12/18 16:00 09/12/18 18:19 Temperature 98.1 F 97.6 F Pulse Rate 82 87 Respiratory Rate 24 16 18 Blood Pressure 126/58 L 122/60 Pulse Oximetry 100 99 09/12/18 20:00 09/12/18 23:42 09/13/18 04:22 Temperature 97.9 F 97.8 F 98.1 F Pulse Rate 98 H 81 79 Respiratory Rate 20 20 17 Blood Pressure 128/59 L 130/60 126/58 L Pulse Oximetry 96 97 96 09/13/18 06:09 09/13/18 06:25 Temperature 98 F 97.6 F Pulse Rate 83 80 Respiratory Rate 20 20 Blood Pressure 129/61 126/60 Pulse Oximetry 98 Intake & Output 09/12/18 09/13/18 09/13/18 18:59 06:59 18:59 Intake Total 1999 / 1999 1470 / 1470 Output Total 200 / 200 1020 / 1020 Balance 1800 / 1800 450 / 450 Weight 81 kg Intake: IV 1000 / 1000 750 / 750 NS Inj 1,000 ML @ 84 mls/hr IV. 1000 / 1000 400 / 400 CONT .[id number] [facility] Rx#:[id number] Azactam Inj 1,000 MG In NS Inj 200 / 200 100 ML @ 200 mls/hr IV.SIG Q8H [facility] Rx#:[id number] LR 1000 mL Inj 1,000 ML @ 30 50 / 50 mls/hr IV.SIG .Q24H [facility] Rx#: [id number] Ancef 2 GM Premix Inj 2 gm In 100 / 100 50 ml @ 200 mls/hr IV.SIG Q8H [facility] Rx#:[id number] Oral 720 / 720 Anesthesia Amount 1000 / 1000 Intake (Blood Product) Amt 0 / 0 Rbc As-3 Leukoreduced Unit 0 / 0 [id number] Output: Urine 1000 / 1000 Estimated Blood Loss 200 / 200 Wound Drainage Left Knee GIOVANI Drain Other: Date of Last Bowel Movement 09/11/18 Narrative: LLE: dressings clean and dry. intact. NVI. +drain Results - Labs CBC & Chem 7: 09/13/18 04:08 09/13/18 04:08 Laboratory Results - last 24 hr 09/12/18 09/12/18 09/12/18 07:59 08:08 08:08 WBC 6.1 RBC 2.85 L Hgb 7.6 L D Hct 23.4 L MCV 82.0 MCH 26.8 L MCHC 32.6 RDW 17.9 H Plt Count 492 H MPV 6.4 L Prelim Diff (Auto) Neut % (Auto) 88.2 H Lymph % (Auto) 2.4 L [place] % (Auto) 4.3 Eos % (Auto) 4.4 H Baso % (Auto) 0.7 Neut # (Auto) 5.4 Lymph # (Auto) 0.1 L [place] # (Auto) 0.3 Eos # (Auto) 0.3 Baso # (Auto) 0.0 WBC Differential . Diff Scan Differential Comment Auto diff final Sodium 135 L Potassium 4.5 D Chloride 104 Carbon Dioxide 24.0 Anion Gap 7 BUN 16 Creatinine 1.20 Estimated GFR 62 L POC Glucose 334 H Random Glucose 302 H D Calcium 8.4 L Magnesium Blood Type Antibody Screen MTS Gel Crossmatch Bld Prod Order Comment 09/12/18 09/12/18 09/12/18 11:10 14:22 17:23 WBC RBC Hgb Hct MCV MCH MCHC RDW Plt Count MPV Prelim Diff (Auto) Neut % (Auto) Lymph % (Auto) [place] % (Auto) Eos % (Auto) Baso % (Auto) Neut # (Auto) Lymph # (Auto) [place] # (Auto) Eos # (Auto) Baso # (Auto) WBC Differential Diff Scan Differential Comment Sodium Potassium Chloride Carbon Dioxide Anion Gap BUN Creatinine Estimated GFR POC Glucose 261 H 143 H Random Glucose Calcium Magnesium Blood Type A Negative Antibody Screen Negative MTS Gel Crossmatch See Detail Bld Prod Order Comment 09/12/18 09/13/18 09/13/18 19:53 04:08 04:08 WBC 4.9 RBC 2.59 L Hgb 6.9 L* Hct 20.9 L* MCV 80.6 MCH 26.6 L MCHC 33.0 RDW 17.3 H Plt Count 492 H MPV 6.3 L Prelim Diff (Auto) Slide review pending Neut % (Auto) 73.1 H Lymph % (Auto) 7.1 L [place] % (Auto) 7.2 Eos % (Auto) 11.9 H Baso % (Auto) 0.7 Neut # (Auto) 3.6 Lymph # (Auto) 0.3 L [place] # (Auto) 0.4 Eos # (Auto) 0.6 H Baso # (Auto) 0.0 WBC Differential . Diff Scan Auto diff confirmed Differential Comment . Sodium 141 Potassium 3.4 L D Chloride 108 H Carbon Dioxide 27.0 Anion Gap 6 BUN 12 Creatinine 1.03 Estimated GFR 74 L POC Glucose 123 H Random Glucose 40 L* D Calcium 7.5 L D Magnesium 2.1 Blood Type Antibody Screen MTS Gel Crossmatch Bld Prod Order Comment 09/13/18 09/13/18 09/13/18 05:19 05:50 06:13 WBC RBC Hgb Hct MCV MCH MCHC RDW Plt Count MPV Prelim Diff (Auto) Neut % (Auto) Lymph % (Auto) [place] % (Auto) Eos % (Auto) Baso % (Auto) Neut # (Auto) Lymph # (Auto) [place] # (Auto) Eos # (Auto) Baso # (Auto) WBC Differential Diff Scan Differential Comment Sodium Potassium Chloride Carbon Dioxide Anion Gap BUN Creatinine Estimated GFR POC Glucose 69 79 Random Glucose Calcium Magnesium Blood Type Antibody Screen MTS Gel Crossmatch See Detail Bld Prod Order Comment Cancelled 09/13/18 06:29 WBC RBC Hgb Hct MCV MCH MCHC RDW Plt Count MPV Prelim Diff (Auto) Neut % (Auto) Lymph % (Auto) [place] % (Auto) Eos % (Auto) Baso % (Auto) Neut # (Auto) Lymph # (Auto) [place] # (Auto) Eos # (Auto) Baso # (Auto) WBC Differential Diff Scan Differential Comment Sodium Potassium Chloride Carbon Dioxide Anion Gap BUN Creatinine Estimated GFR POC Glucose 91 Random Glucose Calcium Magnesium Blood Type Antibody Screen MTS Gel Crossmatch Bld Prod Order Comment Microbiology 09/11/18 13:40 Wound - Foot Gram Stain - Final 09/11/18 13:40 Wound - Foot Wound Culture - Preliminary S. aureus MRSA 09/11/18 13:40 Blood - Peripheral Aerobic Blood Culture - Preliminary No growth in 1 day 09/11/18 13:40 Blood - Peripheral Anaerobic Blood Culture - Preliminary No growth in 1 day 09/11/18 13:30 Blood - Peripheral Aerobic Blood Culture - Preliminary No growth in 1 day 09/11/18 13:30 Blood - Peripheral Anaerobic Blood Culture - Preliminary No growth in 1 day Assessment and Plan - Assessment and Plan 1) Left BKA - POD 1 -NWB -maintain dressings and knee brace -plan for first dressing change tuesday with removal of drain by ortho team -will need CM for HHC. -plan for DC once dressings initiated -Infectious Dz for culture monitoring and Abx tailoring
[2018-09-13] MEDS: Insulin NovoLOG Aspart Correctional Sugar Inj SQ SCH ×4 (09:27→21:41)
[2018-09-13] MEDS: Senna/Docusate Sodium 8.6/50 MG Tablet PO SCH ×2 (09:28→20:55)
[2018-09-13 11:33] LABS: Hematocrit 25.6 % (39.0-51.0); Hemoglobin 8.4 gm/dL (13.0-17.0)
--- NOTE | 2018-09-13 12:12 | P.PNIM ---
Subjective Interval history: The patient is in bed says he feels short of breath and is coughing sometimes. Saturating well on room air. Pain is controlled by medications. Amputated leg is wrapped well has drain in place no much pain at this time. No nausea or vomiting able to eat. Has constipation, will add bowel regimen. Physical Exam Vital signs: Last Vital Signs Temp 97.9 F 09/13/18 08:00 Pulse 79 09/13/18 08:00 Resp 18 09/13/18 08:00 BP 120/58 L 09/13/18 08:00 Pulse Ox 97 09/13/18 08:00 Intake & Output 09/11/18 09/12/18 09/13/18 09/14/18 06:59 06:59 06:59 06:59 Intake Total 2700 / 2700 3470 / 3470 500 / 500 Output Total 1220 / 1220 Balance 2700 / 2700 2250 / 2250 500 / 500 Weight 79.38 kg 81 kg Narrative: GENERAL: Pleasant 62 yo male, well-nourished well-developed in NAD CARDIOVASCULAR: Regular rate and rhythm without murmurs, gallops, or rubs. RESPIRATORY: Breath sounds equal bilaterally. No accessory muscle use. GASTROINTESTINAL: Abdomen soft, non-tender, nondistended. Normoactive bowel sounds MUSCULOSKELETAL: LL foot dressings clean and dry, intact. NVI. +drain No cyanosis, or edema. NEURO: No focal neurological deficits. Results Labs CBC & Chem 7: 09/13/18 11:17 09/13/18 04:08 Labs: Microbiology 09/12/18 13:15 Tissue - Other Gram Stain - Final 09/12/18 13:15 Tissue - Other Wound Culture - Preliminary S. aureus MRSA 09/11/18 13:40 Blood - Peripheral Aerobic Blood Culture - Preliminary No growth in 2 days 09/11/18 13:40 Blood - Peripheral Anaerobic Blood Culture - Preliminary No growth in 2 days 09/11/18 13:30 Blood - Peripheral Aerobic Blood Culture - Preliminary No growth in 2 days 09/11/18 13:30 Blood - Peripheral Anaerobic Blood Culture - Preliminary No growth in 2 days 09/11/18 13:40 Wound - Foot Gram Stain - Final 09/11/18 13:40 Wound - Foot Wound Culture - Final S. aureus MRSA Assessment and Plan (1) Severe sepsis: Code(s): A41.9 - Sepsis, unspecified organism; R65.20 - Severe sepsis without septic shock Status: Acute Plan SEVERE SEPSIS resolving due to osteomyelitis and infected left foot wound continue IV antibiotics, infectious disease follow-up DIABETIC FOOT WOUND INFECTION with OSTEOMYELITIS s/p I&D and left leg amputation on 09/12/[address] Peoples , podiatry/Orth consult DM insulin-dependentuncontrolled, continue insulin sliding scale and diabetic diet HTN continue blood pressure monitoring HYPERLIPIDEMIA continue statin ANEMIAchronic normocytic HYPERKALEMIAhold VERÓNICA, status post Kayexalate, monitor potassium Constipation: Bowel regimen DVT prophylaxisSCD perioperative Add incentive spirometry PT OT DC plan: rehab once stable Discussed with the patient, nurse Progress Note: Quality VTE Deep Vein Thrombosis/Pulmonary Embolism Present on Admission: No
[2018-09-13] MEDS: Insulin Detemir Inj 1,000 UNIT/10 ML Vial SQ SCH (21:41)
[2018-09-13] MEDS ORDERED: Pharmacy Ordered Lab Info OTHER ONE (21:45)
[2018-09-14] MEDS: ceFAZolin 2 GM Premix Inj 2 GM/50 ML PIGGYBACK IV.SIG SCH ×2 (04:17→13:30)
[2018-09-14 05:15] LABS: Baso % (Auto) 0.5 % (0.0-2.0); Eos # (Auto) 0.8 th/mm3 (0.0-0.4); Eos % (Auto) 11.9 % (0.0-4.0); Hematocrit 24.4 % (39.0-51.0); Hemoglobin 8.2 gm/dL (13.0-17.0); Lymph # (Auto) 0.5 th/mm3 (1.0-4.8); Lymph % (Auto) 7.3 % (9.0-44.0); Mean Corpuscular HGB Conc 33.7 % (32.0-36.0); Mean Corpuscular Hemoglobin 27.2 pg (27.0-34.0); Mean Corpuscular Volume 80.8 fL (80.0-100.0); Mean Platelet Volume 6.3 fL (7.0-11.0); Mono # (Auto) 0.6 th/mm3 (0.0-0.9); Mono % (Auto) 8.6 % (0.0-8.0); Neut # (Auto) 4.7 th/mm3 (1.8-7.7); Neut % (Auto) 71.7 % (16.0-70.0); Platelet Count 502 th/mm3 (150-450); Red Blood Count 3.02 mil/mm3 (4.50-5.90); Red Cell Distribution Width 17.1 % (11.6-17.2); White Blood Count 6.6 th/mm3 (4.0-11.0)
[2018-09-14 05:44] LABS: Calcium 7.5 mg/dL (8.5-10.1); Carbon Dioxide 24.8 meq/L (21.0-32.0); Potassium 4.2 meq/L (3.5-5.1)
--- NOTE | 2018-09-14 07:18 | P.PNOP ---
Subjective Interval history: POD 2 s/p left BKA out of bed to chair. no complaints. no pain reported Physical Exam Vital signs: Vital Signs 09/13/18 08:00 09/13/18 12:00 09/13/18 15:36 Temperature 97.9 F 98.1 F Pulse Rate 79 83 Respiratory Rate 18 18 18 Blood Pressure 120/58 L 136/61 Pulse Oximetry 97 95 09/13/18 15:40 09/13/18 17:19 09/13/18 20:00 Temperature 98.8 F 98.2 F Pulse Rate 84 81 Respiratory Rate 18 18 20 Blood Pressure 137/64 131/60 Pulse Oximetry 97 96 09/14/18 00:00 Temperature 97.9 F Pulse Rate 80 Respiratory Rate 18 Blood Pressure 147/66 H Pulse Oximetry 97 Intake & Output 09/13/18 09/14/18 09/14/18 18:59 06:59 18:59 Intake Total 2350 / 2350 1285 / 1285 Output Total 1500 / 1500 1210 / 1210 Balance 850 / 850 75 / 75 Weight 84.5 kg Intake: IV 850 / 850 965 / 965 NS Inj 1,000 ML @ 84 mls/hr IV. 600 / 600 CONT .[id number] [facility] Rx#:[id number] Azactam Inj 1,000 MG In NS Inj 200 / 200 100 / 100 100 ML @ 200 mls/hr IV.SIG Q8H [facility] Rx#:[id number] NS Inj 250 ML @ 15 mls/hr IV. 250 / 250 SIG ONCE [facility] Rx#:[id number] Vancomycin Inj 1,500 MG In NS 515 / 515 Inj 500 ML @ 250 mls/hr IV.SIG Q18H [facility] Rx#:[id number] Ancef 2 GM Premix Inj 2 gm In 50 / 50 100 / 100 50 ml @ 200 mls/hr IV.SIG Q8H [facility] Rx#:[id number] Oral 1100 / 1100 320 / 320 Intake (Blood Product) Amt 400 / 400 Rbc As-3 Leukoreduced Unit 400 / 400 [id number] Output: Urine 1500 / 1500 1200 / 1200 Wound Drainage 10 / 10 Left Knee GIOVANI Drain 10 / 10 Other: # Voids 1 Date of Last Bowel Movement 09/14/18 # Bowel Movements 1 Narrative: LLE: dressings clean and dry. intact. +CKS. +drain Results - Labs CBC & Chem 7: 09/14/18 04:07 09/14/18 04:07 Laboratory Results - last 24 hr 09/12/18 09/13/18 09/13/18 11:10 08:17 11:17 WBC RBC Hgb 8.4 L Hct 25.6 L MCV MCH MCHC RDW Plt Count MPV Neut % (Auto) Lymph % (Auto) [place] % (Auto) Eos % (Auto) Baso % (Auto) Neut # (Auto) Lymph # (Auto) [place] # (Auto) Eos # (Auto) Baso # (Auto) WBC Differential Differential Comment Sodium Potassium Chloride Carbon Dioxide Anion Gap BUN Creatinine Estimated GFR POC Glucose 175 H Random Glucose Calcium Vancomycin Trough MTS Gel Crossmatch See Detail 09/13/18 09/13/18 09/13/18 12:26 18:01 20:56 WBC RBC Hgb Hct MCV MCH MCHC RDW Plt Count MPV Neut % (Auto) Lymph % (Auto) [place] % (Auto) Eos % (Auto) Baso % (Auto) Neut # (Auto) Lymph # (Auto) [place] # (Auto) Eos # (Auto) Baso # (Auto) WBC Differential Differential Comment Sodium Potassium Chloride Carbon Dioxide Anion Gap BUN Creatinine Estimated GFR POC Glucose 224 H 323 H 319 H Random Glucose Calcium Vancomycin Trough MTS Gel Crossmatch 09/13/18 09/14/18 09/14/18 21:10 04:07 04:07 WBC 6.6 RBC 3.02 L Hgb 8.2 L Hct 24.4 L MCV 80.8 MCH 27.2 MCHC 33.7 RDW 17.1 Plt Count 502 H MPV 6.3 L Neut % (Auto) 71.7 H Lymph % (Auto) 7.3 L [place] % (Auto) 8.6 H Eos % (Auto) 11.9 H Baso % (Auto) 0.5 Neut # (Auto) 4.7 Lymph # (Auto) 0.5 L [place] # (Auto) 0.6 Eos # (Auto) 0.8 H Baso # (Auto) 0.0 WBC Differential . Differential Comment Auto diff final Sodium 141 Potassium 4.2 D Chloride 108 H Carbon Dioxide 24.8 Anion Gap 8 BUN 13 Creatinine 1.07 Estimated GFR 70 L POC Glucose Random Glucose 127 H Calcium 7.5 L Vancomycin Trough 18.9 H MTS Gel Crossmatch Microbiology 09/12/18 13:15 Tissue - Other Fungal Smear - Final No fungal elements seen 09/12/18 13:15 Tissue - Other Gram Stain - Final 09/12/18 13:15 Tissue - Other Wound Culture - Preliminary S. aureus MRSA 09/11/18 13:40 Blood - Peripheral Aerobic Blood Culture - Preliminary No growth in 2 days 09/11/18 13:40 Blood - Peripheral Anaerobic Blood Culture - Preliminary No growth in 2 days 09/11/18 13:30 Blood - Peripheral Aerobic Blood Culture - Preliminary No growth in 2 days 09/11/18 13:30 Blood - Peripheral Anaerobic Blood Culture - Preliminary No growth in 2 days 09/11/18 13:40 Wound - Foot Gram Stain - Final 09/11/18 13:40 Wound - Foot Wound Culture - Final S. aureus MRSA Assessment and Plan - Assessment and Plan 1) Left BKA - POD 2 -NWB -maintain dressings and knee brace -plan for first dressing change tuesday with removal of drain by ortho team -will need CM for HHC. -plan for DC once dressings initiated -Infectious Dz for culture monitoring and Abx tailoring -need 5x9 xeroform, sterile 4x4s, ABD, cast padding, VERÓNICA wraps in room at bedside for dressing change tomorrow
[2018-09-14] MEDS: Insulin NovoLOG Aspart Correctional Sugar Inj SQ SCH ×4 (10:03→21:44)
[2018-09-14] MEDS: Senna/Docusate Sodium 8.6/50 MG Tablet PO SCH ×2 (10:04→22:37)
--- NOTE | 2018-09-14 12:41 | P.PNIM ---
Subjective Interval history: In nad. Pain at the surgical site controlled by meds. Had a Bm No n/v/d/c. No fever or chills. Physical Exam Vital signs: Last Vital Signs Temp 97.9 F 09/14/18 08:00 Pulse 77 09/14/18 08:00 Resp 18 09/14/18 08:00 BP 125/65 09/14/18 08:00 Pulse Ox 97 09/14/18 08:00 Intake & Output 09/12/18 09/13/18 09/14/18 09/15/18 06:59 06:59 06:59 06:59 Intake Total 2700 / 2700 3985 / 3985 3635 / 3635 Output Total 1220 / 1220 2710 / 2710 200 / 200 Balance 2700 / 2700 2765 / 2765 925 / 925 -200 / -200 Weight 79.38 kg 81 kg 84.5 kg Narrative: GENERAL: Pleasant 62 yo male, well-nourished well-developed in NAD CARDIOVASCULAR: Regular rate and rhythm without murmurs, gallops, or rubs. RESPIRATORY: Breath sounds equal bilaterally. No accessory muscle use. GASTROINTESTINAL: Abdomen soft, non-tender, nondistended. Normoactive bowel sounds MUSCULOSKELETAL: LL foot dressings clean and dry, intact. NVI. +drain No cyanosis, or edema. NEURO: No focal neurological deficits. Results Labs CBC & Chem 7: 09/14/18 04:07 09/14/18 04:07 Labs: Microbiology 09/11/18 13:40 Blood - Peripheral Aerobic Blood Culture - Preliminary No growth in 3 days 09/11/18 13:40 Blood - Peripheral Anaerobic Blood Culture - Preliminary No growth in 3 days 09/11/18 13:30 Blood - Peripheral Aerobic Blood Culture - Preliminary No growth in 3 days 09/11/18 13:30 Blood - Peripheral Anaerobic Blood Culture - Preliminary No growth in 3 days 09/12/18 13:15 Tissue - Other Gram Stain - Final 09/12/18 13:15 Tissue - Other Wound Culture - Final S. aureus MRSA 09/12/18 13:15 Tissue - Other Fungal Smear - Final No fungal elements seen 09/11/18 13:40 Wound - Foot Gram Stain - Final 09/11/18 13:40 Wound - Foot Wound Culture - Final S. aureus MRSA Assessment and Plan (1) Severe sepsis: Code(s): A41.9 - Sepsis, unspecified organism; R65.20 - Severe sepsis without septic shock Status: Acute Plan SEVERE SEPSIS resolving due to osteomyelitis and infected left foot wound continue IV antibiotics, infectious disease follow-up DIABETIC FOOT WOUND INFECTION with OSTEOMYELITIS s/p I&D and left leg amputation on 09/12/[address] Peoples , podiatry/Orth consulted and ff Plan for wound dressing on 09/15 Consult ID for abx recommendations POSTOPERATIVE ANEMIA. Received blood transfusion postop. HGB 8.3 (09/14) DM insulin-dependentuncontrolled, continue insulin sliding scale and diabetic diet HTN continue blood pressure monitoring HYPERLIPIDEMIA continue statin ANEMIAchronic normocytic HYPERKALEMIAhold VERÓNICA, status post Kayexalate, monitor potassium Constipation: Bowel regimen DVT prophylaxisSCD perioperative Add incentive spirometry PT OT DC plan: rehab once stable vs [facility] CM consulted for DC plan Discussed with the patient, nurse Progress Note: Quality VTE Deep Vein Thrombosis/Pulmonary Embolism Present on Admission: No
--- NOTE | 2018-09-14 19:36 | P.DS ---
DS: Providers Date of admission: 09/11/18 15:22 Primary care physician: UNKNOWN Consults: 09/11/18 15:23 Consult to Orthopedic Surgery Routine Consulting Provider: Daryl Peoples Preferred Custodian Manager:: Daryl Peoples Patient known to:: Daryl Peoples Reason for Consultation: left LLE Osteomyelitis, evaluate for BKA Notified:: Office Spoke with:: Liliana Date Notified:: 09/11/18 Time Notified:: 15:30 Ordering Provider: SEGUNDO 09/11/18 17:50 HUB Only Consult Order Routine Consulting Provider: Tim Dumont 09/13/18 16:29 HUB Only Consult Order Routine Consulting Provider: Gonsalo Doherty,[place] Brief History from admission: 62-year-old white male with a history of insulin- dependent diabetes mellitus, hyperlipidemia, chronic left foot osteomyelitis who is known to me who had a previous admission and was discharged on August 08 on oral antibiotics after he declined a recommended left below the knee amputation by Dr. Rene. Apparently, patient has had chronic left foot and ankle Charcot joint has multiple corrective surgeries by Dr. Boyce in [place] and had previous posterior calcaneus to loose screws that were bothersome to his Achilles tendon and posterior heel. At that time, patient wanted a second opinion from his previous orthopedic surgeon Dr. Barraza at [place]. He tells me that over the past 48 hours he has had increasing left foot pain and worsening drainage of the left foot wound. His home health care nurse was concerned about the changes of his wound and urged him to contact his orthopedic surgeon. He states that he had a planned scheduled surgery on October [address] Peoples and was told today by his office to come in the emergency for evaluation. He states after discussion with Dr. Barraza and his infectious disease physician Dr. Gerardo, he has decided to move forward with the below the knee amputation. He denies any underlying chills or fever. He reports he is still taking his Cipro and doxycycline as prescribed. DS: Diagnosis Discharge Diagnosis (1) Severe sepsis: Status: Acute DS: Summary SEVERE SEPSIS resolving due to osteomyelitis and infected left foot wound continue IV antibiotics . Patient is s/p amputation DIABETIC FOOT WOUND INFECTION with OSTEOMYELITIS s/p I&D and left leg amputation on 09/12/[address] Peoples , podiatry/Orth consulted and ff Plan for wound dressing on 09/15 POSTOPERATIVE ANEMIA. Received blood transfusion postop. HGB 8.3 (09/14). HGB has been stable. DM insulin-dependentuncontrolled, continue insulin sliding scale and diabetic diet HTN continue blood pressure monitoring HYPERLIPIDEMIA continue statin ANEMIAchronic normocytic HYPERKALEMIAhold VERÓNICA, status post Kayexalate, monitor potassium Constipation: Bowel regimen DVT prophylaxisSCD perioperative Add incentive spirometry PT OT DC plan: rehab Patient s/p BKA DC to rehab in stable condition to follow up as OP with pCP and consultants Time Spent with Patient Total time spent providing and/or coordinating discharge services: > 30 min Quality: VTE Deep Vein Thrombosis/Pulmonary Embolism Present on Admission: No Exam Narrative Exam Narrative: GENERAL: Well-nourished, well-developed male patient, appears in nad. SKIN: Focused skin assessment warm/dry. CARDIOVASCULAR: Regular rhythm without murmurs, gallops, or rubs. Left pedal pulse is 2+. RESPIRATORY: Breath sounds equal bilaterally. No accessory muscle use. Lung sounds are clear to auscultation. GASTROINTESTINAL: Abdomen soft, non-tender, nondistended. MUSCULOSKELETAL: S/p left BKA Results Completed studies during hospitalization: Pending at discharge 09/12/18 13:45 Surgical [PTH] Routine Labs on day of discharge: Labs from last 24 hours 09/14/18 09/14/18 09/13/18 04:07 04:07 21:10 WBC 6.6 RBC 3.02 L Hgb 8.2 L Hct 24.4 L MCV 80.8 MCH 27.2 MCHC 33.7 RDW 17.1 Plt Count 502 H MPV 6.3 L Neut % (Auto) 71.7 H Lymph % (Auto) 7.3 L [place] % (Auto) 8.6 H Eos % (Auto) 11.9 H Baso % (Auto) 0.5 Neut # (Auto) 4.7 Lymph # (Auto) 0.5 L [place] # (Auto) 0.6 Eos # (Auto) 0.8 H Baso # (Auto) 0.0 WBC Differential . Differential Comment Auto diff final Sodium 141 Potassium 4.2 D Chloride 108 H Carbon Dioxide 24.8 Anion Gap 8 BUN 13 Creatinine 1.07 Estimated GFR 70 L POC Glucose Random Glucose 127 H Calcium 7.5 L Vancomycin Trough 18.9 H 09/13/18 20:56 WBC RBC Hgb Hct MCV MCH MCHC RDW Plt Count MPV Neut % (Auto) Lymph % (Auto) [place] % (Auto) Eos % (Auto) Baso % (Auto) Neut # (Auto) Lymph # (Auto) [place] # (Auto) Eos # (Auto) Baso # (Auto) WBC Differential Differential Comment Sodium Potassium Chloride Carbon Dioxide Anion Gap BUN Creatinine Estimated GFR POC Glucose 319 H Random Glucose Calcium Vancomycin Trough Preliminary micro results at discharge 09/11/18 13:40 Aerobic Blood Culture - Preliminary Blood - Peripheral No growth in 3 days Anaerobic Blood Culture - Preliminary No growth in 3 days 09/11/18 13:30 Aerobic Blood Culture - Preliminary Blood - Peripheral No growth in 3 days Anaerobic Blood Culture - Preliminary No growth in 3 days Impressions ITS Impressions Foot X-Ray 09/11/18 13:27 CONCLUSION: 1. Extensive hardware is noted throughout the left foot and is stable in appearance compared to previous examination. 2. Postsurgical changes are stable. 3. Marked bony deformity involving the hindfoot is again noted and unchanged. 4. Large wound along the plantar surface of the left hindfoot. 5. Chronic arthritic changes are noted involving the first and second metatarsophalangeal joint. 6. No acute fracture or dislocation is noted. Chest X-Ray 09/11/18 13:57 CONCLUSION: Negative for acute process Discharge Plan Discharge Disposition Patient Disposition: 03 Discharge to SNF Discharge Order Discharge Orders: Discharge Order (Routine); Ordered 09/15/18 Ordered By: Rohini Delgado ED Use Only Admit Order (Routine); Ordered 09/11/18 Ordered By: Keri Hussein Discharge Details Anticipated Discharge Date: 09/15/18 Discharge Comment: DC likely 09/15/18 after wound dreswsing change by ortho and when cleared by ortho. DC when bed available and arrangements are done for SNF Physicians Team ED Provider: Patrice Reyes ED Midlevel Provider: Keri Hussein Primary Care Provider: UNKNOWN, Attending Provider: Rohini Delgado Other Providers: Daryl Peoples ; [employer] ; Gonsalo [facility],[place] Rxs /Orders / Referrals /Forms Prescriptions: New sulfamethoxazole-trimethoprim [Bactrim DS] 800-160 mg tablet 1 tab PO BID 7 Days Qty: 14 RF: 0 Continue insulin detemir U-100 [Levemir U-100 Insulin] 100 unit/mL Solution 40 unit SUBCUT BID RF: 0 insulin aspart U-100 [Novolog U-100 Insulin aspart] 100 unit/mL Solution 10 unit SUBCUT AC RF: 0 atorvastatin 10 mg Tablet 10 mg PO DAILY RF: 0 lisinopril 2.5 mg Tablet 2.5 mg PO DAILY RF: 0 Discontinued tramadol 50 mg Tablet 50 mg PO BID PRN (Reason: Pain) RF: 0 ciprofloxacin HCl 750 mg Tablet 750 mg PO Q12HR Qty: 60 RF: 1 doxycycline hyclate 100 mg Tablet 100 mg PO DAILY Qty: 60 RF: 1 Referrals: Tino Mccann MD [[facility]] - See Instructions ( Please call the physician's office to book the appointment to be seen within 3 weeks after surgery to evaluate for prosthesis.) Gonsalo Morales [facility],[place] [Agency] - See Instructions Daryl Peoples MD [Physician] - See Instructions ( Please call the physician' s office to book the appointment to be seen within [2 weeks].) UNKNOWN, [Primary Care Provider] - See Instructions ( Please call the primary care physician's office to book the appointment to be seen in 2-3 days ) Status ED Status: Left Department
[2018-09-14] MEDS: Vancomycin Inj 1,500 MG in Sodium Chlor 0.9% Inj 500 ML IV.SIG SCH (20:10)
[2018-09-14] MEDS: Insulin Detemir Inj 1,000 UNIT/10 ML Vial SQ SCH (21:44)
[2018-09-15 04:42] LABS: Baso # (Auto) 0.1 th/mm3 (0.0-0.2); Baso % (Auto) 1.2 % (0.0-2.0); Eos # (Auto) 0.6 th/mm3 (0.0-0.4); Eos % (Auto) 11.4 % (0.0-4.0); Hematocrit 23.8 % (39.0-51.0); Hemoglobin 7.9 gm/dL (13.0-17.0); Lymph # (Auto) 0.7 th/mm3 (1.0-4.8); Lymph % (Auto) 11.8 % (9.0-44.0); Mean Corpuscular HGB Conc 33.4 % (32.0-36.0); Mean Corpuscular Volume 80.9 fL (80.0-100.0); Mean Platelet Volume 6.3 fL (7.0-11.0); Mono # (Auto) 0.5 th/mm3 (0.0-0.9); Mono % (Auto) 9.7 % (0.0-8.0); Neut # (Auto) 3.7 th/mm3 (1.8-7.7); Neut % (Auto) 65.9 % (16.0-70.0); Platelet Count 463 th/mm3 (150-450); Red Blood Count 2.94 mil/mm3 (4.50-5.90); Red Cell Distribution Width 16.9 % (11.6-17.2); White Blood Count 5.6 th/mm3 (4.0-11.0)
[2018-09-15 05:16] LABS: Calcium 7.6 mg/dL (8.5-10.1); Carbon Dioxide 24.8 meq/L (21.0-32.0); Potassium 4.2 meq/L (3.5-5.1)
--- NOTE | 2018-09-15 07:41 | P.PNOP ---
Subjective Interval history: Minimal pain. States he is doing well. He is anticipating discharge to rehab today. Physical Exam Vital signs: Vital Signs 09/14/18 08:00 09/14/18 12:00 09/14/18 16:00 Temperature 97.9 F 98.0 F 98.2 F Pulse Rate 77 82 81 Respiratory Rate 18 18 18 Blood Pressure 125/65 151/65 H 146/67 H Pulse Oximetry 97 97 97 09/14/18 20:00 09/15/18 00:00 Temperature 97.3 F L 97.9 F Pulse Rate 76 84 Respiratory Rate 19 17 Blood Pressure 157/69 H 147/68 H Pulse Oximetry 98 97 Intake & Output 09/14/18 09/15/18 09/15/18 18:59 06:59 18:59 Intake Total 1850 / 1850 2360 / 2360 Output Total 1200 / 1200 2155 / 2155 Balance 650 / 650 205 / 205 Weight 83.3 kg Intake: IV 50 / 50 300 / 300 Azactam Inj 1,000 MG In NS Inj 300 / 300 100 ML @ 200 mls/hr IV.SIG Q8H LEO Rx#:[id number] Ancef 2 GM Premix Inj 2 gm In 50 / 50 50 ml @ 200 mls/hr IV.SIG Q8H LEO Rx#:[id number] Oral 1800 / 1800 2059 / 0 Output: Urine 1200 / 1200 2150 / 2150 Wound Drainage 5 / 5 Left Knee GIOVANI Drain 5 / 5 Other: # Voids 1 Date of Last Bowel Movement 09/14/18 09/14/18 # Bowel Movements 1 1 Narrative: Left lower extremity: No pain with hip or knee range of motion. Dressing removed revealing surgical incision well approximated. Drain is removed. New dressing is applied with Xeroform 4 x 4's ABD Judd wrap and knee immobilizer. Incision is well approximated with no signs of necrosis or infection. Mild swelling is noted Results - Labs CBC & Chem 7: 09/15/18 04:08 09/15/18 04:08 Laboratory Results - last 24 hr 09/12/18 09/14/18 09/14/18 11:10 21:43 22:43 WBC RBC Hgb Hct MCV MCH MCHC RDW Plt Count MPV Neut % (Auto) Lymph % (Auto) [place] % (Auto) Eos % (Auto) Baso % (Auto) Neut # (Auto) Lymph # (Auto) [place] # (Auto) Eos # (Auto) Baso # (Auto) WBC Differential Differential Comment Sodium Potassium Chloride Carbon Dioxide Anion Gap BUN Creatinine Estimated GFR POC Glucose 523 H* 502 H* Random Glucose Calcium MTS Gel Crossmatch See Detail 09/15/18 09/15/18 09/15/18 00:41 04:08 04:08 WBC 5.6 RBC 2.94 L Hgb 7.9 L Hct 23.8 L MCV 80.9 MCH 27.0 MCHC 33.4 RDW 16.9 Plt Count 463 H MPV 6.3 L Neut % (Auto) 65.9 Lymph % (Auto) 11.8 [place] % (Auto) 9.7 H Eos % (Auto) 11.4 H Baso % (Auto) 1.2 Neut # (Auto) 3.7 Lymph # (Auto) 0.7 L [place] # (Auto) 0.5 Eos # (Auto) 0.6 H Baso # (Auto) 0.1 WBC Differential . Differential Comment Auto diff final Sodium 136 Potassium 4.2 Chloride 104 Carbon Dioxide 24.8 Anion Gap 7 BUN 18 Creatinine 1.04 Estimated GFR 73 L POC Glucose Random Glucose 458 H* D 360 H Calcium 7.6 L MTS Gel Crossmatch Microbiology 09/12/18 13:15 Tissue - Other Acid Fast Bacilli Smear - Final No acid fast bacilli seen 09/11/18 13:40 Blood - Peripheral Aerobic Blood Culture - Preliminary No growth in 3 days 09/11/18 13:40 Blood - Peripheral Anaerobic Blood Culture - Preliminary No growth in 3 days 09/11/18 13:30 Blood - Peripheral Aerobic Blood Culture - Preliminary No growth in 3 days 09/11/18 13:30 Blood - Peripheral Anaerobic Blood Culture - Preliminary No growth in 3 days 09/12/18 13:15 Tissue - Other Gram Stain - Final 09/12/18 13:15 Tissue - Other Wound Culture - Final S. aureus MRSA Assessment and Plan - Assessment and Plan 1) Left BKA - POD 3 -NWB -maintain dressings and knee brace -Begin daily dressing changes tomorrow with Xeroform, 4 x 4's, ABD and Judd wrap. Continue knee immobilizer at all times -Consult infectious disease for antibiotic management and recommendations - continue discharge plan to rehab once antibiotics are arranged: Orthopedic cleared
--- NOTE | 2018-09-15 09:29 | P.CONID ---
History of Present Illness Service: Infectious Disease Consult date: 09/15/18 Requesting Physician: Daryl Peoples Reason for Consult: Evaluate patient with MRSA, assist with antibiotic Primary Care Provider: UNKNOWN Chief Complaint: Worsening left foot pain, the orthopedic doctor me to come in. History of Present Illness: Patient seen and examined. Records reviewed. Patient is a 62-year-old male, known to me from his hospitalization last month when he presented with a draining wound on his left foot. He has had previous reconstructive surgery on his left foot, and has multiple hardware is in his left foot and left leg. He has had problem with chronic infection on that foot , and at one point was treated for osteomyelitis back in 2017. He has not really had removal of any of his hardware, and he has been chronically on chronic suppression with doxycycline. When he was here in July, it was recommended for him to get amputation, but he refused, so he was discharged on some oral antibiotic for suppression until he gets reevaluated by the orthopedic surgeon who did the surgery. He was also referred to Dr. Schmitz who had seen him after he was discharged. He has been on doxycycline and ciprofloxacin. Patient apparently has followed up with his orthopedic surgeon in [place], and he eventually agreed to have the amputation done, and was referred to Dr. Peoples. He apparently has been scheduled for surgery the first of the year, but he has had increasing foot pain and increasing drainage from his left foot wound. He was advised to go to the hospital and he was admitted September 11. He underwent left BKA, and removal of all the hardware on September 12. There is a foot culture from September 11 that had MRSA. An intraoperative culture was sent and that also has MRSA. It is unclear where the culture was taken intraoperatively. Patient is afebrile. He denies any pain. His preop ESR is elevated. He is currently on Azactam and vancomycin. Infectious disease consultation has been requested to assist with antibiotic management. Review of Systems Constitutional: Denies chills, Denies fever(s) Eyes: Denies discharge, Denies dry eyes Ears, Nose, Mouth, and Throat: Denies difficulty swallowing, Denies nasal discharge, Denies sore throat Cardiovascular: Denies chest pain, Denies shortness of breath Respiratory: Denies chest congestion, Denies cough, Denies shortness of breath Gastrointestinal: Denies abdominal pain, Denies loose stools, Denies nausea, Denies pain with swallowing, Denies vomiting Genitourinary: Denies difficulty urinating, Denies painful urination Skin/Breast: Reports itching, Reports rash Neurologic: Denies headache(s) PMFSH - History History Provided By: Patient - Medical History Medical History: Medical History (Last Reviewed 09/15/18 @ 09:31 by Georgette Ryan MD) History of MRSA infection Onset Date: ~09/12/18 Charcot ankle Charcot foot due to diabetes mellitus Neuropathic foot ulcer Diabetes Osteomyelitis of left foot - Surgical History Surgical History: Surgical History (Last Reviewed 09/15/18 @ 09:31 by Georgette Ryan MD) H/O foot surgery - Family History Family History: Family History (Last Reviewed 09/15/18 @ 09:31 by Georgette Ryan MD) Other Family history not known due to adoption - Tobacco History Second Hand Smoke Exposure: No Tobacco Use In Past 30 Days: No Smoking Status: Never smoker - Alcohol History How Often Do You Have a Drink Containing Alcohol: 2 to 4 times a month - Substance Use History Substance History: No History of Abuse - Travel History Recent Travel in the [place] Within the Last 8 Weeks: No Recent Travel Out of the Country Within the Last 8 Weeks: No - Immunization History Tetanus Immunization: <5 Years Hx Influenza Vaccine This Season: No Medications and Allergies Active Medications: Active Medications Acetaminophen (Tylenol) 650 mg PO Q4H PRN PRN Reason: Temp > 100.4 Acetaminophen (Tylenol) 650 mg PO Q6H PRN PRN Reason: PAIN SCALE 1 TO 2 Hydrocodone Bitart/Acetaminophen ([place] 5/325) 1 tab PO Q4H PRN PRN Reason: PAIN SCALE 6 TO 10 Last Admin: 09/11/18 18:26 Dose: 1 tab Hydrocodone Bitart/Acetaminophen ([place] 10/325) 1 tab PO Q3H PRN PRN Reason: Pain Scale 3-10 Last Admin: 09/14/18 01:37 Dose: 1 tab Al Hydroxide/Mg Hydroxide (Milk Of Magnesia Liq) 30 ml PO Q12H PRN PRN Reason: Mild Constipation Atorvastatin Calcium (Lipitor) 10 mg PO DAILY LEO Last Admin: 09/14/18 10:00 Dose: 10 mg Bisacodyl (Dulcolax Supp) 10 mg RECTAL DAILY PRN PRN Reason: SEVERE CONSITIPATION Dextrose (D50w Vial) 50 ml IV.PUSH UNSCH PRN PRN Reason: PER HYPOGLYCEMIA PROTOCOL Glucagon (Glucagon Inj) 1 mg OTHER PRN PRN PRN Reason: for Hypoglycemia Protocol Aztreonam 1,000 mg/ Sodium (Chloride) 100 mls @ 200 mls/hr IV.SIG Q8H [facility] Last Infusion: 09/15/18 02:58 Dose: Infused Vancomycin HCl 1,500 mg/ (Sodium Chloride) 515 mls @ 250 mls/hr IV.SIG Q18H [facility] Last Admin: 09/14/18 20:10 Dose: 200 mls/hr Insulin Aspart (Novolog Insulin [place]al Sugar Inj) 0 unit SQ ACHS [facility]; Protocol Last Admin: 09/14/18 21:44 Dose: 9 unit Insulin Aspart (Novolog Inj) 5 units SQ TIDAC [facility] Last Admin: 09/14/18 20:12 Dose: Not Given Insulin Detemir (Levemir Inj) 20 unit SQ HS [facility] Last Admin: 09/14/18 21:44 Dose: 20 unit Lactulose (Lactulose Liq) 30 ml PO DAILY PRN PRN Reason: SEVERE CONSITIPATION Miscellaneous Information ([facility] Ordered Lab Info) 1 each OTHER ONCE ONE Stop: 09/15/18 09:46 Morphine Sulfate (Morphine Inj) 2 mg IV.PUSH Q3H PRN PRN Reason: PAIN 3-5; IF UABLE TO TAKE PO Naloxone HCl (Narcan Inj) 0.4 mg IV.PUSH UNSCH PRN PRN Reason: SEE LABEL COMMENTS Ondansetron HCl (Zofran Inj) 4 mg IV.PUSH Q6H PRN PRN Reason: NAUSEA OR VOMITING Ondansetron HCl (Zofran Odt) 4 mg PO Q6H PRN PRN Reason: NAUSEA OR VOMITING Pharmacy Profile Note (Vancomycin Consult Pharmacy) 1 each OTHER UNSCH PRN PRN Reason: Pharmacy to dose Senna/Docusate Sodium (Denise-Colace) 1 tab PO BID [facility] Last Admin: 09/14/18 22:37 Dose: Not Given Sennosides (Senokot) 17.2 mg PO Q12H PRN PRN Reason: Moderate Constipation Sodium Chloride (Ns Flush) 2 ml IV.FLUSH UNSCH PRN PRN Reason: FLUSH AFTER USING IV ACCESS Sodium Chloride (Ns Flush) 2 ml IV.FLUSH BID [facility] Last Admin: 09/14/18 21:45 Dose: 2 ml Tramadol HCl (Ultram) 50 mg PO Q4H PRN PRN Reason: PAIN SCALE 3 TO 5 Allergies Allergy/AdvReac Type Severity Reaction Status Date / Time tazobactam Allergy Unknown Rash Verified 08/03/18 12:44 cefepime Allergy Intermediate Rash Uncoded 08/03/18 12:44 Home Medications Medication Instructions Recorded Confirmed Type atorvastatin 10 mg PO DAILY 08/03/18 09/11/18 History lisinopril 2.5 mg PO DAILY 08/03/18 09/11/18 History tramadol 50 mg PO BID PRN 08/03/18 09/11/18 History insulin aspart U-100 [Novolog 10 unit SUBCUT AC 09/11/18 09/11/18 History U-100 Insulin aspart] insulin detemir U-100 [Levemir 40 unit SUBCUT BID 09/11/18 09/11/18 History U-100 Insulin] Exam Vital signs: Vital Signs 09/14/18 12:00 09/14/18 16:00 09/14/18 20:00 Temperature 98.0 F 98.2 F 97.3 F L Pulse Rate 82 81 76 Respiratory Rate 18 18 19 Blood Pressure 151/65 H 146/67 H 157/69 H Pulse Oximetry 97 97 98 09/15/18 00:00 09/15/18 08:00 Temperature 97.9 F 98.2 F Pulse Rate 84 67 Respiratory Rate 17 18 Blood Pressure 147/68 H 139/67 Pulse Oximetry 97 96 Intake & Output 09/14/18 09/15/18 09/15/18 18:59 06:59 18:59 Intake Total 1850 / 1850 2360 / 2360 Output Total 1200 / 1200 2155 / 2155 Balance 650 / 650 205 / 205 Weight 83.3 kg Intake: IV 50 / 50 300 / 300 Azactam Inj 1,000 MG In NS Inj 300 / 300 100 ML @ 200 mls/hr IV.SIG Q8H LE[facility] Rx#:[id number] Ancef 2 GM Premix Inj 2 gm In 50 / 50 50 ml @ 200 mls/hr IV.SIG Q8H LEO Rx#:[id number] Oral 1800 / 1800 2059 / 2059 Output: Urine 1200 / 1200 2150 / 2150 Wound Drainage 5 / Left Knee GIOVANI Drain 5 / Other: # Voids 1 Date of Last Bowel Movement 09/14/18 09/14/18 # Bowel Movements 1 1 Narrative: Physical examination GENERAL: Patient is a well-nourished, well-developed male, awake and alert, not in respiratory distress. SKIN: Cool and dry. Has generalized scattered scratch bradshaw HEAD: Atraumatic. Normocephalic. No temporal wasting, or tenderness. EYES: [employer] conjunctiva. No petechia or hemorrhage. Pupils equal, round and reactive to light. Has esotropia in his R eye. No scleral icterus. No injection or drainage. EARS, NOSE AND THROAT: Nose without bleeding or purulent nasal discharge. No sinus tenderness. Mucous membranes pink and moist. No oral lesions noted. Poor dentition NECK: Trachea midline. Supple and not tender, no meningeal signs CARDIOVASCULAR: Regular rate and rhythm. No murmurs, rubs or gallops heard RESPIRATORY: Clear to auscultation. Breath sounds equal bilaterally. No rales , wheezing or rhonchi ABDOMEN: Soft, non-tender, nondistended. Bowel sounds present and normoactive. No guarding. No rebound. No organomegaly. EXTREMITIES: No clubbing, cyanosis, or edema. No calf tenderness. Dry dressing to the LBKA stump. NEUROLOGICAL: Awake and alert. Cranial nerves grossly intact. Motor grossly within normal limits. PSYCHIATRIC: Normal affect, calm and cooperative. LINE: No evidence of infection Results - Labs CBC & Chem 7: 09/15/18 04:08 09/15/18 04:08 Labs: Laboratory Results - last 24 hr 09/12/18 09/14/18 09/14/18 11:10 21:43 22:43 WBC RBC Hgb Hct MCV MCH MCHC RDW Plt Count MPV Neut % (Auto) Lymph % (Auto) [place] % (Auto) Eos % (Auto) Baso % (Auto) Neut # (Auto) Lymph # (Auto) [place] # (Auto) Eos # (Auto) Baso # (Auto) WBC Differential Differential Comment Sodium Potassium Chloride Carbon Dioxide Anion Gap BUN Creatinine Estimated GFR POC Glucose 523 H* 502 H* Random Glucose Calcium MTS Gel Crossmatch See Detail 09/15/18 09/15/18 09/15/18 00:41 04:08 04:08 WBC 5.6 RBC 2.94 L Hgb 7.9 L Hct 23.8 L MCV 80.9 MCH 27.0 MCHC 33.4 RDW 16.9 Plt Count 463 H MPV 6.3 L Neut % (Auto) 65.9 Lymph % (Auto) 11.8 [place] % (Auto) 9.7 H Eos % (Auto) 11.4 H Baso % (Auto) 1.2 Neut # (Auto) 3.7 Lymph # (Auto) 0.7 L [place] # (Auto) 0.5 Eos # (Auto) 0.6 H Baso # (Auto) 0.1 WBC Differential . Differential Comment Auto diff final Sodium 136 Potassium 4.2 Chloride 104 Carbon Dioxide 24.8 Anion Gap 7 BUN 18 Creatinine 1.04 Estimated GFR 73 L POC Glucose Random Glucose 458 H* D 360 H Calcium 7.6 L MTS Gel Crossmatch 09/15/18 08:16 WBC RBC Hgb Hct MCV MCH MCHC RDW Plt Count MPV Neut % (Auto) Lymph % (Auto) [place] % (Auto) Eos % (Auto) Baso % (Auto) Neut # (Auto) Lymph # (Auto) [place] # (Auto) Eos # (Auto) Baso # (Auto) WBC Differential Differential Comment Sodium Potassium Chloride Carbon Dioxide Anion Gap BUN Creatinine Estimated GFR POC Glucose 375 H Random Glucose Calcium MTS Gel Crossmatch Assessment and Plan - Plan Impression Chronic osteo L foot, with multiple hardware in place, S/P LBKA He had and IM duglas in his L leg, and C/S or proximal tibia canal (+) MRSA Recommendation H will need Rx for MRSA IV vanco x 6 weeks PICC Will have him follow-up with Dr Bertha Schmitz Get baseline CRP Labs weekly while on IV Abx - CBC, creat and vanco trough Patient to go to SNF on D/C OK to D/C once everything arranged for his IV Abx Rx Thank you for this consultation Explained plan to the patient D/W Dr Peoples Spoke with CM
[2018-09-15] MEDS ORDERED: Pharmacy Ordered Lab Info OTHER ONE (09:45)
[2018-09-15] MEDS: Senna/Docusate Sodium 8.6/50 MG Tablet PO SCH ×2 (10:10→10:18)
[2018-09-15] MEDS: Insulin NovoLOG Aspart Correctional Sugar Inj SQ SCH ×3 (10:11→17:40)
--- NOTE | 2018-09-15 10:13 | P.PNIM ---
Subjective Interval history: PICC line and DC to snf on IV vanco for 6 weeks per ID Dressing changed today by ortho CM is ff for DC plan DC 09/15/18 after wound dressing was changed by ortho. PICC line placed at [facility] for IV antibiotic administration. Infusion arrnagements Vancomycin 1.8 gm IV q24H ( prescription is hand written) . Stop Treatment: Labs weekly every Tuesday forward results to Dr Ryan and Dr Roa ID specialists Weekly labs : CBC with diff, creatinine, vancomycin through ( hand written prescription) Patient is in nad. No pain at this time. no fever or chills. Eating well. No events overnight. looking forward to go to [facility] Physical Exam Vital signs: Last Vital Signs Temp 98.2 F 09/15/18 08:00 Pulse 67 09/15/18 08:00 Resp 18 09/15/18 08:00 BP 139/67 09/15/18 08:00 Pulse Ox 96 09/15/18 08:00 Intake & Output 09/13/18 09/14/18 09/15/18 09/16/18 06:59 06:59 06:59 06:59 Intake Total 3985 / 3985 3635 / 3635 4210 / 4210 Output Total 1220 / 1220 2710 / 2710 3355 / 3355 Balance 2765 / 2765 925 / 925 855 / 855 Weight 81 kg 84.5 kg 83.3 kg Narrative: Physical examination GENERAL: Patient is a well-nourished, well-developed male, awake and alert, not in respiratory distress. SKIN: Cool and dry. Has generalized scattered scratch bradshaw CARDIOVASCULAR: Regular rate and rhythm. No murmurs, rubs or gallops heard RESPIRATORY: Clear to auscultation. Breath sounds equal bilaterally. No rales , wheezing or rhonchi ABDOMEN: Soft, non-tender, nondistended. Bowel sounds present and normoactive. No guarding. No rebound. No organomegaly. EXTREMITIES: No clubbing, cyanosis, or edema. No calf tenderness. Dry dressing to the LBKA stump. NEUROLOGICAL: Awake and alert. Cranial nerves grossly intact. Motor grossly within normal limits. PSYCHIATRIC: Normal affect, calm and cooperative. LINE: No evidence of infection Results Labs CBC & Chem 7: 09/15/18 04:08 09/15/18 04:08 Labs: Microbiology 09/12/18 13:15 Tissue - Other Acid Fast Bacilli Smear - Final No acid fast bacilli seen 09/11/18 13:40 Blood - Peripheral Aerobic Blood Culture - Preliminary No growth in 3 days 09/11/18 13:40 Blood - Peripheral Anaerobic Blood Culture - Preliminary No growth in 3 days 09/11/18 13:30 Blood - Peripheral Aerobic Blood Culture - Preliminary No growth in 3 days 09/11/18 13:30 Blood - Peripheral Anaerobic Blood Culture - Preliminary No growth in 3 days 09/12/18 13:15 Tissue - Other Gram Stain - Final 09/12/18 13:15 Tissue - Other Wound Culture - Final S. aureus MRSA Assessment and Plan Plan SEVERE SEPSIS resolving due to osteomyelitis and infected left foot wound continue IV antibiotics, infectious disease follow-up DIABETIC FOOT WOUND INFECTION with OSTEOMYELITIS s/p I&D and left leg amputation on 09/12/[address] Peoples , podiatry/Orth consulted and ff Plan for wound dressing on 09/15 Consult ID for abx recommendations POSTOPERATIVE ANEMIA. Received blood transfusion postop. HGB 8.3 (09/14) DM insulin-dependentuncontrolled, continue insulin sliding scale and diabetic diet HTN continue blood pressure monitoring HYPERLIPIDEMIA continue statin ANEMIAchronic normocytic HYPERKALEMIAhold VERÓNICA, status post Kayexalate, monitor potassium Constipation: Bowel regimen DVT prophylaxisSCD perioperative Add incentive spirometry PT OT DC plan: rehab once stable vs [facility] CM consulted for DC plan Discussed with the patient, nurse DC 09/15/18 after wound dressing was changed by ortho. PICC line placed at DC for IV antibiotic administration. Vancomycin 1.8 gm IV q24H ( prescription is hand written) . Stop Treatment: Labs weekly every Tuesday forward results to Dr Ryan and Dr Roa ID specialists Weekly labs : CBC with diff, creatinine, vancomycin through ( hand written prescription) Progress Note: Quality VTE Deep Vein Thrombosis/Pulmonary Embolism Present on Admission: No
[2018-09-15] MEDS: Vancomycin Inj 1,500 MG in Sodium Chlor 0.9% Inj 500 ML IV.SIG SCH (10:50)
[2018-09-15] MEDS ORDERED: Heparin Central Flush 100 UNIT/ML 5 ML Vial IV.FLUSH PRN (14:12)
--- NOTE | 2018-09-15 14:26 | P.DCO ---
Post Hospital Infusion Therapy - Patient Information Patient Weight: 83.3 kg - Diagnosis (1) Osteomyelitis of left tibia Code(s): M86.9 - Osteomyelitis, unspecified (2) MRSA (methicillin resistant Staphylococcus aureus) infection Code(s): A49.02 - Methicillin resistant Staphylococcus aureus infection, unspecified site - Administer Medication Vancomycin Additional Dosing Instructions: Vancomycin 1.8 gm IV q24H Stop Treatment: 10/23/18 - Additional Information Venous Access: PICC Line Additional Instructions: [x] Peripheral flush and dressing changes per protocol [x] Implanted port and central liner man: * Implanted port: 10 ml Normal Saline followed by 5 ml Heparin 100 units/ml Heparin flush after each use and monthly to maintain. [] May leave port accessed during therapy. [] May leave peripheral site accessed for duration of therapy. [x] If patient has SOB or respiratory distress, check oxygen saturation. If less than 90% or clinical signs of respiratory distress, administer oxygen at 2 L/min. via nasal cannula and notify physician. [x] Anaphylaxis/Reaction orders: * Stop infusion. * Keep IV line open with saline flush. * Notify physician. * Monitor vital signs every 15 minutes until symptoms resolve. * Check Oxygen saturation; Oxygen at 2 L/min. via nasal cannula if less than 90% or clinical signs of respiratory distress. * Administer diphenhydramine (Benadryl) 25 mg IV STAT, (unless patient has received as pre-med). May repeat once, if necessary. * Solu-Cortef 250 mg IVP over 30-60 seconds, use 100 mg vials for each dissolution. * Epinephrine (1mg/1 ml) 0.3 mg subcutaneously or IVP now with any signs of respiratory distress. * Check with physician for new additional pre-med orders if patient is re- challenged or re-treated. [x] May remove PICC line when treatment complete, after confirming with Physician. [x] If the patient is admitted to the hospital, the ED, or transferred via [facility] , complete transfer form including medication reconciliation order sheet. Weekly Labs: CBC w/diff, Creatinine, Vancomycin Trough (Labs every Tuesday - copy to me and Dr Bertha Schmitz) Additional Information: Please have patient follow-up with Dr Schmitz in 3weeks Please have pharmacy assist with Vanco dosing aim for trough 15-20 - Case Management Consult Case Management Consult-IVF: Yes (IV Abx) - Patient Information Allergies tazobactam Allergy (Unknown, Verified 08/03/18 12:44) Rash Has tolerated Keflex multiple times. cefepime Allergy (Intermediate, Uncoded 08/03/18 12:44) Rash
[2018-09-15 16:44] VITALS: TEMP 97.5
[2018-09-15 16:47] VITALS: BP 135/51; PULSE 98; RESP 18; O2SAT 95
[2018-09-16] MEDS ORDERED: Heparin Central Flush 100 UNIT/ML 5 ML Vial IV.FLUSH SCH (09:00)
== END 2018-09-15 17:54 ==
LOC: NEPC 12:59 → NEDA 15:22 → NEPGCP 20:59 → N07 09-12 10:38
PROVIDERS: ADMIT Hospitalist; ATTEND Hospitalist
DX: E87.5 Hyperkalemia; E78.5 Hyperlipidemia, unspecified; Z88.1 Allergy status to other antibiotic agents; S91.302A Unspecified open wound, left foot, initial encounter; M14.672 Charcot's joint, left ankle and foot; B95.62 Methicillin resistant Staphylococcus aureus infection as the cause of diseases classified elsewhere; M86.672 Other chronic osteomyelitis, left ankle and foot; L97.529 Non-pressure chronic ulcer of other part of left foot with unspecified severity; E11.621 Type 2 diabetes mellitus with foot ulcer; E11.69 Type 2 diabetes mellitus with other specified complication; A41.9 Sepsis, unspecified organism; Z16.11 Resistance to penicillins; Z79.4 Long term (current) use of insulin; E11.65 Type 2 diabetes mellitus with hyperglycemia; D64.9 Anemia, unspecified; M86.172 Other acute osteomyelitis, left ankle and foot; K59.00 Constipation, unspecified; Z98.890 Other specified postprocedural states; R65.20 Severe sepsis without septic shock